=== PATIENT | male | born 1970 | race African-American/Black ===

== ENCOUNTER 2018-07-21 19:49 | Inpatient (IN) | payer MEDICAID, OTHER ==
[~2018-07-21] VITALS: Ht 185.4 cm; Wt 97.5 kg
[2018-07-21] MEDS ORDERED: NS IV 1000 ML 1,000 ML IV ONE ×2 (21:21→22:12)
[2018-07-21] MEDS ORDERED: fentaNYL INJECTION 100 MCG/2 ML AMP IVP STA (21:21)
[2018-07-21 21:28] LABS: BASOPHILS # (AUTO) 0.1 10^3/uL (0.0-0.1); BASOPHILS % (AUTO) 0 % (0-10); EOSINOPHILS % (AUTO) 0 % (0-10); HEMATOCRIT 36 % (40-54); HEMOGLOBIN 12.6 G/DL (13.3-17.7); LYMPHOCYTES # (AUTO) 0.9 X 10^3 (1.0-4.0); LYMPHOCYTES % (AUTO) 4 % (12-44); MEAN CORPUSCULAR HEMOGLOBIN 28 PG (25-34); MEAN CORPUSCULAR HGB CONC 35 G/DL (32-36); MEAN CORPUSCULAR VOLUME 80 FL (80-99); MEAN PLATELET VOLUME 12.5 FL (7.4-10.4); MONOCYTES # (AUTO) 1.2 X 10^3 (0.0-1.0); MONOCYTES % (AUTO) 6 % (0-12); NEUTROPHILS # (AUTO) 18.7 X 10^3 (1.8-7.8); NEUTROPHILS % (AUTO) 90 % (42-75); PLATELET COUNT 201 10^3/uL (130-400); RED BLOOD COUNT 4.56 10^6/uL (4.35-5.85); RED CELL DISTRIBUTION WIDTH 13.2 % (10.0-14.5); WHITE BLOOD COUNT 20.9 10^3/uL (4.3-11.0)
--- NOTE | 2018-07-21 21:38 | ED GI ---
General Stated Complaint: BLEEDING FROM RECTUM Source of Information: Patient Exam Limitations: No Limitations History of Present Illness Date Seen by Provider: Jul 21, 2018 Time Seen by Provider: 21:15 Initial Comments Here with complaint of swelling and pain near the rectum that has been worsening over the past several days. Has been incontinent of stool for the last couple of months. He did seen and Dr. sarath Esquivel who was talking with him about therapy options. Patient was not a great historian on what was going on but stated that that doctor told him he would likely need a colostomy so he quit going to see him. Today reports 2 days of rectal bleeding and drainage with significant pain. He is unable to lay on his bottom due to the swelling and pain. Remains incontinent of stool. Denies nausea or vomiting. 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 Apparently that mass was benign. She does not follow with her doctor typically. Timing/Duration: 2-3 Days, Getting Worse Severity/Quality: Moderate, Severe, Aching Location: Other (perirectal) Radiation: Other (buttocks and low pelvis) Activities at Onset: None Modifying Factors: Worsens With Movement Associated Symptoms: No Back Pain, No Chest Pain; Fever/Chills; No Nausea/ Vomiting; Shortness of Air, Weakness Allergies and Home Medications Allergies Coded Allergies: No Known Drug Allergies (Unverified , 07/21/18) Patient Home Medication List Home Medication List Reviewed: Yes Review of Systems Review of Systems Constitutional: see HPI, chills, fever EENTM: No Symptoms Reported Respiratory: Cough, Shortness of Air Cardiovascular: Denies Chest Pain, Denies Edema Gastrointestinal: Diarrhea, Rectal Bleeding Genitourinary: No Symptoms Reported Musculoskeletal: No back pain; muscle pain Skin: change in color, lesions Psychiatric/Neurological: See HPI All Other Systems Reviewed Negative Unless Noted: Yes Past Xmkiuat-Atrmsk-Pnzywp Hx Past Med/Social Hx: Reviewed Nursing Past Med/Soc Hx Patient Social History Alcohol Use: Denies Use Recreational Drug Use: No Smoking Status: Current Everyday Smoker Recent Foreign Travel: No Contact w/Someone Who Travel: No Past Medical History Lobectomy Respiratory: Yes Chronic Bronchitis Neurological: No Genitourinary: No Gastrointestinal: Yes Musculoskeletal: No Family Medical History Reviewed Nursing Family Hx Physical Exam Vital Signs Capillary Refill : Height/Weight/BMI Height: '" Weight: lbs. oz. kg; BMI Method: General Appearance: WD/WN, moderate distress HEENT: PERRL/EOMI, pharynx normal Neck: full range of motion, supple Respiratory: decreased breath sounds (left-sided), crackles, expiration Cardiovascular: no murmur, tachycardia Gastrointestinal: non tender, soft Rectal: blood streaked stool, mass, tenderness, other (very tender. Drainage noted perirectal on the superior aspect and left sided. Mass noted left-sided and within the left side of the rectum. Blood noted and bloody drainage noted.) Extremities: non-tender, normal inspection Back: normal inspection, no CVA tenderness, no vertebral tenderness Neurologic/Psychiatric: alert, oriented x 3 Skin: normal color, warm/dry Focused Exam Lactate Level 07/21/18 21:30: Lactic Acid Level 2.42*H Lactic Acid Level Laboratory Tests Test 07/21/18 21:30 Lactic Acid Level 2.42 MMOL/L (0.50-2.00) *H Progress/Results/Core Measures Results/Orders Lab Results Laboratory Tests Test 07/21/18 21:12 07/21/18 21:30 Range/Units White Blood Count 20.9 H 4.3-11.0 10^3/uL Red Blood Count 4.56 4.35-5.85 10^6/uL Hemoglobin 12.6 L 13.3-17.7 G/DL Hematocrit 36 L 40-54 % Mean Corpuscular Volume 80 80-99 FL Mean Corpuscular Hemoglobin 28 25-34 PG Mean Corpuscular Hemoglobin Concent 35 32-36 G/DL Red Cell Distribution Width 13.2 10.0-14.5 % Platelet Count 201 130-400 10^3/uL Mean Platelet Volume 12.5 H 7.4-10.4 FL Neutrophils (%) (Auto) 90 H 42-75 % Lymphocytes (%) (Auto) 4 L 12-44 % Monocytes (%) (Auto) 6 0-12 % Eosinophils (%) (Auto) 0 0-10 % Basophils (%) (Auto) 0 0-10 % Neutrophils # (Auto) 18.7 H 1.8-7.8 X 10^3 Lymphocytes # (Auto) 0.9 L 1.0-4.0 X 10^3 Monocytes # (Auto) 1.2 H 0.0-1.0 X 10^3 Eosinophils # (Auto) 0.0 0.0-0.3 10^3/uL Basophils # (Auto) 0.1 0.0-0.1 10^3/uL Neutrophils % (Manual) 85 % Lymphocytes % (Manual) 2 % Monocytes % (Manual) 6 % Eosinophils % (Manual) 0 % Basophils % (Manual) 0 % Band Neutrophils 7 % Blood Morphology Comment NORMAL Sodium Level 135 135-145 MMOL/L Potassium Level 3.7 3.6-5.0 MMOL/L Chloride Level 98 98-107 MMOL/L Carbon Dioxide Level 21 21-32 MMOL/L Anion Gap 16 H 5-14 MMOL/L Blood Urea Nitrogen 23 H 7-18 MG/DL Creatinine 2.03 H 0.60-1.30 MG/DL Estimat Glomerular Filtration Rate 35 BUN/Creatinine Ratio 11 Glucose Level 133 H 70-105 MG/DL Calcium Level 9.1 8.5-10.1 MG/DL Corrected Calcium 9.8 8.5-10.1 MG/DL Total Bilirubin 1.1 H 0.1-1.0 MG/DL Aspartate Amino Transf (AST/SGOT) 38 H 5-34 U/L Alanine Aminotransferase (ALT/SGPT) 32 0-55 U/L Alkaline Phosphatase 87 40-136 U/L Total Protein 7.1 6.4-8.2 GM/DL Albumin 3.1 L 3.2-4.5 GM/DL Lactic Acid Level 2.42 *H 0.50-2.00 MMOL/L My Orders Orders - ALICIA COREY MD Cbc With Automated Diff (07/21/18 21:21) Comprehensive Metabolic Panel (07/21/18 21:21) Lactic Acid Analyzer (07/21/18 21:21) Ua Culture If Indicated (07/21/18 21:21) Blood Culture (07/21/18 21:21) Ct Abdomen/Pelvis Wo (07/21/18 21:21) Saline Lock/Iv-Start (07/21/18 21:21) Fentanyl Injection (Sublimaze Injection (07/21/18 21:21) Saline Lock/Iv-Start (07/21/18 21:21) Ns Iv 1000 Ml (Sodium Chloride 0.9%) (07/21/18 21:21) I-Stat Bedside Testing (07/21/18 21:23) Manual Differential (07/21/18 21:12) Chest 1 View, Ap/Pa Only (07/21/18 22:08) Piperacillin Sodium/Tazobactam (Zosyn Vi (07/21/18 22:15) Saline Lock/Iv-Start (07/21/18 22:12) Ns Iv 1000 Ml (Sodium Chloride 0.9%) (07/21/18 22:12) Vancomycin Injection (Vancomycin Injecti (07/21/18 23:30) Medications Given in ED Current Medications Medications Dose Ordered Sig/Jen Route Start Time Stop Time Status Last Admin Dose Admin Piperacillin Sod/ Tazobactam Sod 4.5 gm/Sodium Chloride 100 ml @ 200 mls/hr ONCE ONCE IV 07/21/18 22:15 07/21/18 22:44 DC 07/21/18 23:07 200 MLS/HR Sodium Chloride 1,000 ml @ 0 mls/hr Q0M ONCE IV 07/21/18 21:21 07/21/18 21:24 DC 07/21/18 21:35 1,000 MLS/HR Sodium Chloride 1,000 ml @ 0 mls/hr Q0M ONCE IV 07/21/18 22:12 07/21/18 22:13 DC 07/21/18 22:30 1,000 MLS/HR Progress Progress Note : Progress Note IV, labs, UA, chest x-ray and i-STAT ordered for chemistry. Patient's creatinine is elevated. We will get CT abdomen and pelvis without contrast. There is concerns about perirectal mass and or perirectal abscess. Blood cultures and lactic acid have been drawn and ordered. Monitor patient. I have reviewed the CT scan of the patient and am concerned about perirectal abscess I did discuss the case with Dr. Jones at 2210. He wishes the patient to be admitted to the ICU. We will initiate Zosyn and vancomycin therapy. We are attempting second IV now. 2345: CT results noted. Zosyn and vancomycin initiated. Second liter of fluid has been initiated. Patient has findings of severe sepsis without shocked. He does not require high-volume Fluid resuscitation although did receive 2 L of normal saline exceeding the 30 mL/kg bolus. He is doing better currently. I attest focused exam at this time. I did inform the patient and family of the serious nature of his illness and concerns of potential worsening. At that to the ICU critical but stable condition. Patient and family agree with plan. Diagnostic Imaging Diagonstic Imaging: CT Plain Films/CT/US/NM/MRI: abdomen, pelvis Comments There is a large perirectal abscess projecting into the pelvis posterior to the bladder and with involvement of the rectal vault. There are locules of air but this appears to contain to the retroperitoneum at the level of the rectal vault without pre-or projecting into the peritoneal cavity proper. There is significant air fluid collection in the subcutaneous fat below the level of the sacrum with at least to partially isolated inflammatory fluid collections believed to present as described. This may represent a perirectal abscess projecting into the pelvic tissues but given the loss of margination with the rectal vault a diverticular abscess projecting into the perirectal subcutaneous tissues and potentially even a rectal malignancy presenting as a rectal abscess complication are possible etiologies. The epicenter is intrapelvic at the level of the hips and sacrum and so far I favor diverticular abscess or rectal trauma over hematogenous perirectal abscess or neoplasm. Departure Communication (Admissions) Time/Spoke to Admitting Phy: 22:10 Impression Primary Impression: Perirectal abscess Additional Impression: Severe sepsis Disposition: ADMITTED INPATIENT Condition: Critical Admissions Decision to Admit Reason: Admit from ER (General) Decision to Admit/Date: Jul 21, 2018 Time/Decision to Admit Time: 22:10 ALICIA COREY MD Jul 21, 2018 21:38
[2018-07-21 21:46] LABS: ALBUMIN 3.1 GM/DL (3.2-4.5); BILIRUBIN,TOTAL 1.1 MG/DL (0.1-1.0); CALCIUM 9.1 MG/DL (8.5-10.1); CREATININE SERUM 2.03 MG/DL (0.60-1.30); POTASSIUM 3.7 MMOL/L (3.6-5.0); TOTAL PROTEIN 7.1 GM/DL (6.4-8.2)
[2018-07-21 21:58] LABS: NEUTROPHILS % (MANUAL) 85 %
[2018-07-21 21:59] LABS: BAND NEUTROPHILS 7 %; BASOPHILS % (MANUAL) 0 %; EOSINOPHILS % (MANUAL) 0 %; LYMPHOCYTES % (MANUAL) 2 %; MONOCYTES % (MANUAL) 6 %; RBC MORPH NORMAL
[2018-07-21] MEDS ORDERED: PIPERACILLIN SODIUM/TAZOBACTAM 4.5 GM in NS (IVPB) 100 ML IV ONE (22:15)
[2018-07-21] MEDS ORDERED: VANCOMYCIN INJECTION 1,000 MG in NS (IVPB) 250 ML IV ONE (23:30)
[2018-07-22] VITALS (33 sets, daily range): BP systolic 71–130; BP diastolic 48–78
[2018-07-22] MEDS ORDERED: fentaNYL INJECTION 100 MCG/2 ML AMP ONE ×3 (00:49→10:07)
[2018-07-22] MEDS ORDERED: fentaNYL INJECTION 100 MCG/2 ML AMP IVP PRN (01:00)
[2018-07-22] MEDS ORDERED: NS IV 1000 ML 1,000 ML ONE (02:10)
[2018-07-22] MEDS: NS IV 1000 ML 1,000 ML IV SCH ×2 (02:10→07:17)
[2018-07-22] MEDS ORDERED: ONDANSETRON 4 MG/2 ML (SDV) Z0FRAN IV PRN (02:15)
[2018-07-22] MEDS ORDERED: NS IV ONE (02:15)
[2018-07-22] MEDS: NOREPINEPHRINE 4 MG in NS (IVPB) 250 ML IV SCH ×3 (02:23→22:00)
[2018-07-22] MEDS ORDERED: HYDROmorphone 1 MG/ML (DILAUDID) 1 ML SYRINGE IV ONE (02:45)
[2018-07-22] MEDS ORDERED: RT-ALBUTEROL/IPRATROPIUM 3 ML (DUONEB) VIAL INH PRN (03:00)
[2018-07-22] MEDS ORDERED: HYDROmorphone 2 MG/ML VIAL (DILAUDID) ONE ×2 (03:11→10:03)
[2018-07-22] MEDS: fentaNYL INJECTION 100 MCG/2 ML AMP IV PRN ×2 (03:58→17:21)
[2018-07-22] MEDS: PIPERACILLIN SODIUM/TAZOBACTAM 4.5 GM in NS (IVPB) 100 ML IV SCH ×3 (03:59→20:38)
--- NOTE | 2018-07-22 06:01 | Diagnostic Imaging Report ---
INDICATION: Rectal bleeding COMPARISON: None FINDINGS: Single frontal view of the chest demonstrates normal heart size and pulmonary vascularity. The lungs are well aerated and clear. No large pleural effusion or pneumothorax is seen. The visualized osseous structures show no acute abnormalities. IMPRESSION: 1. No acute cardiopulmonary process. Dictated by: Dictated on workstation # [id number]
[2018-07-22] MEDS: RT-ALBUTEROL/IPRATROPIUM 3 ML (DUONEB) VIAL INH SCH ×2 (06:59→19:29)
--- NOTE | 2018-07-22 07:09 | Diagnostic Imaging Report ---
PROCEDURE: CT abdomen and pelvis without contrast. TECHNIQUE: Multiple contiguous axial images were obtained through the abdomen and pelvis without the use of intravenous contrast. INDICATION: Rectal bleeding. FINDINGS: There is a necrotic appearing air-fluid collection in the perirectal region noted with the largest component noted left of the rectum though there is also a cystic component at the anterior and right of the rectum. The images are obtained in a prone position without contrast. The air-fluid cavitary area extends from the subcutaneous tissues to the perirectal region near the anal sphincter. This measures approximately 12 x 6 cm. There is considerable associated edema surrounding this. The tissue planes are lost between the rectum and the mesorectal fat with the fluid collection. An underlying rectal mass could not be excluded. The bladder is nondistended. There is gas and stool in the colon with fluid-filled loops of small bowel which are not significantly distended. No definite free air or free intraperitoneal air demonstrated. IMPRESSION: 1. Large necrotic appearing mass within the floor of the pelvis largest component left to the rectum extending to the subcutaneous surfaces. There is also cystic component anterior and to the right of the rectum and pelvis. These findings are consistent with perirectal abscess. An underlying malignancy, however, cannot be excluded. Dictated by: Dictated on workstation # [id number]
[2018-07-22] MEDS ORDERED: VANCOMYCIN 750 MG/NS 250 ML IVPB IV NR ×2 (07:27)
[2018-07-22] MEDS ORDERED: LACTATED RINGERS 1,000 ML IV ONE ×2 (08:13→08:30)
--- NOTE | 2018-07-22 08:54 | History & Physicial ---
History of Present Illness History of Present Illness Reason for visit/HPI rectal incontinence without any pain for a month followed by acute perirectal pain and bloody drainage from around the anal region for the last 3 days. Found to be septic with hypotension and impaired renal function in the emergency room, subsequently admitted for management. Denies any change in his bowel habits. Previous right lobectomy for what he claims to be a benign condition. Disabled since then. Date of Admission Jul 21, 2018 at 23:45 Date Seen by Provider: Jul 22, 2018 Time Seen by Provider: 08:00 I consulted on this patient on 07/22/18 08:49 Attending Physician Robert Arias MD Admitting Physician No,Local Physician Consult Allergies and Home Medications Allergies Coded Allergies: No Known Drug Allergies (Unverified , 07/21/18) Patient Home Medication List Home Medication List Reviewed: Yes Past Cajclyj-Ckzkgi-Zgpleu Hx Patient Social History Marrital Status: single Employed/Student: unemployed Alcohol Use: Denies Use Recreational Drug Use: No Drug of Choice: past use Smoking Status: Current Everyday Smoker Type Used: Cigarettes Physical Abuse Screen: No Sexual Abuse: No Recent Foreign Travel: No Contact w/other who traveled: No Recent Hopitalizations: No Recent Infectious Disease Expo: No Immunizations Up To Date Tetanus Booster (TDap): Unknown Pediatric: No Seasonal Allergies Seasonal Allergies: Yes (hayfever) Surgeries Yes (frequent foot surgeries for plantar warts) Lobectomy Respiratory Yes COPD Cardiovascular Yes Neurological No Genitourinary No Gastrointestinal No Musculoskeletal No Endocrine History of Endocrine Disorders: No HEENT History of HEENT Disorders: No Cancer Yes Lung Did You Recieve Any Treatments: Yes Type of Treatment: Surgical Intervention Psychosocial History of Psychiatric Problem: No Integumentary History of Skin or Integumenta: Yes (plantar warts to bilateral feet) Blood Transfusions History of Blood Disorders: No Family Medical History Family Hx: Patient reports no known family medical history. Review of Systems Constitutional: malaise, weakness EENTM: no symptoms reported Respiratory: cough, dyspnea on exertion Gastrointestinal: see HPI Genitourinary: no symptoms reported Musculoskeletal: back pain, joint pain Skin: no symptoms reported Psychiatric/Neurological: No Symptoms Reported Physical Exam Vital Signs Vital Signs - First Documented 07/21/18 07/22/18 20:45 02:15 Temp 98.2 Pulse 113 Resp 22 B/P (MAP) 95/69 (78) Pulse Ox 100 O2 Delivery Room Air FiO2 21 Capillary Refill : Less Than 3 Seconds Height, Weight, BMI Height: 6'1.00" Weight: 187lbs. 2.0oz. 84.557524fl; 24.5 BMI Method:Stated General Appearance: Anxious Neck: Normal Inspection Respiratory: Accessory Muscle Use, Decreased Breath Sounds Cardiovascular: Tachycardia Gastrointestinal: Non Tender, Soft Rectal: Other Back: Normal Inspection Extremity: Normal Inspection Neurologic/Psychiatric: Alert, Oriented x3 Skin: Warm/Dry, Cool Comments swelling and tenderness around the perirectal region, more toward the left side. Assessment/Plan Assessment and Plan gentleman with what appears to be a silvia rectal/ischiorectal abscess with gas forming organisms. New onset of anal incontinence. Etiology unknown. Underlying rectal/colonic pathology to be considered. Hypotension due to septic response. Impaired renal function due to sepsis. Fluid resuscitation in progress and systolic blood pressure has improved to just over 100. Reasonable to place a central venous catheter for invasive hemodynamic monitoring and more accurate fluid replacement, combined with formal incision and drainage under general anesthetic. Subsequently, he'll undergo bowel preparation, in anticipation of colonoscopy.All these complications have been discussed with him and he is in agreement to proceed Admission Diagnosis Admission Status: Inpatient Order (span 2 midnights) Reason for Inpatient Admission: expected management lasted longer than 2 days; requires antibiotics surgical therapy and antibiotics Clinical Quality Measures DVT/VTE Risk/Contraindication: Risk Factor Score Per Nursin RFS Level Per Nursing on Admit: 2=Moderate ROBERT ARIAS MD Jul 22, 2018 08:54
--- NOTE | 2018-07-22 08:55 | Progress Note-Pre Operative ---
Pre-Operative Progress Note H&P Reviewed The H&P was reviewed, patient examined and no changes noted. Date Seen by Provider: Jul 22, 2018 Time Seen by Provider: 08:00 Date H&P Reviewed: Jul 22, 2018 Time H&P Reviewed: 08:55 Pre-Operative Diagnosis: ischiorectal abscess. Hypotension ROBERT ARIAS MD Jul 22, 2018 08:55
[2018-07-22 09:12] LABS: CREATININE SERUM 1.83 MG/DL (0.60-1.30)
[2018-07-22] MEDS ORDERED: BUP/EPI 0.5% 1:200,000 (SENSORCAINE) 30 ML VIAL ONE (09:16)
[2018-07-22 09:23] LABS: CALCIUM 8.6 MG/DL (8.5-10.1)
[2018-07-22] MEDS: LACTATED RINGERS 1,000 ML IV SCH ×4 (09:29→23:06)
[2018-07-22] MEDS ORDERED: MIDAZOLAM 2 MG/2 ML (VERSED) VIAL ONE (09:36)
[2018-07-22] MEDS ORDERED: HEParin (CENTRAL IV FLUSH) 500 UNIT/5 ML SYR ONE (09:38)
[2018-07-22] MEDS ORDERED: MEPERIDINE (DEMEROL) INJ 50 MG/ML ONE (10:03)
[2018-07-22] MEDS ORDERED: proPOfol 200 MG/20 ML (DIPRIVAN) VIAL IV ONE (10:18)
[2018-07-22] MEDS ORDERED: SEVOFLURANE (ULTANE) 15 ML INHAL SOLN ONE ×4 (10:19→12:13)
[2018-07-22] MEDS ORDERED: ONDANSETRON 4 MG/2 ML (SDV) Z0FRAN ONE (10:19)
[2018-07-22] MEDS ORDERED: ETOMIDATE IV SOLN 20 MG/10 ML VIAL ONE (10:20)
--- NOTE | 2018-07-22 10:40 | Operative Report ---
Operative Report Date of Procedure/Surgery Jul 22, 2018 Surgeon (s) ROBERT ARIAS MD Call Or Contact Centre Manager (s): N/A Post-Operative Diagnosis 1.distal rectal lesion 2. Left ischiorectal abscess Procedure Performed central line placement Exam under anesthetic Incision and drainage of left ischiorectal abscess Description of Procedure Anesthesia Type: General Estimated blood loss (mL): minimal Specimen(s) collected/removed pus for culture Description of the Procedure Indication for the procedure: This gentleman with a one-month history of anal incontinence, presented to the emergency room with a brief history of swelling and pain around the perianal region. He was found to be hypotensive with what appeared to be an infected collection around the left perirectal region. Following fluid resuscitation and improvement of his blood pressure, he was offered an exam under anesthetic with possible incision and drainage of the offending abscess. Placing a central venous catheter for invasive hemodynamic monitoring and addressing poor venous access was also offered. Informed consent was obtained after reviewing the details of the procedure and highlighting the grave nature of this illness. Description of the procedure: He was initially placed supine on the operative table and general anesthesia induced using a laryngeal mask airway. He had received intravenous antibiotics prior to his arrival in the operating room. 1.Central venous catheter placement: Left infraclavicular fossa was prepared and draped in the usual sterile manner. Subclavian vein was accessed and a floppy guidewire introduced into the heart. Subcutaneous tract was gently dilated using a silastic sheath and a 7.5 Ethiopian, 20 cm long, triple lumen central venous catheter advanced using Seldinger technique. All the channels were flushed and aspirated with heparinized saline. Catheter was then secured using a silk suture and a dressing applied. 2. Exam under anesthetic/incision and drainage of left ischiorectal abscess: He was then placed in combined lithotomy position after a Rousseau catheter was placed. Examination confirmed a large swelling to the left of the anal margin. Digital examination give the impression of a distal rectal tumor. This would be confirmed by formal colonoscopy and biopsy. A 3 cm vertical incision was made over the left perirectal region and a large hematoma with early evidence of abscess formation evacuated. It had the configuration of an ischiorectal abscess. All the loculi were broken down and the cavity was irrigated with saline. 2 separate [place] drains were left within the cavity and secured with silk sutures. A dressing was then applied. He tolerated the procedure well and is taken to the recovery room after being extubated. Findings of the Procedure See op report Allergies and Home Medications Allergies Coded Allergies: No Known Drug Allergies (Unverified , 07/21/18) Patient Home Medication List Home Medication List Reviewed: Yes ROBERT ARIAS MD Jul 22, 2018 10:40
[2018-07-22] MEDS ORDERED: PROMETHAZINE INJ 25 MG/ML (PHENERGAN) AMP IVP ONE (11:15)
[2018-07-22] MEDS ORDERED: ONDANSETRON 4 MG/2 ML (SDV) Z0FRAN IVP PRN (11:15)
[2018-07-22] MEDS ORDERED: fentaNYL INJECTION 100 MCG/2 ML AMP IVP ONE (11:15)
[2018-07-22] MEDS ORDERED: HYDROmorphone 2 MG/ML VIAL (DILAUDID) IV ONE (11:15)
--- NOTE | 2018-07-22 11:17 | Diagnostic Imaging Report ---
INDICATION: Central line placement. Comparison with 07/21/2018. FINDINGS: Left central line is present. Tip overlies the superior vena caval shadow at the cavoatrial junction. The lungs are well-aerated. No pneumothorax or pleural effusions. Heart is mildly enlarged. IMPRESSION: Satisfactory left central line placement. Dictated by: Dictated on workstation # [id number]
[2018-07-22] MEDS ORDERED: VANCOMYCIN INJECTION 1,250 MG in NS (IVPB) 250 ML IV SCH (11:30)
[2018-07-22] MEDS ORDERED: MAGNESIUM CITRATE 300 ML BTL PO ONE ×2 (13:45→19:45)
[2018-07-22] MEDS ORDERED: NS IV 500 ML 500 ML ONE (15:31)
[2018-07-22] MEDS: VANCOMYCIN 1 GM/NS 250 ML IVPB IV SCH ×2 (20:37)
[2018-07-23] VITALS (42 sets, daily range): BP systolic 91–128; BP diastolic 56–89
[2018-07-23] MEDS: NOREPINEPHRINE 4 MG in NS (IVPB) 250 ML IV SCH (01:58)
[2018-07-23] MEDS: PIPERACILLIN SODIUM/TAZOBACTAM 4.5 GM in NS (IVPB) 100 ML IV SCH ×3 (03:40→21:46)
[2018-07-23 04:07] LABS: BASOPHILS % (AUTO) 0 % (0-10); EOSINOPHILS # (AUTO) 0.1 10^3/uL (0.0-0.3); EOSINOPHILS % (AUTO) 0 % (0-10); HEMATOCRIT 26 % (40-54); HEMOGLOBIN 9.1 G/DL (13.3-17.7); LYMPHOCYTES # (AUTO) 0.8 X 10^3 (1.0-4.0); LYMPHOCYTES % (AUTO) 5 % (12-44); MEAN CORPUSCULAR HEMOGLOBIN 27 PG (25-34); MEAN CORPUSCULAR HGB CONC 35 G/DL (32-36); MEAN CORPUSCULAR VOLUME 80 FL (80-99); MEAN PLATELET VOLUME 12.9 FL (7.4-10.4); MONOCYTES # (AUTO) 0.8 X 10^3 (0.0-1.0); MONOCYTES % (AUTO) 5 % (0-12); NEUTROPHILS % (AUTO) 89 % (42-75); PLATELET COUNT 168 10^3/uL (130-400); RED BLOOD COUNT 3.32 10^6/uL (4.35-5.85); RED CELL DISTRIBUTION WIDTH 13.1 % (10.0-14.5); WHITE BLOOD COUNT 15.8 10^3/uL (4.3-11.0)
[2018-07-23 04:26] LABS: ALBUMIN 2.2 GM/DL (3.2-4.5); BILIRUBIN,TOTAL 1.8 MG/DL (0.1-1.0); CALCIUM 8.2 MG/DL (8.5-10.1); CREATININE SERUM 2.05 MG/DL (0.60-1.30); PHOSPHORUS 3.4 MG/DL (2.3-4.7); POTASSIUM 3.7 MMOL/L (3.6-5.0); TOTAL PROTEIN 5.5 GM/DL (6.4-8.2)
--- NOTE | 2018-07-23 07:09 | Diagnostic Imaging Report ---
CLINICAL INDICATION: Patient with perirectal abscess and severe sepsis and renal failure. EXAM: Portable chest x-ray upright view. COMPARISON: Portable chest x-ray dated 07/22/2018. FINDINGS: There is slight improved aeration of left lung base with persistent increased density involving the periphery of the left midlung field left lung base. Considerations may include atelectasis versus infiltrate. There is no pleural effusion or pneumothorax. Pulmonary vasculature and cardiac silhouette is within normal limits. Surgical clips are seen overlying the left upper mediastinal region. Bone show no significant abnormality. Likely skin shadow seen overlying the periphery of the right hemithorax region. IMPRESSION: 1: Slight improved aeration of the left lung base and left midlung field, with persistent mild atelectasis versus infiltrate. 2: Otherwise remainder of this exam shows no significant interval change. Dictated by: Dictated on workstation # [id number]
[2018-07-23] MEDS: LACTATED RINGERS 1,000 ML IV SCH ×2 (07:26→16:30)
[2018-07-23] MEDS ORDERED: MAGNESIUM CITRATE 300 ML BTL PO NR ×2 (08:00→16:00)
[2018-07-23] MEDS: RT-ALBUTEROL/IPRATROPIUM 3 ML (DUONEB) VIAL INH SCH ×2 (08:55→19:34)
[2018-07-23] MEDS: VANCOMYCIN 1 GM/NS 250 ML IVPB IV SCH ×4 (08:57→21:47)
[2018-07-23 10:46] LABS: BASOPHILS % (AUTO) 0 % (0-10); EOSINOPHILS % (AUTO) 0 % (0-10); HEMATOCRIT 26 % (40-54); LYMPHOCYTES # (AUTO) 0.7 X 10^3 (1.0-4.0); LYMPHOCYTES % (AUTO) 5 % (12-44); MEAN CORPUSCULAR HEMOGLOBIN 28 PG (25-34); MEAN CORPUSCULAR HGB CONC 35 G/DL (32-36); MEAN CORPUSCULAR VOLUME 80 FL (80-99); MEAN PLATELET VOLUME 12.7 FL (7.4-10.4); MONOCYTES % (AUTO) 8 % (0-12); NEUTROPHILS # (AUTO) 11.6 X 10^3 (1.8-7.8); NEUTROPHILS % (AUTO) 87 % (42-75); PLATELET COUNT 168 10^3/uL (130-400); RED BLOOD COUNT 3.27 10^6/uL (4.35-5.85); RED CELL DISTRIBUTION WIDTH 13.4 % (10.0-14.5); WHITE BLOOD COUNT 13.4 10^3/uL (4.3-11.0)
[2018-07-23 11:08] LABS: ALBUMIN 2.1 GM/DL (3.2-4.5); BILIRUBIN,TOTAL 1.7 MG/DL (0.1-1.0); CALCIUM 8.2 MG/DL (8.5-10.1); CREATININE SERUM 1.54 MG/DL (0.60-1.30); POTASSIUM 3.6 MMOL/L (3.6-5.0); TOTAL PROTEIN 5.4 GM/DL (6.4-8.2)
[2018-07-23] MEDS ORDERED: ACETAMINOPHEN 500 MG TAB (TYLENOL) PO ONE (13:00)
--- NOTE | 2018-07-23 17:07 | Progress Note (SOAP) ---
Subjective Date Seen by Provider: Jul 23, 2018 Time Seen by Provider: 16:10 Subjective/Events-last exam bowel preparation in progress. Blood pressure stable without vasopressors. Reports minimal pain around the perirectal region. Renal function improving. Review of Systems General: Fatigue, Malaise HEENT: No Head Aches, No Eye Pain, No Ear Pain, No Dysphasia, No Sinus Congestion, No Post Nasal Drip, No Sore Throat Pulmonary: No Dyspnea, No Cough, No Pleuritic Chest Pain Cardiovascular: No: Chest Pain, Palpitations, Orthopnea, Paroxysmal Noc. Dyspnea, Edema, Lt Headedness Gastrointestinal: Diarrhea, Hematochezia, Other Genitourinary: No Dysuria, No Frequency, No Incontinence, No Hematuria, No Retention Musculoskeletal: No: other, neck pain, shoulder pain, arm pain, back pain, hand pain, leg pain, foot pain Neurological: Weakness Focused Exam Lactate Level 07/21/18 21:30: Lactic Acid Level 2.42*H 07/22/18 01:10: Lactic Acid Level 2.00 Objective Exam Vital Signs Date Time Temp Pulse Resp B/P (MAP) Pulse Ox O2 Delivery O2 Flow Rate FiO2 07/23/18 15:58 Room Air 07/23/18 15:57 99.9 Room Air 07/23/18 15:00 105 17 107/72 (84) 100 Room Air 07/23/18 14:00 112 6 105/69 (81) 100 Room Air 07/23/18 13:33 99.3 07/23/18 13:03 100.4 07/23/18 13:00 107 07/23/18 13:00 105 11 117/78 (91) 100 Room Air 07/23/18 12:35 Room Air 07/23/18 12:34 100.4 Room Air 07/23/18 12:00 109 20 124/85 (98) 100 Room Air 07/23/18 11:00 109 7 118/72 (87) 100 Room Air 07/23/18 10:00 107 22 110/80 (90) 100 Room Air 07/23/18 09:00 96 16 112/76 (88) 100 Room Air 07/23/18 08:30 98.7 Room Air 07/23/18 08:30 Room Air 07/23/18 08:00 97 21 110/74 (86) 100 Room Air 07/23/18 07:00 105 23 125/84 (98) 100 Room Air 07/23/18 07:00 103 07/23/18 06:00 108 10 108/73 (85) 100 Room Air 07/23/18 05:45 108 24 98/74 (82) 100 Room Air 07/23/18 05:30 105 22 116/76 (89) 100 Room Air 07/23/18 05:15 112 22 120/75 (90) 100 Room Air 07/23/18 05:00 109 9 119/74 (89) 93 Room Air 07/23/18 04:45 108 25 104/74 (84) 100 Room Air 07/23/18 04:30 105 23 114/71 (85) 100 Room Air 07/23/18 04:17 97.8 07/23/18 04:15 107 23 111/73 (86) 100 Room Air 07/23/18 04:00 100 Room Air 07/23/18 04:00 105 23 108/73 (85) 100 Room Air 07/23/18 03:45 105 9 105/77 (86) 100 Room Air 07/23/18 03:30 110 24 105/66 (79) 100 Room Air 07/23/18 03:15 107 26 103/66 (78) 100 Room Air 07/23/18 03:00 115 23 91/62 (72) 100 Room Air 07/23/18 02:45 113 28 96/62 (73) 100 Room Air 07/23/18 02:30 111 27 94/59 (71) 100 Room Air 07/23/18 02:15 112 26 109/62 (78) 100 Room Air 07/23/18 02:00 112 25 97/61 (73) 100 Room Air 07/23/18 01:45 116 24 101/56 (71) 100 Room Air 07/23/18 01:30 105 28 111/71 (84) 100 Room Air 07/23/18 01:15 109 26 109/71 (84) 100 Room Air 07/23/18 01:00 112 07/23/18 01:00 112 28 116/69 (85) 100 Room Air 07/23/18 00:45 115 27 108/64 (79) 100 Room Air 07/23/18 00:30 113 29 101/63 (76) 100 Room Air 07/23/18 00:15 117 26 108/60 (76) 100 Room Air 07/23/18 00:00 120 16 107/64 (78) 100 Room Air 07/23/18 00:00 100 Room Air 07/22/18 23:56 98.7 07/22/18 23:45 112 21 104/60 (75) 100 Room Air 07/22/18 23:30 113 23 101/64 (76) 100 Room Air 07/22/18 23:15 111 21 103/66 (78) 100 Room Air 07/22/18 23:00 111 25 83/59 (67) 100 Room Air 07/22/18 22:45 115 9 99/65 (76) 100 Room Air 07/22/18 22:30 116 10 100/57 (71) 98 Room Air 07/22/18 22:15 111 24 97/59 (72) 100 Room Air 07/22/18 22:00 112 27 76/48 (57) 100 Room Air 07/22/18 21:00 122 8 90/53 (65) 100 Room Air 07/22/18 20:19 99.4 07/22/18 20:00 100 Room Air 07/22/18 20:00 121 26 84/52 (63) 100 Room Air 07/22/18 19:29 100 Room Air 07/22/18 19:00 122 07/22/18 19:00 122 26 91/51 (64) 100 Room Air 07/22/18 18:00 128 26 96/51 (66) 100 Room Air I & O 07/23/18 07:00 Intake Total 6920 ml Output Total 1655 ml Balance 5265 ml Capillary Refill : Less Than 3 Seconds General Appearance: No Apparent Distress Neck: Normal Inspection Respiratory: Lungs Clear Cardiovascular: Tachycardia Gastrointestinal: non tender, soft Neurologic/Psychiatric: Alert Skin: Warm/Dry Results Lab Laboratory Tests 07/23/18 04:00: White Blood Count 15.8H, Red Blood Count 3.32L, Hemoglobin 9.1#L, Hematocrit 26L , Mean Corpuscular Volume 80, Mean Corpuscular Hemoglobin 27, Mean Corpuscular Hemoglobin Concent 35, Red Cell Distribution Width 13.1, Platelet Count 168, Mean Platelet Volume 12.9H, Neutrophils (%) (Auto) 89H, Lymphocytes (%) (Auto) 5L, Monocytes (%) (Auto) 5, Eosinophils (%) (Auto) 0, Basophils (%) (Auto) 0, Neutrophils # (Auto) 14.0H, Lymphocytes # (Auto) 0.8L, Monocytes # (Auto) 0.8, Eosinophils # (Auto) 0.1, Basophils # (Auto) 0.0, Sodium Level 136, Potassium Level 3.7, Chloride Level 105, Carbon Dioxide Level 20L, Anion Gap 11, Blood Urea Nitrogen 35H, Creatinine 2.05H, Estimat Glomerular Filtration Rate 42, BUN/ Creatinine Ratio 17, Glucose Level 120H, Calcium Level 8.2L, Corrected Calcium 9.6, Phosphorus Level 3.4, Magnesium Level 2.0, Total Bilirubin 1.8H, Aspartate Amino Transf (AST/SGOT) 49H, Alanine Aminotransferase (ALT/SGPT) 30, Alkaline Phosphatase 64, Total Protein 5.5L, Albumin 2.2L 07/23/18 10:40: White Blood Count 13.4H, Red Blood Count 3.27L, Hemoglobin 9.0L, Hematocrit 26L , Mean Corpuscular Volume 80, Mean Corpuscular Hemoglobin 28, Mean Corpuscular Hemoglobin Concent 35, Red Cell Distribution Width 13.4, Platelet Count 168, Mean Platelet Volume 12.7H, Neutrophils (%) (Auto) 87H, Lymphocytes (%) (Auto) 5L, Monocytes (%) (Auto) 8, Eosinophils (%) (Auto) 0, Basophils (%) (Auto) 0, Neutrophils # (Auto) 11.6H, Lymphocytes # (Auto) 0.7L, Monocytes # (Auto) 1.0, Eosinophils # (Auto) 0.0, Basophils # (Auto) 0.0, Sodium Level 138, Potassium Level 3.6, Chloride Level 106, Carbon Dioxide Level 24, Anion Gap 8, Blood Urea Nitrogen 31H, Creatinine 1.54H, Estimat Glomerular Filtration Rate 59, BUN/ Creatinine Ratio 20, Glucose Level 120H, Calcium Level 8.2L, Corrected Calcium 9.7, Total Bilirubin 1.7H, Aspartate Amino Transf (AST/SGOT) 61H, Alanine Aminotransferase (ALT/SGPT) 37, Alkaline Phosphatase 65, Total Protein 5.4L, Albumin 2.1L Microbiology 07/21/18 Blood Culture - Preliminary, Resulted No growth 07/22/18 MRSA Screen - Final, Complete 07/22/18 Gram Stain - Final, Resulted 07/22/18 Anaerobic Culture, Resulted Pending 07/22/18 Surgical Culture - Preliminary, Resulted Pseudomonas aeruginosa Escherichia coli Actinomyces species Assessment/Plan Assessment/Plan Assess & Plan/Chief Complaint gentleman with initial presentation of hypotension due to sepsis. Perirectal abscess, cultures pending. New onset of anal incontinence with the potential for a tumor in the rectum. Colonoscopy in a.m. Final Diagnosis anal incontinence. Rectal bleeding. Perirectal abscess. Sepsis Clinical Quality Measures Admission Status Admission Dx gentleman with what appears to be a silvia rectal/ischiorectal abscess with gas forming organisms. New onset of anal incontinence. Etiology unknown. Underlying rectal/colonic pathology to be considered. Hypotension due to septic response. Impaired renal function due to sepsis. Fluid resuscitation in progress and systolic blood pressure has improved to just over 100. Reasonable to place a central venous catheter for invasive hemodynamic monitoring and more accurate fluid replacement, combined with formal incision and drainage under general anesthetic. Subsequently, he'll undergo bowel preparation, in anticipation of colonoscopy.All these complications have been discussed with him and he is in agreement to proceed DVT/VTE Risk/Contraindication: Risk Factor Score Per Nursin RFS Level Per Nursing on Admit: 2=Moderate ROBERT ARIAS MD Jul 23, 2018 17:07
[2018-07-23] MEDS ORDERED: TROUGH ORDER-PHARMACY XX NR (19:00)
[2018-07-23] MEDS: fentaNYL INJECTION 100 MCG/2 ML AMP IV PRN ×4 (21:12→23:28)
[2018-07-24] VITALS (14 sets, daily range): BP systolic 108–136; BP diastolic 64–84
[2018-07-24] MEDS: fentaNYL INJECTION 100 MCG/2 ML AMP IV PRN ×6 (00:01→15:36)
[2018-07-24] MEDS: LACTATED RINGERS 1,000 ML IV SCH ×2 (01:00→12:08)
[2018-07-24 04:02] LABS: BASOPHILS % (AUTO) 0 % (0-10); EOSINOPHILS # (AUTO) 0.1 10^3/uL (0.0-0.3); EOSINOPHILS % (AUTO) 1 % (0-10); HEMATOCRIT 27 % (40-54); HEMOGLOBIN 9.2 G/DL (13.3-17.7); LYMPHOCYTES % (AUTO) 8 % (12-44); MEAN CORPUSCULAR HEMOGLOBIN 27 PG (25-34); MEAN CORPUSCULAR HGB CONC 34 G/DL (32-36); MEAN CORPUSCULAR VOLUME 79 FL (80-99); MEAN PLATELET VOLUME 12.8 FL (7.4-10.4); MONOCYTES % (AUTO) 9 % (0-12); NEUTROPHILS # (AUTO) 9.4 X 10^3 (1.8-7.8); NEUTROPHILS % (AUTO) 81 % (42-75); PLATELET COUNT 184 10^3/uL (130-400); RED BLOOD COUNT 3.39 10^6/uL (4.35-5.85); RED CELL DISTRIBUTION WIDTH 13.3 % (10.0-14.5); WHITE BLOOD COUNT 11.5 10^3/uL (4.3-11.0)
[2018-07-24 04:20] LABS: ALANINE AMINOTRANSFERASE 53 U/L (0-55); ALBUMIN 2.2 GM/DL (3.2-4.5); ALKALINE PHOSPHATASE 98 U/L (40-136); BILIRUBIN,TOTAL 1.4 MG/DL (0.1-1.0); BUN/CREATININE RATIO 18; CALCIUM 8.6 MG/DL (8.5-10.1); CARBON DIOXIDE 22 MMOL/L (21-32); CHLORIDE 106 MMOL/L (98-107); CREATININE SERUM 1.04 MG/DL (0.60-1.30); GFR ESTIMATED > 60; GLUCOSE 104 MG/DL (70-105); PHOSPHORUS 1.9 MG/DL (2.3-4.7); POTASSIUM 3.5 MMOL/L (3.6-5.0); SODIUM 137 MMOL/L (135-145); TOTAL PROTEIN 5.4 GM/DL (6.4-8.2)
[2018-07-24] MEDS ORDERED: NS (IVPB) 100 ML ONE (04:52)
[2018-07-24] MEDS: PIPERACILLIN SODIUM/TAZOBACTAM 4.5 GM in NS (IVPB) 100 ML IV SCH ×3 (05:02→20:22)
[2018-07-24] MEDS ORDERED: proPOfol 200 MG/20 ML (DIPRIVAN) VIAL IV ONE (06:52)
[2018-07-24] MEDS ORDERED: NS IV 1000 ML 1,000 ML ONE (07:18)
--- NOTE | 2018-07-24 08:08 | Endo Procedure Record ---
Endo Procedure Report Date of Procedure Last Colonoscopy: No Jul 24, 2018 Surgeon (s) ROBERT ARIAS MD Country Singer (s): N/A Post Procedure/Op Diagnosis proliferative tumor at the distal rectum, occupying three fourths of the circumference. Procedure Performed colonoscopy to cecum Biopsy of rectal tumor Description of Procedure Anesthesia Type: Conscious Sedation Specimen(s) collected/removed fragments of rectal tumor Description of the Procedure Indication for the procedure: This gentleman has been admitted with hypotension due to sepsis, returning to a large ischiorectal abscess. Over the past month, he reported having developed anal incontinence. Will the abscess was drained, rectal examination was suggestive of a distal rectal tumor. Once his systemic condition improved, colonoscopy was offered for further evaluation and establishing a definitive diagnosis. Informed consent was obtained after reviewing the procedure in detail. Description of the procedure: He was monitored in the ICU and conscious sedation achieved using propofol infusion by our ORE TRIMMER. Digital rectal examination confirmed a tumor described above. It is within easy reach of the examining finger. The colonoscope was then introduced in the rectum and advanced all the way up to the cecum. The quality of bowel preparation was excellent. The scope was then withdrawn slowly and the mucosa examined in a systematic fashion. Findings: Proliferative tumor, having the appearance of a carcinoma, involving the distal rectum, occupying three fourths of the circumference. Photo documentation and multiple biopsies were obtained. There was no synchronous lesion elsewhere in the colon. he tolerated the procedure reasonably well. Impression: Distal rectal carcinoma. Await histologic confirmation and plan management. Ischiorectal abscess improving. ROBERT ARIAS MD Jul 24, 2018 08:08
[2018-07-24] MEDS ORDERED: POTASSIUM PHOSPHATE INJ 30 MM in NS (IVPB) 250 ML IV ONE (08:30)
[2018-07-24] MEDS: RT-ALBUTEROL/IPRATROPIUM 3 ML (DUONEB) VIAL INH SCH ×2 (08:30→19:16)
[2018-07-24] MEDS: VANCOMYCIN 1 GM/NS 250 ML IVPB IV SCH ×4 (08:52→20:06)
[2018-07-24] MEDS: NOREPINEPHRINE 4 MG in NS (IVPB) 250 ML IV SCH (09:12)
--- NOTE | 2018-07-24 09:13 | Diagnostic Imaging Report ---
INDICATION: Perirectal abscess, severe sepsis, renal failure.. TECHNIQUE: Single view chest 3:43 AM. CORRELATION STUDY: 07/23/2018 FINDINGS: Heart size enlarged. Vascular overall within normal limits. Lung bailey demonstrate slight left lung volume loss. Likely scarring left costophrenic angle. No infiltrate. Surgical clips over the left lung apex in paramediastinal region. IMPRESSION: 1. Generally stable chest. Likely scarring versus less likely infiltrate of the left lung base. Cardiac enlarged without failure. Dictated by: Dictated on workstation # [id number]
--- NOTE | 2018-07-24 11:58 | Anesthesia-General Post-Op ---
MAC Patient Condition Mental Status/LOC: Same as Preop Cardiovascular: Satisfactory Nausea/Vomiting: Absent Respiratory: Satisfactory Pain: Controlled Complications: Absent Post Op Complications Complications None Follow Up Care/Instructions Patient Instructions None needed. Anesthesiology Discharge Order Discharge Order Patient is doing well, no complaints, stable vital signs, no apparent adverse anesthesia problems. No complications reported per nursing. BRIAN ROSAS CRNA Jul 24, 2018 11:58
[2018-07-24] MEDS: CATHETER FLUSH 10 ML SYR IV SCH (20:22)
[2018-07-24] MEDS: ACETAMINOPHEN 325 MG TABLET PO PRN (21:43)
[2018-07-25] VITALS: BP 120/72
[2018-07-25] MEDS: PIPERACILLIN SODIUM/TAZOBACTAM 4.5 GM in NS (IVPB) 100 ML IV SCH ×3 (03:26→20:00)
[2018-07-25] MEDS: CATHETER FLUSH 10 ML SYR IV SCH ×3 (05:54→21:28)
[2018-07-25 07:40] LABS: BASOPHILS # (AUTO) 0.1 10^3/uL (0.0-0.1); BASOPHILS % (AUTO) 0 % (0-10); EOSINOPHILS # (AUTO) 0.3 10^3/uL (0.0-0.3); EOSINOPHILS % (AUTO) 2 % (0-10); HEMATOCRIT 27 % (40-54); HEMOGLOBIN 9.2 G/DL (13.3-17.7); LYMPHOCYTES # (AUTO) 1.4 X 10^3 (1.0-4.0); LYMPHOCYTES % (AUTO) 10 % (12-44); MEAN CORPUSCULAR HGB CONC 34 G/DL (32-36); MEAN CORPUSCULAR VOLUME 80 FL (80-99); MEAN PLATELET VOLUME 12.4 FL (7.4-10.4); MONOCYTES # (AUTO) 1.7 X 10^3 (0.0-1.0); MONOCYTES % (AUTO) 11 % (0-12); NEUTROPHILS # (AUTO) 11.3 X 10^3 (1.8-7.8); NEUTROPHILS % (AUTO) 77 % (42-75); PLATELET COUNT 189 10^3/uL (130-400); RED BLOOD COUNT 3.35 10^6/uL (4.35-5.85); RED CELL DISTRIBUTION WIDTH 13.7 % (10.0-14.5); WHITE BLOOD COUNT 14.7 10^3/uL (4.3-11.0)
[2018-07-25 07:43] LABS: MEAN CORPUSCULAR HEMOGLOBIN 27 PG (25-34)
[2018-07-25 08:00] VITALS: BP 128/73
[2018-07-25 08:05] LABS: ALANINE AMINOTRANSFERASE 78 U/L (0-55); ALKALINE PHOSPHATASE 122 U/L (40-136); BILIRUBIN,TOTAL 0.9 MG/DL (0.1-1.0); BUN/CREATININE RATIO 12; CALCIUM 8.1 MG/DL (8.5-10.1); CARBON DIOXIDE 26 MMOL/L (21-32); CHLORIDE 105 MMOL/L (98-107); CREATININE SERUM 0.81 MG/DL (0.60-1.30); GFR ESTIMATED > 60; GLUCOSE 110 MG/DL (70-105); MAGNESIUM 1.6 MG/DL (1.8-2.4); PHOSPHORUS 2.9 MG/DL (2.3-4.7); POTASSIUM 3.3 MMOL/L (3.6-5.0); SODIUM 138 MMOL/L (135-145); TOTAL PROTEIN 5.4 GM/DL (6.4-8.2)
[2018-07-25] MEDS: VANCOMYCIN 1 GM/NS 250 ML IVPB IV SCH ×4 (08:29→20:07)
[2018-07-25] MEDS ORDERED: KCL 20 MEQ TAB (K-DUR) PO NR (09:45)
[2018-07-25] MEDS: fentaNYL INJECTION 100 MCG/2 ML AMP IV PRN ×4 (10:24→20:06)
--- NOTE | 2018-07-25 11:07 | Progress Note (SOAP) ---
Subjective Date Seen by Provider: Jul 25, 2018 Time Seen by Provider: 11:06 Subjective/Events-last exam colonoscopy findings disclosed. Final histologic report pending. Hypokalemia, replaced. White cell count trending down. Low-grade fever. Review of Systems General: Malaise HEENT: No Head Aches, No Eye Pain, No Ear Pain, No Dysphasia, No Sinus Congestion, No Post Nasal Drip, No Sore Throat Pulmonary: No Dyspnea, No Cough, No Pleuritic Chest Pain Cardiovascular: No: Chest Pain, Palpitations, Orthopnea, Paroxysmal Noc. Dyspnea, Edema, Lt Headedness Gastrointestinal: Diarrhea Genitourinary: No Dysuria, No Frequency, No Incontinence, No Hematuria, No Retention Musculoskeletal: No: other, neck pain, shoulder pain, arm pain, back pain, hand pain, leg pain, foot pain Neurological: Weakness Objective Exam Vital Signs Date Time Temp Pulse Resp B/P (MAP) Pulse Ox O2 Delivery O2 Flow Rate FiO2 07/25/18 09:16 96 96 21 07/25/18 08:00 98.9 97 18 128/73 (91) 99 Room Air 07/25/18 07:23 96 Room Air 07/25/18 00:00 100.2 106 16 120/72 (88) 97 Room Air 07/24/18 22:13 100.1 07/24/18 21:43 101.0 07/24/18 21:00 Room Air 07/24/18 20:29 100.7 108 16 134/81 (98) 98 Room Air 07/24/18 15:40 101.0 111 16 136/81 (99) 99 Room Air 07/24/18 14:00 112 26 133/84 (100) Room Air 07/24/18 13:00 112 22 127/84 (98) Room Air 07/24/18 13:00 112 07/24/18 12:00 115 21 123/73 (90) 99 Room Air 07/24/18 11:30 Room Air 07/24/18 11:30 99.2 Room Air I & O 07/25/18 07:00 Intake Total 3080 ml Output Total 950 ml Balance 2130 ml Capillary Refill : Less Than 3 Seconds General Appearance: No Apparent Distress Neck: Normal Inspection Respiratory: Lungs Clear Cardiovascular: Regular Rate, Rhythm Gastrointestinal: non tender, soft Skin: Warm/Dry Results Lab Laboratory Tests 07/25/18 07:30: White Blood Count 14.7H, Red Blood Count 3.35L, Hemoglobin 9.2L, Hematocrit 27L , Mean Corpuscular Volume 80, Mean Corpuscular Hemoglobin 27, Mean Corpuscular Hemoglobin Concent 34, Red Cell Distribution Width 13.7, Platelet Count 189, Mean Platelet Volume 12.4H, Neutrophils (%) (Auto) 77H, Lymphocytes (%) (Auto) 10L, Monocytes (%) (Auto) 11, Eosinophils (%) (Auto) 2, Basophils (%) (Auto) 0, Neutrophils # (Auto) 11.3H, Lymphocytes # (Auto) 1.4, Monocytes # (Auto) 1.7H, Eosinophils # (Auto) 0.3, Basophils # (Auto) 0.1, Sodium Level 138, Potassium Level 3.3L, Chloride Level 105, Carbon Dioxide Level 26, Anion Gap 7, Blood Urea Nitrogen 10, Creatinine 0.81, Estimat Glomerular Filtration Rate > 60, BUN/ Creatinine Ratio 12, Glucose Level 110H, Calcium Level 8.1L, Corrected Calcium 9.7, Phosphorus Level 2.9, Magnesium Level 1.6L, Total Bilirubin 0.9, Aspartate Amino Transf (AST/SGOT) 130H, Alanine Aminotransferase (ALT/SGPT) 78H, Alkaline Phosphatase 122, Total Protein 5.4L, Albumin 2.0L Microbiology 07/21/18 Blood Culture - Preliminary, Resulted No growth 07/22/18 MRSA Screen - Final, Complete 07/22/18 Gram Stain - Final, Resulted 07/22/18 Anaerobic Culture - Preliminary, Resulted Culture In Progress 07/22/18 Surgical Culture - Preliminary, Resulted Pseudomonas aeruginosa Escherichia coli Actinomyces species Assessment/Plan Assessment/Plan Assess & Plan/Chief Complaint gentleman with initial presentation of hypotension due to sepsis. Perirectal abscess, cultures pending. New onset of anal incontinence with the potential for a tumor in the rectum. Colonoscopy in a.m. ischiorectal abscess, improving. On IV antibiotics. Hypokalemia, replaced. Possible distal rectal carcinoma. Potential for chemoradiation discussed and patient appears to be receptive. Final Diagnosis ischiorectal abscess. Distal rectal tumor Clinical Quality Measures Admission Status Admission Dx gentleman with what appears to be a silvia rectal/ischiorectal abscess with gas forming organisms. New onset of anal incontinence. Etiology unknown. Underlying rectal/colonic pathology to be considered. Hypotension due to septic response. Impaired renal function due to sepsis. Fluid resuscitation in progress and systolic blood pressure has improved to just over 100. Reasonable to place a central venous catheter for invasive hemodynamic monitoring and more accurate fluid replacement, combined with formal incision and drainage under general anesthetic. Subsequently, he'll undergo bowel preparation, in anticipation of colonoscopy.All these complications have been discussed with him and he is in agreement to proceed DVT/VTE Risk/Contraindication: Risk Factor Score Per Nursin RFS Level Per Nursing on Admit: 2=Moderate ROBERT ARIAS MD Jul 25, 2018 11:07
[2018-07-25 12:00] VITALS: BP 125/70
[2018-07-25] MEDS: ACETAMINOPHEN 325 MG TABLET PO PRN (13:33)
[2018-07-25 16:55] VITALS: BP 122/81
[2018-07-25] MEDS: RT-ALBUTEROL/IPRATROPIUM 3 ML (DUONEB) VIAL INH SCH (20:33)
[2018-07-25 20:50] VITALS: BP 115/76
[2018-07-25] MEDS: morphine INJ 4 MG/ML 1 ML (VIAL/SYRINGE) IVP PRN ×2 (21:28→23:25)
[2018-07-26] VITALS: BP 131/77
[2018-07-26] MEDS: morphine INJ 4 MG/ML 1 ML (VIAL/SYRINGE) IVP PRN ×9 (02:12→23:59)
[2018-07-26] MEDS: PIPERACILLIN SODIUM/TAZOBACTAM 4.5 GM in NS (IVPB) 100 ML IV SCH ×3 (03:49→20:12)
[2018-07-26 04:13] VITALS: BP 142/74
[2018-07-26] MEDS: CATHETER FLUSH 10 ML SYR IV SCH ×3 (05:42→21:12)
[2018-07-26] MEDS: ACETAMINOPHEN 325 MG TABLET PO PRN (07:57)
[2018-07-26 08:00] VITALS: BP 126/66
[2018-07-26 08:30] LABS: BASOPHILS % (AUTO) 0 % (0-10); EOSINOPHILS # (AUTO) 0.2 10^3/uL (0.0-0.3); EOSINOPHILS % (AUTO) 1 % (0-10); HEMATOCRIT 27 % (40-54); LYMPHOCYTES # (AUTO) 1.9 X 10^3 (1.0-4.0); LYMPHOCYTES % (AUTO) 11 % (12-44); MEAN CORPUSCULAR HEMOGLOBIN 28 PG (25-34); MEAN CORPUSCULAR HGB CONC 34 G/DL (32-36); MEAN CORPUSCULAR VOLUME 81 FL (80-99); MEAN PLATELET VOLUME 12.6 FL (7.4-10.4); MONOCYTES # (AUTO) 2.3 X 10^3 (0.0-1.0); MONOCYTES % (AUTO) 13 % (0-12); NEUTROPHILS # (AUTO) 13.3 X 10^3 (1.8-7.8); NEUTROPHILS % (AUTO) 75 % (42-75); PLATELET COUNT 196 10^3/uL (130-400); RED BLOOD COUNT 3.26 10^6/uL (4.35-5.85); RED CELL DISTRIBUTION WIDTH 13.9 % (10.0-14.5); WHITE BLOOD COUNT 17.8 10^3/uL (4.3-11.0)
[2018-07-26 08:48] LABS: BUN/CREATININE RATIO 8; CALCIUM 7.9 MG/DL (8.5-10.1); CARBON DIOXIDE 24 MMOL/L (21-32); CHLORIDE 102 MMOL/L (98-107); CREATININE SERUM 0.75 MG/DL (0.60-1.30); GFR ESTIMATED > 60; GLUCOSE 81 MG/DL (70-105); POTASSIUM 3.4 MMOL/L (3.6-5.0); SODIUM 135 MMOL/L (135-145)
[2018-07-26] MEDS ORDERED: KCL 20 MEQ TAB (K-DUR) PO NR (09:15)
[2018-07-26] MEDS: RT-ALBUTEROL/IPRATROPIUM 3 ML (DUONEB) VIAL INH SCH ×2 (10:25→19:34)
[2018-07-26 11:48] VITALS: BP 128/68
--- NOTE | 2018-07-26 15:40 | Progress Note (SOAP) ---
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 I have disclosed this to him and his sister, who was at the bedside. In addition, I have also discussed with Dr. Dale, one of our oncologists too formulate a treatment plan.it is been agreed that he could be discharged home with antibiotics with arrangements for an outpatient CT of his chest abdomen and pelvis followed by consultation with Dr. Dale and the radiation oncologist. Review of Systems General: No Chills, No Night Sweats, No Fatigue, No Malaise HEENT: No Head Aches, No Eye Pain, No Ear Pain, No Dysphasia, No Sinus Congestion, No Post Nasal Drip, No Sore Throat Pulmonary: No Dyspnea, No Cough, No Pleuritic Chest Pain Cardiovascular: No: Chest Pain, Palpitations, Orthopnea, Paroxysmal Noc. Dyspnea, Edema, Lt Headedness Gastrointestinal: Diarrhea, Other Genitourinary: No Dysuria, No Frequency, No Incontinence, No Hematuria, No Retention Musculoskeletal: No: other, neck pain, shoulder pain, arm pain, back pain, hand pain, leg pain, foot pain Neurological: Weakness Objective Exam Vital Signs Date Time Temp Pulse Resp B/P (MAP) Pulse Ox O2 Delivery O2 Flow Rate FiO2 07/26/18 11:48 98.4 106 16 128/68 (88) 96 Room Air 07/26/18 10:25 96 Room Air 07/26/18 08:46 99.3 07/26/18 08:45 99.3 07/26/18 08:45 99.3 07/26/18 08:00 100.5 103 13 126/66 (86) 96 Room Air 07/26/18 07:57 100.5 07/26/18 04:13 97.9 102 18 142/74 (96) 98 Room Air 07/26/18 00:00 99.7 106 19 131/77 (95) 99 Room Air 07/25/18 20:50 100.3 96 18 115/76 (89) 98 Room Air 07/25/18 20:33 95 Room Air 07/25/18 16:55 98.9 105 16 122/81 (95) 96 Room Air I & O 07/26/18 07:00 Intake Total 1150 ml Output Total 900 ml Balance 250 ml Capillary Refill : Less Than 3 Seconds General Appearance: No Apparent Distress Respiratory: Lungs Clear Cardiovascular: Regular Rate, Rhythm Gastrointestinal: non tender, soft Neurologic/Psychiatric: Oriented x3 Skin: Warm/Dry Results Lab Laboratory Tests 07/26/18 05:40: White Blood Count 17.8H, Red Blood Count 3.26L, Hemoglobin 9.0L, Hematocrit 27L , Mean Corpuscular Volume 81, Mean Corpuscular Hemoglobin 28, Mean Corpuscular Hemoglobin Concent 34, Red Cell Distribution Width 13.9, Platelet Count 196, Mean Platelet Volume 12.6H, Neutrophils (%) (Auto) 75, Lymphocytes (%) (Auto) 11L, Monocytes (%) (Auto) 13H, Eosinophils (%) (Auto) 1, Basophils (%) (Auto) 0 , Neutrophils # (Auto) 13.3H, Lymphocytes # (Auto) 1.9, Monocytes # (Auto) 2.3H , Eosinophils # (Auto) 0.2, Basophils # (Auto) 0.0, Sodium Level 135, Potassium Level 3.4L, Chloride Level 102, Carbon Dioxide Level 24, Anion Gap 9, Blood Urea Nitrogen 6L, Creatinine 0.75, Estimat Glomerular Filtration Rate > 60, BUN/ Creatinine Ratio 8, Glucose Level 81, Calcium Level 7.9L Microbiology 07/21/18 Blood Culture - Preliminary, Resulted No growth 07/22/18 MRSA Screen - Final, Complete 07/22/18 Gram Stain - Final, Complete 07/22/18 Anaerobic Culture - Final, Complete Bacteroides fragilis See Comments 07/22/18 Surgical Culture - Final, Complete Pseudomonas aeruginosa Escherichia coli Strptcoc constellatus ss const Actinoyces turicensis Assessment/Plan Assessment/Plan Assess & Plan/Chief Complaint gentleman with initial presentation of hypotension due to sepsis. Perirectal abscess, cultures pending. New onset of anal incontinence with the potential for a tumor in the rectum. Colonoscopy in a.m. ischiorectal abscess, improving. On IV antibiotics. Hypokalemia, replaced. Possible distal rectal carcinoma. Potential for chemoradiation discussed and patient appears to be receptive. 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 Would require chemoradiation. The PowerPort would be placed tomorrow and possibly be discharged. Final Diagnosis squamous cell carcinoma of anal canal Clinical Quality Measures Admission Status Admission Dx gentleman with what appears to be a silvia rectal/ischiorectal abscess with gas forming organisms. New onset of anal incontinence. Etiology unknown. Underlying rectal/colonic pathology to be considered. Hypotension due to septic response. Impaired renal function due to sepsis. Fluid resuscitation in progress and systolic blood pressure has improved to just over 100. Reasonable to place a central venous catheter for invasive hemodynamic monitoring and more accurate fluid replacement, combined with formal incision and drainage under general anesthetic. Subsequently, he'll undergo bowel preparation, in anticipation of colonoscopy.All these complications have been discussed with him and he is in agreement to proceed DVT/VTE Risk/Contraindication: Risk Factor Score Per Nursin RFS Level Per Nursing on Admit: 2=Moderate ROBERT ARIAS MD Jul 26, 2018 15:40
[2018-07-26] MEDS ORDERED: ceFAZolin 2 GM IV Premixed 50 ML IV NR (15:45)
[2018-07-26 16:15] VITALS: BP 130/70
[2018-07-26 20:25] VITALS: BP 119/79
[2018-07-27] VITALS (7 sets, daily range): BP systolic 127–142; BP diastolic 69–90
[2018-07-27] MEDS: ACETAMINOPHEN 325 MG TABLET PO PRN (03:34)
[2018-07-27] MEDS: morphine INJ 4 MG/ML 1 ML (VIAL/SYRINGE) IVP PRN ×4 (03:34→16:34)
[2018-07-27] MEDS: PIPERACILLIN SODIUM/TAZOBACTAM 4.5 GM in NS (IVPB) 100 ML IV SCH ×2 (03:34→11:52)
[2018-07-27] MEDS: CATHETER FLUSH 10 ML SYR IV SCH ×2 (05:48→11:52)
[2018-07-27] MEDS: RT-ALBUTEROL/IPRATROPIUM 3 ML (DUONEB) VIAL INH SCH (08:22)
--- NOTE | 2018-07-27 09:11 | Progress Note-Pre Operative ---
Pre-Operative Progress Note H&P Reviewed The H&P was reviewed, patient examined and no changes noted. Date Seen by Provider: Jul 27, 2018 Time Seen by Provider: 09:11 Date H&P Reviewed: Jul 27, 2018 Time H&P Reviewed: 09:11 Pre-Operative Diagnosis: Anal carcinoma ROBERT ARIAS MD Jul 27, 2018 09:11
[2018-07-27] MEDS ORDERED: BUP/EPI 0.5% 1:200,000 (SENSORCAINE) 30 ML VIAL ONE (09:12)
[2018-07-27] MEDS ORDERED: 0.9% SODIUM CHLORIDE PF INJ 20 ML VIAL ONE (09:12)
[2018-07-27] MEDS ORDERED: HEParin (CENTRAL IV FLUSH) 500 UNIT/5 ML SYR ONE ×2 (09:12→09:54)
[2018-07-27] MEDS ORDERED: LACTATED RINGERS 1,000 ML IV ONE (10:07)
[2018-07-27] MEDS ORDERED: proPOfol 200 MG/20 ML (DIPRIVAN) VIAL IV ONE (10:07)
[2018-07-27] MEDS ORDERED: MIDAZOLAM 2 MG/2 ML (VERSED) VIAL ONE (10:07)
[2018-07-27] MEDS ORDERED: fentaNYL INJECTION 100 MCG/2 ML AMP ONE (10:07)
[2018-07-27] MEDS ORDERED: LIDOCAINE PF 2% 2 ML (XYLOCAINE) VIAL ONE ×2 (10:07)
[2018-07-27] MEDS ORDERED: ONDANSETRON 4 MG/2 ML (SDV) Z0FRAN ONE (10:07)
[2018-07-27] MEDS ORDERED: LACTATED RINGERS 1,000 ML IV SCH (10:30)
[2018-07-27] MEDS ORDERED: SEVOFLURANE (ULTANE) 15 ML INHAL SOLN ONE ×2 (10:49→11:06)
--- NOTE | 2018-07-27 11:13 | Operative Report ---
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 To prepare him for chemoradiation as a definitive management, placing an [id number] was felt to be reasonable. Informed consent was obtained after reviewing the details of the procedure and complications of bacteremia, wound infection and malfunction of the catheter, requiring replacement Description of the procedure: He was placed supine on the operating table and general anesthesia induced. 2 g of Ancef were administered intravenously as prophylaxis against wound infection. Left infraclavicular fossa was prepared and draped in the usual sterile manner. A guidewire was exchanged through the existing central venous catheter, under fluoroscopy. Subcutaneous tract was dilated using a silastic sheath and the Estuardo catheter introduced into the heart, under fluoroscopy, using the peel-away sheath. The catheter was then pulled back to the superior vena cava under fluoroscopy and connected to the [id number], that had been primed with heparinized saline. I was able to aspirate and flush the system without any difficulty. The port was then secured to the pectoralis tissue using 2-0 Prolene sutures. The incision was then closed using 3-0 Vicryl for the subcutaneous tissue and 4-0 Vicryl for skin , in a subcuticular fashion. Preemptive analgesia was established using 0.5 percent Marcaine with epinephrine. He tolerated procedure well, was extubated in the operating room and taken the recovery room in a stable condition. Findings of the Procedure see op report Allergies and Home Medications Allergies Coded Allergies: No Known Drug Allergies (Unverified , 07/24/18) Patient Home Medication List Home Medication List Reviewed: Yes ROBERT ARIAS MD Jul 27, 2018 11:13
--- NOTE | 2018-07-27 11:16 | Discharge Summary ---
Diagnosis/Chief Complaint Date of Admission Jul 21, 2018 at 23:45 Date of Discharge 07/27/18 Discharge Date: Jul 27, 2018 Discharge Time: 15:00 Admission Diagnosis Admission Diagnosis Perirectal abscess Discharge Diagnosis Squamous cell carcinoma of anal canal. Resolving perirectal abscess Reason Hospital Visit rectal incontinence without any pain for a month followed by acute perirectal pain and bloody drainage from around the anal region for the last 3 days. Found to be septic with hypotension and impaired renal function in the emergency room, subsequently admitted for management. Denies any change in his bowel habits. Previous right lobectomy for what he claims to be a benign condition. Disabled since then. The abscess was managed by formal incision and drainage. Cultures grew Pseudomonas and Escherichia coli and Staphylococcus. Appropriate IV antibiotics have been completed and he will continue oral antibiotics. 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 This will be managed by chemoradiation, under the direction of Dr. Dale, one of our oncologists. To facilitate this, an [id number] has been placed, prior to his discharge. I have the time of discharge, he has an existing [place] drain in his ischiorectal fossa, that would be removed during his outpatient follow-up. Discharge Summary Procedures Incision and drainage of ischiorectal abscess Colonoscopy/ biopsy of anal tumor Klpovf-o-Eyyh placement Consultations Oncology over the telephone, in preparation for formal outpatient consultation Discharge Physical Examination Allergies: Coded Allergies: No Known Drug Allergies (Unverified , 07/24/18) Vitals & I&Os Vital Signs Date Time Temp Pulse Resp B/P (MAP) Pulse Ox O2 Delivery O2 Flow Rate FiO2 07/27/18 08:22 97 Room Air 0.00 07/27/18 08:06 97.2 90 18 132/72 (92) 07/25/18 09:16 21 Hospital Course Labs (last 24 hrs) Laboratory Tests 07/21/18 21:12: White Blood Count 20.9H, Red Blood Count 4.56, Hemoglobin 12.6L, Hematocrit 36L , Mean Corpuscular Volume 80, Mean Corpuscular Hemoglobin 28, Mean Corpuscular Hemoglobin Concent 35, Red Cell Distribution Width 13.2, Platelet Count 201, Mean Platelet Volume 12.5H, Neutrophils (%) (Auto) 90H, Lymphocytes (%) (Auto) 4L, Monocytes (%) (Auto) 6, Eosinophils (%) (Auto) 0, Basophils (%) (Auto) 0, Neutrophils # (Auto) 18.7H, Lymphocytes # (Auto) 0.9L, Monocytes # (Auto) 1.2H, Eosinophils # (Auto) 0.0, Basophils # (Auto) 0.1, Neutrophils % (Manual) 85, Lymphocytes % (Manual) 2, Monocytes % (Manual) 6, Eosinophils % (Manual) 0, Basophils % (Manual) 0, Band Neutrophils 7, Blood Morphology Comment NORMAL, Sodium Level 135, Potassium Level 3.7, Chloride Level 98, Carbon Dioxide Level 21, Anion Gap 16H, Blood Urea Nitrogen 23H, Creatinine 2.03H, Estimat Glomerular Filtration Rate 35, BUN/Creatinine Ratio 11, Glucose Level 133H, Calcium Level 9.1, Corrected Calcium 9.8, Total Bilirubin 1.1H, Aspartate Amino Transf (AST/SGOT) 38H, Alanine Aminotransferase (ALT/SGPT) 32, Alkaline Phosphatase 87, Total Protein 7.1, Albumin 3.1L 07/21/18 21:30: Lactic Acid Level 2.42*H 07/21/18 23:45: Lab Scanned Report Referred Lab Report 07/22/18 01:10: Lactic Acid Level 2.00 07/22/18 08:45: Sodium Level 137, Potassium Level 4.0, Chloride Level 105, Carbon Dioxide Level 13L, Anion Gap 19H, Blood Urea Nitrogen 28H, Creatinine 1.83H, Estimat Glomerular Filtration Rate 48, BUN/Creatinine Ratio 15, Glucose Level 103, Calcium Level 8.6 07/23/18 04:00: Sodium Level 136, Potassium Level 3.7, Chloride Level 105, Carbon Dioxide Level 20L, Anion Gap 11, Blood Urea Nitrogen 35H, Creatinine 2.05H, Estimat Glomerular Filtration Rate 42, BUN/Creatinine Ratio 17, Glucose Level 120H, Calcium Level 8.2L, White Blood Count 15.8H, Red Blood Count 3.32L, Hemoglobin 9.1#L, Hematocrit 26L, Mean Corpuscular Volume 80, Mean Corpuscular Hemoglobin 27, Mean Corpuscular Hemoglobin Concent 35, Red Cell Distribution Width 13.1, Platelet Count 168, Mean Platelet Volume 12.9H, Neutrophils (%) (Auto) 89H, Lymphocytes (%) (Auto) 5L, Monocytes (%) (Auto) 5, Eosinophils (%) (Auto) 0, Basophils (%) (Auto) 0, Neutrophils # (Auto) 14.0H, Lymphocytes # (Auto) 0.8L, Monocytes # (Auto) 0.8, Eosinophils # (Auto) 0.1, Basophils # (Auto) 0.0, Corrected Calcium 9.6, Phosphorus Level 3.4, Magnesium Level 2.0, Total Bilirubin 1.8H, Aspartate Amino Transf (AST/SGOT) 49H, Alanine Aminotransferase (ALT/SGPT) 30, Alkaline Phosphatase 64, Total Protein 5.5L, Albumin 2.2L 07/23/18 10:40: Sodium Level 138, Potassium Level 3.6, Chloride Level 106, Carbon Dioxide Level 24, Anion Gap 8, Blood Urea Nitrogen 31H, Creatinine 1.54H, Estimat Glomerular Filtration Rate 59, BUN/Creatinine Ratio 20, Glucose Level 120H, Calcium Level 8.2L, White Blood Count 13.4H, Red Blood Count 3.27L, Hemoglobin 9.0L, Hematocrit 26L, Mean Corpuscular Volume 80, Mean Corpuscular Hemoglobin 28, Mean Corpuscular Hemoglobin Concent 35, Red Cell Distribution Width 13.4, Platelet Count 168, Mean Platelet Volume 12.7H, Neutrophils (%) (Auto) 87H, Lymphocytes (%) (Auto) 5L, Monocytes (%) (Auto) 8, Eosinophils (%) (Auto) 0, Basophils (%) (Auto) 0, Neutrophils # (Auto) 11.6H, Lymphocytes # (Auto) 0.7L, Monocytes # (Auto) 1.0, Eosinophils # (Auto) 0.0, Basophils # (Auto) 0.0, Corrected Calcium 9.7, Total Bilirubin 1.7H, Aspartate Amino Transf (AST/SGOT) 61H, Alanine Aminotransferase (ALT/SGPT) 37, Alkaline Phosphatase 65, Total Protein 5.4L, Albumin 2.1L 07/23/18 20:34: Vancomycin Level Trough 12.5 07/24/18 03:50: White Blood Count 11.5H, Red Blood Count 3.39L, Hemoglobin 9.2L, Hematocrit 27L , Mean Corpuscular Volume 79L, Mean Corpuscular Hemoglobin 27, Mean Corpuscular Hemoglobin Concent 34, Red Cell Distribution Width 13.3, Platelet Count 184, Mean Platelet Volume 12.8H, Neutrophils (%) (Auto) 81H, Lymphocytes (%) (Auto) 8L, Monocytes (%) (Auto) 9, Eosinophils (%) (Auto) 1, Basophils (%) (Auto) 0, Neutrophils # (Auto) 9.4H, Lymphocytes # (Auto) 1.0, Monocytes # (Auto) 1.0, Eosinophils # (Auto) 0.1, Basophils # (Auto) 0.0, Sodium Level 137, Potassium Level 3.5L, Chloride Level 106, Carbon Dioxide Level 22, Anion Gap 9, Blood Urea Nitrogen 19H, Creatinine 1.04, Estimat Glomerular Filtration Rate > 60, BUN /Creatinine Ratio 18, Glucose Level 104, Calcium Level 8.6, Corrected Calcium 10.0, Phosphorus Level 1.9L, Magnesium Level 2.0, Total Bilirubin 1.4H, Aspartate Amino Transf (AST/SGOT) 87H, Alanine Aminotransferase (ALT/SGPT) 53, Alkaline Phosphatase 98, Total Protein 5.4L, Albumin 2.2L 07/25/18 07:30: White Blood Count 14.7H, Red Blood Count 3.35L, Hemoglobin 9.2L, Hematocrit 27L , Mean Corpuscular Volume 80, Mean Corpuscular Hemoglobin 27, Mean Corpuscular Hemoglobin Concent 34, Red Cell Distribution Width 13.7, Platelet Count 189, Mean Platelet Volume 12.4H, Neutrophils (%) (Auto) 77H, Lymphocytes (%) (Auto) 10L, Monocytes (%) (Auto) 11, Eosinophils (%) (Auto) 2, Basophils (%) (Auto) 0, Neutrophils # (Auto) 11.3H, Lymphocytes # (Auto) 1.4, Monocytes # (Auto) 1.7H, Eosinophils # (Auto) 0.3, Basophils # (Auto) 0.1, Sodium Level 138, Potassium Level 3.3L, Chloride Level 105, Carbon Dioxide Level 26, Anion Gap 7, Blood Urea Nitrogen 10, Creatinine 0.81, Estimat Glomerular Filtration Rate > 60, BUN/ Creatinine Ratio 12, Glucose Level 110H, Calcium Level 8.1L, Corrected Calcium 9.7, Phosphorus Level 2.9, Magnesium Level 1.6L, Total Bilirubin 0.9, Aspartate Amino Transf (AST/SGOT) 130H, Alanine Aminotransferase (ALT/SGPT) 78H, Alkaline Phosphatase 122, Total Protein 5.4L, Albumin 2.0L 9/13/18 05:40: White Blood Count 17.8H, Red Blood Count 3.26L, Hemoglobin 9.0L, Hematocrit 27L , Mean Corpuscular Volume 81, Mean Corpuscular Hemoglobin 28, Mean Corpuscular Hemoglobin Concent 34, Red Cell Distribution Width 13.9, Platelet Count 196, Mean Platelet Volume 12.6H, Neutrophils (%) (Auto) 75, Lymphocytes (%) (Auto) 11L, Monocytes (%) (Auto) 13H, Eosinophils (%) (Auto) 1, Basophils (%) (Auto) 0 , Neutrophils # (Auto) 13.3H, Lymphocytes # (Auto) 1.9, Monocytes # (Auto) 2.3H , Eosinophils # (Auto) 0.2, Basophils # (Auto) 0.0, Sodium Level 135, Potassium Level 3.4L, Chloride Level 102, Carbon Dioxide Level 24, Anion Gap 9, Blood Urea Nitrogen 6L, Creatinine 0.75, Estimat Glomerular Filtration Rate > 60, BUN/ Creatinine Ratio 8, Glucose Level 81, Calcium Level 7.9L Microbiology 07/21/18 Blood Culture - Preliminary, Resulted No growth 07/22/18 MRSA Screen - Final, Complete 07/22/18 Gram Stain - Final, Complete 07/22/18 Anaerobic Culture - Final, Complete Bacteroides fragilis See Comments 07/22/18 Surgical Culture - Final, Complete Pseudomonas aeruginosa Escherichia coli Strptcoc constellatus ss const Actinoyces turicensis Pending Labs Microbiology Date/Time Source Procedure Growth Status 07/21/18 22:44 Peripheral Rt Ac Blood Culture - Preliminary No growth Resulted 07/21/18 21:30 Peripheral Rt Ac Blood Culture - Preliminary No growth Resulted 07/22/18 00:49 Nasal MRSA Screen - Final Complete 07/22/18 10:23 Abscess Perirectal Gram Stain - Final Complete 07/22/18 10:23 Anaerobic Culture - Final Bacteroides fragilis See Comments Complete 07/22/18 10:23 Surgical Culture - Final Pseudomonas aeruginosa Escherichia coli Strptcoc constellatus ss const Actinoyces turicensis Complete Laboratory Tests 07/21/18 21:12: White Blood Count 20.9, Red Blood Count 4.56, Hemoglobin 12.6, Hematocrit 36, Mean Corpuscular Volume 80, Mean Corpuscular Hemoglobin 28, Mean Corpuscular Hemoglobin Concent 35, Red Cell Distribution Width 13.2, Platelet Count 201, Mean Platelet Volume 12.5, Neutrophils (%) (Auto) 90, Lymphocytes (%) (Auto) 4, Monocytes (%) (Auto) 6, Eosinophils (%) (Auto) 0, Basophils (%) (Auto) 0, Neutrophils # (Auto) 18.7, Lymphocytes # (Auto) 0.9, Monocytes # (Auto) 1.2, Eosinophils # (Auto) 0.0, Basophils # (Auto) 0.1, Neutrophils % (Manual) 85, Lymphocytes % (Manual) 2, Monocytes % (Manual) 6, Eosinophils % (Manual) 0, Basophils % (Manual) 0, Band Neutrophils 7, Blood Morphology Comment NORMAL, Sodium Level 135, Potassium Level 3.7, Chloride Level 98, Carbon Dioxide Level 21, Anion Gap 16, Blood Urea Nitrogen 23, Creatinine 2.03, Estimat Glomerular Filtration Rate 35, BUN/Creatinine Ratio 11, Glucose Level 133, Calcium Level 9.1, Corrected Calcium 9.8, Total Bilirubin 1.1, Aspartate Amino Transf (AST/ SGOT) 38, Alanine Aminotransferase (ALT/SGPT) 32, Alkaline Phosphatase 87, Total Protein 7.1, Albumin 3.1 07/21/18 21:30: Lactic Acid Level 2.42 07/21/18 23:45: Lab Scanned Report Referred Lab Report 07/22/18 01:10: Lactic Acid Level 2.00 07/22/18 08:45: Sodium Level 137, Potassium Level 4.0, Chloride Level 105, Carbon Dioxide Level 13, Anion Gap 19, Blood Urea Nitrogen 28, Creatinine 1.83, Estimat Glomerular Filtration Rate 48, BUN/Creatinine Ratio 15, Glucose Level 103, Calcium Level 8.6 07/23/18 04:00: Sodium Level 136, Potassium Level 3.7, Chloride Level 105, Carbon Dioxide Level 20, Anion Gap 11, Blood Urea Nitrogen 35, Creatinine 2.05, Estimat Glomerular Filtration Rate 42, BUN/Creatinine Ratio 17, Glucose Level 120, Calcium Level 8.2, White Blood Count 15.8, Red Blood Count 3.32, Hemoglobin 9.1, Hematocrit 26 , Mean Corpuscular Volume 80, Mean Corpuscular Hemoglobin 27, Mean Corpuscular Hemoglobin Concent 35, Red Cell Distribution Width 13.1, Platelet Count 168, Mean Platelet Volume 12.9, Neutrophils (%) (Auto) 89, Lymphocytes (%) (Auto) 5, Monocytes (%) (Auto) 5, Eosinophils (%) (Auto) 0, Basophils (%) (Auto) 0, Neutrophils # (Auto) 14.0, Lymphocytes # (Auto) 0.8, Monocytes # (Auto) 0.8, Eosinophils # (Auto) 0.1, Basophils # (Auto) 0.0, Corrected Calcium 9.6, Phosphorus Level 3.4, Magnesium Level 2.0, Total Bilirubin 1.8, Aspartate Amino Transf (AST/SGOT) 49, Alanine Aminotransferase (ALT/SGPT) 30, Alkaline Phosphatase 64, Total Protein 5.5, Albumin 2.2 07/23/18 10:40: Sodium Level 138, Potassium Level 3.6, Chloride Level 106, Carbon Dioxide Level 24, Anion Gap 8, Blood Urea Nitrogen 31, Creatinine 1.54, Estimat Glomerular Filtration Rate 59, BUN/Creatinine Ratio 20, Glucose Level 120, Calcium Level 8.2, White Blood Count 13.4, Red Blood Count 3.27, Hemoglobin 9.0, Hematocrit 26 , Mean Corpuscular Volume 80, Mean Corpuscular Hemoglobin 28, Mean Corpuscular Hemoglobin Concent 35, Red Cell Distribution Width 13.4, Platelet Count 168, Mean Platelet Volume 12.7, Neutrophils (%) (Auto) 87, Lymphocytes (%) (Auto) 5, Monocytes (%) (Auto) 8, Eosinophils (%) (Auto) 0, Basophils (%) (Auto) 0, Neutrophils # (Auto) 11.6, Lymphocytes # (Auto) 0.7, Monocytes # (Auto) 1.0, Eosinophils # (Auto) 0.0, Basophils # (Auto) 0.0, Corrected Calcium 9.7, Total Bilirubin 1.7, Aspartate Amino Transf (AST/SGOT) 61, Alanine Aminotransferase ( ALT/SGPT) 37, Alkaline Phosphatase 65, Total Protein 5.4, Albumin 2.1 07/23/18 20:34: Vancomycin Level Trough 12.5 07/24/18 03:50: White Blood Count 11.5, Red Blood Count 3.39, Hemoglobin 9.2, Hematocrit 27, Mean Corpuscular Volume 79, Mean Corpuscular Hemoglobin 27, Mean Corpuscular Hemoglobin Concent 34, Red Cell Distribution Width 13.3, Platelet Count 184, Mean Platelet Volume 12.8, Neutrophils (%) (Auto) 81, Lymphocytes (%) (Auto) 8, Monocytes (%) (Auto) 9, Eosinophils (%) (Auto) 1, Basophils (%) (Auto) 0, Neutrophils # (Auto) 9.4, Lymphocytes # (Auto) 1.0, Monocytes # (Auto) 1.0, Eosinophils # (Auto) 0.1, Basophils # (Auto) 0.0, Sodium Level 137, Potassium Level 3.5, Chloride Level 106, Carbon Dioxide Level 22, Anion Gap 9, Blood Urea Nitrogen 19, Creatinine 1.04, Estimat Glomerular Filtration Rate > 60, BUN/ Creatinine Ratio 18, Glucose Level 104, Calcium Level 8.6, Corrected Calcium 10.0, Phosphorus Level 1.9, Magnesium Level 2.0, Total Bilirubin 1.4, Aspartate Amino Transf (AST/SGOT) 87, Alanine Aminotransferase (ALT/SGPT) 53, Alkaline Phosphatase 98, Total Protein 5.4, Albumin 2.2 07/25/18 07:30: White Blood Count 14.7, Red Blood Count 3.35, Hemoglobin 9.2, Hematocrit 27, Mean Corpuscular Volume 80, Mean Corpuscular Hemoglobin 27, Mean Corpuscular Hemoglobin Concent 34, Red Cell Distribution Width 13.7, Platelet Count 189, Mean Platelet Volume 12.4, Neutrophils (%) (Auto) 77, Lymphocytes (%) (Auto) 10 , Monocytes (%) (Auto) 11, Eosinophils (%) (Auto) 2, Basophils (%) (Auto) 0, Neutrophils # (Auto) 11.3, Lymphocytes # (Auto) 1.4, Monocytes # (Auto) 1.7, Eosinophils # (Auto) 0.3, Basophils # (Auto) 0.1, Sodium Level 138, Potassium Level 3.3, Chloride Level 105, Carbon Dioxide Level 26, Anion Gap 7, Blood Urea Nitrogen 10, Creatinine 0.81, Estimat Glomerular Filtration Rate > 60, BUN/ Creatinine Ratio 12, Glucose Level 110, Calcium Level 8.1, Corrected Calcium 9.7 , Phosphorus Level 2.9, Magnesium Level 1.6, Total Bilirubin 0.9, Aspartate Amino Transf (AST/SGOT) 130, Alanine Aminotransferase (ALT/SGPT) 78, Alkaline Phosphatase 122, Total Protein 5.4, Albumin 2.0 07/26/18 05:40: White Blood Count 17.8, Red Blood Count 3.26, Hemoglobin 9.0, Hematocrit 27, Mean Corpuscular Volume 81, Mean Corpuscular Hemoglobin 28, Mean Corpuscular Hemoglobin Concent 34, Red Cell Distribution Width 13.9, Platelet Count 196, Mean Platelet Volume 12.6, Neutrophils (%) (Auto) 75, Lymphocytes (%) (Auto) 11 , Monocytes (%) (Auto) 13, Eosinophils (%) (Auto) 1, Basophils (%) (Auto) 0, Neutrophils # (Auto) 13.3, Lymphocytes # (Auto) 1.9, Monocytes # (Auto) 2.3, Eosinophils # (Auto) 0.2, Basophils # (Auto) 0.0, Sodium Level 135, Potassium Level 3.4, Chloride Level 102, Carbon Dioxide Level 24, Anion Gap 9, Blood Urea Nitrogen 6, Creatinine 0.75, Estimat Glomerular Filtration Rate > 60, BUN/ Creatinine Ratio 8, Glucose Level 81, Calcium Level 7.9 Discharge Home Medications: Active Scripts Active Instructions to patient/family Please see electronic discharge instructions given to patient. Clinical Quality Measures DVT/VTE Risk/Contraindication: Risk Factor Score Per Nursin RFS Level Per Nursing on Admit: 2=Moderate ROBERT ARIAS MD Jul 27, 2018 11:16
[2018-07-27] MEDS ORDERED: AMOX-358 PO (11:17)
[2018-07-27] MEDS ORDERED: ACHD5005 PO (11:17)
--- NOTE | 2018-07-27 11:19 | Discharge Inst-Simple/Standard ---
Discharge Inst-Standard Discharge Medications New, Converted or Re-Newed RX: RX on Chart Patient Instructions/Follow Up Plan of Care/Instructions/FU: Please obtain outpatient consultations with Dr. Dale and Dr. Vogel the [facility]. Follow-up with me in a week.ABD pads to his perineum as needed. [place] drains to stay until seen in my offie Activity as Tolerated: Yes Discharge Diet: No Restrictions ROBERT ARIAS MD Jul 27, 2018 11:19
[2018-07-27] MEDS ORDERED: ONDANSETRON 4 MG/2 ML (SDV) Z0FRAN IVP PRN (11:30)
[2018-07-27] MEDS ORDERED: morphine INJ 10 MG/ML 1ML (SYR OR VIAL) IVP ONE (11:30)
--- NOTE | 2018-07-27 12:18 | Diagnostic Imaging Report ---
INDICATION: Fluoroscopy for PowerPort placement. PROCEDURE: Fluoroscopy was provided in the OR during power port placement. 66 seconds of fluoroscopy was utilized. PowerPort appears to have tip overlying the SVC. IMPRESSION: Fluoroscopy for PowerPort placement. Dictated by: Dictated on workstation # [id number]
--- NOTE | 2018-07-27 13:37 | Anesthesia-General Post-Op ---
General Patient Condition Mental Status/LOC: Same as Preop Cardiovascular: Satisfactory Nausea/Vomiting: Absent Respiratory: Satisfactory Pain: Controlled Complications: Absent Post Op Complications Complications None Follow Up Care/Instructions Patient Instructions None needed. Anesthesia/Patient Condition Patient Condition Patient is doing well, no complaints, stable vital signs, no apparent adverse anesthesia problems. No complications reported per nursing. MADIE SMALL CRNA Jul 27, 2018 13:37
--- NOTE | 2018-07-30 14:31 | Physician Query Clarification ---
PQ-Conflicting Diagnosis Admission/Discharge Admission Date: Jul 21, 2018 at 23:45 Discharge Date: Jul 27, 2018 at 18:04 The medical record reflects the following clinical scenario: History/Risk Factors: HYPOTENSION, elevated WBC Clinical Findings: SEPSIS Treatment: IV antibiotics Question: Do you agree with the impression of the severe sepsis per ED record, Dr. Angeles. Please document a response below. PHYSICIAN RESPONSE Do you agree w/Consulting Dx?: Yes In responding to this query, please exercise your independent professional judgment. The purpose of this communication is to more accurately reflect the complexity of your patients condition. The fact that a question is asked does not imply that any particular answer is desired or expected. Thank you for your timely response to this clarification. Requestors name: [ ] Phone # [ ] THIS PHYSICIAN QUERY FORM IS A PERMANENT PART OF THE MEDICAL RECORD LATRELL CURRIE Jul 30, 2018 14:31 ROBERT ARIAS MD Jul 31, 2018 08:36
== END 2018-07-27 18:04 | disposition home or self-care (01) | DRG 872 ==
LOC: ER 19:51 → UNMERGE 23:45 → ICU 23:45 → MERGE 23:45 → 4TH 07-24 15:15
PROVIDERS: ADMIT Surgery; ATTEND Surgery
PROC: 0D9P70Z Drainage of Rectum with Drainage Device, Via Natural or Artificial Opening (ICD-10-PCS; 2018-07-22 09:43)
PROC: 0DBP8ZX Excision of Rectum, Via Natural or Artificial Opening Endoscopic, Diagnostic (ICD-10-PCS; principal; 2018-07-24 07:15)
PROC: 02HV33Z Insertion of Infusion Device into Superior Vena Cava, Percutaneous Approach (ICD-10-PCS; 2018-07-27)
DX: A41.9 Sepsis, unspecified organism (principal); R65.20 Severe sepsis without septic shock; C21.1 Malignant neoplasm of anal canal; K61.3 Ischiorectal abscess; I95.9 Hypotension, unspecified; B96.5 Pseudomonas (aeruginosa) (mallei) (pseudomallei) as the cause of diseases classified elsewhere; B96.20 Unspecified Escherichia coli [E. coli] as the cause of diseases classified elsewhere; B95.8 Unspecified staphylococcus as the cause of diseases classified elsewhere; Z66 Do not resuscitate; E87.6 Hypokalemia; F17.210 Nicotine dependence, cigarettes, uncomplicated; J44.9 Chronic obstructive pulmonary disease, unspecified; Z90.2 Acquired absence of lung [part of]
CPT/HCPCS: 36415; 71045; 74176; 80048; 80053; 80202; 83605; 83735; 84100; 85007; 85025; 85027; 87040; 87070; 87075; 87077; 87081; 87185; 87186; 87205; 88305; 88341; 88342; 94640; 94760; 96361; 96365; 96367; 96375

== ENCOUNTER 2018-09-14 11:11 | Emergency (ER) | payer MEDICAID ==
[~2018-09-14] VITALS: Ht 180.3 cm; Wt 72.6 kg
[~2018-09-14 11:11] MED LIST: ACHD5005 PO; AMOX-358 PO
--- OUTSIDE RECORDS SUMMARY | 2018-09-14 11:16 | XMS REPORT | CCD ---
Author Author NIURKA SIBLEY Organization Unknown Address [address] [place] [id number] Care Team Providers Care Web Application Developer Name Role Phone ESTRADA, BETZAIDA DO Attphys ESTRADAOBDULIOBETZAIDA DO Prisurg Vital Signs Unknown or Not Available. Allergies Allergy Code Allergy Type Reaction Status No Known Drug Allergies 0 No known drug allergies Active Procedures Procedure Code Procedure Type Date CBC W/ AUTO DIFF (RFLX MAN DIFF IF IND) 5583832 SNOMED CT 01/06/2015 COMPREHENSIVE METABOLIC PANEL 769671008 SNOMED CT 2014 TROPONIN-I ADV 808247606 SNOMED CT 01/06/2015 ^CBC W/AUTO DIFF [id number] SNOMED CT 01/06/2015 CX CHEST [id number] 01/06/2015 History of Immunizations Immunization Code Date Tdap 115 10/26/2009 Problems Unknown or Not Available. Results COMPREHENSIVE METABOLIC PANEL - Collect Date/Time: 01/06/2015 16:20 Test Name Code Test Result Test Units Test Ref Range GLUCOSE 2345-7 105 MG/DL L=70 H=100 SODIUM 2951-2 140 MEQ/L L=135 H=148 POTASSIUM 2823-3 4.2 MEQ/L L=3.5 H=5.3 CHLORIDE 2075-0 106 MEQ/L L=96 H=110 CO2 2028-9 21 MEQ/L L=22 H=29 BUN 3094-0 16 MG/DL L=8 H=22 CREATININE 2160-0 1.6 MG/DL L=0.6 H=1.6 SGOT/AST 1920-8 15 IU/L L=10 H=40 SGPT/ALT 1742-6 17 IU/L L=8 H=54 ALK PHOS 6768-6 79 IU/L L=35 H=115 TOTAL PROTEIN 2885-2 7.4 G/DL L=5.5 H=8.5 ALBUMIN 1751-7 4.2 G/DL L=3.1 H=5.4 TOTAL BILI 1975-2 1.1 MG/DL L=0.0 H=1.5 CALCIUM 70052-7 10.0 MG/DL L=8.2 H=10.6 AGE 44 yrs GFR NonAA 47 GFR AA 57 eGFR 47 mL/min/1.7 eGFR AA* 57 mL/min/1.7 CBC W/ AUTO DIFF (RFLX MAN DIFF IF IND) - Collect Date/Time: 01/06/2015 16:20 Test Name Code Test Result Test Units Test Ref Range WBC 66702-1 13.7 TH/CMM L=4.5 H=10.8 RBC 789-8 5.06 ML/CMM L=4.70 H=6.10 HGB 718-7 14.5 G/DL L=14.0 H=18.0 HCT 4544-3 43.0 % L=42.0 H=52.0 MCV 85 FL L=81 H=99 MCH 28.7 PG L=27.0 H=33.0 MCHC 33.7 G/DL L=31.0 H=36.0 RDW SD 44 FL L=36 H=50 RDW CV 14.2 % L=0.0 H=14.8 MPV 10.7 FL L=9.3 H=12.5 PLT 777-3 194 TH/CMM L=130 H=440 NRBC# 0.00 TH/CMM L=0.00 H=0.00 NRBC% 0.0 /100WBC L=0.0 H=2.0 %NEUT 76.5 % %LYMP 11.9 % %MONO 11.2 % %EOS 0.3 % %BASO 0.1 % #NEUT 10.50 TH/CMM L=2.10 H=8.20 #LYMP 1.63 TH/CMM L=0.90 H=5.20 #MONO 1.53 TH/CMM L=0.16 H=1.00 #EOS 0.04 TH/CMM L=0.00 H=0.80 #BASO 0.02 TH/CMM L=0.00 H=0.20 MANUAL DIFF NOT IND N/A TROPONIN-I ADV - Collect Date/Time: 01/06/2015 16:20 Test Name Code Test Result Test Units [place] [address]-1 <0.04 ng/mL L=0.04 H= 0.40 Active Medications Unknown or Not Available. Medications Administered During Visit Unknown or Not Available. Encounters Encounter Diagnosis Diagnosis Code Start Date CHEST PAIN NEC 56339 01/06/2015 Social History Smoking Status Code Start Date End Date Current every day smoker [id number] Patient Decision Aids Unknown or Not Available. Discharge Instructions You were admitted to [facility] on 01/06/2015 with a principal diagnosis of CHEST PAIN NEC. You were discharged from [facility] on 01/06/2015. Should you have any questions prior to discharge, please contact a member of your healthcare team. If you have left the hospital and have any questions, please contact your primary care physician. Chief Complaint and Reason For Visit Chief Complaint Date of Onset CHEST PAIN Function Status Unknown or Not Available. Referral/Transition of Care Unknown or Not Available.
--- OUTSIDE RECORDS SUMMARY | 2018-09-14 11:16 | XMS REPORT | Continuity of Care Document ---
Author Author [facility] Organization [facility] Address Unknown Phone Unavailable Allergies Active Description Code Type Severity Reaction Onset Reported/Identified Relationship to Patient Clinical Status Yes No Known Drug Allergies [id number] Drug Allergy Unknown N/A 07/21/2018 Yes No Known Drug Allergies [id number] Drug Allergy Unknown N/A 07/21/2018 Medications There is no data. 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.1 MALIGNANT NEOPLASM OF ANAL CANAL 07/27/2018 ROBERT ARIAS MD Ot E87.6 HYPOKALEMIA 07/27/2018 ROBERT ARIAS MD Ot F17.210 NICOTINE DEPENDENCE, CIGARETTES, UNCOMPL 07/27/2018 ROBERT ARIAS MD Ot I95.9 HYPOTENSION, UNSPECIFIED 07/27/2018 ROBERT ARIAS MD Ot J44.9 CHRONIC OBSTRUCTIVE PULMONARY DISEASE, U 07/27/2018 ROBERT ARIAS MD Ot K61.3 ISCHIORECTAL ABSCESS 07/27/2018 ROBERT ARIAS MD Ot R65.20 SEVERE SEPSIS WITHOUT SEPTIC SHOCK 07/27/2018 ROBERT ARIAS MD Ot Z66 DO NOT RESUSCITATE 07/27/2018 ROBERT ARIAS MD Ot Z90.2 ACQUIRED ABSENCE OF LUNG [PART OF] Procedures Code Description Performed By Performed On [id number] DRAINAGE OF RECTUM WITH DRAINAGE DEVICE, 07/22/2018 [id number] EXCISION OF RECTUM, ENDO, DIAGN 07/24/2018 [id number] INSERTION OF INFUSION DEV INTO SUP VENA 07/27/2018 Results Test Result Range Complete blood count (CBC) with automated white blood cell (WBC) differential - 07/21/18 21:12 Blood leukocytes automated count (number/volume) 20.9 10*3/uL 4.3-11.0 Blood erythrocytes automated count (number/volume) 4.56 10*6/uL 4.35-5.85 Venous blood hemoglobin measurement (mass/volume) 12.6 g/dL 13.3-17.7 Blood hematocrit (volume fraction) 36 % 40-54 Automated erythrocyte mean corpuscular volume 80 [foz_us] 80-99 Automated erythrocyte mean corpuscular hemoglobin (mass per erythrocyte) 28 pg 25-34 Automated erythrocyte mean corpuscular hemoglobin concentration measurement ( mass/volume) 35 g/dL 32-36 Automated erythrocyte distribution width ratio 13.2 % 10.0-14.5 Automated blood platelet count (count/volume) 201 10*3/uL 130-400 Automated blood platelet mean volume measurement 12.5 [foz_us] 7.4-10.4 Automated blood neutrophils/100 leukocytes 90 % 42-75 Automated blood lymphocytes/100 leukocytes 4 % 12-44 Blood monocytes/100 leukocytes 6 % 0-12 Automated blood eosinophils/100 leukocytes 0 % 0-10 Automated blood basophils/100 leukocytes 0 % 0-10 Blood neutrophils automated count (number/volume) 18.7 10*3 1.8-7.8 Blood lymphocytes automated count (number/volume) 0.9 10*3 1.0-4.0 Blood monocytes automated count (number/volume) 1.2 10*3 0.0-1.0 Automated eosinophil count 0.0 10*3/uL 0.0-0.3 Automated blood basophil count (count/volume) 0.1 10*3/uL 0.0-0.1 Comprehensive metabolic panel - 07/21/18 21:12 Serum or plasma sodium measurement (moles/volume) 135 mmol/L 135-145 Serum or plasma potassium measurement (moles/volume) 3.7 mmol/L 3.6-5.0 Serum or plasma chloride measurement (moles/volume) 98 mmol/L 98-107 Carbon dioxide 21 mmol/L 21-32 Serum or plasma anion gap determination (moles/volume) 16 mmol/L 5-14 Serum or plasma urea nitrogen measurement (mass/volume) 23 mg/dL 7-18 Serum or plasma creatinine measurement (mass/volume) 2.03 mg/dL 0.60-1.30 Serum or plasma urea nitrogen/creatinine mass ratio 11 NRG Serum or plasma creatinine measurement with calculation of estimated glomerular filtration rate 35 NRG Serum or plasma glucose measurement (mass/volume) 133 mg/dL 70-105 Serum or plasma calcium measurement (mass/volume) 9.1 mg/dL 8.5-10.1 Serum or plasma total bilirubin measurement (mass/volume) 1.1 mg/dL 0.1-1.0 Serum or plasma alkaline phosphatase measurement (enzymatic activity/volume) 87 U/L 40-136 Serum or plasma aspartate aminotransferase measurement (enzymatic activity/ volume) 38 U/L 5-34 Serum or plasma alanine aminotransferase measurement (enzymatic activity/volume ) 32 U/L 0-55 Serum or plasma protein measurement (mass/volume) 7.1 g/dL 6.4-8.2 Serum or plasma albumin measurement (mass/volume) 3.1 g/dL 3.2-4.5 CALCIUM CORRECTED 9.8 mg/dL 8.5-10.1 Blood manual differential performed detection - 07/21/18 21:12 Blood monocytes/100 leukocytes 6 % NRG Manual blood segmented neutrophils/100 leukocytes 85 % NRG Blood band neutrophils/100 leukocytes 7 % NRG Manual blood lymphocytes/100 leukocytes 2 % NRG Manual eosinophils/100 leukocytes in nose 0 % NRG Manual blood basophils/100 leukocytes 0 % NRG Blood erythrocyte morphology finding identification NORMAL NRG Blood lactic acid measurement (moles/volume) - 07/21/18 21:30 Blood lactic acid measurement (moles/volume) 2.42 mmol/L 0.50-2.00 Bacterial blood culture - 07/21/18 21:30 Bacterial blood culture NG NRG Bacterial blood culture - 07/21/18 21:30 Bacterial blood culture NG NRG Bacterial blood culture - 07/21/18 22:44 Bacterial blood culture NG NRG Bacterial blood culture - 07/21/18 22:44 Bacterial blood culture NG NRG Methicillin resistant Staphylococcus aureus (MRSA) screening culture - 00:49 MRSA SCREEN RESULT MRSA ISOLATED NRG Serum or plasma lactate measurement (moles/volume) - 07/22/18 01:10 Serum or plasma lactate measurement (moles/volume) 2.00 mmol/L 0.50-2.00 Whole blood basic metabolic panel - 07/22/18 08:45 Serum or plasma sodium measurement (moles/volume) 137 mmol/L 135-145 Serum or plasma potassium measurement (moles/volume) 4.0 mmol/L 3.6-5.0 Serum or plasma chloride measurement (moles/volume) 105 mmol/L 98-107 Carbon dioxide 13 mmol/L 21-32 Serum or plasma anion gap determination (moles/volume) 19 mmol/L 5-14 Serum or plasma urea nitrogen measurement (mass/volume) 28 mg/dL 7-18 Serum or plasma creatinine measurement (mass/volume) 1.83 mg/dL 0.60-1.30 Serum or plasma urea nitrogen/creatinine mass ratio 15 NRG Serum or plasma creatinine measurement with calculation of estimated glomerular filtration rate 48 NRG Serum or plasma glucose measurement (mass/volume) 103 mg/dL 70-105 Serum or plasma calcium measurement (mass/volume) 8.6 mg/dL 8.5-10.1 Bacteria identification in isolate by anaerobe culture - 07/22/18 10:23 QUANTITY OF GROWTH . NRG Bacteria identification in isolate by anaerobe culture PROGRESS NRG Gram stain microscopy - 07/22/18 10:23 Gram stain microscopy Mixed Bacterial Nereyda NRG Bacteria identification in wound by culture - 07/22/18 10:23 Bacteria identification in wound by culture [id number] NRG FREE TEXT EXTERNAL NO SUSCEPTIBILITY PERFORMED NRG QUANTITY OF GROWTH Moderate Growth NRG FREE TEXT ENTRY 2 AT EXT 141 WITHIN 48 HOURS NRG Bacteria identification in isolate by anaerobe culture - 07/22/18 10:23 FREE TEXT EXTERNAL BETA LACTAMASE POSITIVE NRG QUANTITY OF GROWTH . NRG Bacteria identification in isolate by anaerobe culture SEE COMMEN NRG Gram stain microscopy - 07/22/18 10:23 Gram stain microscopy Mixed Bacterial Nereyda NRG Bacteria identification in wound by culture - 07/22/18 10:23 Bacteria identification in wound by culture [id number] NRG FREE TEXT EXTERNAL NO SUSCEPTIBILITY PERFORMED NRG QUANTITY OF GROWTH Moderate Growth NRG FREE TEXT ENTRY 2 AT EXT 141 WITHIN 48 [facility]RS [facility] - 07/22/18 10:23 Gentamicin susceptibility test by minimum inhibitory concentration < = NRG Levofloxacin susceptibility test by minimum inhibitory concentration <= NRG Tobramycin susceptibility test by minimum inhibitory concentration S NRG Piperacillin/tazobactam susceptibility test by minimum inhibitory concentration = NRG Ciprofloxacin susceptibility test by minimum inhibitory concentration <= NRG Meropenem susceptibility test by minimum inhibitory concentration 1 NRG Aztreonam susceptibility test by minimum inhibitory concentration 4 NRG Cefepime susceptibility test by minimum inhibitory concentration 2 NRG Imipenem susceptibility test by minimum inhibitory concentration 2 NRG Ceftazidime susceptibility test by minimum inhibitory concentration 4 NRG Complete blood count (CBC) with automated white blood cell (WBC) differential - 07/23/18 04:00 Blood leukocytes automated count (number/volume) 15.8 10*3/uL 4.3-11.0 Blood erythrocytes automated count (number/volume) 3.32 10*6/uL 4.35-5.85 Venous blood hemoglobin measurement (mass/volume) 9.1 g/dL 13.3-17.7 Blood hematocrit (volume fraction) 26 % 40-54 Automated erythrocyte mean corpuscular volume 80 [foz_us] 80-99 Automated erythrocyte mean corpuscular hemoglobin (mass per erythrocyte) 27 pg 25-34 Automated erythrocyte mean corpuscular hemoglobin concentration measurement ( mass/volume) 35 g/dL 32-36 Automated erythrocyte distribution width ratio 13.1 % 10.0-14.5 Automated blood platelet count (count/volume) 168 10*3/uL 130-400 Automated blood platelet mean volume measurement 12.9 [foz_us] 7.4-10.4 Automated blood neutrophils/100 leukocytes 89 % 42-75 Automated blood lymphocytes/100 leukocytes 5 % 12-44 Blood monocytes/100 leukocytes 5 % 0-12 Automated blood eosinophils/100 leukocytes 0 % 0-10 Automated blood basophils/100 leukocytes 0 % 0-10 Blood neutrophils automated count (number/volume) 14.0 10*3 1.8-7.8 Blood lymphocytes automated count (number/volume) 0.8 10*3 1.0-4.0 Blood monocytes automated count (number/volume) 0.8 10*3 0.0-1.0 Automated eosinophil count 0.1 10*3/uL 0.0-0.3 Automated blood basophil count (count/volume) 0.0 10*3/uL 0.0-0.1 Comprehensive metabolic panel - 07/23/18 04:00 Serum or plasma sodium measurement (moles/volume) 136 mmol/L 135-145 Serum or plasma potassium measurement (moles/volume) 3.7 mmol/L 3.6-5.0 Serum or plasma chloride measurement (moles/volume) 105 mmol/L 98-107 Carbon dioxide 20 mmol/L 21-32 Serum or plasma anion gap determination (moles/volume) 11 mmol/L 5-14 Serum or plasma urea nitrogen measurement (mass/volume) 35 mg/dL 7-18 Serum or plasma creatinine measurement (mass/volume) 2.05 mg/dL 0.60-1.30 Serum or plasma urea nitrogen/creatinine mass ratio 17 NRG Serum or plasma creatinine measurement with calculation of estimated glomerular filtration rate 42 NRG Serum or plasma glucose measurement (mass/volume) 120 mg/dL 70-105 Serum or plasma calcium measurement (mass/volume) 8.2 mg/dL 8.5-10.1 Serum or plasma total bilirubin measurement (mass/volume) 1.8 mg/dL 0.1-1.0 Serum or plasma alkaline phosphatase measurement (enzymatic activity/volume) 64 U/L 40-136 Serum or plasma aspartate aminotransferase measurement (enzymatic activity/ volume) 49 U/L 5-34 Serum or plasma alanine aminotransferase measurement (enzymatic activity/volume ) 30 U/L 0-55 Serum or plasma protein measurement (mass/volume) 5.5 g/dL 6.4-8.2 Serum or plasma albumin measurement (mass/volume) 2.2 g/dL 3.2-4.5 CALCIUM CORRECTED 9.6 mg/dL 8.5-10.1 Serum or plasma phosphate measurement (mass/volume) - 07/23/18 04:00 Serum or plasma phosphate measurement (mass/volume) 3.4 mg/dL 2.3-4.7 Magnesium - 07/23/18 04:00 Magnesium 2.0 mg/dL 1.8-2.4 Complete blood count (CBC) with automated white blood cell (WBC) differential - 07/23/18 10:40 Blood leukocytes automated count (number/volume) 13.4 10*3/uL 4.3-11.0 Blood erythrocytes automated count (number/volume) 3.27 10*6/uL 4.35-5.85 Venous blood hemoglobin measurement (mass/volume) 9.0 g/dL 13.3-17.7 Blood hematocrit (volume fraction) 26 % 40-54 Automated erythrocyte mean corpuscular volume 80 [foz_us] 80-99 Automated erythrocyte mean corpuscular hemoglobin (mass per erythrocyte) 28 pg 25-34 Automated erythrocyte mean corpuscular hemoglobin concentration measurement ( mass/volume) 35 g/dL 32-36 Automated erythrocyte distribution width ratio 13.4 % 10.0-14.5 Automated blood platelet count (count/volume) 168 10*3/uL 130-400 Automated blood platelet mean volume measurement 12.7 [foz_us] 7.4-10.4 Automated blood neutrophils/100 leukocytes 87 % 42-75 Automated blood lymphocytes/100 leukocytes 5 % 12-44 Blood monocytes/100 leukocytes 8 % 0-12 Automated blood eosinophils/100 leukocytes 0 % 0-10 Automated blood basophils/100 leukocytes 0 % 0-10 Blood neutrophils automated count (number/volume) 11.6 10*3 1.8-7.8 Blood lymphocytes automated count (number/volume) 0.7 10*3 1.0-4.0 Blood monocytes automated count (number/volume) 1.0 10*3 0.0-1.0 Automated eosinophil count 0.0 10*3/uL 0.0-0.3 Automated blood basophil count (count/volume) 0.0 10*3/uL 0.0-0.1 Comprehensive metabolic panel - 07/23/18 10:40 Serum or plasma sodium measurement (moles/volume) 138 mmol/L 135-145 Serum or plasma potassium measurement (moles/volume) 3.6 mmol/L 3.6-5.0 Serum or plasma chloride measurement (moles/volume) 106 mmol/L 98-107 Carbon dioxide 24 mmol/L 21-32 Serum or plasma anion gap determination (moles/volume) 8 mmol/L 5-14 Serum or plasma urea nitrogen measurement (mass/volume) 31 mg/dL 7-18 Serum or plasma creatinine measurement (mass/volume) 1.54 mg/dL 0.60-1.30 Serum or plasma urea nitrogen/creatinine mass ratio 20 NRG Serum or plasma creatinine measurement with calculation of estimated glomerular filtration rate 59 NRG Serum or plasma glucose measurement (mass/volume) 120 mg/dL 70-105 Serum or plasma calcium measurement (mass/volume) 8.2 mg/dL 8.5-10.1 Serum or plasma total bilirubin measurement (mass/volume) 1.7 mg/dL 0.1-1.0 Serum or plasma alkaline phosphatase measurement (enzymatic activity/volume) 65 U/L 40-136 Serum or plasma aspartate aminotransferase measurement (enzymatic activity/ volume) 61 U/L 5-34 Serum or plasma alanine aminotransferase measurement (enzymatic activity/volume ) 37 U/L 0-55 Serum or plasma protein measurement (mass/volume) 5.4 g/dL 6.4-8.2 Serum or plasma albumin measurement (mass/volume) 2.1 g/dL 3.2-4.5 CALCIUM CORRECTED 9.7 mg/dL 8.5-10.1 Vancomycin trough - 07/23/18 20:34 Vancomycin trough 12.5 ug/mL 10.0-20.0 Complete blood count (CBC) with automated white blood cell (WBC) differential - 07/24/18 03:50 Blood leukocytes automated count (number/volume) 11.5 10*3/uL 4.3-11.0 Blood erythrocytes automated count (number/volume) 3.39 10*6/uL 4.35-5.85 Venous blood hemoglobin measurement (mass/volume) 9.2 g/dL 13.3-17.7 Blood hematocrit (volume fraction) 27 % 40-54 Automated erythrocyte mean corpuscular volume 79 [foz_us] 80-99 Automated erythrocyte mean corpuscular hemoglobin (mass per erythrocyte) 27 pg 25-34 Automated erythrocyte mean corpuscular hemoglobin concentration measurement ( mass/volume) 34 g/dL 32-36 Automated erythrocyte distribution width ratio 13.3 % 10.0-14.5 Automated blood platelet count (count/volume) 184 10*3/uL 130-400 Automated blood platelet mean volume measurement 12.8 [foz_us] 7.4-10.4 Automated blood neutrophils/100 leukocytes 81 % 42-75 Automated blood lymphocytes/100 leukocytes 8 % 12-44 Blood monocytes/100 leukocytes 9 % 0-12 Automated blood eosinophils/100 leukocytes 1 % 0-10 Automated blood basophils/100 leukocytes 0 % 0-10 Blood neutrophils automated count (number/volume) 9.4 10*3 1.8-7.8 Blood lymphocytes automated count (number/volume) 1.0 10*3 1.0-4.0 Blood monocytes automated count (number/volume) 1.0 10*3 0.0-1.0 Automated eosinophil count 0.1 10*3/uL 0.0-0.3 Automated blood basophil count (count/volume) 0.0 10*3/uL 0.0-0.1 Comprehensive metabolic panel - 07/24/18 03:50 Serum or plasma sodium measurement (moles/volume) 137 mmol/L 135-145 Serum or plasma potassium measurement (moles/volume) 3.5 mmol/L 3.6-5.0 Serum or plasma chloride measurement (moles/volume) 106 mmol/L 98-107 Carbon dioxide 22 mmol/L 21-32 Serum or plasma anion gap determination (moles/volume) 9 mmol/L 5-14 Serum or plasma urea nitrogen measurement (mass/volume) 19 mg/dL 7-18 Serum or plasma creatinine measurement (mass/volume) 1.04 mg/dL 0.60-1.30 Serum or plasma urea nitrogen/creatinine mass ratio 18 NRG Serum or plasma creatinine measurement with calculation of estimated glomerular filtration rate > NRG Serum or plasma glucose measurement (mass/volume) 104 mg/dL 70-105 Serum or plasma calcium measurement (mass/volume) 8.6 mg/dL 8.5-10.1 Serum or plasma total bilirubin measurement (mass/volume) 1.4 mg/dL 0.1-1.0 Serum or plasma alkaline phosphatase measurement (enzymatic activity/volume) 98 U/L 40-136 Serum or plasma aspartate aminotransferase measurement (enzymatic activity/ volume) 87 U/L 5-34 Serum or plasma alanine aminotransferase measurement (enzymatic activity/volume ) 53 U/L 0-55 Serum or plasma protein measurement (mass/volume) 5.4 g/dL 6.4-8.2 Serum or plasma albumin measurement (mass/volume) 2.2 g/dL 3.2-4.5 CALCIUM CORRECTED 10.0 mg/dL 8.5-10.1 Serum or plasma phosphate measurement (mass/volume) - 07/24/18 03:50 Serum or plasma phosphate measurement (mass/volume) 1.9 mg/dL 2.3-4.7 Magnesium - 07/24/18 03:50 Magnesium 2.0 mg/dL 1.8-2.4 Complete blood count (CBC) with automated white blood cell (WBC) differential - 07/25/18 07:30 Blood leukocytes automated count (number/volume) 14.7 10*3/uL 4.3-11.0 Blood erythrocytes automated count (number/volume) 3.35 10*6/uL 4.35-5.85 Venous blood hemoglobin measurement (mass/volume) 9.2 g/dL 13.3-17.7 Blood hematocrit (volume fraction) 27 % 40-54 Automated erythrocyte mean corpuscular volume 80 [foz_us] 80-99 Automated erythrocyte mean corpuscular hemoglobin (mass per erythrocyte) 27 pg 25-34 Automated erythrocyte mean corpuscular hemoglobin concentration measurement ( mass/volume) 34 g/dL 32-36 Automated erythrocyte distribution width ratio 13.7 % 10.0-14.5 Automated blood platelet count (count/volume) 189 10*3/uL 130-400 Automated blood platelet mean volume measurement 12.4 [foz_us] 7.4-10.4 Automated blood neutrophils/100 leukocytes 77 % 42-75 Automated blood lymphocytes/100 leukocytes 10 % 12-44 Blood monocytes/100 leukocytes 11 % 0-12 Automated blood eosinophils/100 leukocytes 2 % 0-10 Automated blood basophils/100 leukocytes 0 % 0-10 Blood neutrophils automated count (number/volume) 11.3 10*3 1.8-7.8 Blood lymphocytes automated count (number/volume) 1.4 10*3 1.0-4.0 Blood monocytes automated count (number/volume) 1.7 10*3 0.0-1.0 Automated eosinophil count 0.3 10*3/uL 0.0-0.3 Automated blood basophil count (count/volume) 0.1 10*3/uL 0.0-0.1 Comprehensive metabolic panel - 07/25/18 07:30 Serum or plasma sodium measurement (moles/volume) 138 mmol/L 135-145 Serum or plasma potassium measurement (moles/volume) 3.3 mmol/L 3.6-5.0 Serum or plasma chloride measurement (moles/volume) 105 mmol/L 98-107 Carbon dioxide 26 mmol/L 21-32 Serum or plasma anion gap determination (moles/volume) 7 mmol/L 5-14 Serum or plasma urea nitrogen measurement (mass/volume) 10 mg/dL 7-18 Serum or plasma creatinine measurement (mass/volume) 0.81 mg/dL 0.60-1.30 Serum or plasma urea nitrogen/creatinine mass ratio 12 NRG Serum or plasma creatinine measurement with calculation of estimated glomerular filtration rate > NRG Serum or plasma glucose measurement (mass/volume) 110 mg/dL 70-105 Serum or plasma calcium measurement (mass/volume) 8.1 mg/dL 8.5-10.1 Serum or plasma total bilirubin measurement (mass/volume) 0.9 mg/dL 0.1-1.0 Serum or plasma alkaline phosphatase measurement (enzymatic activity/volume) 122 U/L 40-136 Serum or plasma aspartate aminotransferase measurement (enzymatic activity/ volume) 130 U/L 5-34 Serum or plasma alanine aminotransferase measurement (enzymatic activity/volume ) 78 U/L 0-55 Serum or plasma protein measurement (mass/volume) 5.4 g/dL 6.4-8.2 Serum or plasma albumin measurement (mass/volume) 2.0 g/dL 3.2-4.5 CALCIUM CORRECTED 9.7 mg/dL 8.5-10.1 Serum or plasma phosphate measurement (mass/volume) - 07/25/18 07:30 Serum or plasma phosphate measurement (mass/volume) 2.9 mg/dL 2.3-4.7 Magnesium - 07/25/18 07:30 Magnesium 1.6 mg/dL 1.8-2.4 Complete blood count (CBC) with automated white blood cell (WBC) differential - 07/26/18 05:40 Blood leukocytes automated count (number/volume) 17.8 10*3/uL 4.3-11.0 Blood erythrocytes automated count (number/volume) 3.26 10*6/uL 4.35-5.85 Venous blood hemoglobin measurement (mass/volume) 9.0 g/dL 13.3-17.7 Blood hematocrit (volume fraction) 27 % 40-54 Automated erythrocyte mean corpuscular volume 81 [foz_us] 80-99 Automated erythrocyte mean corpuscular hemoglobin (mass per erythrocyte) 28 pg 25-34 Automated erythrocyte mean corpuscular hemoglobin concentration measurement ( mass/volume) 34 g/dL 32-36 Automated erythrocyte distribution width ratio 13.9 % 10.0-14.5 Automated blood platelet count (count/volume) 196 10*3/uL 130-400 Automated blood platelet mean volume measurement 12.6 [foz_us] 7.4-10.4 Automated blood neutrophils/100 leukocytes 75 % 42-75 Automated blood lymphocytes/100 leukocytes 11 % 12-44 Blood monocytes/100 leukocytes 13 % 0-12 Automated blood eosinophils/100 leukocytes 1 % 0-10 Automated blood basophils/100 leukocytes 0 % 0-10 Blood neutrophils automated count (number/volume) 13.3 10*3 1.8-7.8 Blood lymphocytes automated count (number/volume) 1.9 10*3 1.0-4.0 Blood monocytes automated count (number/volume) 2.3 10*3 0.0-1.0 Automated eosinophil count 0.2 10*3/uL 0.0-0.3 Automated blood basophil count (count/volume) 0.0 10*3/uL 0.0-0.1 Whole blood basic metabolic panel - 07/26/18 05:40 Serum or plasma sodium measurement (moles/volume) 135 mmol/L 135-145 Serum or plasma potassium measurement (moles/volume) 3.4 mmol/L 3.6-5.0 Serum or plasma chloride measurement (moles/volume) 102 mmol/L 98-107 Carbon dioxide 24 mmol/L 21-32 Serum or plasma anion gap determination (moles/volume) 9 mmol/L 5-14 Serum or plasma urea nitrogen measurement (mass/volume) 6 mg/dL 7-18 Serum or plasma creatinine measurement (mass/volume) 0.75 mg/dL 0.60-1.30 Serum or plasma urea nitrogen/creatinine mass ratio 8 NRG Serum or plasma creatinine measurement with calculation of estimated glomerular filtration rate > NRG Serum or plasma glucose measurement (mass/volume) 81 mg/dL 70-105 Serum or plasma calcium measurement (mass/volume) 7.9 mg/dL 8.5-10.1 Complete blood count (CBC) with automated white blood cell (WBC) differential - 08/28/18 14:55 Blood leukocytes automated count (number/volume) 17.5 10*3/uL 4.3-11.0 Blood erythrocytes automated count (number/volume) 3.24 10*6/uL 4.35-5.85 Venous blood hemoglobin measurement (mass/volume) 8.3 g/dL 13.3-17.7 Blood hematocrit (volume fraction) 26 % 40-54 Automated erythrocyte mean corpuscular volume 80 [foz_us] 80-99 Automated erythrocyte mean corpuscular hemoglobin (mass per erythrocyte) 26 pg 25-34 Automated erythrocyte mean corpuscular hemoglobin concentration measurement ( mass/volume) 32 g/dL 32-36 Automated erythrocyte distribution width ratio 16.9 % 10.0-14.5 Automated blood platelet count (count/volume) 424 10*3/uL 130-400 Automated blood platelet mean volume measurement 10.8 [foz_us] 7.4-10.4 Automated blood neutrophils/100 leukocytes 68 % 42-75 Automated blood lymphocytes/100 leukocytes 17 % 12-44 Blood monocytes/100 leukocytes 14 % 0-12 Automated blood eosinophils/100 leukocytes 1 % 0-10 Automated blood basophils/100 leukocytes 0 % 0-10 Blood neutrophils automated count (number/volume) 11.8 10*3 1.8-7.8 Blood lymphocytes automated count (number/volume) 3.0 10*3 1.0-4.0 Blood monocytes automated count (number/volume) 2.4 10*3 0.0-1.0 Automated eosinophil count 0.2 10*3/uL 0.0-0.3 Automated blood basophil count (count/volume) 0.1 10*3/uL 0.0-0.1 Comprehensive metabolic panel - 08/28/18 14:55 Serum or plasma sodium measurement (moles/volume) 135 mmol/L 135-145 Serum or plasma potassium measurement (moles/volume) 4.5 mmol/L 3.6-5.0 Serum or plasma chloride measurement (moles/volume) 99 mmol/L 98-107 Carbon dioxide 27 mmol/L 21-32 Serum or plasma anion gap determination (moles/volume) 9 mmol/L 5-14 Serum or plasma urea nitrogen measurement (mass/volume) 7 mg/dL 7-18 Serum or plasma creatinine measurement (mass/volume) 1.16 mg/dL 0.60-1.30 Serum or plasma urea nitrogen/creatinine mass ratio 6 NRG Serum or plasma creatinine measurement with calculation of estimated glomerular filtration rate > NRG Serum or plasma glucose measurement (mass/volume) 111 mg/dL 70-105 Serum or plasma calcium measurement (mass/volume) 8.4 mg/dL 8.5-10.1 Serum or plasma total bilirubin measurement (mass/volume) 0.3 mg/dL 0.1-1.0 Serum or plasma alkaline phosphatase measurement (enzymatic activity/volume) 71 U/L 40-136 Serum or plasma aspartate aminotransferase measurement (enzymatic activity/ volume) 14 U/L 5-34 Serum or plasma alanine aminotransferase measurement (enzymatic activity/volume ) 7 U/L 0-55 Serum or plasma protein measurement (mass/volume) 7.9 g/dL 6.4-8.2 Serum or plasma albumin measurement (mass/volume) 2.6 g/dL 3.2-4.5 CALCIUM CORRECTED 9.5 mg/dL 8.5-10.1 Encounters ACCT No. Visit Date/Time Discharge Status Pt. Type Provider Facility Loc./Unit Complaint [id number] 06/22/2015 21:44:56 06/22/2015 23:59:59 CLS Outpatient Ramos Joshua [id number] 09/14/2014 20:55:13 09/14/2014 23:59:59 CLS Outpatient Ramos Joshua [id number] 07/21/2018 23:45:00 ACT Inpatient ROBERT ARIAS MD [facility] ICU BOUBACAR RECTAL ABSCESS,SEVERE SEPSIS,RENAL FAILURE [id number] 07/21/2018 23:45:00 07/27/2018 18:04:00 DIS Inpatient ROBERT ARIAS MD [facility] 4TH BOUBACAR RECTAL ABSCESS, SEVERE SEPSIS,RENAL FAILURE [id number] 09/14/2018 11:12:00 ACT Emergency MIRYAM FUNK MD [facility] ER INFECTION [id number] 09/13/2018 08:07:00 ACT Outpatient SAROJ CHA [facility] ONC
--- OUTSIDE RECORDS SUMMARY | 2018-09-14 11:16 | XMS REPORT | Continuity Of Care Document ---
Author Author [facility] Organization [facility] Address [address] [place] [address] Phone Care Team Providers Care Machine Tool Dresser Name Role Phone JOSEPHINE PATEL, DENNISE Cardoza AD [phone] NICA PATEL, ANTONIO Oliveira AT MYRIAM PIZARRO APRN CP Results Lab Results Visit/Account #[id number] (March 11, 2013 9:12pm - March 15, 2013 6:16pm) Test Result Reported Date/Time FREE T4 FREE T4(0.58-1.64 NG/DL) 0.92 NG/DL March 12, 2013 12:37am Microbiology Results Visit/Account #[id number] (March 11, 2013 9:12pm - March 15, 2013 6:16pm) Procedure Result Specimen #: [id number] MRSA SCREEN FOR INFEC CONTROL Result Instance On March 13, 2013 12:33pm Source: NARE Special Result Comments: NO MRSA ISOLATED Allergies and Adverse Reactions Allergies and Adverse Reactions Patient Unit Number: [id number] Agent Type Reaction Severity Status Date MILK Drug Allergy Unknown Mild Active March 11, 2013 seasonal Allergy Unknown Mild Active March 11, 2013 Problem List Problem List Visit/Account #[id number] (March 11, 2013 9:12pm - March 15, 2013 6:16pm) Chronic Problems: Code/Condition Comments Documented Start Date Documented Resolved Date Severe recurrent major depression without psychotic features March 20, 2013 Vital Signs Vital Signs Visit/Account #[id number] (March 11, 2013 9:12pm - March 15, 2013 6:16pm) Label First Result Last Result 2710-2: O2% 97 % March 11, 2013 9:45pm 98 % March 15, 2013 8:00am 3141-9: Weight Measured 288 lbs March 11, 2013 9:47pm 130.551220 kg March 11, 2013 9:47pm 8310-5: Celsius Body Temperature 37.98794 Mame March 11, 2013 9:45pm 36.26926 Mame March 15, 2013 8:00am 8310-5: Fahrenheit Body Temperature 99.2 [degF] March 11, 2013 9:45pm 97.3 [degF] March 15, 2013 8:00am Blood Pressure 161/106 mm[Hg] March 11, 2013 9:45pm 140/80 mm[Hg] March 15, 2013 8:00am 8867-4: Heart Rate 81 /min March 11, 2013 9:45pm 73 /min March 15, 2013 8:00am 9279-1: Respiratory Rate 20 /min March 11, 2013 9:45pm 20 /min March 15, 2013 8:00am Home Medications Home Medications Visit/Account #[id number] (March 11, 2013 9:12pm - March 15, 2013 6:16pm) Medication Dose Route Sig/Schedule Precondition/Indication Comments/ Instructions ND Ambien(ZOLPIDEM TARTRATE) 10 MG TABLET 20 MG PO: ORAL HS: AT BEDTIME Ambien (ZOLPIDEM TARTRATE): [id number] Tenormin(ATENOLOL) 50 MG TABLET 50 MG PO: ORAL BID: TWICE A DAY Tenormin (ATENOLOL): 18147540641 Trazodone Hcl(TraZODone HCL) 100 MG TABLET 100 MG PO: ORAL BID: TWICE A DAY Trazodone Hcl (TraZODone HCL): 12321001836 Seroquel Xr(QUEtiapine FUMARATE) 300 MG TAB 300 MG PO: ORAL BID: TWICE A DAY Seroquel Xr (QUEtiapine FUMARATE): 35743215704 Lortab 10-500(ACETAMINOPHEN/HYDROCODONE) 1 TAB TAB 1 TAB PO: ORAL Q4S: EVERY 4 HOURS Lortab 10-500 (ACETAMINOPHEN/HYDROCODONE): [id number] Ordered Medications Ordered Medications Visit/Account #[id number] (March 11, 2013 9:12pm - March 15, 2013 6:16pm) Medication Dose Route Sig/Schedule Precondition/Indication Comments/ Instructions NDC TENORMIN(ATENOLOL) 50 MG TAB 50 MG PO: ORAL BID: TWICE A DAY Label Comments: MAY INCREASE FALL RISK TENORMIN (ATENOLOL): 74297233549 NORCO 10-325(HYDROCODONE BIT/ACETAMINOPHEN) 1 TAB TAB 1 TAB PO: ORAL Q4S: EVERY 4 HOURS PRN Reason: PRN Reason: PAIN Label Comments: <<may [place] [address]500>> REC MAX DAILY DOSE ACETAMINOPHEN: 4000 MG/24 HR MAY INCREASE FALL RISK NORCO 10-325 (HYDROCODONE BIT/ACETAMINOPHEN): 78024496272 DESYREL(TraZODone HCL) 100 MG TAB 100 MG PO: ORAL BID: TWICE A DAY PRN Reason: PRN Reason: SLEEP Label Comments: MAY INCREASE FALL RISK DESYREL (TraZODone HCL): 57679208095X AMBIEN(ZOLPIDEM TARTRATE) 10 MG TAB 20 MG PO: ORAL HS: AT BEDTIME Rx Order Comments: Order filed UNV: Dose Warnings differ from video recorder mechanic Label Comments: MAY INCREASE FALL RISK AMBIEN (ZOLPIDEM TARTRATE): [id number] DESYREL(TraZODone HCL) 100 MG TAB 100 MG PO: ORAL HS: AT BEDTIME PRN Reason: PRN Reason: SLEEP Label Comments: MAY INCREASE FALL RISK DESYREL (TraZODone HCL): 24388029732X SEROquel(QUEtiapine FUMARATE) 100 MG TAB 300 MG PO: ORAL BID: TWICE A DAY PRN Reason: agitation Rx Order Comments: Order filed UNV: Allergies/Duplicates/Interactions differ from video recorder mechanic Label Comments: MAY INCREASE FALL RISK SEROquel (QUEtiapine FUMARATE): 69432544011 ZyPREXA ZYDIS(OLANZapine) 5 MG TAB 5 MG PO: ORAL Q2H PRN Reason: agitation Label Comments: MAY INCREASE FALL RISK Special Dose Instructions: NOT TO EXCEED TOTAL DAILY DOSE OF 20_MG/24 HR ZyPREXA ZYDIS (OLANZapine): 15683703609 AMBIEN(ZOLPIDEM TARTRATE) 10 MG TAB 10 MG PO: ORAL HS: AT BEDTIME Rx Order Comments: Order filed UNV: Dose Warnings differ from video recorder mechanic Label Comments: MAY INCREASE FALL RISK AMBIEN (ZOLPIDEM TARTRATE): 22819021628 SEROquel XR(QUEtiapine FUMARATE) 300 MG TAB 300 MG PO: ORAL HS: AT BEDTIME Label Comments: DO NOT CRUSH MAY INCREASE FALL RISK SEROquel XR (QUEtiapine FUMARATE): 60125481117 Discharge Medications Discharge Medications Visit/Account #[id number] (March 11, 2013 9:12pm - March 15, 2013 6:16pm) Medication Dose Route Sig/Schedule Precondition/Indication Comments/ Instructions NDC Tenormin(ATENOLOL) 50 MG TABLET 50 MG PO: ORAL BID: TWICE A DAY Tenormin (ATENOLOL): 04615655024 Lortab 10-500(ACETAMINOPHEN/HYDROCODONE) 1 TAB TAB 1 TAB PO: ORAL Q4S: EVERY 4 HOURS Lortab 10-500 (ACETAMINOPHEN/HYDROCODONE): 05078075698 Ambien(ZOLPIDEM TARTRATE) 10 MG TAB 10 MG PO: ORAL HS: AT BEDTIME Converted from Pharmacy Inpatient Medication Ambien (ZOLPIDEM TARTRATE): [id number] Seroquel Xr(QUEtiapine FUMARATE) 300 MG TAB 300 MG PO: ORAL HS: AT BEDTIME Converted from Pharmacy Inpatient Medication Seroquel Xr (QUEtiapine FUMARATE): 10451771840 Hydroxyzine Pamoate(HydrOXYzine PAMOATE) 25 MG CAP 50 MG PO: ORAL TID: 3 TIMES A DAY Converted from Pharmacy Inpatient Medication Hydroxyzine Pamoate (HydrOXYzine PAMOATE): 95879743433 DESYREL(TraZODone HCL) 150 MG TAB 150 MG PO: ORAL HS: AT BEDTIME Converted from Pharmacy Inpatient Medication DESYREL (TraZODone HCL): 52915143774 Discontinued Medication Dose Route Sig/Schedule Precondition/Indication Comments/ Instructions NDC Ambien(ZOLPIDEM TARTRATE) 10 MG TABLET 20 MG PO: ORAL HS: AT BEDTIME Status: Discontinued as of 03/15/2013 11:54am Ambien (ZOLPIDEM TARTRATE): 11707333785 History Of Encounters Encounters Visit/Account #[id number] (March 11, 2013 9:12pm - March 15, 2013 6:16pm) HISTORY AND PHYSICAL March 12, 2013 10:35am Dictated By: MYRIAM PIZARRO APRN Signed By: MYRIAM PIZARRO APRN [address] [address] ~HISTORY AND PHYSICAL~ - Signed Patient Name: VON ANSARI DOB - Age: 10 1970 - Med Rec#: [id number] Report#: [id number] Admission Date: 03/11/13 Transcribed Date: 03/12/13 1104 History and Physical HPI: 42-year-old single, -Lao male, lives in [place], [place]. History of chronic depression, worse lately, wanted to get a gun and shoot himself. Pt is transfer from [facility]. Pt states he is having worsening depression. Pt denies any SI/HI at this time. Pt began Seroquel on February 19 via [facility] admission and feels that it is not working at all. He feels the depression is worsening and that he is withdrawing from people. He also dislikes the side effect of weight gain. 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 Pt is also at odds with his 20 year old daughter and that is stressing him out tremendously. He denies alcohol use, but relapsed with cocaine use 02-19-13 and smoked marijuana end of January 2013. Has had multiple admissions for [facility]. Past medications include: Not sure of what all has been on, states "you can get records". Currently on Seroquel XR 300mg BID PRN, Trazodone 100mg BID PRN, Ambien 20mg t HS. Drug screen at [facility]: Non-negative results on THC, Cocaine, Methamphetamine, Opiates, Amphetamine. Stated he has used Cocaine on 02-19-13 and smoked Marijuana end of January 2013. EKG: Normal sinus rhythm. CHECKLIST: Anxiety (minimal), Sleep, Anhedonia, Hopelessness, Concentration, Energy MEDICATIONS SIDE-AFFECTS: Medications Side-Effects: sedation Allergies: Coded Allergies: MILK (Verified Allergy, Mild, 03/11/13) Uncoded Allergies: seasonal (Allergy, Mild, 03/11/13) MEDICATIONS: Reported Medications Hydrocodone/Acetaminophen 10-500 Mg (Lortab 10-500)1 Tab Tab 1 Tab PO Q4S PRN 03/11/13 Quetiapine Fumarate (Seroquel Xr)300 Mg Tab.sr.24h 300 Mg PO BID PRN 03/11/13 Trazodone Hcl 100 Mg Tablet 100 Mg PO BID PRN 03/11/13 Atenolol (Tenormin)50 Mg Tab 50 Mg PO BID 03/11/13 Zolpidem Tartrate (Ambien)10 Mg Tablet 20 Mg PO HS 03/11/13 DIAGNOSIS: Major depressive disorder, severe, recurrent, without psychotic features. Patient History Psychiatric History: Details: Yes, hx of prior psychiatric treatment, [facility] [place]. Sees [facility] for psychiatric services, not always compliant with visits and meds. Family History: Details: Hx Family Alcohol Abuse * Yes - father, mother Hx Family Substance Use * Yes - brother - cocaqine Hx Family Psychiatric Problems * Yes - brother - schizophrenic Hx Family Suicide Attempt * No Hx Family Suicide * No Social History: Details: Smoking Status * Current every day smoker Smoked in the last 12 months? * Yes # Cigarettes Per Day * 40 Number of Years * 30 years Hx Chewing Tobacco Use * No Would you like to receive information about quitting? 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 Hx of Respiratory Disorders/Surgeries * Yes Hx Musculoskeletal Surgery * Yes - bilateral feet - 9 surgeries for plantar warts Hx Musculoskeletal Disorders/Surgeries * Yes Hx Anxiety * Yes Hx Bipolar Disorder * Yes Hx Depression * Yes Hx Schizophrenia * Yes Hx Self-mutilation * Yes - last cut in the last year Hx of Psychiatric Problems * Yes ROS Review of Systems Constitutional: COMPLAINS OF: Fatigue, Weight gain Eyes: COMPLAINS OF: Altered vision Other integumentary feet, multiple surgeries to remove plantar warts EXAM Vital Signs Reviewed Laboratory Tests Test 03/11/13 23:21 Free Thyroxine 0.92 NG/DL Weight: Weight: 130.635 kg Constitutional Details Negative for fever, chills, and wt. loss. Physical: Alert Distress: NAD HEENT Details Minimal sinus congestion, negaive for rhinorrhea. Neck/Back Details Neg for acute changes Respiratory Details No SOB, no sputum production Cardiovascular Details Neg for chest pain, palpitations, or edema. Gastrointestinal Details Positive for GERD, neg for nausea, vomiting, diarrhea, constipation, rectal bleeding. Skin Skin: Warm, Dry, Other (feet cracked, sore) Musculoskeletal Details Neg for pain, parasthesias Neurologic Details Positive for frequent headaches, Neg for altered mental status, dizziness, numbness, near syncope, tingling, weakness. Psychiatric Evaluation Assessment: Assessment: 42-year-old single, -Lao male. He is calm and cooperative, maintains good eye contact today. He is frustrated with medications and feels "sedated", does not like feeling of being slow and "dull". Discussed Trazodone a.m. dose, will discontinue it. Mood is described as "good", rated as 7-8/10. Interest and motivation are low, negative feelings of self-blamle, guilt, worthlessness. Decreased energy. Concentration is fair, able to track and stay on topic when wants to. Decreased appetite. Psychomotor slowing. Denies SI or HI, no destiney or psychosis noted or reported. States thinks he was once diagnosed with Bipolar and Schizophrenia. Cannot relate prior medications by name. Anhedonia, does not care about fishing and basketball, usually loves it. T4 level 0.92 on 03-11-13. Just started Seroquel on 02-19-13. [place] I: Severe recurrent major depression without psychotic features [place] I Details: R/O Personality D/O NOS [place] III: Plantar's warts on feet, chronic bilateral foot pain, HTN [place] IV: Social environmental, primary support, occupational [place] V: 30 Plan: 1) Admit to [facility] Inpatient unit, group, individual, [facility] therapy. 2) Medications as listed. 3) May discontinue a.m. dose of Trazodone 100mg. Leave p.m. dose 100mg as PRN. Meds Benefits/Side Effects Discussed?: YES Patient Treatments Consents?: YES MYRIAM PIZARRO APRN Mar 12, 2013 10:35 Signed By: MYRIAM PIZARRO APRN 03/12/13 1104 DENNISE BURTON MD 03/17/13 1323 DISCHARGE SUMMARY March 20, 2013 9:30pm Dictated By: MYRIAM PIZARRO APRN Signed By: MYRIAM PIZARRO APRN [address] [address] Name: VON ANSARI UNIT/MR#: [id number] : 1970 Age: 42 Sex: M Report#: [id number] Adm Date: 03/11/[address] ANTONIO YOUSIF MD PCP: Disch Dt: ~DISCHARGE SUMMARY~ Signed Discharge Summary DISCHARGE DIAGNOSIS: [place] I: Severe recurrent major depression without psychotic features [place] II: Deferred [place] III: Bilateral foot pain r/t previous multiple surgeries for plantar wart removal, obesity [place] IV: Social environmental, occupational, primary support [place] V: 50-55 MEDICATIONS AT DISCHARGE: Active Scripts TraZODone HCL (Desyrel)150 Mg Tab 150 Mg PO HS #14 Ref 1 Prov:LAMER,MYRIAM T FINGERPRINT CLERK 03/15/13 Hydroxyzine Pamoate 25 Mg Cap 50 Mg PO TID PRN #12 Ref 0 Prov:LAMER,MYRIAM T FINGERPRINT CLERK 03/15/13 Quetiapine Fumarate (Seroquel Xr)300 Mg Tab.sr.24h 300 Mg PO HS #14 Ref 1 Prov:LAMER,MYRIAM T FINGERPRINT CLERK 03/15/13 Zolpidem Tartrate (Ambien)10 Mg Tab 10 Mg PO HS #14 Ref 1 Prov:LAMERMYRIAM T FINGERPRINT CLERK 03/15/13 Reported Medications Hydrocodone/Acetaminophen 10-500 Mg (Lortab 10-500)1 Tab Tab 1 Tab PO Q4S PRN 03/11/13 Quetiapine Fumarate (Seroquel Xr)300 Mg Tab.sr.24h 300 Mg PO BID PRN 03/11/13 Trazodone Hcl 100 Mg Tablet 100 Mg PO BID PRN 03/11/13 Atenolol (Tenormin)50 Mg Tab 50 Mg PO BID 03/11/13 Discontinued Reported Medications Zolpidem Tartrate (Ambien)10 Mg Tablet 20 Mg PO HS 03/11/13 HISTORY OF PRESENT ILLNESS: 42-year-old single, -Lao male, lives in [place], [place]. History of chronic depression, worse lately, wanted to get a gun and shoot himself. Pt is transfer from [facility]. Pt states he is having worsening depression. Pt denies any SI/HI at this time. Pt began Seroquel on February 19 via [facility] admission and feels that it is not working at all. He feels the depression is worsening and that he is withdrawing from people. He also dislikes the side effect of weight gain. 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 Pt is also at odds with his 20 year old daughter and that is stressing him out tremendously. He denies alcohol use, but relapsed with cocaine use 02-19-13 and smoked marijuana end of January 2013. Has had multiple admissions for psychiatric care to [facility]. Past medications include: Not sure of what all has been on, states "you can get records". Currently on Seroquel XR 300mg BID PRN, Trazodone 100mg BID PRN, Ambien 20mg t HS. Drug screen at [facility]: Non-negative results on THC, Cocaine, Methamphetamine, Opiates, Amphetamine. Stated he has used Cocaine on 02-19-13 and smoked Marijuana end of January 2013. EKG: Normal sinus rhythm. PSYCHIATRIC HISTORY: Yes, hx of prior psychiatric treatment, admitted to [facility] [place] [place]. Sees [facility] for psychiatric services, not always compliant with visits and meds. FAMILY HISTORY: Yes, hx of family alcohol abuse, use - father, mother. Family substance abuse: Yes - brother - cocaine. Hx of family psychiatric problems: Yes - brother - schizophrenic. Denies any family suicide attempts. SOCIAL HISTORY: Current every day smoker, has smoked about 40 cigarettes a day for 30 years. Denies chewing tobacco. Hx of alcohol use, last used 4 months ago, wine coolers , was in half-way and had tx for substance use (alcohol). Other substance used cocaine and marijuana, went to half-way, relapsed and used again February 17. PAST MEDICAL HISTORY: Yes, hx of headaches. HTN on medication to treat. Hx of cardiac problems, musculoskeletal disorders, anxiety, bipolar disorder, depression, schizophrenia, self mutilation in the last year, had cut self. 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 Yes, hx of musculoskeletal sugeries: Yes - bilateral feet - 9 surgeries for plantar warts. ALLERGIES: Coded Allergies: MILK (Verified Allergy, Mild, 03/11/13) Uncoded Allergies: seasonal (Allergy, Mild, 03/11/13) MENTAL STATUS EXAMINATION: 42-year-old single, -Lao male. He is calm and cooperative, maintains good eye contact today. Appearance today is disheveled, hair is messy , has changed clothes. Psychomotor activity is slightly agitated and tense, decreased. Has brought it to light, he is not a morning person and has asked to have assessments and conversations "after he gets 'woke up' so as not to come across as agitated and angry", when he is just not ready to interact very early in the day. Affect and mood are improved, brighter. Thought process is more logical and organized. Thought content is appropriate, he is alert and oriented. Attention and concentration are fine. Insight and judgement are fair, he denies SI or HI. TREATMENT COURSE: Patient was admitted to [facility] inpatient unit with chronic depression and SI. He was placed on suicidal precautions. He was encourged to attend individual and group therapies. Initial reporting of medication doses were conflicting between what patient reported and what he was dismissed from [facility] () on: he reported Seroquel XR 300mg BID PRN and stated he was taking it PRN, reported Trazodone 100mg BID PRN and he was taking it as such, also reported Ambien at bedtime 20mg and his main concern was feeling too sedated. Initial adjustment of Trazodone was made to discontinue the a.m. dose of 100mg and leave the p.m. dose as PRN. Clarified instructions as Seroquel 300mg BID, Trazodone 200mg at bedtime, and Ambien 20mg at bedtime. On 03-13-13 his mood was irritable and continued to feel sedated, was not using Zydis as he stated he took it at "knocked me out for a day". Awoke with nightmares during the night. Agitated during the day. Changed Seroquel order to Seroquel XR 300mg in p.m., added Vistaril 50mg TID PRN for anxiety, and reduced Ambien at bedtime to 10mg. On 03-14-13 more alert and not as "slow and dull", has utilized Zydis 5mg as PRN and found it to be beneficial. No further changes. On 03-15-13, continues to improve with alertness and mood improvement. Has denied SI or HI. Complained of not sleeping well, requested to alter the Trazodone, felt it had been decreased too much, increased PRN order to 150mg at bedtime. He has tolerated medications without problems. He has attended groups and socialized with peers on unit. He has reported feeling less sedated, more alert, improvement in mood, and has resolved SI. DISCHARGE PLANS: Discharged to home. Will follow up at [facility]. See Discharge Instruction sheet for medication details, prescriptions called to [facility] in [place], [place]. Diet and activity as tolerated. Condition stable. Patient is ambulatory and has reported improvement in depression, more alert, and resolution of SI. MYRIAM PIZARRO APRN March 20, 2013 21:30 Signed By: MYRIAM PIZARRO APRN 03/22/13 8919 DENNISE BURTON MD 03/26/13 0151
[2018-09-14] MEDS ORDERED: NS IV 1000 ML 1,000 ML IV SCH (11:43)
--- NOTE | 2018-09-14 11:53 | ED Integumentary General ---
General Chief Complaint: Rect Problems Stated Complaint: INFECTION Nursing Triage Note: the pt was sent here from the wound care center. the pt is ambulatory to the room without difficulty. no distress is seen on arrival. loc is normal for the pt. Source: patient Exam Limitations: no limitations History of Present Illness Date Seen by Provider: Sep 14, 2018 Time Seen by Provider: 11:40 Initial Comments Patient is a 48-year-old male who presents to the emergency room with complaints of abscess to his rectal area that has been draining for the past month. He is a resident of [facility] and reports that they have been doing wound care to that area for rectal and anal cancer but for the past week he started developing fever and had increasing foul-smelling drainage. He sees Dr. Julien at [facility] and [facility] for his treatment of the rectal/anal cancer. He has packing in place on both sides around his rectum with copious amounts of drainage coming from the incisions that are in place. Timing/Duration: getting worse, changing over time Location: genitalia (rectum) Possible Cause: no cause identified Associated Symptoms: fever Allergies and Home Medications Allergies Coded Allergies: No Known Drug Allergies (Unverified , 07/24/18) Home Medications Amoxicillin/Potassium Clav 1 Each Tablet, 1 EACH PO Q12H Prescribed by: ROBERT ARIAS on 07/27/18 1117 Hydrocodone Bit/Acetaminophen 1 Tab Tab, 1 TAB PO Q6H PRN for PAIN-MODERATE Prescribed by: ROBERT ARIAS on 07/27/18 1117 Sulfamethoxazole/Trimethoprim 1 Each Tablet, 1 EACH PO BID Prescribed by: OUMAR JEFFRIES on 09/14/18 1535 Patient Home Medication List Home Medication List Reviewed: Yes Review of Systems Review of Systems Constitutional: see HPI, chills, fever Skin: see HPI, other (draining from his rectum and the skin around his rectum.) All Other Systems Reviewed Negative Unless Noted: Yes Past Odrboop-Gknkja-Nvopbr Hx Past Med/Social Hx: Reviewed Nursing Past Med/Soc Hx Patient Social History Drug of Choice: past use Type Used: Cigarettes Recent Foreign Travel: No Contact w/Someone Who Travel: No Recent Infectious Disease Expo: No Recent Hopitalizations: No Immunizations Up To Date Tetanus Booster (TDap): Unknown PED Vaccines UTD: No Seasonal Allergies Seasonal Allergies: Yes (hayfever) Past Medical History Surgeries: Yes (frequent foot surgeries for plantar warts) Lobectomy Respiratory: Yes Chronic Bronchitis Cardiac: Yes Neurological: No Genitourinary: No Gastrointestinal: No Musculoskeletal: No Endocrine: No HEENT: No Cancer: Yes Lung Did You Recieve Any Treatments: Yes What Type of Treatment Did You: Surgical Intervention Psychosocial: No Integumentary: Yes (plantar warts to bilateral feet) Blood Disorders: No Family Medical History Reviewed Nursing Family Hx Patient reports no known family medical history. Physical Exam Vital Signs Vital Signs - First Documented 09/14/18 09/14/18 09/14/18 11:27 12:01 14:16 Temp 98.4 Pulse 116 Resp 18 B/P (MAP) 106/72 (83) Pulse Ox 99 O2 Flow Rate 2.00 Capillary Refill : Less Than 3 Seconds General Appearance: WD/WN, no apparent distress Cardiovascular: normal peripheral pulses, no edema, no gallop, no JVD, no murmur, tachycardia Respiratory: chest non-tender, lungs clear, normal breath sounds, no respiratory distress, no accessory muscle use Gastrointestinal: normal bowel sounds, non tender, soft, no organomegaly, no pulsatile mass, other (colostomy) Extremities: normal range of motion, non-tender, normal inspection, no pedal edema, no calf tenderness, normal capillary refill, pelvis stable Neurologic/Psychiatric: alert, normal mood/affect, oriented x 3 Skin: normal color, warm/dry Skin Problem Location: other (rectal abscess) Skin Problem Character: abscess, drainage (yellow/white drainage), warm, other (tenderness to the area around the rectum) Progress/Results/Core Measures Results/Orders Lab Results Laboratory Tests Test 09/14/18 12:29 Range/Units White Blood Count 11.1 H 4.3-11.0 10^3/uL Red Blood Count 2.92 L 4.35-5.85 10^6/uL Hemoglobin 7.3 L 13.3-17.7 G/DL Hematocrit 23 L 40-54 % Mean Corpuscular Volume 79 L 80-99 FL Mean Corpuscular Hemoglobin 25 25-34 PG Mean Corpuscular Hemoglobin Concent 32 32-36 G/DL Red Cell Distribution Width 17.3 H 10.0-14.5 % Platelet Count 348 130-400 10^3/uL Mean Platelet Volume 9.2 7.4-10.4 FL Neutrophils (%) (Auto) 82 H 42-75 % Lymphocytes (%) (Auto) 5 L 12-44 % Monocytes (%) (Auto) 12 0-12 % Eosinophils (%) (Auto) 1 0-10 % Basophils (%) (Auto) 0 0-10 % Neutrophils # (Auto) 9.1 H 1.8-7.8 X 10^3 Lymphocytes # (Auto) 0.6 L 1.0-4.0 X 10^3 Monocytes # (Auto) 1.4 H 0.0-1.0 X 10^3 Eosinophils # (Auto) 0.1 0.0-0.3 10^3/uL Basophils # (Auto) 0.0 0.0-0.1 10^3/uL Neutrophils % (Manual) 88 % Lymphocytes % (Manual) 4 % Monocytes % (Manual) 7 % Eosinophils % (Manual) 1 % Hypochromasia SLIGHT Anisocytosis SLIGHT Microcytosis SLIGHT Prothrombin Time 14.2 12.2-14.7 SEC INR Comment 1.1 0.8-1.4 Activated Partial Thromboplast Time 35 24-35 SEC Sodium Level 137 135-145 MMOL/L Potassium Level 3.8 3.6-5.0 MMOL/L Chloride Level 104 98-107 MMOL/L Carbon Dioxide Level 23 21-32 MMOL/L Anion Gap 10 5-14 MMOL/L Blood Urea Nitrogen 11 7-18 MG/DL Creatinine 0.85 0.60-1.30 MG/DL Estimat Glomerular Filtration Rate > 60 BUN/Creatinine Ratio 13 Glucose Level 88 70-105 MG/DL Lactic Acid Level 0.96 0.50-2.00 MMOL/L Calcium Level 8.7 8.5-10.1 MG/DL Corrected Calcium 9.7 8.5-10.1 MG/DL Total Bilirubin 0.3 0.1-1.0 MG/DL Aspartate Amino Transf (AST/SGOT) 34 5-34 U/L Alanine Aminotransferase (ALT/SGPT) 50 0-55 U/L Alkaline Phosphatase 92 40-136 U/L Total Protein 6.8 6.4-8.2 GM/DL Albumin 2.8 L 3.2-4.5 GM/DL Micro Results Microbiology 09/14/18 Blood Culture - Preliminary, Resulted No growth 09/14/18 Blood Culture - Preliminary, Resulted No growth My Orders Orders - OUMAR JEFFRIES Cbc With Automated Diff (09/14/18 11:43) Comprehensive Metabolic Panel (09/14/18 11:43) Blood Culture (09/14/18 11:43) Protime With Inr (09/14/18 11:43) Partial Thromboplastin Time (09/14/18 11:43) Saline Lock/Iv-Start (09/14/18 11:43) Saline Lock/Iv-Start (09/14/18 11:43) Vital Signs Adult Sepsis Patie Q15M (09/14/18 11:43) O2 (09/14/18 11:43) Remove Rings In Anticipation O (09/14/18 11:43) Lactic Acid Analyzer (09/14/18 11:43) Ns Iv 1000 Ml (Sodium Chloride 0.9%) (09/14/18 11:43) Fentanyl Injection (Sublimaze Injection (09/14/18 12:30) Manual Differential (09/14/18 12:29) Ct Abdomen/Pelvis Wo (09/14/18 13:47) Ceftriaxone For Iv Use (Rocephin For I (09/14/18 15:00) Sulfamethoxazole/Trimet Ds Tab (Bactrim (09/14/18 15:00) Medications Given in ED Vital Signs/I&O 09/14/18 09/14/18 09/14/18 09/14/18 11:27 12:01 12:26 14:16 Temp 98.4 98.4 98.4 Pulse 116 116 113 90 Resp 18 18 18 18 B/P (MAP) 106/72 (83) 106/72 (83) 106/72 140/70 (93) Pulse Ox 99 99 O2 Flow Rate 2.00 09/14/18 16:10 Temp 97.9 Pulse 110 Resp 18 B/P (MAP) 111/67 (82) Pulse Ox 99 Blood Pressure Mean: 83 Progress Progress Note : Time: 15:16 Progress Note I have seen and evaluated the patient. I have spoke to Dr. Arias, Dr. Julien, and Dr. Dale regarding the patients case. They all feel that this is more of the cancers progression rather than acute infection. Dr. Arias recommends giving Rocephin IV and Bactrim DS outpatient and he will see him next week in the office. Dr. Dale will hold chemo and radiation treatment today. Dr. Julien agrees to follow up with patient in half-way next week. Diagnostic Imaging Diagonstic Imaging: CT Plain Films/CT/US/NM/MRI: abdomen, pelvis Comments NAME: VON ANSARI [facility] REC#: [id number] PHYSICIAN: OUMAR JEFFRIES CC: OUMAR JEFFRIES; JERRELL BOOTH MD Page 2 of 2 RADIOLOGY REPORT VIA [facility], [place] CC: OUMAR JEFFRIES; JERRELL BOOTH MD Page 1 of 1 RADIOLOGY REPORT NAME: VON ANSARI [facility] REC#: [id number] PT STATUS: REG ER : 1970 PHYSICIAN: OUMAR JEFFRIES ADMIT DATE: 09/14/18/ER Signed Date of Exam: 09/14/18 CT ABDOMEN/PELVIS WO PROCEDURE: CT abdomen and pelvis without contrast. TECHNIQUE: Multiple contiguous axial images were obtained through the abdomen and pelvis without the use of intravenous contrast. INDICATION: Anal cancer. COMPARISON: Comparison is made with prior CT from 07/21/2018. FINDINGS: Imaging through the lung bases does show some scarring or atelectasis in the left lower lobe and lingula. Nodule in the right lower lobe appears stable. No discrete liver mass is identified. The gallbladder is unremarkable. No biliary ductal dilatation is seen. The pancreas and spleen are unremarkable. No adrenal mass is detected. No renal calculi or hydronephrosis is identified. The aorta is calcified but nonaneurysmal. There is an ostomy in the left abdomen, new since prior CT. Bowel loops appear to be of normal caliber. No obstruction is seen. No free fluid is identified. Previously noted cystic mass in the right pelvis, posterior to the bladder is again noted, measuring approximately 5.3 cm transverse compared with 5.1 cm on prior exam. There is significant thickening or mass involving the rectum and anal region. There is infiltration of the perirectal fat planes. The majority of the gas seen in the perirectal and subcutaneous location on CT one month earlier has resolved. Only a few remaining occasional gas bubbles are present. No definite well formed perirectal fluid collection is seen on today's study. Findings are more soft tissue. Mildly prominent left inguinal node appears to be decreased in size since prior exam. Bony structures are nonacute. IMPRESSION: Marked rectal and anal wall thickening and perirectal soft tissue prominence, distorting the pararectal fat planes. The significant gas noted at this location on CT from 07/21/2018 has largely resolved. No new well-formed fluid collection is seen on today's study. Previously noted cystic collection anterior and to the right of the rectum and posterior to the bladder is similar in size. Dictated by: Dictated on workstation # [id number] Dict: 09/14/18 1419 Trans: 09/14/18 1524 Interpreted by: JERRELL BOOTH MD Electronically signed by: JERRELL BOOTH MD 09/14/18 1524 Reviewed: Reviewed by Me Departure Impression Primary Impression: Perirectal abscess Disposition: 01 HOME, SELF-CARE Condition: Stable/Unchanged Departure-Patient Inst. Decision time for Depature: 15:16 Referrals: NO,LOCAL PHYSICIAN (PCP) Primary Care Physician JYOTI JULIEN XAVIER M MD Patient Instructions: ABSCESS Add. Discharge Instructions: Take medications as directed. Call Dr. Arias office today or first thing Monday morning for an appointment time to be seen next week. Tylenol and ibuprofen as directed by the bottle for pain and fever. Drink plenty of clear liquids to stay hydrated. Resume your radiation and chemotherapy treatment as scheduled on Monday. Dr. Arriaga wishes to hold your treatments today. Return back to the emergency room for any worsening symptoms, fever cannot be broken Tylenol or ibuprofen, increasing pain, or any other concerns as needed. All discharge instructions reviewed with patient and/or family. Voiced understanding. Scripts Sulfamethoxazole/Trimethoprim (Bactrim Ds Tablet) 1 Each Tablet 1 EACH PO BID for 10 Days, #20 TAB Prov: OUMAR JEFFRIES 09/14/18 OUMAR JEFFRIES Sep 14, 2018 11:53
[2018-09-14 12:01] VITALS: BP 106/72
[2018-09-14] MEDS ORDERED: fentaNYL INJECTION 100 MCG/2 ML AMP IVP ONE (12:30)
[2018-09-14 12:38] LABS: BASOPHILS % (AUTO) 0 % (0-10); EOSINOPHILS # (AUTO) 0.1 10^3/uL (0.0-0.3); EOSINOPHILS % (AUTO) 1 % (0-10); HEMATOCRIT 23 % (40-54); HEMOGLOBIN 7.3 G/DL (13.3-17.7); LYMPHOCYTES # (AUTO) 0.6 X 10^3 (1.0-4.0); LYMPHOCYTES % (AUTO) 5 % (12-44); MEAN CORPUSCULAR HEMOGLOBIN 25 PG (25-34); MEAN CORPUSCULAR HGB CONC 32 G/DL (32-36); MEAN CORPUSCULAR VOLUME 79 FL (80-99); MEAN PLATELET VOLUME 9.2 FL (7.4-10.4); MONOCYTES # (AUTO) 1.4 X 10^3 (0.0-1.0); MONOCYTES % (AUTO) 12 % (0-12); NEUTROPHILS # (AUTO) 9.1 X 10^3 (1.8-7.8); NEUTROPHILS % (AUTO) 82 % (42-75); PLATELET COUNT 348 10^3/uL (130-400); RED BLOOD COUNT 2.92 10^6/uL (4.35-5.85); RED CELL DISTRIBUTION WIDTH 17.3 % (10.0-14.5); WHITE BLOOD COUNT 11.1 10^3/uL (4.3-11.0)
[2018-09-14 12:53] LABS: INR 1.1 (0.8-1.4); PROTHROMBIN TIME PATIENT 14.2 SEC (12.2-14.7)
[2018-09-14 12:59] LABS: ALANINE AMINOTRANSFERASE 50 U/L (0-55); ALBUMIN 2.8 GM/DL (3.2-4.5); ALKALINE PHOSPHATASE 92 U/L (40-136); BILIRUBIN,TOTAL 0.3 MG/DL (0.1-1.0); BUN/CREATININE RATIO 13; CALCIUM 8.7 MG/DL (8.5-10.1); CARBON DIOXIDE 23 MMOL/L (21-32); CHLORIDE 104 MMOL/L (98-107); CREATININE SERUM 0.85 MG/DL (0.60-1.30); GFR ESTIMATED > 60; GLUCOSE 88 MG/DL (70-105); POTASSIUM 3.8 MMOL/L (3.6-5.0); SODIUM 137 MMOL/L (135-145); TOTAL PROTEIN 6.8 GM/DL (6.4-8.2)
[2018-09-14 13:05] LABS: EOSINOPHILS % (MANUAL) 1 %; LYMPHOCYTES % (MANUAL) 4 %; MONOCYTES % (MANUAL) 7 %; NEUTROPHILS % (MANUAL) 88 %
[2018-09-14 13:07] LABS: ANISOCYTOSIS SLIGHT; HYPOCHROMASIA SLIGHT; MICROCYTOSIS SLIGHT
[2018-09-14 14:16] VITALS: BP 140/70
--- NOTE | 2018-09-14 14:31 | Diagnostic Imaging Report ---
PROCEDURE: CT abdomen and pelvis without contrast. TECHNIQUE: Multiple contiguous axial images were obtained through the abdomen and pelvis without the use of intravenous contrast. INDICATION: Anal cancer. COMPARISON: Comparison is made with prior CT from 07/21/2018. FINDINGS: Imaging through the lung bases does show some scarring or atelectasis in the left lower lobe and lingula. Nodule in the right lower lobe appears stable. No discrete liver mass is identified. The gallbladder is unremarkable. No biliary ductal dilatation is seen. The pancreas and spleen are unremarkable. No adrenal mass is detected. No renal calculi or hydronephrosis is identified. The aorta is calcified but nonaneurysmal. There is an ostomy in the left abdomen, new since prior CT. Bowel loops appear to be of normal caliber. No obstruction is seen. No free fluid is identified. Previously noted cystic mass in the right pelvis, posterior to the bladder is again noted, measuring approximately 5.3 cm transverse compared with 5.1 cm on prior exam. There is significant thickening or mass involving the rectum and anal region. There is infiltration of the perirectal fat planes. The majority of the gas seen in the perirectal and subcutaneous location on CT one month earlier has resolved. Only a few remaining occasional gas bubbles are present. No definite well formed perirectal fluid collection is seen on today's study. Findings are more soft tissue. Mildly prominent left inguinal node appears to be decreased in size since prior exam. Bony structures are nonacute. IMPRESSION: Marked rectal and anal wall thickening and perirectal soft tissue prominence, distorting the pararectal fat planes. The significant gas noted at this location on CT from 07/21/2018 has largely resolved. No new well-formed fluid collection is seen on today's study. Previously noted cystic collection anterior and to the right of the rectum and posterior to the bladder is similar in size. Dictated by: Dictated on workstation # [id number]
[2018-09-14] MEDS ORDERED: cefTRIAXone FOR IV USE 1,000 MG in NS (IVPB) 50 ML IV ONE (15:00)
[2018-09-14] MEDS ORDERED: TRIM/SULFAMETH 160/800 (SEPTRA DS) TAB PO ONE (15:00)
[2018-09-14] MEDS ORDERED: oxyCODONE/APAP 5/325MG (PERCOCET 5) TABLET PO ONE (15:15)
[2018-09-14] MEDS ORDERED: SULF1TAB35 PO (15:35)
[2018-09-14 16:10] VITALS: BP 111/67
== END 2018-09-14 16:05 | disposition home or self-care (01) ==
LOC: EDUNIT# 11:11 → ER 11:12
DX: K61.1 Rectal abscess (principal); C21.8 Malignant neoplasm of overlapping sites of rectum, anus and anal canal; Z90.2 Acquired absence of lung [part of]; Z85.118 Personal history of other malignant neoplasm of bronchus and lung
CPT/HCPCS: 36415; 74176; 80053; 83605; 85007; 85027; 85610; 85730; 87040; 96361; 96374; 96375

== ENCOUNTER 2018-10-16 05:46 | Emergency (ER) | payer MEDICAID ==
[~2018-10-16] VITALS: Ht 170.2 cm; Wt 90.7 kg
[~2018-10-16 05:46] MED LIST changes: +SULF1TAB35 PO
--- OUTSIDE RECORDS SUMMARY | 2018-10-16 05:53 | XMS REPORT | Continuity of Care Document ---
Author Author [facility] Organization [facility] Address Unknown Phone Unavailable Allergies Active Description Code Type Severity Reaction Onset Reported/Identified Relationship to Patient Clinical Status Yes No Known Drug Allergies [id number] Drug Allergy Unknown N/A 07/21/2018 Yes No Known Drug Allergies [id number] Drug Allergy Unknown N/A 07/21/2018 Medications There is no data. 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, 09/17/2018 LUIS ALBERTO JEFFRIESIS Ot K61.1 RECTAL ABSCESS 09/17/2018 LUIS ALBERTO JEFFRIESIS Ot Z85.118 PERSONAL HISTORY OF MALIGNANT NEOPLASM O 09/17/2018 WALDEMARDONAL OUMAR Ot Z90.2 ACQUIRED ABSENCE OF LUNG [PART OF] 09/29/2018 STARLA SAROJ Ching Ot C21.1 MALIGNANT NEOPLASM OF ANAL CANAL 09/29/2018 STARLASAROJ Ot F17.210 NICOTINE DEPENDENCE, CIGARETTES, UNCOMPL 09/29/2018 STARLASAROJ Ot J44.9 CHRONIC OBSTRUCTIVE PULMONARY DISEASE, U 09/29/2018 STARLASAROJ FERNÁNDEZ Ching Ot Z51.0 ENCOUNTER FOR ANTINEOPLASTIC RADIATION T 09/29/2018 STARLASAROJ Ot Z66 DO NOT RESUSCITATE 09/29/2018 STARLA GINIMICHAEL Flower Ot Z90.2 ACQUIRED ABSENCE OF LUNG [PART OF] Procedures Code Description Performed By Performed On [id number] DRAINAGE OF RECTUM WITH DRAINAGE DEVICE, 07/22/2018 [id number] EXCISION OF RECTUM, ENDO, DIAGN 07/24/2018 [id number] INSERTION OF INFUSION DEV INTO SUP VENA [...] 10:23 Bacteria identification in wound by culture [id number] NRG FREE TEXT EXTERNAL NO SUSCEPTIBILITY PERFORMED [...] 10:23 Bacteria identification in wound by culture [id number] NRG FREE TEXT EXTERNAL NO SUSCEPTIBILITY PERFORMED NRG QUANTITY OF GROWTH Moderate Growth NRG FREE TEXT ENTRY 2 AT EXT 141 WITHIN 48 HOURS NRG RML Sensitivity Panel - 07/22/18 10:23 Gentamicin susceptibility [...] g/dL 3.2-4.5 CALCIUM CORRECTED 9.5 mg/dL 8.5-10.1 Bacterial blood culture - 09/14/18 12:23 Bacterial blood culture NG NRG Complete blood count (CBC) with automated white blood cell (WBC) differential - 09/14/18 12:29 Blood leukocytes automated count (number/volume) 11.1 10*3/uL 4.3-11.0 Blood erythrocytes automated count (number/volume) 2.92 10*6/uL 4.35-5.85 Venous blood hemoglobin measurement (mass/volume) 7.3 g/dL 13.3-17.7 Blood hematocrit (volume fraction) 23 % 40-54 Automated erythrocyte mean corpuscular volume 79 [foz_us] 80-99 Automated erythrocyte mean corpuscular hemoglobin (mass per erythrocyte) 25 pg 25-34 Automated erythrocyte mean corpuscular hemoglobin concentration measurement ( mass/volume) 32 g/dL 32-36 Automated erythrocyte distribution width ratio 17.3 % 10.0-14.5 Automated blood platelet count (count/volume) 348 10*3/uL 130-400 Automated blood platelet mean volume measurement 9.2 [foz_us] 7.4-10.4 Automated blood neutrophils/100 leukocytes 82 % 42-75 Automated blood lymphocytes/100 leukocytes 5 % 12-44 Blood monocytes/100 leukocytes 12 % 0-12 Automated blood eosinophils/100 leukocytes 1 % 0-10 Automated blood basophils/100 leukocytes 0 % 0-10 Blood neutrophils automated count (number/volume) 9.1 10*3 1.8-7.8 Blood lymphocytes automated count (number/volume) 0.6 10*3 1.0-4.0 Blood monocytes automated count (number/volume) 1.4 10*3 0.0-1.0 Automated eosinophil count 0.1 10*3/uL 0.0-0.3 Automated blood basophil count (count/volume) 0.0 10*3/uL 0.0-0.1 Blood lactic acid measurement (moles/volume) - 09/14/18 12:29 Blood lactic acid measurement (moles/volume) 0.96 mmol/L 0.50-2.00 PT panel in platelet poor plasma by coagulation assay - 09/14/18 12:29 Prothrombin time (PT) in platelet poor plasma by coagulation assay 14.2 s 12.2-14.7 INR in platelet poor plasma or blood by coagulation assay 1.1 0.8-1.4 Activated partial thromboplastin time (aPTT) in platelet poor plasma bycoagulation assay - 09/14/18 12:29 Activated partial thromboplastin time (aPTT) in platelet poor plasma bycoagulation assay 35 s 24-35 Comprehensive metabolic panel - 09/14/18 12:29 Serum or plasma sodium measurement (moles/volume) 137 mmol/L 135-145 Serum or plasma potassium measurement (moles/volume) 3.8 mmol/L 3.6-5.0 Serum or plasma chloride measurement (moles/volume) 104 mmol/L 98-107 Carbon dioxide 23 mmol/L 21-32 Serum or plasma anion gap determination (moles/volume) 10 mmol/L 5-14 Serum or plasma urea nitrogen measurement (mass/volume) 11 mg/dL 7-18 Serum or plasma creatinine measurement (mass/volume) 0.85 mg/dL 0.60-1.30 Serum or plasma urea nitrogen/creatinine mass ratio 13 NRG Serum or plasma creatinine measurement with calculation of estimated glomerular filtration rate > NRG Serum or plasma glucose measurement (mass/volume) 88 mg/dL 70-105 Serum or plasma calcium measurement (mass/volume) 8.7 mg/dL 8.5-10.1 Serum or plasma total bilirubin measurement (mass/volume) 0.3 mg/dL 0.1-1.0 Serum or plasma alkaline phosphatase measurement (enzymatic activity/volume) 92 U/L 40-136 Serum or plasma aspartate aminotransferase measurement (enzymatic activity/ volume) 34 U/L 5-34 Serum or plasma alanine aminotransferase measurement (enzymatic activity/volume ) 50 U/L 0-55 Serum or plasma protein measurement (mass/volume) 6.8 g/dL 6.4-8.2 Serum or plasma albumin measurement (mass/volume) 2.8 g/dL 3.2-4.5 CALCIUM CORRECTED 9.7 mg/dL 8.5-10.1 Blood manual differential performed detection - 09/14/18 12:29 Blood monocytes/100 leukocytes 7 % NRG Manual blood segmented neutrophils/100 leukocytes 88 % NRG Manual blood lymphocytes/100 leukocytes 4 % NRG Manual eosinophils/100 leukocytes in nose 1 % NRG Blood anisocytosis detection by light microscopy SLIGHT NRG Blood hypochromia detection by light microscopy SLIGHT NRG Blood microcytes detection by light microscopy SLIGHT NRG Bacterial blood culture - 09/14/18 12:29 Bacterial blood culture NG NRG Bacterial urine culture - 10/02/18 13:30 Bacterial urine culture NG NRG Encounters ACCT No. Visit Date/Time Discharge Status Pt. Type Provider Facility Loc./Unit Complaint [id number] 06/22/2015 21:44:56 06/22/2015 23:59:59 CLS Outpatient Ramos Joshua [id number] 09/14/2014 20:55:13 09/14/2014 23:59:59 CLS Outpatient Ramos Joshua [id number] 07/21/2018 23:45:00 ACT Inpatient JUANA PATEL, ROBERT Moody [facility] ICU BOUBACAR RECTAL ABSCESS,SEVERE SEPSIS,RENAL FAILURE [id number] 10/03/2018 08:57:00 10/03/2018 23:59:59 CLS Outpatient STARLASAROJ [facility] ONC [id number] 09/14/2018 11:12:00 09/14/2018 16:05:00 DIS Emergency OUMAR JEFFRIES [facility] ER INFECTION [id number] 07/21/2018 23:45:00 07/27/2018 18:04:00 DIS Inpatient JUANA PATEL, ROBERT Moody [facility] 4TH BOUBACAR RECTAL ABSCESS, SEVERE SEPSIS,RENAL FAILURE
--- NOTE | 2018-10-16 05:58 | ED GI ---
General Chief Complaint: Rect Problems Stated Complaint: GI BLEED Source of Information: Patient, EMS, Long Term Records Exam Limitations: No Limitations (ORESTES MENSAH) History of Present Illness Date Seen by Provider: Oct 16, 2018 Time Seen by Provider: 05:45 Initial Comments Patient presents the ER by EMS with chief complaint of waking up this morning with his colostomy bag burst open with bright red blood soaked stool as well as passing some bloody clots per rectum. He's had colostomy for about 3 or 4 months now secondary to colorectal cancer. 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 Arias, General Surgery. He is known to Dr. Barrett for oncology on chemotherapy. He's never had any blood in his stools or colostomy. He is not on blood thinners aspirin or Plavix. No history of trauma. He is having no chest pain shortness of breath nausea vomiting. (ORESTES MENSAH) Allergies and Home Medications Allergies Coded Allergies: No Known Drug Allergies (Unverified , 10/16/18) Home Medications Amoxicillin/Potassium Clav 1 Each Tablet, 1 EACH PO Q12H Prescribed by: ROBERT ARIAS on 07/27/18 1117 Hydrocodone Bit/Acetaminophen 1 Tab Tab, 1 TAB PO Q6H PRN for PAIN-MODERATE Prescribed by: ROBERT ARIAS on 07/27/18 1117 Sulfamethoxazole/Trimethoprim 1 Each Tablet, 1 EACH PO BID Prescribed by: OUMAR JEFFRIES on 09/14/18 1535 Patient Home Medication List Home Medication List Reviewed: Yes (DONALD ART MD) Review of Systems Review of Systems Constitutional: no symptoms reported EENTM: No Symptoms Reported Respiratory: No Symptoms Reported Cardiovascular: No Symptoms Reported Gastrointestinal: See HPI Genitourinary: No Symptoms Reported Musculoskeletal: no symptoms reported Skin: see HPI Psychiatric/Neurological: No Symptoms Reported Endocrine: No Symptoms Reported Hematologic/Lymphatic: See HPI (DONALD ART MD) Past Kcsgogk-Kyjoal-Oakszc Hx Past Med/Social Hx: Reviewed and Corrections made (DONALD ART MD) Patient Social History Drug of Choice: past use Type Used: Cigarettes 2nd Hand Smoke Exposure: No Recent Foreign Travel: No Contact w/Someone Who Travel: No Recent Hopitalizations: Yes (ORESTES MENSAH) Immunizations Up To Date Tetanus Booster (TDap): Unknown PED Vaccines UTD: No (ORESTES MENSAH) Seasonal Allergies Seasonal Allergies: No (ORESTES MENSAH) Past Medical History Surgeries: Yes (frequent foot surgeries for plantar warts) Abdominal, Rectal Respiratory: Yes Chronic Bronchitis Cardiac: Yes Neurological: No Genitourinary: No Gastrointestinal: No Musculoskeletal: No Endocrine: No HEENT: No Cancer: Yes Lung Did You Recieve Any Treatments: Yes What Type of Treatment Did You: Surgical Intervention Psychosocial: No Integumentary: Yes (plantar warts to bilateral feet) Blood Disorders: No (ORESTES MENSAH) Family Medical History Patient reports no known family medical history. Physical Exam Vital Signs Vital Signs - First Documented 10/16/18 10/16/18 05:51 08:35 Temp 97.7 Pulse 87 Resp 16 B/P (MAP) 120/81 (94) Pulse Ox 98 O2 Delivery Room Air (DONALD ART MD) Vital Signs Capillary Refill : (ORESTES MENSAH) Height/Weight/BMI Height: 5'11.00" Weight: 160lbs. 2.6oz. [id number]; 24.5 BMI Method:Estimated (ORESTES MENSAH) General Appearance: WD/WN, no apparent distress HEENT: normal ENT inspection Neck: normal inspection Respiratory: lungs clear, normal breath sounds, no respiratory distress Cardiovascular: regular rate, rhythm, no edema, no murmur Gastrointestinal: normal bowel sounds, non tender, soft, other (rim of colostomy bag partially attached. This was removed. There was a clot under the dressing about 20 ML in size. Skin appears intact. There is no active bleeding from the ostomy) Rectal: other (skin breakdown around the rectum and gluteal cleft. 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, no motor/sensory deficits, alert, normal mood/affect, oriented x 3 Skin: normal color, warm/dry (DONALD ART MD) Progress/Results/Core Measures Results/Orders Lab Results Laboratory Tests Test 10/16/18 06:26 Range/Units White Blood Count 3.3 L 4.3-11.0 10^3/uL Red Blood Count 2.90 L 4.35-5.85 10^6/uL Hemoglobin 7.3 L 13.3-17.7 G/DL Hematocrit 24 L 40-54 % Mean Corpuscular Volume 81 80-99 FL Mean Corpuscular Hemoglobin 25 25-34 PG Mean Corpuscular Hemoglobin Concent 31 L 32-36 G/DL Red Cell Distribution Width 18.5 H 10.0-14.5 % Platelet Count 243 130-400 10^3/uL Mean Platelet Volume 9.1 7.4-10.4 FL Neutrophils (%) (Auto) 71 42-75 % Lymphocytes (%) (Auto) 9 L 12-44 % Monocytes (%) (Auto) 15 H 0-12 % Eosinophils (%) (Auto) 5 0-10 % Basophils (%) (Auto) 0 0-10 % Neutrophils # (Auto) 2.4 1.8-7.8 X 10^3 Lymphocytes # (Auto) 0.3 L 1.0-4.0 X 10^3 Monocytes # (Auto) 0.5 0.0-1.0 X 10^3 Eosinophils # (Auto) 0.2 0.0-0.3 10^3/uL Basophils # (Auto) 0.0 0.0-0.1 10^3/uL Prothrombin Time 13.3 12.2-14.7 SEC INR Comment 1.0 0.8-1.4 Activated Partial Thromboplast Time 37 H 24-35 SEC Sodium Level 138 135-145 MMOL/L Potassium Level 4.0 3.6-5.0 MMOL/L Chloride Level 106 98-107 MMOL/L Carbon Dioxide Level 26 21-32 MMOL/L Anion Gap 6 5-14 MMOL/L Blood Urea Nitrogen 9 7-18 MG/DL Creatinine 0.77 0.60-1.30 MG/DL Estimat Glomerular Filtration Rate > 60 BUN/Creatinine Ratio 12 Glucose Level 95 70-105 MG/DL Calcium Level 8.3 L 8.5-10.1 MG/DL Corrected Calcium 9.5 8.5-10.1 MG/DL Total Bilirubin 0.1 0.1-1.0 MG/DL Aspartate Amino Transf (AST/SGOT) 10 5-34 U/L Alanine Aminotransferase (ALT/SGPT) 9 0-55 U/L Alkaline Phosphatase 97 40-136 U/L Total Protein 6.6 6.4-8.2 GM/DL Albumin 2.5 L 3.2-4.5 GM/DL (DONALD ART MD) My Orders Orders - DONALD ART MD Red Cells Leukocytes Reduced (10/16/18 07:37) Saline Lock/Iv-Start (10/16/18 07:37) Ns Iv 500 Ml (Sodium Chloride 0.9%) (10/16/18 07:37) Type And Screen (10/16/18 07:37) Protime With Inr (10/16/18 07:50) Partial Thromboplastin Time (10/16/18 07:50) (DONALD ART MD) Medications Given in ED Current Medications Medications Dose Ordered Sig/Jen Route Start Time Stop Time Status Last Admin Dose Admin Pantoprazole 80 mg ONCE ONCE IV 10/16/18 06:00 10/16/18 06:01 DC 10/16/18 06:48 80 MG Sodium Chloride 500 ml @ 0 mls/hr Q0M ONCE IV 10/16/18 07:37 10/16/18 07:39 DC 10/16/18 07:43 0 MLS/HR (DONALD ART MD) Vital Signs/I&O 10/16/18 10/16/18 10/16/18 10/16/18 05:51 08:35 09:17 09:22 Temp 97.7 97.7 97.7 Pulse 87 59 71 77 Resp 16 16 20 20 B/P (MAP) 120/81 (94) 86/51 112/74 112/74 Pulse Ox 98 97 100 99 O2 Delivery Room Air 10/16/18 09:38 Temp 97.2 Pulse 75 Resp 18 B/P (MAP) 99/67 Pulse Ox 100 (DONALD ART MD) Progress Progress Note #1: Time: 08:06 Progress Note Care of this patient was assumed from Dr. Mensah at shift change. Labs were reviewed and patient was reassessed. He denied any pain. The dressing over his colostomy site was removed and revealed a clot about 20 ML in size. No active bleeding from the colostomy was noted. Skin appeared intact. Assessment of the anus revealed some oozing of watery blood from the anus. No specific source of bleeding was identified near the anus. Around this time patient developed hypotension. He denied any lightheadedness, dizziness, or shortness of breath. Fluid resuscitation with a 500 mL normal saline bolus was ordered and 2 units of blood were also ordered. I spoke with Dr. Arias about his case. He preferred that the patient be transferred to [facility] to Dr. Ku who performed of the colostomy. Dr. Ku was contacted at 07:40. He is happy to accept the patient. Patient will be admitted to the ICU. I discussed the case with Dr. Serrano at 07:55 who accepted the case. Patient is being kept nothing by mouth anticipation of possible need for procedures. Progress Note #2: Time: 08:53 Progress Note Patient received a 500 normal saline bolus. The first unit of blood is infusing. Blood pressure has been gradually rebounding. Last blood pressure was 90/58. We have received a room assignment for [facility] and EMS will be dispatched. Progress Note #3: Time: 10:15 Progress Note Patient was transfused 2 full units of packed red blood cells. Blood pressure remains stable. Patient is departing for transfer to [facility] with [facility]. (DONALD ART MD) Departure Impression Primary Impression: Lower GI bleed Additional Impressions: History of colorectal cancer Acute on chronic anemia Hypotension Qualified Codes: I95.9 - Hypotension, unspecified Disposition: 02 XFER SHT-TRM HOSP Condition: Stable Transfer Time Spoke to Accepting Phy: 07:55 Transfer Time: 10:15 Transfer Facility: [facility], to the [employer] clerk service of Dr. Serrano Method of Transfer: EMS (DONALD ART MD) Departure-Patient Inst. Referrals: NO,LOCAL PHYSICIAN (PCP) Primary Care Physician Copy Copies To 1: ROBERT ARIAS MD, TITUS J Oct 16, 2018 05:58 DONALD ART MD Oct 16, 2018 08:11
[2018-10-16] MEDS ORDERED: PANTOPRAZOLE 40 MG (PROTONIX) VIAL IV ONE (06:00)
[2018-10-16 06:42] LABS: BASOPHILS % (AUTO) 0 % (0-10); EOSINOPHILS # (AUTO) 0.2 10^3/uL (0.0-0.3); EOSINOPHILS % (AUTO) 5 % (0-10); HEMATOCRIT 24 % (40-54); HEMOGLOBIN 7.3 G/DL (13.3-17.7); LYMPHOCYTES # (AUTO) 0.3 X 10^3 (1.0-4.0); LYMPHOCYTES % (AUTO) 9 % (12-44); MEAN CORPUSCULAR HEMOGLOBIN 25 PG (25-34); MEAN CORPUSCULAR HGB CONC 31 G/DL (32-36); MEAN CORPUSCULAR VOLUME 81 FL (80-99); MEAN PLATELET VOLUME 9.1 FL (7.4-10.4); MONOCYTES # (AUTO) 0.5 X 10^3 (0.0-1.0); MONOCYTES % (AUTO) 15 % (0-12); NEUTROPHILS # (AUTO) 2.4 X 10^3 (1.8-7.8); NEUTROPHILS % (AUTO) 71 % (42-75); PLATELET COUNT 243 10^3/uL (130-400); RED CELL DISTRIBUTION WIDTH 18.5 % (10.0-14.5); WHITE BLOOD COUNT 3.3 10^3/uL (4.3-11.0)
[2018-10-16 07:00] LABS: ALANINE AMINOTRANSFERASE 9 U/L (0-55); ALBUMIN 2.5 GM/DL (3.2-4.5); ALKALINE PHOSPHATASE 97 U/L (40-136); BILIRUBIN,TOTAL 0.1 MG/DL (0.1-1.0); BUN/CREATININE RATIO 12; CALCIUM 8.3 MG/DL (8.5-10.1); CARBON DIOXIDE 26 MMOL/L (21-32); CHLORIDE 106 MMOL/L (98-107); CREATININE SERUM 0.77 MG/DL (0.60-1.30); GFR ESTIMATED > 60; GLUCOSE 95 MG/DL (70-105); SODIUM 138 MMOL/L (135-145); TOTAL PROTEIN 6.6 GM/DL (6.4-8.2)
[2018-10-16] MEDS ORDERED: NS IV 500 ML 500 ML IV ONE (07:37)
[2018-10-16 08:12] LABS: PROTHROMBIN TIME PATIENT 13.3 SEC (12.2-14.7)
[2018-10-16 08:35] VITALS: BP 86/51
[2018-10-16 09:17] VITALS: BP 112/74
[2018-10-16 09:22] VITALS: BP 112/74
[2018-10-16 09:38] VITALS: BP 99/67
[2018-10-16 09:57] VITALS: BP 103/70
[2018-10-16 10:12] VITALS: BP 103/70
== END 2018-10-16 10:12 | disposition short-term general hospital (02) ==
LOC: EDUNIT# 05:46 → ER 05:48
DX: K92.2 Gastrointestinal hemorrhage, unspecified (principal); D63.8 Anemia in other chronic diseases classified elsewhere; I95.9 Hypotension, unspecified; Z93.3 Colostomy status; Z85.038 Personal history of other malignant neoplasm of large intestine; Z87.09 Personal history of other diseases of the respiratory system; Z85.118 Personal history of other malignant neoplasm of bronchus and lung
CPT/HCPCS: 36415; 80053; 85025; 85610; 85730; 86850; 86900; 86901; 86920

== ENCOUNTER 2018-11-07 12:56 | Outpatient (RCR) | payer MEDICAID ==
[2018-08-28 15:12] LABS: BASOPHILS # (AUTO) 0.1 10^3/uL (0.0-0.1); BASOPHILS % (AUTO) 0 % (0-10); EOSINOPHILS # (AUTO) 0.2 10^3/uL (0.0-0.3); EOSINOPHILS % (AUTO) 1 % (0-10); HEMATOCRIT 26 % (40-54); HEMOGLOBIN 8.3 G/DL (13.3-17.7); LYMPHOCYTES % (AUTO) 17 % (12-44); MEAN CORPUSCULAR HEMOGLOBIN 26 PG (25-34); MEAN CORPUSCULAR HGB CONC 32 G/DL (32-36); MEAN CORPUSCULAR VOLUME 80 FL (80-99); MEAN PLATELET VOLUME 10.8 FL (7.4-10.4); MONOCYTES # (AUTO) 2.4 X 10^3 (0.0-1.0); MONOCYTES % (AUTO) 14 % (0-12); NEUTROPHILS # (AUTO) 11.8 X 10^3 (1.8-7.8); NEUTROPHILS % (AUTO) 68 % (42-75); PLATELET COUNT 424 10^3/uL (130-400); RED BLOOD COUNT 3.24 10^6/uL (4.35-5.85); RED CELL DISTRIBUTION WIDTH 16.9 % (10.0-14.5); WHITE BLOOD COUNT 17.5 10^3/uL (4.3-11.0)
[2018-08-28 15:32] LABS: ALANINE AMINOTRANSFERASE 7 U/L (0-55); ALBUMIN 2.6 GM/DL (3.2-4.5); ALKALINE PHOSPHATASE 71 U/L (40-136); BILIRUBIN,TOTAL 0.3 MG/DL (0.1-1.0); BUN/CREATININE RATIO 6; CALCIUM 8.4 MG/DL (8.5-10.1); CARBON DIOXIDE 27 MMOL/L (21-32); CHLORIDE 99 MMOL/L (98-107); CREATININE SERUM 1.16 MG/DL (0.60-1.30); GFR ESTIMATED > 60; GLUCOSE 111 MG/DL (70-105); POTASSIUM 4.5 MMOL/L (3.6-5.0); SODIUM 135 MMOL/L (135-145); TOTAL PROTEIN 7.9 GM/DL (6.4-8.2)
[2018-09-11 14:12] LABS: BASOPHILS % (AUTO) 0 % (0-10); EOSINOPHILS # (AUTO) 0.1 10^3/uL (0.0-0.3); EOSINOPHILS % (AUTO) 1 % (0-10); HEMATOCRIT 23 % (40-54); HEMOGLOBIN 7.5 G/DL (13.3-17.7); LYMPHOCYTES # (AUTO) 0.6 X 10^3 (1.0-4.0); LYMPHOCYTES % (AUTO) 6 % (12-44); MEAN CORPUSCULAR HEMOGLOBIN 26 PG (25-34); MEAN CORPUSCULAR HGB CONC 32 G/DL (32-36); MEAN CORPUSCULAR VOLUME 79 FL (80-99); MEAN PLATELET VOLUME 9.6 FL (7.4-10.4); MONOCYTES % (AUTO) 9 % (0-12); NEUTROPHILS % (AUTO) 84 % (42-75); PLATELET COUNT 338 10^3/uL (130-400); RED BLOOD COUNT 2.94 10^6/uL (4.35-5.85); RED CELL DISTRIBUTION WIDTH 16.5 % (10.0-14.5); WHITE BLOOD COUNT 10.7 10^3/uL (4.3-11.0)
[2018-09-11 14:30] LABS: BUN/CREATININE RATIO 13; CALCIUM 8.8 MG/DL (8.5-10.1); CARBON DIOXIDE 27 MMOL/L (21-32); CHLORIDE 100 MMOL/L (98-107); CREATININE SERUM 1.01 MG/DL (0.60-1.30); GFR ESTIMATED > 60; GLUCOSE 113 MG/DL (70-105); MAGNESIUM 1.7 MG/DL (1.8-2.4); POTASSIUM 4.1 MMOL/L (3.6-5.0); SODIUM 134 MMOL/L (135-145)
[2018-09-17 09:00] LABS: BASOPHILS % (AUTO) 0 % (0-10); EOSINOPHILS # (AUTO) 0.2 10^3/uL (0.0-0.3); EOSINOPHILS % (AUTO) 3 % (0-10); HEMATOCRIT 24 % (40-54); HEMOGLOBIN 7.6 G/DL (13.3-17.7); LYMPHOCYTES # (AUTO) 0.9 X 10^3 (1.0-4.0); LYMPHOCYTES % (AUTO) 12 % (12-44); MEAN CORPUSCULAR HEMOGLOBIN 25 PG (25-34); MEAN CORPUSCULAR HGB CONC 32 G/DL (32-36); MEAN CORPUSCULAR VOLUME 79 FL (80-99); MEAN PLATELET VOLUME 8.3 FL (7.4-10.4); MONOCYTES # (AUTO) 1.3 X 10^3 (0.0-1.0); MONOCYTES % (AUTO) 17 % (0-12); NEUTROPHILS # (AUTO) 5.1 X 10^3 (1.8-7.8); NEUTROPHILS % (AUTO) 68 % (42-75); PLATELET COUNT 358 10^3/uL (130-400); RED BLOOD COUNT 3.02 10^6/uL (4.35-5.85); RED CELL DISTRIBUTION WIDTH 17.9 % (10.0-14.5); WHITE BLOOD COUNT 7.5 10^3/uL (4.3-11.0)
[2018-09-17 09:16] LABS: BUN/CREATININE RATIO 8; CALCIUM 8.8 MG/DL (8.5-10.1); CARBON DIOXIDE 23 MMOL/L (21-32); CHLORIDE 106 MMOL/L (98-107); CREATININE SERUM 0.95 MG/DL (0.60-1.30); GFR ESTIMATED > 60; GLUCOSE 96 MG/DL (70-105); MAGNESIUM 1.7 MG/DL (1.8-2.4); POTASSIUM 4.2 MMOL/L (3.6-5.0); SODIUM 137 MMOL/L (135-145)
[2018-09-25 13:16] LABS: BASOPHILS % (AUTO) 0 % (0-10); EOSINOPHILS # (AUTO) 0.3 10^3/uL (0.0-0.3); EOSINOPHILS % (AUTO) 3 % (0-10); HEMATOCRIT 27 % (40-54); HEMOGLOBIN 8.3 G/DL (13.3-17.7); LYMPHOCYTES # (AUTO) 0.6 X 10^3 (1.0-4.0); LYMPHOCYTES % (AUTO) 5 % (12-44); MEAN CORPUSCULAR HEMOGLOBIN 25 PG (25-34); MEAN CORPUSCULAR HGB CONC 31 G/DL (32-36); MEAN CORPUSCULAR VOLUME 80 FL (80-99); MEAN PLATELET VOLUME 8.6 FL (7.4-10.4); MONOCYTES # (AUTO) 1.1 X 10^3 (0.0-1.0); MONOCYTES % (AUTO) 11 % (0-12); NEUTROPHILS # (AUTO) 8.3 X 10^3 (1.8-7.8); NEUTROPHILS % (AUTO) 81 % (42-75); PLATELET COUNT 363 10^3/uL (130-400); RED BLOOD COUNT 3.35 10^6/uL (4.35-5.85); RED CELL DISTRIBUTION WIDTH 17.7 % (10.0-14.5); WHITE BLOOD COUNT 10.2 10^3/uL (4.3-11.0)
[2018-09-25 13:38] LABS: BUN/CREATININE RATIO 9; CALCIUM 9.3 MG/DL (8.5-10.1); CARBON DIOXIDE 29 MMOL/L (21-32); CHLORIDE 102 MMOL/L (98-107); GFR ESTIMATED > 60; GLUCOSE 126 MG/DL (70-105); MAGNESIUM 1.8 MG/DL (1.8-2.4); POTASSIUM 4.4 MMOL/L (3.6-5.0); SODIUM 139 MMOL/L (135-145)
[2018-10-02 13:28] LABS: BASOPHILS % (AUTO) 0 % (0-10); EOSINOPHILS # (AUTO) 0.4 10^3/uL (0.0-0.3); EOSINOPHILS % (AUTO) 5 % (0-10); HEMATOCRIT 25 % (40-54); HEMOGLOBIN 7.7 G/DL (13.3-17.7); LYMPHOCYTES # (AUTO) 0.3 X 10^3 (1.0-4.0); LYMPHOCYTES % (AUTO) 4 % (12-44); MEAN CORPUSCULAR HEMOGLOBIN 25 PG (25-34); MEAN CORPUSCULAR HGB CONC 31 G/DL (32-36); MEAN CORPUSCULAR VOLUME 79 FL (80-99); MEAN PLATELET VOLUME 8.5 FL (7.4-10.4); MONOCYTES % (AUTO) 11 % (0-12); NEUTROPHILS # (AUTO) 7.1 X 10^3 (1.8-7.8); NEUTROPHILS % (AUTO) 80 % (42-75); PLATELET COUNT 374 10^3/uL (130-400); RED BLOOD COUNT 3.09 10^6/uL (4.35-5.85); RED CELL DISTRIBUTION WIDTH 17.7 % (10.0-14.5); WHITE BLOOD COUNT 8.9 10^3/uL (4.3-11.0)
[2018-10-02 13:36] LABS: BILIRUBIN,URINE NEGATIVE (NEGATIVE); CLARITY,URINE SLIGHTLY CLOUDY; COLOR,URINE YELLOW; GLUCOSE, URINE (UA) NEGATIVE (NEGATIVE); KETONES,URINE NEGATIVE (NEGATIVE); LEUKOCYTE ESTERASE ,URINE 1+ (NEGATIVE); NITRITE,URINE NEGATIVE (NEGATIVE); PH,URINE 5 (5-9); PROTEIN,URINE 1+ (NEGATIVE); UROBILINOGEN,URINE NORMAL (NORMAL)
[2018-10-02 13:46] LABS: BUN/CREATININE RATIO 12; CALCIUM 8.7 MG/DL (8.5-10.1); CARBON DIOXIDE 26 MMOL/L (21-32); CHLORIDE 102 MMOL/L (98-107); CREATININE SERUM 0.86 MG/DL (0.60-1.30); GFR ESTIMATED > 60; GLUCOSE 112 MG/DL (70-105); MAGNESIUM 1.8 MG/DL (1.8-2.4); POTASSIUM 4.3 MMOL/L (3.6-5.0); SODIUM 137 MMOL/L (135-145)
[2018-10-02 13:54] LABS: BACTERIA,URINE TRACE /HPF; RBC,URINE 50-100 /HPF; SQUAMOUS EPITHELIAL CELL,UR 0-2 /HPF
[2018-10-08 14:29] LABS: BASOPHILS % (AUTO) 0 % (0-10); EOSINOPHILS # (AUTO) 0.1 10^3/uL (0.0-0.3); EOSINOPHILS % (AUTO) 1 % (0-10); HEMATOCRIT 27 % (40-54); HEMOGLOBIN 8.6 G/DL (13.3-17.7); LYMPHOCYTES # (AUTO) 0.5 X 10^3 (1.0-4.0); LYMPHOCYTES % (AUTO) 6 % (12-44); MEAN CORPUSCULAR HEMOGLOBIN 25 PG (25-34); MEAN CORPUSCULAR HGB CONC 32 G/DL (32-36); MEAN CORPUSCULAR VOLUME 79 FL (80-99); MEAN PLATELET VOLUME 8.7 FL (7.4-10.4); MONOCYTES # (AUTO) 0.9 X 10^3 (0.0-1.0); MONOCYTES % (AUTO) 10 % (0-12); NEUTROPHILS # (AUTO) 7.4 X 10^3 (1.8-7.8); NEUTROPHILS % (AUTO) 82 % (42-75); PLATELET COUNT 442 10^3/uL (130-400); RED CELL DISTRIBUTION WIDTH 18.6 % (10.0-14.5)
[2018-10-08 14:53] LABS: ALANINE AMINOTRANSFERASE 22 U/L (0-55); ALBUMIN 2.7 GM/DL (3.2-4.5); ALKALINE PHOSPHATASE 144 U/L (40-136); BILIRUBIN,TOTAL 0.3 MG/DL (0.1-1.0); BUN/CREATININE RATIO 8; CARBON DIOXIDE 22 MMOL/L (21-32); CHLORIDE 105 MMOL/L (98-107); CREATININE SERUM 0.83 MG/DL (0.60-1.30); GFR ESTIMATED > 60; GLUCOSE 89 MG/DL (70-105); MAGNESIUM 1.6 MG/DL (1.8-2.4); POTASSIUM 3.7 MMOL/L (3.6-5.0); SODIUM 138 MMOL/L (135-145); TOTAL PROTEIN 8.3 GM/DL (6.4-8.2)
[2018-10-15 13:40] LABS: BASOPHILS % (AUTO) 0 % (0-10); EOSINOPHILS # (AUTO) 0.2 10^3/uL (0.0-0.3); EOSINOPHILS % (AUTO) 3 % (0-10); HEMATOCRIT 29 % (40-54); HEMOGLOBIN 8.7 G/DL (13.3-17.7); LYMPHOCYTES # (AUTO) 0.3 X 10^3 (1.0-4.0); LYMPHOCYTES % (AUTO) 6 % (12-44); MEAN CORPUSCULAR HEMOGLOBIN 24 PG (25-34); MEAN CORPUSCULAR HGB CONC 30 G/DL (32-36); MEAN CORPUSCULAR VOLUME 80 FL (80-99); MEAN PLATELET VOLUME 9.2 FL (7.4-10.4); MONOCYTES # (AUTO) 0.4 X 10^3 (0.0-1.0); MONOCYTES % (AUTO) 8 % (0-12); NEUTROPHILS % (AUTO) 83 % (42-75); PLATELET COUNT 271 10^3/uL (130-400); RED BLOOD COUNT 3.58 10^6/uL (4.35-5.85); RED CELL DISTRIBUTION WIDTH 18.1 % (10.0-14.5); WHITE BLOOD COUNT 4.8 10^3/uL (4.3-11.0)
[2018-10-15 14:02] LABS: BUN/CREATININE RATIO 12; CALCIUM 8.9 MG/DL (8.5-10.1); CARBON DIOXIDE 29 MMOL/L (21-32); CHLORIDE 104 MMOL/L (98-107); CREATININE SERUM 0.93 MG/DL (0.60-1.30); GFR ESTIMATED > 60; GLUCOSE 91 MG/DL (70-105); MAGNESIUM 1.8 MG/DL (1.8-2.4); POTASSIUM 4.3 MMOL/L (3.6-5.0); SODIUM 139 MMOL/L (135-145)
[2018-10-24 14:12] LABS: BASOPHILS % (AUTO) 0 % (0-10); EOSINOPHILS # (AUTO) 0.1 10^3/uL (0.0-0.3); EOSINOPHILS % (AUTO) 4 % (0-10); HEMATOCRIT 26 % (40-54); HEMOGLOBIN 8.2 G/DL (13.3-17.7); LYMPHOCYTES # (AUTO) 0.6 X 10^3 (1.0-4.0); LYMPHOCYTES % (AUTO) 18 % (12-44); MEAN CORPUSCULAR HEMOGLOBIN 26 PG (25-34); MEAN CORPUSCULAR HGB CONC 31 G/DL (32-36); MEAN CORPUSCULAR VOLUME 82 FL (80-99); MEAN PLATELET VOLUME 8.6 FL (7.4-10.4); MONOCYTES # (AUTO) 0.8 X 10^3 (0.0-1.0); MONOCYTES % (AUTO) 23 % (0-12); NEUTROPHILS # (AUTO) 1.9 X 10^3 (1.8-7.8); NEUTROPHILS % (AUTO) 55 % (42-75); PLATELET COUNT 269 10^3/uL (130-400); RED BLOOD COUNT 3.18 10^6/uL (4.35-5.85); RED CELL DISTRIBUTION WIDTH 20.2 % (10.0-14.5); WHITE BLOOD COUNT 3.4 10^3/uL (4.3-11.0)
[2018-10-24 14:31] LABS: BUN/CREATININE RATIO 5; CALCIUM 8.2 MG/DL (8.5-10.1); CARBON DIOXIDE 26 MMOL/L (21-32); CHLORIDE 110 MMOL/L (98-107); CREATININE SERUM 0.87 MG/DL (0.60-1.30); GFR ESTIMATED > 60; GLUCOSE 75 MG/DL (70-105); MAGNESIUM 1.7 MG/DL (1.8-2.4); POTASSIUM 3.3 MMOL/L (3.6-5.0); SODIUM 142 MMOL/L (135-145)
[2018-10-29 13:12] LABS: BASOPHILS % (AUTO) 1 % (0-10); EOSINOPHILS # (AUTO) 0.1 10^3/uL (0.0-0.3); EOSINOPHILS % (AUTO) 4 % (0-10); HEMATOCRIT 28 % (40-54); HEMOGLOBIN 8.5 G/DL (13.3-17.7); LYMPHOCYTES # (AUTO) 0.6 X 10^3 (1.0-4.0); LYMPHOCYTES % (AUTO) 19 % (12-44); MEAN CORPUSCULAR HEMOGLOBIN 26 PG (25-34); MEAN CORPUSCULAR HGB CONC 31 G/DL (32-36); MEAN CORPUSCULAR VOLUME 84 FL (80-99); MEAN PLATELET VOLUME 8.4 FL (7.4-10.4); MONOCYTES # (AUTO) 0.7 X 10^3 (0.0-1.0); MONOCYTES % (AUTO) 23 % (0-12); NEUTROPHILS # (AUTO) 1.8 X 10^3 (1.8-7.8); NEUTROPHILS % (AUTO) 55 % (42-75); PLATELET COUNT 243 10^3/uL (130-400); RED BLOOD COUNT 3.32 10^6/uL (4.35-5.85); RED CELL DISTRIBUTION WIDTH 20.8 % (10.0-14.5); WHITE BLOOD COUNT 3.3 10^3/uL (4.3-11.0)
[2018-10-29 13:29] LABS: BUN/CREATININE RATIO 5; CALCIUM 8.5 MG/DL (8.5-10.1); CARBON DIOXIDE 26 MMOL/L (21-32); CHLORIDE 108 MMOL/L (98-107); CREATININE SERUM 0.94 MG/DL (0.60-1.30); GFR ESTIMATED > 60; GLUCOSE 102 MG/DL (70-105); MAGNESIUM 1.9 MG/DL (1.8-2.4); POTASSIUM 3.8 MMOL/L (3.6-5.0); SODIUM 143 MMOL/L (135-145)
[~2018-11-07] VITALS: Ht 181.6 cm; Wt 83.0 kg
[~2018-11-07 12:56] MED LIST changes: +ACETAMINOPHEN 500 MG TAB (TYLENOL) CANCER CTR ONE; +ALTEPLASE 2 MG (CATHFLO) CANCER CENTER IV ONE; +FLUOROURACIL IV SCH; +MITOMYCIN INJECTION 20 MG in NS (IVPB) CANCER CENTER 50 ML IV SCH; +NS (IVPB) CANCER CENTER 250 ML ONE; +NS IV 1000 ML (CANCER CTR) IV SCH; +NS IV 500 ML (CANCER CENTER) 500 ML ONE; +NS IV SCH; +ONDANSETRON 8 MG, DEXAMETHASONE 4 MG/NS 50 ML IVPB (Cancer Ctr) IV ONE; +PALONOSETRON HCL 0.25 MG, DEXAMETHASONE INJECTION 10 MG in NS (IVPB) CANCER CENTER 50 ML IV SCH; +morphine INJ 4 MG/ML 1 ML (CANCER CTR) IV ONE; +morphine INJ 4 MG/ML 1 ML (CANCER CTR) IV PRN; +oxyCODONE/APAP 10/325MG (PERCOCET 10) TABLET PO ONE
[2018-11-09] MEDS ORDERED: ZOLOFT (12:04)
[2018-11-10] MEDS ORDERED: MELA5TAB14 PO (15:21)
[2018-11-10] MEDS ORDERED: MORPHINE PO (15:23)
[2018-11-10] MEDS ORDERED: MAG30ORA2 PO (15:23)
[2018-11-10] MEDS ORDERED: OXYC-465 PO ×3 (15:24→15:29)
[2018-11-10] MEDS ORDERED: METO-387 PO (15:25)
[2018-11-10] MEDS ORDERED: MIRT30TA6 PO (15:25)
[2018-11-10] MEDS ORDERED: TRAZ-190 PO (15:26)
[2018-11-10] MEDS ORDERED: ONDA8TAB13 PO (15:26)
[2018-11-10] MEDS ORDERED: SERT25TA5 PO (15:27)
[2018-11-14] MEDS ORDERED: ACHD5005 PO (14:23)
== END 2018-11-26 | disposition home or self-care (01) ==
LOC: ONC 12:56
PROVIDERS: ATTEND Internal Medicine Hematology & Oncology
DX: Z51.0 Encounter for antineoplastic radiation therapy (principal); C21.1 Malignant neoplasm of anal canal; Z66 Do not resuscitate; F17.210 Nicotine dependence, cigarettes, uncomplicated; J44.9 Chronic obstructive pulmonary disease, unspecified; Z90.2 Acquired absence of lung [part of]
CPT/HCPCS: 36415; 36430; 36591; 36593; 77300; 77301; 77334; 77336; 77338; 77386; 77470; 80048; 80053; 81000; 82728; 83735; 85025; 86850; 86900; 86901; 86920; 87088; 87324; 87449; 96361; 96374; 96375; 96376; 96409; 96416; J9290

== ENCOUNTER 2018-11-09 10:24 | Emergency (ER) | payer MEDICAID ==
[~2018-11-09] VITALS: Ht 185.4 cm; Wt 88.5 kg
[~2018-11-09 10:24] MED LIST changes: -ACETAMINOPHEN 500 MG TAB (TYLENOL) CANCER CTR ONE; -ALTEPLASE 2 MG (CATHFLO) CANCER CENTER IV ONE; -FLUOROURACIL IV SCH; -MITOMYCIN INJECTION 20 MG in NS (IVPB) CANCER CENTER 50 ML IV SCH; -NS (IVPB) CANCER CENTER 250 ML ONE; -NS IV 1000 ML (CANCER CTR) IV SCH; -NS IV 500 ML (CANCER CENTER) 500 ML ONE; -NS IV SCH; -ONDANSETRON 8 MG, DEXAMETHASONE 4 MG/NS 50 ML IVPB (Cancer Ctr) IV ONE; -PALONOSETRON HCL 0.25 MG, DEXAMETHASONE INJECTION 10 MG in NS (IVPB) CANCER CENTER 50 ML IV SCH; -morphine INJ 4 MG/ML 1 ML (CANCER CTR) IV ONE; -morphine INJ 4 MG/ML 1 ML (CANCER CTR) IV PRN; -oxyCODONE/APAP 10/325MG (PERCOCET 10) TABLET PO ONE
--- OUTSIDE RECORDS SUMMARY | 2018-11-09 10:31 | XMS REPORT | Continuity of Care Document ---
Author Author [facility] Organization [facility] Address Unknown Phone Unavailable Allergies Active Description Code Type Severity Reaction Onset Reported/Identified Relationship to Patient Clinical Status Yes No Known Drug Allergies [id number] Drug Allergy Unknown N/A 07/21/2018 Yes No Known Drug Allergies [id number] Drug Allergy Unknown N/A 10/16/2018 Medications There is no data. 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.1 MALIGNANT NEOPLASM OF ANAL CANAL 09/29/2018 SAROJ CHA N Ot F17.210 NICOTINE DEPENDENCE, CIGARETTES, UNCOMPL 09/29/2018 STARLASAROJ FERNÁNDEZ N Ot J44.9 CHRONIC OBSTRUCTIVE PULMONARY DISEASE, U 09/29/2018 STARLASAROJ FERNÁNDEZ N Ot Z51.0 ENCOUNTER FOR ANTINEOPLASTIC RADIATION T 09/29/2018 STARLASAROJ FERNÁNDEZ N Ot Z66 DO NOT RESUSCITATE 09/29/2018 SAROJ CHA N Ot Z90.2 ACQUIRED ABSENCE OF LUNG [PART OF] 10/08/2018 SAROJ CHA N Ot 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.1 MALIGNANT NEOPLASM OF ANAL CANAL 10/08/2018 SAROJ CHA N Ot F17.210 NICOTINE DEPENDENCE, CIGARETTES, UNCOMPL 10/08/2018 SAROJ CHA N Ot J44.9 CHRONIC OBSTRUCTIVE PULMONARY DISEASE, U 10/08/2018 STARLASAROJ FERNÁNDEZ N Ot Z51.0 ENCOUNTER FOR ANTINEOPLASTIC RADIATION T 10/08/2018 STARLASAROJ N Ot Z66 DO NOT RESUSCITATE 10/08/2018 SAROJ CHA N Ot Z90.2 ACQUIRED ABSENCE OF LUNG [PART OF] 10/16/2018 SAROJ CHA N Ot 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.1 MALIGNANT NEOPLASM OF ANAL CANAL 10/16/2018 STARLASAROJ FERNÁNDEZ N Ot F17.210 NICOTINE DEPENDENCE, CIGARETTES, UNCOMPL 10/16/2018 SAROJ CHA N Ot J44.9 CHRONIC OBSTRUCTIVE PULMONARY DISEASE, U 10/16/2018 STARLASAROJ N Ot Z51.0 ENCOUNTER FOR ANTINEOPLASTIC RADIATION T 10/16/2018 STARLAGINIMICHAEL N Ot Z66 DO NOT RESUSCITATE 10/16/2018 SAROJ CHA Ching Ot Z90.2 ACQUIRED ABSENCE OF LUNG [PART OF] 10/16/2018 DONALD ART MD Ot D63.8 ANEMIA IN OTHER CHRONIC DISEASES CLASSIF 10/16/2018 DONALD ART MD Ot I95.9 HYPOTENSION, UNSPECIFIED 10/16/2018 DONALD ART MD Ot K92.2 GASTROINTESTINAL HEMORRHAGE, UNSPECIFIED 10/16/2018 DONALD ART MD Ot Z85.038 PERSONAL HISTORY OF MALIGNANT NEOPLASM O 10/16/2018 DONALD ART MD Ot Z85.118 PERSONAL HISTORY OF MALIGNANT NEOPLASM O 10/16/2018 DONALD ART MD Ot Z87.09 PERSONAL HISTORY OF OTHER DISEASES OF 10/16/2018 DONALD ART MD, Ot Z93.3 COLOSTOMY STATUS 10/24/2018 DONALD ART MD Ot D63.8 ANEMIA IN OTHER CHRONIC DISEASES CLASSIF 10/24/2018 DONALD ART MD Ot I95.9 HYPOTENSION, UNSPECIFIED 10/24/2018 DONALD ART MD Ot K92.2 GASTROINTESTINAL HEMORRHAGE, UNSPECIFIED 10/24/2018 DONALD ART MD Ot Z85.038 PERSONAL HISTORY OF MALIGNANT NEOPLASM O 10/24/2018 DONALD ART MD Ot Z85.118 PERSONAL HISTORY OF MALIGNANT NEOPLASM O 10/24/2018 DONALD ART MD Ot Z87.09 PERSONAL HISTORY OF OTHER DISEASES OF 10/24/2018 DONALD ART MD Ot Z93.3 COLOSTOMY STATUS Procedures Code Description Performed By Performed On [id number] DRAINAGE OF RECTUM WITH DRAINAGE DEVICE, 07/22/2018 [id number] EXCISION OF RECTUM, ENDO, DIAGN 07/24/2018 [id number] INSERTION OF INFUSION DEV INTO SUP VENA [...] 10:23 Bacteria identification in wound by culture [id number] NRG FREE TEXT EXTERNAL NO SUSCEPTIBILITY PERFORMED [...] 10:23 Bacteria identification in wound by culture [id number] NRG FREE TEXT EXTERNAL NO SUSCEPTIBILITY PERFORMED [...] 10/02/18 13:30 Bacterial urine culture NG NRG Complete blood count (CBC) with automated white blood cell (WBC) differential - 10/16/18 06:26 Blood leukocytes automated count (number/volume) 3.3 10*3/uL 4.3-11.0 Blood erythrocytes automated count (number/volume) 2.90 10*6/uL 4.35-5.85 Venous blood hemoglobin measurement (mass/volume) 7.3 g/dL 13.3-17.7 Blood hematocrit (volume fraction) 24 % 40-54 Automated erythrocyte mean corpuscular volume 81 [foz_us] 80-99 Automated erythrocyte mean corpuscular hemoglobin (mass per erythrocyte) 25 pg 25-34 Automated erythrocyte mean corpuscular hemoglobin concentration measurement ( mass/volume) 31 g/dL 32-36 Automated erythrocyte distribution width ratio 18.5 % 10.0-14.5 Automated blood platelet count (count/volume) 243 10*3/uL 130-400 Automated blood platelet mean volume measurement 9.1 [foz_us] 7.4-10.4 Automated blood neutrophils/100 leukocytes 71 % 42-75 Automated blood lymphocytes/100 leukocytes 9 % 12-44 Blood monocytes/100 leukocytes 15 % 0-12 Automated blood eosinophils/100 leukocytes 5 % 0-10 Automated blood basophils/100 leukocytes 0 % 0-10 Blood neutrophils automated count (number/volume) 2.4 10*3 1.8-7.8 Blood lymphocytes automated count (number/volume) 0.3 10*3 1.0-4.0 Blood monocytes automated count (number/volume) 0.5 10*3 0.0-1.0 Automated eosinophil count 0.2 10*3/uL 0.0-0.3 Automated blood basophil count (count/volume) 0.0 10*3/uL 0.0-0.1 Comprehensive metabolic panel - 10/16/18 06:26 Serum or plasma sodium measurement (moles/volume) 138 mmol/L 135-145 Serum or plasma potassium measurement (moles/volume) 4.0 mmol/L 3.6-5.0 Serum or plasma chloride measurement (moles/volume) 106 mmol/L 98-107 Carbon dioxide 26 mmol/L 21-32 Serum or plasma anion gap determination (moles/volume) 6 mmol/L 5-14 Serum or plasma urea nitrogen measurement (mass/volume) 9 mg/dL 7-18 Serum or plasma creatinine measurement (mass/volume) 0.77 mg/dL 0.60-1.30 Serum or plasma urea nitrogen/creatinine mass ratio 12 NRG Serum or plasma creatinine measurement with calculation of estimated glomerular filtration rate > NRG Serum or plasma glucose measurement (mass/volume) 95 mg/dL 70-105 Serum or plasma calcium measurement (mass/volume) 8.3 mg/dL 8.5-10.1 Serum or plasma total bilirubin measurement (mass/volume) 0.1 mg/dL 0.1-1.0 Serum or plasma alkaline phosphatase measurement (enzymatic activity/volume) 97 U/L 40-136 Serum or plasma aspartate aminotransferase measurement (enzymatic activity/ volume) 10 U/L 5-34 Serum or plasma alanine aminotransferase measurement (enzymatic activity/volume ) 9 U/L 0-55 Serum or plasma protein measurement (mass/volume) 6.6 g/dL 6.4-8.2 Serum or plasma albumin measurement (mass/volume) 2.5 g/dL 3.2-4.5 CALCIUM CORRECTED 9.5 mg/dL 8.5-10.1 RED CELLS LEUKO REDUCED AS1 - 10/16/18 06:26 RED CELLS LEUKO REDUCED AS1 TRANSFUSED 10/16/18 0817 [facility] Blood type T Indirect antibody screen panel - 10/16/18 06:26 ABO+Rh group BP [facility] Transfusion band number [id number] [facility] Blood group antibody screen NEGATIVE [facility] PT panel in platelet poor plasma by coagulation assay - 10/16/18 06:26 Prothrombin time (PT) in platelet poor plasma by coagulation assay 13.3 s 12.2-14.7 INR in platelet poor plasma or blood by coagulation assay 1.0 0.8-1.4 Activated partial thromboplastin time (aPTT) in platelet poor plasma bycoagulation assay - 10/16/18 06:26 Activated partial thromboplastin time (aPTT) in platelet poor plasma bycoagulation assay 37 s 24-35 Encounters ACCT No. Visit Date/Time Discharge Status Pt. Type Provider Facility Loc./Unit Complaint [id number] 06/22/2015 21:44:56 06/22/2015 23:59:59 [facility] Outpatient Ramos Joshua [id number] 09/14/2014 20:55:13 09/14/2014 23:59:59 [facility] Outpatient Ramos Joshua [id number] 07/21/2018 23:45:00 ACT Inpatient JUANA PATEL, ROBERT Moody [facility] ICU BOUBACAR RECTAL ABSCESS,SEVERE SEPSIS,RENAL FAILURE [id number] 11/02/2018 12:58:00 11/02/2018 23:59:59 CLS Outpatient SAROJ CHA [facility] ONC [id number] 10/16/2018 05:48:00 10/16/2018 10:12:00 DIS Outpatient KAELYN PATEL, DONALD Rajan [facility] ER GI BLEED [id number] 09/14/2018 11:12:00 09/14/2018 16:05:00 DIS Emergency OUMAR JEFFRIES [facility] ER INFECTION [id number] 07/21/2018 23:45:00 07/27/2018 18:04:00 DIS Inpatient JUANA PATEL, ROBERT Moody [facility] 4TH BOUBACAR RECTAL ABSCESS, SEVERE SEPSIS,RENAL FAILURE
--- NOTE | 2018-11-09 11:14 | ED GI ---
General Chief Complaint: Rect Problems Stated Complaint: RECTAL BLEEDING Nursing Triage Note: TO ED PER EMS FROM [facility]. ON ADMIT PATIENT REPORTS THAT HE FINISHED CHEMO ON MON. HAS RECTAL ABSCESS THIS AM STARTED HAVING RECTAL BLEEDING. . EMS ALSO REPORT WALKED OUT OF RESIDENTIAL AT [facility]. Sepsis Screen: No Definite Risk Source of Information: Patient Exam Limitations: No Limitations History of Present Illness Date Seen by Provider: Nov 09, 2018 Time Seen by Provider: 11:03 Initial Comments The patient is a 48-year-old black male who is a resident of a local custodial. He was brought here by ambulance today with complaints of perineal bleeding. He was here on 10/16 with similar complaints. He was found to be anemic and transferred to [facility] after a 2 unit transfusion. He reports that he was there about a week and underwent endoscopy and further evaluation. He believes he was told that there was another abscess in this area. He has had some drainage since that time but today it appeared more. He does not report lightheadedness and indeed walked to the custodial parking lot to await being picked up by the ambulance. In looking at previous records he was admitted here on 07/21 after he came to the emergency room with complaints of rectal incontinency. He was found to have an apparent perirectal abscess. He was admitted and treated by Dr. Jones of our surgery staff. 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 He subsequently underwent surgical removal of the tumor and placement of a right paramedian colostomy. He was subsequently seen here on 09/14 with rectal bleeding and began on 10/16 which resulted in the transverse to [place]. He reports no particular pain with this has had normal bowel movements in the colostomy. Timing/Duration: 4-6 Hours Severity/Quality: Mild, Moderate Allergies and Home Medications Allergies Coded Allergies: No Known Drug Allergies (Unverified , 10/16/18) Patient Home Medication List Home Medication List Reviewed: Yes Review of Systems Review of Systems Constitutional: see HPI EENTM: No Symptoms Reported Respiratory: No Symptoms Reported Cardiovascular: No Symptoms Reported Gastrointestinal: See HPI Genitourinary: No Symptoms Reported Musculoskeletal: no symptoms reported Skin: no symptoms reported Past Dbsqnmb-Hxflap-Mjphxm Hx Patient Social History Alcohol Use: Denies Use Recreational Drug Use: No Drug of Choice: past use Smoking Status: Current Everyday Smoker Type Used: Cigarettes 2nd Hand Smoke Exposure: No Recent Foreign Travel: No Contact w/Someone Who Travel: No Recent Infectious Disease Expo: No Recent Hopitalizations: Yes Immunizations Up To Date Tetanus Booster (TDap): Unknown PED Vaccines UTD: No Seasonal Allergies Seasonal Allergies: No Past Medical History Surgeries: Yes (frequent foot surgeries for plantar warts) Abdominal, Rectal Respiratory: Yes Chronic Bronchitis Cardiac: Yes Neurological: No Genitourinary: No Gastrointestinal: No Musculoskeletal: No Endocrine: No HEENT: No Cancer: Yes Lung Did You Recieve Any Treatments: Yes What Type of Treatment Did You: Surgical Intervention Psychosocial: No Integumentary: Yes (plantar warts to bilateral feet) Blood Disorders: No Family Medical History Patient reports no known family medical history. Physical Exam Vital Signs Vital Signs - First Documented 11/09/18 10:24 Temp 99.0 Pulse 99 Resp 18 B/P (MAP) 164/109 (127) O2 Delivery Room Air Capillary Refill : Less Than 3 Seconds Height/Weight/BMI Height: 6'1.00" Weight: 195lbs. 2.6oz. 88.986925bs; 24.5 BMI Method:Stated General Appearance: WD/WN, no apparent distress HEENT: normal ENT inspection Neck: full range of motion Respiratory: chest non-tender, lungs clear, normal breath sounds, no respiratory distress, no accessory muscle use Cardiovascular: normal peripheral pulses, regular rate, rhythm, no edema, no gallop, no JVD, no murmur Gastrointestinal: normal bowel sounds, non tender, soft, no organomegaly, no pulsatile mass, other (abdomen and colostomy appear normal and functioning.) Extremities: normal range of motion, non-tender, normal inspection, no pedal edema, no calf tenderness, normal capillary refill, pelvis stable 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 There are 2 openings consistent with previous I&D at 12 o'clock and 7 o'clock which that when pressed also produce a bit more of thick dark bloody appearing material Progress/Results/Core Measures Results/Orders Lab Results Laboratory Tests Test 11/09/18 11:21 Range/Units White Blood Count 4.8 4.3-11.0 10^3/uL Red Blood Count 3.46 L 4.35-5.85 10^6/uL Hemoglobin 8.8 L 13.3-17.7 G/DL Hematocrit 29 L 40-54 % Mean Corpuscular Volume 82 80-99 FL Mean Corpuscular Hemoglobin 25 25-34 PG Mean Corpuscular Hemoglobin Concent 31 L 32-36 G/DL Red Cell Distribution Width 19.7 H 10.0-14.5 % Platelet Count 239 130-400 10^3/uL Mean Platelet Volume 9.1 7.4-10.4 FL Neutrophils (%) (Auto) 65 42-75 % Lymphocytes (%) (Auto) 14 12-44 % Monocytes (%) (Auto) 18 H 0-12 % Eosinophils (%) (Auto) 3 0-10 % Basophils (%) (Auto) 0 0-10 % Neutrophils # (Auto) 3.1 1.8-7.8 X 10^3 Lymphocytes # (Auto) 0.7 L 1.0-4.0 X 10^3 Monocytes # (Auto) 0.9 0.0-1.0 X 10^3 Eosinophils # (Auto) 0.1 0.0-0.3 10^3/uL Basophils # (Auto) 0.0 0.0-0.1 10^3/uL Neutrophils % (Manual) 80 % Lymphocytes % (Manual) 5 % Monocytes % (Manual) 12 % Eosinophils % (Manual) 2 % Basophils % (Manual) 1 % Hypochromasia MODERATE Anisocytosis SLIGHT Blood Morphology Comment Urine Color YELLOW Urine Clarity CLEAR Urine pH 7 5-9 Urine Specific [place] 1.010 L 1.016-1.022 Urine Protein NEGATIVE NEGATIVE Urine Glucose (UA) NEGATIVE NEGATIVE Urine Ketones NEGATIVE NEGATIVE Urine Nitrite NEGATIVE NEGATIVE Urine Bilirubin NEGATIVE NEGATIVE Urine Urobilinogen NORMAL NORMAL MG/DL Urine Leukocyte Esterase NEGATIVE NEGATIVE Urine RBC (Auto) NEGATIVE NEGATIVE Urine RBC NONE /HPF Urine WBC NONE /HPF Urine Squamous Epithelial Cells 2-5 /HPF Urine Crystals NONE /LPF Urine Bacteria NEGATIVE /HPF Urine Casts NONE /LPF Urine Mucus NEGATIVE /LPF Urine Culture Indicated NO Sodium Level 138 135-145 MMOL/L Potassium Level 4.2 3.6-5.0 MMOL/L Chloride Level 107 98-107 MMOL/L Carbon Dioxide Level 22 21-32 MMOL/L Anion Gap 9 5-14 MMOL/L Blood Urea Nitrogen 8 7-18 MG/DL Creatinine 0.77 0.60-1.30 MG/DL Estimat Glomerular Filtration Rate > 60 BUN/Creatinine Ratio 10 Glucose Level 81 70-105 MG/DL Calcium Level 8.1 L 8.5-10.1 MG/DL Corrected Calcium 9.2 8.5-10.1 MG/DL Total Bilirubin 0.3 0.1-1.0 MG/DL Aspartate Amino Transf (AST/SGOT) 21 5-34 U/L Alanine Aminotransferase (ALT/SGPT) 10 0-55 U/L Alkaline Phosphatase 103 40-136 U/L Total Protein 6.8 6.4-8.2 GM/DL Albumin 2.6 L 3.2-4.5 GM/DL My Orders Orders - MIRYAM FUNK MD Cbc With Automated Diff (11/09/18 10:28) Comprehensive Metabolic Panel (11/09/18 10:28) Ua Culture If Indicated (11/09/18 10:28) Manual Differential (11/09/18 11:21) Vital Signs/I&O 11/09/18 10:24 Temp 99.0 Pulse 99 Resp 18 B/P (MAP) 164/109 (127) O2 Delivery Room Air Blood Pressure Mean: 127 Departure Communication (Admissions) Hemoglobin returned at 8.8 which is normal for him. Discussed with Dr. Jones on the phone as the patient was a rather indifferent historian. He relates that there were many social problems from the beginning as the patient was a [place] resident. Ultimately he had had his colostomy and excision of rectal cancer performed in [place]. Dr. Jones believed that this was done at [facility]. After questioning the patient began he has not upcoming appointment with Dr. Arriaga of the oncology services here. He can give me no follow-up from the [place] surgeons and will be instructed to do so Impression Primary Impression: Perirectal abscess Disposition: 01 HOME, SELF-CARE Condition: Stable/Unchanged Departure-Patient Inst. Decision time for Depature: 12:21 Referrals: NO,LOCAL PHYSICIAN (PCP) Primary Care Physician Add. Discharge Instructions: All discharge instructions reviewed with patient and/or family. Voiced understanding. Continue absorptive undergarments. Repeat hemoglobin lab test in a.m. Arrange for follow-up with [place] surgeon. MIRYAM FUNK MD Nov 09, 2018 11:14
[2018-11-09 11:38] LABS: BASOPHILS % (AUTO) 0 % (0-10); BILIRUBIN,URINE NEGATIVE (NEGATIVE); CLARITY,URINE CLEAR; COLOR,URINE YELLOW; EOSINOPHILS # (AUTO) 0.1 10^3/uL (0.0-0.3); EOSINOPHILS % (AUTO) 3 % (0-10); GLUCOSE, URINE (UA) NEGATIVE (NEGATIVE); HEMATOCRIT 29 % (40-54); HEMOGLOBIN 8.8 G/DL (13.3-17.7); KETONES,URINE NEGATIVE (NEGATIVE); LEUKOCYTE ESTERASE ,URINE NEGATIVE (NEGATIVE); LYMPHOCYTES # (AUTO) 0.7 X 10^3 (1.0-4.0); LYMPHOCYTES % (AUTO) 14 % (12-44); MEAN CORPUSCULAR HEMOGLOBIN 25 PG (25-34); MEAN CORPUSCULAR HGB CONC 31 G/DL (32-36); MEAN CORPUSCULAR VOLUME 82 FL (80-99); MEAN PLATELET VOLUME 9.1 FL (7.4-10.4); MONOCYTES # (AUTO) 0.9 X 10^3 (0.0-1.0); MONOCYTES % (AUTO) 18 % (0-12); NEUTROPHILS # (AUTO) 3.1 X 10^3 (1.8-7.8); NEUTROPHILS % (AUTO) 65 % (42-75); NITRITE,URINE NEGATIVE (NEGATIVE); PH,URINE 7 (5-9); PLATELET COUNT 239 10^3/uL (130-400); PROTEIN,URINE NEGATIVE (NEGATIVE); RED BLOOD COUNT 3.46 10^6/uL (4.35-5.85); RED CELL DISTRIBUTION WIDTH 19.7 % (10.0-14.5); UROBILINOGEN,URINE NORMAL (NORMAL); WHITE BLOOD COUNT 4.8 10^3/uL (4.3-11.0)
[2018-11-09 11:51] LABS: BACTERIA,URINE NEGATIVE /HPF
[2018-11-09 11:58] LABS: ALANINE AMINOTRANSFERASE 10 U/L (0-55); ALBUMIN 2.6 GM/DL (3.2-4.5); ALKALINE PHOSPHATASE 103 U/L (40-136); BILIRUBIN,TOTAL 0.3 MG/DL (0.1-1.0); BUN/CREATININE RATIO 10; CALCIUM 8.1 MG/DL (8.5-10.1); CARBON DIOXIDE 22 MMOL/L (21-32); CHLORIDE 107 MMOL/L (98-107); CREATININE SERUM 0.77 MG/DL (0.60-1.30); GFR ESTIMATED > 60; GLUCOSE 81 MG/DL (70-105); POTASSIUM 4.2 MMOL/L (3.6-5.0); SODIUM 138 MMOL/L (135-145); TOTAL PROTEIN 6.8 GM/DL (6.4-8.2)
[2018-11-09 12:01] LABS: ANISOCYTOSIS SLIGHT; BASOPHILS % (MANUAL) 1 %; EOSINOPHILS % (MANUAL) 2 %; HYPOCHROMASIA MODERATE; LYMPHOCYTES % (MANUAL) 5 %; MONOCYTES % (MANUAL) 12 %; NEUTROPHILS % (MANUAL) 80 %
[2018-11-09] MEDS ORDERED: ZOLOFT (12:04)
[2018-11-09 13:06] VITALS: BP 137/94
[2018-11-10] MEDS ORDERED: MELA5TAB14 PO (15:21)
[2018-11-10] MEDS ORDERED: MORPHINE PO (15:23)
[2018-11-10] MEDS ORDERED: MAG30ORA2 PO (15:23)
[2018-11-10] MEDS ORDERED: OXYC-465 PO ×3 (15:24→15:29)
[2018-11-10] MEDS ORDERED: MIRT30TA6 PO (15:25)
[2018-11-10] MEDS ORDERED: METO-387 PO (15:25)
[2018-11-10] MEDS ORDERED: ONDA8TAB13 PO (15:26)
[2018-11-10] MEDS ORDERED: TRAZ-190 PO (15:26)
[2018-11-10] MEDS ORDERED: SERT25TA5 PO (15:27)
== END 2018-11-09 13:06 | disposition home or self-care (01) ==
LOC: EDUNIT# 10:24 → ER 10:26
DX: K61.1 Rectal abscess (principal); J42 Unspecified chronic bronchitis; F17.210 Nicotine dependence, cigarettes, uncomplicated; Z93.3 Colostomy status; Z85.118 Personal history of other malignant neoplasm of bronchus and lung
CPT/HCPCS: 36415; 80053; 81000; 85007; 85027

== ENCOUNTER 2018-11-10 03:51 | Inpatient (IN) | payer MEDICAID ==
[~2018-11-10] VITALS: Ht 182.9 cm; Wt 89.6 kg
[2018-11-10] VITALS (16 sets, daily range): BP systolic 96–123; BP diastolic 56–81
[~2018-11-10 03:51] MED LIST changes: +ZOLOFT
--- OUTSIDE RECORDS SUMMARY | 2018-11-10 04:02 | XMS REPORT | Continuity of Care Document ---
Author Author [facility] Organization [facility] Address Unknown Phone Unavailable Allergies Active Description Code Type Severity Reaction Onset Reported/Identified Relationship to Patient Clinical Status Yes No Known Drug Allergies [id number] Drug Allergy Unknown N/A 07/21/2018 Yes No Known Drug Allergies [id number] Drug Allergy Unknown N/A 10/16/2018 Medications There [...] Procedures Code Description Performed By Performed On [id number] DRAINAGE OF RECTUM WITH DRAINAGE DEVICE, 07/22/2018 [id number] EXCISION OF RECTUM, ENDO, DIAGN 07/24/2018 [id number] INSERTION OF INFUSION DEV INTO SUP VENA [...] 10:23 Bacteria identification in wound by culture [id number] NRG FREE TEXT EXTERNAL NO SUSCEPTIBILITY PERFORMED [...] 10:23 Bacteria identification in wound by culture [id number] NRG FREE TEXT EXTERNAL NO SUSCEPTIBILITY PERFORMED [...] CELLS LEUKO REDUCED AS1 TRANSFUSED 10/16/18 0817 [facility] Blood type T Indirect antibody screen panel - 10/16/18 06:26 ABO+Rh group BP [facility] Transfusion band number [id number] [facility] Blood group antibody screen NEGATIVE [facility] PT panel in platelet poor plasma by [...] Status Pt. Type Provider Facility Loc./Unit Complaint [id number] 06/22/2015 21:44:56 06/22/2015 23:59:59 [facility] Outpatient Ramos Joshua [id number] 09/14/2014 20:55:13 09/14/2014 23:59:59 [facility] Outpatient Ramos Joshua [id number] 07/21/2018 23:45:00 ACT Inpatient JUANA PATEL, ROBERT Moody [facility] ICU BOUBACAR RECTAL ABSCESS,SEVERE SEPSIS,RENAL FAILURE [id number] 11/02/2018 12:58:00 11/02/2018 23:59:59 CLS Outpatient SAROJ CHA [facility] ONC [id number] 10/16/2018 05:48:00 10/16/2018 10:12:00 DIS Outpatient KAELYN PATEL, DONALD Rajan [facility] ER GI BLEED [id number] 09/14/2018 11:12:00 09/14/2018 16:05:00 DIS Emergency OUMAR JEFFRIES [facility] ER INFECTION [id number] 07/21/2018 23:45:00 07/27/2018 18:04:00 DIS Inpatient JUANA PATEL, ROBERT Moody [facility] 4TH BOUBACAR RECTAL ABSCESS, SEVERE SEPSIS,RENAL FAILURE
[2018-11-10] MEDS ORDERED: NS IV 1000 ML 2,000 ML IV ONE (04:15)
[2018-11-10] MEDS ORDERED: PIPERACILLIN SODIUM/TAZOBACTAM 4.5 GM in NS (IVPB) 100 ML IV ONE (04:15)
[2018-11-10] MEDS ORDERED: fentaNYL INJECTION 100 MCG/2 ML AMP IVP ONE ×2 (04:15→06:00)
--- NOTE | 2018-11-10 04:21 | ED GI ---
General Chief Complaint: Rect Problems Stated Complaint: RECTAL BLEEDING Nursing Triage Note: RECTAL BLEEDING Sepsis Screen: No Definite Risk Source of Information: Patient Exam Limitations: No Limitations History of Present Illness Date Seen by Provider: Nov 10, 2018 Time Seen by Provider: 04:05 Initial Comments Patient presents to ER by EMS from [facility]. He has a complaint of rectal bleeding and severe 10 out of 10 pain. He has not taken anything for pain today because he has just been sleeping it off. Historically 3 months ago he was found to have a perirectal abscess that was treated by Dr. Jones and a squamous cell carcinoma of the rectum was found. He is been being treated at [facility] most recently 3 weeks ago. He had a colostomy put in and in 3 weeks expect to have a colostomy taken back down. Bowels per colostomy have been normal. Appetite normal. No nausea or vomiting. He was seen yesterday in the ER and at that time his blood work was unrevealing and vital signs are aseptic. He was instructed to follow-up with Dr. Dale, oncology and the surgeons at [place] who did his rectal cancer excision. Today he reports having had to change his absorptive undergarments 5 or 6 times. Written report from nursing staff at the skilled nursing reports a temperature 101.7F and a heart rate of 120 with respirations of 24; 95% on room air and a blood pressure of 128/93. Allergies and Home Medications Allergies Coded Allergies: No Known Drug Allergies (Unverified , 10/16/18) Patient Home Medication List Home Medication List Reviewed: Yes Review of Systems Review of Systems Constitutional: No chills, No fever; malaise EENTM: No Blurred Vision, No Double Vision Respiratory: Denies Cough, Denies Shortness of Air Cardiovascular: Denies Chest Pain, Denies Lightheadedness Gastrointestinal: Denies Constipated, Denies Nausea, Denies Poor Appetite, Denies Poor Fluid Intake; Other (colostomy) Genitourinary: Denies Burning, Denies Discharge Musculoskeletal: No back pain, No joint pain Skin: other (perirectal abscesses packed with iodoform and draining) Past Izhbvkk-Ejxvli-Emgcjq Hx Patient Social History Alcohol Use: Denies Use Recreational Drug Use: Yes Drug of Choice: HX Type Used: Cigarettes 2nd Hand Smoke Exposure: No Recent Foreign Travel: No Contact w/Someone Who Travel: No Recent Infectious Disease Expo: No Recent Hopitalizations: Yes Immunizations Up To Date Tetanus Booster (TDap): Unknown PED Vaccines UTD: No Seasonal Allergies Seasonal Allergies: No Past Medical History Surgeries: Yes (frequent foot surgeries for plantar warts, I/D) Abdominal, Rectal Respiratory: Yes Chronic Bronchitis Cardiac: Yes Neurological: No Genitourinary: No Gastrointestinal: No Musculoskeletal: No Endocrine: No HEENT: No Cancer: Yes Lung Did You Recieve Any Treatments: Yes What Type of Treatment Did You: Surgical Intervention Psychosocial: No Integumentary: Yes (plantar warts to bilateral feet) Blood Disorders: No Family Medical History Patient reports no known family medical history. Physical Exam Vital Signs Vital Signs - First Documented 11/10/18 03:51 Temp 101.5 Pulse 128 Resp 18 B/P (MAP) 154/99 (117) Pulse Ox 98 O2 Delivery Room Air Capillary Refill : Less Than 3 Seconds Height/Weight/BMI Height: 6'0" Weight: 195lbs. 2.6oz. 88.122381qb; 24.5 BMI Method:Stated General Appearance: WD/WN HEENT: PERRL/EOMI, pharynx normal Respiratory: chest non-tender, lungs clear, normal breath sounds, no respiratory distress, no accessory muscle use Cardiovascular: normal peripheral pulses, regular rate, rhythm, no edema Peripheral Pulses: 2+ Dorsalis Pedis (R), 2+ Left Dors-Pedis (L), 2+ Radial Pulses (L) Gastrointestinal: normal bowel sounds, non tender, soft, other (empty colostomy bag) Rectal: other (there are perirectal wounds packed with iodoform and draining a serous sanguinous thin, clear drainage. There is maceration of the skin around the sphincter and eye. There is a 3:00 and 6:00 area of maceration that could be consistent with anal fissure and a noninflamed external hemorrhoid noted.) Extremities: normal inspection, normal capillary refill Neurologic/Psychiatric: alert, normal mood/affect, oriented x 3 Focused Exam Lactate Level 11/10/18 04:10: Lactic Acid Level 0.71 Lactic Acid Level Laboratory Tests Test 11/10/18 04:10 Lactic Acid Level 0.71 MMOL/L (0.50-2.00) Progress/Results/Core Measures Results/Orders Lab Results Laboratory Tests Test 11/10/18 04:10 Range/Units White Blood Count 8.6 4.3-11.0 10^3/uL Red Blood Count 2.81 L 4.35-5.85 10^6/uL Hemoglobin 7.3 L 13.3-17.7 G/DL Hematocrit 23 L 40-54 % Mean Corpuscular Volume 81 80-99 FL Mean Corpuscular Hemoglobin 26 25-34 PG Mean Corpuscular Hemoglobin Concent 32 32-36 G/DL Red Cell Distribution Width 19.4 H 10.0-14.5 % Platelet Count 287 130-400 10^3/uL Mean Platelet Volume 8.5 7.4-10.4 FL Neutrophils (%) (Auto) 72 42-75 % Lymphocytes (%) (Auto) 12 12-44 % Monocytes (%) (Auto) 16 H 0-12 % Eosinophils (%) (Auto) 1 0-10 % Basophils (%) (Auto) 0 0-10 % Neutrophils # (Auto) 6.2 1.8-7.8 X 10^3 Lymphocytes # (Auto) 1.0 1.0-4.0 X 10^3 Monocytes # (Auto) 1.4 H 0.0-1.0 X 10^3 Eosinophils # (Auto) 0.0 0.0-0.3 10^3/uL Basophils # (Auto) 0.0 0.0-0.1 10^3/uL Prothrombin Time 15.6 H 12.2-14.7 SEC INR Comment 1.2 0.8-1.4 Activated Partial Thromboplast Time 37 H 24-35 SEC Sodium Level 134 L 135-145 MMOL/L Potassium Level 4.5 3.6-5.0 MMOL/L Chloride Level 104 98-107 MMOL/L Carbon Dioxide Level 21 21-32 MMOL/L Anion Gap 9 5-14 MMOL/L Blood Urea Nitrogen 7 7-18 MG/DL Creatinine 0.88 0.60-1.30 MG/DL Estimat Glomerular Filtration Rate > 60 BUN/Creatinine Ratio 8 Glucose Level 104 70-105 MG/DL Lactic Acid Level 0.71 0.50-2.00 MMOL/L Calcium Level 8.3 L 8.5-10.1 MG/DL Corrected Calcium 9.5 8.5-10.1 MG/DL Total Bilirubin 0.5 0.1-1.0 MG/DL Aspartate Amino Transf (AST/SGOT) 12 5-34 U/L Alanine Aminotransferase (ALT/SGPT) 9 0-55 U/L Alkaline Phosphatase 95 40-136 U/L Total Protein 6.6 6.4-8.2 GM/DL Albumin 2.5 L 3.2-4.5 GM/DL My Orders Orders - ORESTES BURKS Cbc With Automated Diff (11/10/18 04:07) Comprehensive Metabolic Panel (11/10/18 04:07) Blood Culture (11/10/18 04:07) Sputum Culture (11/10/18 04:07) Urinalysis (11/10/18 04:07) Urine Culture (11/10/18 04:07) Protime With Inr (11/10/18 04:07) Partial Thromboplastin Time (11/10/18 04:07) Chest 1 View, Ap/Pa Only (11/10/18 04:07) Saline Lock/Iv-Start (11/10/18 04:07) Saline Lock/Iv-Start (11/10/18 04:07) Vital Signs Adult Sepsis Patie Q15M (11/10/18 04:07) O2 (11/10/18 04:07) Remove Rings In Anticipation O (11/10/18 04:07) Lactic Acid Analyzer (11/10/18 04:07) Ns Iv 1000 Ml (Sodium Chloride 0.9%) (11/10/18 04:15) Piperacillin Sodium/Tazobactam (Zosyn Vi (11/10/18 04:15) Fentanyl Injection (Sublimaze Injection (11/10/18 04:15) Medications Given in ED Current Medications Medications Dose Ordered Sig/Jen Route Start Time Stop Time Status Last Admin Dose Admin Fentanyl Citrate 100 mcg ONCE ONCE IVP 11/10/18 04:15 11/10/18 04:16 DC 11/10/18 04:27 100 MCG Piperacillin Sod/ Tazobactam Sod 4.5 gm/Sodium Chloride 100 ml @ 200 mls/hr ONCE ONCE IV 11/10/18 04:15 11/10/18 04:44 DC 11/10/18 04:55 200 MLS/HR Sodium Chloride 2,000 ml @ 2,000 mls/hr ONCE ONCE IV 11/10/18 04:15 11/10/18 05:14 DC 11/10/18 04:27 2,000 MLS/HR Vital Signs/I&O 11/10/18 03:51 Temp 101.5 Pulse 128 Resp 18 B/P (MAP) 154/99 (117) Pulse Ox 98 O2 Delivery Room Air Blood Pressure Mean: 117 Progress Progress Note : Time: 04:24 Progress Note Septic workup and Zosyn. Likely has had a recurrence of his apparent rectal abscesses and will need surgical attention to explore, open and drain these. We' ll start with 100 g of fentanyl for his 10 out of 10 pain. We put some gauze in to help keep the skin dry but the skin is quite macerated. Reviewed previous history. Since we suspect this is related to his perirectal abscess is probably unlikely that any kind of CT imaging will be helpful. We'll obtain labs to see if his hemoglobin has gone down at all since yesterday. Diagnostic Imaging Diagonstic Imaging: Xray Plain Films/CT/US/NM/MRI: chest (1v) Comments Difficult study but no acute cardiopulmonary process noted. Reviewed: Reviewed by Me Departure Communication (Admissions) Time/Spoke to Admitting Phy: 05:42 Discussed case lab imaging findings with Dr. Jones and he wants antibiotics, CT of the pelvis with IV contrast and put in inpatient and he will come see him in the morning. Impression Primary Impression: Perirectal abscess Additional Impressions: Sepsis Qualified Codes: A41.9 - Sepsis, unspecified organism History of rectal or anal cancer Colostomy in place Disposition: ADMITTED INPATIENT Condition: Stable Admissions Decision to Admit Reason: Admit from ER (General) Decision to Admit/Date: Nov 10, 2018 Time/Decision to Admit Time: 05:43 Departure-Patient Inst. Referrals: NO,LOCAL PHYSICIAN (PCP) Primary Care Physician Copy Copies To 1: JYOTI JULIEN TITUS J Nov 10, 2018 04:21
[2018-11-10 04:30] LABS: BASOPHILS % (AUTO) 0 % (0-10); EOSINOPHILS % (AUTO) 1 % (0-10); HEMATOCRIT 23 % (40-54); HEMOGLOBIN 7.3 G/DL (13.3-17.7); LYMPHOCYTES % (AUTO) 12 % (12-44); MEAN CORPUSCULAR HEMOGLOBIN 26 PG (25-34); MEAN CORPUSCULAR HGB CONC 32 G/DL (32-36); MEAN CORPUSCULAR VOLUME 81 FL (80-99); MEAN PLATELET VOLUME 8.5 FL (7.4-10.4); MONOCYTES # (AUTO) 1.4 X 10^3 (0.0-1.0); MONOCYTES % (AUTO) 16 % (0-12); NEUTROPHILS # (AUTO) 6.2 X 10^3 (1.8-7.8); NEUTROPHILS % (AUTO) 72 % (42-75); PLATELET COUNT 287 10^3/uL (130-400); RED BLOOD COUNT 2.81 10^6/uL (4.35-5.85); RED CELL DISTRIBUTION WIDTH 19.4 % (10.0-14.5); WHITE BLOOD COUNT 8.6 10^3/uL (4.3-11.0)
[2018-11-10 04:48] LABS: INR 1.2 (0.8-1.4); PROTHROMBIN TIME PATIENT 15.6 SEC (12.2-14.7)
[2018-11-10 04:52] LABS: ALANINE AMINOTRANSFERASE 9 U/L (0-55); ALBUMIN 2.5 GM/DL (3.2-4.5); ALKALINE PHOSPHATASE 95 U/L (40-136); BILIRUBIN,TOTAL 0.5 MG/DL (0.1-1.0); BUN/CREATININE RATIO 8; CALCIUM 8.3 MG/DL (8.5-10.1); CARBON DIOXIDE 21 MMOL/L (21-32); CHLORIDE 104 MMOL/L (98-107); CREATININE SERUM 0.88 MG/DL (0.60-1.30); GFR ESTIMATED > 60; GLUCOSE 104 MG/DL (70-105); POTASSIUM 4.5 MMOL/L (3.6-5.0); SODIUM 134 MMOL/L (135-145); TOTAL PROTEIN 6.6 GM/DL (6.4-8.2)
[2018-11-10 05:47] LABS: BILIRUBIN,URINE NEGATIVE (NEGATIVE); CLARITY,URINE CLEAR; COLOR,URINE YELLOW; GLUCOSE, URINE (UA) NEGATIVE (NEGATIVE); KETONES,URINE NEGATIVE (NEGATIVE); LEUKOCYTE ESTERASE ,URINE NEGATIVE (NEGATIVE); NITRITE,URINE NEGATIVE (NEGATIVE); PH,URINE 8 (5-9); PROTEIN,URINE NEGATIVE (NEGATIVE); UROBILINOGEN,URINE NORMAL (NORMAL)
--- OUTSIDE RECORDS SUMMARY | 2018-11-10 05:55 | XMS REPORT | Continuity of Care Document ---
Author Author [facility] Organization [facility] Address Unknown Phone Unavailable Allergies Active Description Code Type Severity Reaction Onset Reported/Identified Relationship to Patient Clinical Status Yes No Known Drug Allergies [id number] Drug Allergy Unknown N/A 07/21/2018 Yes No Known Drug Allergies [id number] Drug Allergy Unknown N/A 10/16/2018 Medications There [...] Procedures Code Description Performed By Performed On [id number] DRAINAGE OF RECTUM WITH DRAINAGE DEVICE, 07/22/2018 [id number] EXCISION OF RECTUM, ENDO, DIAGN 07/24/2018 [id number] INSERTION OF INFUSION DEV INTO SUP VENA [...] 10:23 Bacteria identification in wound by culture [id number] NRG FREE TEXT EXTERNAL NO SUSCEPTIBILITY PERFORMED [...] 10:23 Bacteria identification in wound by culture [id number] NRG FREE TEXT EXTERNAL NO SUSCEPTIBILITY PERFORMED [...] CELLS LEUKO REDUCED AS1 TRANSFUSED 10/16/18 0817 [facility] Blood type T Indirect antibody screen panel - 10/16/18 06:26 ABO+Rh group BP [facility] Transfusion band number [id number] [facility] Blood group antibody screen NEGATIVE [facility] PT panel in platelet poor plasma by [...] Status Pt. Type Provider Facility Loc./Unit Complaint [id number] 06/22/2015 21:44:56 06/22/2015 23:59:59 [facility] Outpatient Ramos Joshua [id number] 09/14/2014 20:55:13 09/14/2014 23:59:59 [facility] Outpatient Ramos Joshua [id number] 07/21/2018 23:45:00 ACT Inpatient JUANA PATEL, ROBERT Moody [facility] ICU BOUBACAR RECTAL ABSCESS,SEVERE SEPSIS,RENAL FAILURE [id number] 11/02/2018 12:58:00 11/02/2018 23:59:59 CLS Outpatient SAROJ CHA [facility] ONC [id number] 10/16/2018 05:48:00 10/16/2018 10:12:00 DIS Outpatient KAELYN PATEL, DONALD Rajan [facility] ER GI BLEED [id number] 09/14/2018 11:12:00 09/14/2018 16:05:00 DIS Emergency OUMAR JEFFRIES [facility] ER INFECTION [id number] 07/21/2018 23:45:00 07/27/2018 18:04:00 DIS Inpatient JUANA PATEL, ROBERT Moody [facility] 4TH BOUBACAR RECTAL ABSCESS, SEVERE SEPSIS,RENAL FAILURE
--- NOTE | 2018-11-10 06:02 | Diagnostic Imaging Report ---
INDICATION: Rectal bleeding. COMPARISON: 07/24/2018. FINDINGS: Examination is mildly limited due to patient rotation to left. Allowing for this, lungs are clear where visualized. Posterior lower lobes are poorly evaluated by portable radiography. No pleural effusion or pneumothorax. Grossly stable cardiomediastinal silhouette allowing for rotation. Left subclavian Port-A-Cath is in similar position. IMPRESSION: No acute process by portable radiography. Dictated by: Dictated on workstation # [id number]
[2018-11-10 06:03] LABS: BACTERIA,URINE NEGATIVE /HPF; SQUAMOUS EPITHELIAL CELL,UR RARE /HPF
--- NOTE | 2018-11-10 06:10 | NUR ---
pt taken for ct scan of pelvis with contrast on way to icu.
--- NOTE | 2018-11-10 06:25 | NUR ---
VON ANSARI admitted to room CU10-1, with an admitting diagnosis of PERIRECTAL ABSCESS, SEPSIS , on 11/10/18 from ED via [facility], accompanied by HOSPITAL STAFF. VON ANSARI introduced to surroundings, call light, bed controls, phone, TV, temperature control, lights, meal times, smoking policy, visitor policy, side rail policy, bathrooms and showers. Patient Rights given to patient in the handbook.VON ANSARI verbalizes understanding that [facility] is not responsible for the loss or damage to any personal effects or valuables that are kept in the patients posession during their hospitalization. VON ANSARI verbalizes understanding of Interdisciplinary Patient Education. Patient and/or family were informed about the Rapid Response Team and its purpose.
[2018-11-10] MEDS ORDERED: fentaNYL INJECTION 100 MCG/2 ML AMP IV PRN (06:45)
[2018-11-10] MEDS ORDERED: NS 250 ML (IVPB) BAG IV ONE (06:45)
[2018-11-10] MEDS ORDERED: IOHEXOL 350 MG/ML 100 ML (OMNIPAQUE 350) VIAL IV ONE (06:45)
[2018-11-10] MEDS ORDERED: ONDANSETRON 4 MG/2 ML (SDV) Z0FRAN IV PRN (06:45)
--- NOTE | 2018-11-10 06:48 | Diagnostic Imaging Report ---
PROCEDURE: CT pelvis with contrast. TECHNIQUE: Oral and intravenous contrast were administered with pelvic CT performed. INDICATION: Rectal bleeding. History of cancer. Comparison is made with a prior study from 09/14/2018. There is some motion artifact present. FINDINGS: Again seen is edema and thickening of the rectum with perirectal edema. There is a perirectal abscess on the left extending into the perineum filled with debris and air. This involves an area measuring approximately 3.7 x 3.1 cm in greatest AP and transverse dimension. There is a 2.3 cm area of enhancement adjacent to this which may represent pseudoaneurysm or active hemorrhage. The bladder is normal. No bowel obstruction is evident. An ostomy is seen in the left lower quadrant. There is no acute bony abnormality. IMPRESSION: There is a perirectal abscess on the left extending into the perineum on the left. Postcontrast images shows a nodular area of enhancement consistent with pseudoaneurysm, hemorrhage. Dictated by: Dictated on workstation # [id number]
--- NOTE | 2018-11-10 07:00 | NUR ---
PATIENT REQUESTED THIS RN TO CALL SISTER AND INFORM HER OF SURGERY. PATIENT DENIED NEED FOR PASSWORD AND CONFIRMED SISTER'S CONTACT INFORMATION. ATTEMPTED TO CALL PATIENT'S SISTER. CALL WENT TO VOICEM[employer] AND VOICEMAIL WAS FULL. INFORMED PATIENT THAT SISTER WAS NOT REACHED 0830-DR. ARIAS TO FLOOR AND GAVE ORDER FOR PATIENT TO GO TO 4TH FLOOR WITHOUT TELE.
[2018-11-10] MEDS ORDERED: ACETAMINOPHEN 325 MG TABLET PO NR (07:22)
[2018-11-10] MEDS: NS IV 1000 ML 1,000 ML IV SCH ×3 (07:33→17:36)
--- NOTE | 2018-11-10 08:30 | History & Physicial ---
History of Present Illness History of Present Illness Reason for visit/HPI Increased perianal pain, drainage and fever. Known poorly differentiated carcinoma of anal canal, being managed with chemotherapy and radiation. No dysuria or cough Date of Admission Nov 10, 2018 at 05:50 Date Seen by a Provider: Nov 10, 2018 Time Seen by a Provider: 08:27 I consulted on this patient on 11/10/18 08:26 Attending Physician Robert Arias MD Admitting Physician No,Local Physician Consult Allergies and Home Medications Allergies Coded Allergies: No Known Drug Allergies (Unverified , 10/16/18) Patient Home Medication List Home Medication List Reviewed: Yes Past Yillcaq-Arfnwl-Elpdqg Hx Patient Social History Marrital Status: single Employed/Student: unemployed Alcohol Use: Denies Use Recreational Drug Use: Yes Drug of Choice: HX Smoking Status: Current Everyday Smoker Type Used: Cigarettes 2nd Hand Smoke Exposure: No Physical Abuse Screen: No Sexual Abuse: No Recent Foreign Travel: No Contact w/other who traveled: No Recent Hopitalizations: Yes Recent Infectious Disease Expo: No Immunizations Up To Date Tetanus Booster (TDap): Unknown Pediatric: No Seasonal Allergies Seasonal Allergies: No Surgeries Yes (frequent foot surgeries for plantar warts, I/D) Abdominal, Rectal Respiratory Yes COPD Cardiovascular Yes Neurological No Genitourinary No Gastrointestinal Yes Musculoskeletal No Endocrine History of Endocrine Disorders: No HEENT History of HEENT Disorders: No Cancer Yes Rectal, Lung Did You Recieve Any Treatments: Yes Type of Treatment: Surgical Intervention Psychosocial History of Psychiatric Problem: No Integumentary History of Skin or Integumenta: Yes (plantar warts to bilateral feet) Blood Transfusions History of Blood Disorders: No Family Medical History Family Hx: Patient reports no known family medical history. Review of Systems Constitutional: chills, fever EENTM: no symptoms reported Respiratory: no symptoms reported Cardiovascular: no symptoms reported Gastrointestinal: see HPI Genitourinary: no symptoms reported Musculoskeletal: no symptoms reported Skin: no symptoms reported Psychiatric/Neurological: No Symptoms Reported Physical Exam Vital Signs Vital Signs - First Documented 11/10/18 03:51 Temp 101.5 Pulse 128 Resp 18 B/P (MAP) 154/99 (117) Pulse Ox 98 O2 Delivery Room Air Capillary Refill : Less Than 3 Seconds Height, Weight, BMI Height: 6'0.00" Weight: 190lbs. 6.0oz. [id number]; 25.8 BMI Method:Stated General Appearance: No Apparent Distress Neck: Normal Inspection Respiratory: Lungs Clear Cardiovascular: Tachycardia Gastrointestinal: Non Tender, Soft Extremity: Normal Inspection Neurologic/Psychiatric: Alert, Oriented x3 Skin: Warm/Dry Comments LLQ colostomy. Induration around the left perianal region Assessment/Plan Assessment and Plan Gentleman with known anal canal carcinoma, previous marta-rectal abscess. Fever and increased pain/induration over eliza perirectal region, with CT supporting the clinical findings. For EUA and possible I & D Admission Diagnosis Admission Status: Observation Clinical Quality Measures DVT/VTE Risk/Contraindication: Risk Factor Score Per Nursin RFS Level Per Nursing on Admit: 4+=Very High ROBERT ARIAS MD Nov 10, 2018 08:30
--- NOTE | 2018-11-10 08:31 | Progress Note-Pre Operative ---
Pre-Operative Progress Note H&P Reviewed The H&P was reviewed, patient examined and no changes noted. Date Seen by Provider: Nov 10, 2018 Time Seen by Provider: 08:08 Date H&P Reviewed: Nov 10, 2018 Time H&P Reviewed: 08:31 Pre-Operative Diagnosis: Anal canal carcinoma. Perirectal anscess ROBERT ARIAS MD Nov 10, 2018 08:31
[2018-11-10] MEDS ORDERED: proPOfol 200 MG/20 ML (DIPRIVAN) VIAL IV ONE (08:43)
[2018-11-10] MEDS ORDERED: ONDANSETRON 4 MG/2 ML (SDV) Z0FRAN ONE (08:43)
[2018-11-10] MEDS ORDERED: LIDOCAINE PF 2% 5 ML (XYLOCAINE) VIAL ONE (08:43)
[2018-11-10] MEDS ORDERED: fentaNYL INJECTION 100 MCG/2 ML AMP ONE (08:44)
[2018-11-10] MEDS ORDERED: MIDAZOLAM 2 MG/2 ML (VERSED) VIAL ONE (08:44)
[2018-11-10] MEDS ORDERED: SEVOFLURANE (ULTANE) 15 ML INHAL SOLN ONE ×4 (08:52→10:28)
[2018-11-10] MEDS ORDERED: FLU QUADRIvalent (5+ YOA) 2018-2019 (AFLURIA) 0.5 ML IM ONE (09:00)
--- NOTE | 2018-11-10 09:17 | Operative Report ---
Operative Report Date of Procedure/Surgery Nov 10, 2018 Surgeon (s) ROBERT ARIAS MD Customer Support Analyst (s): N/A Post-Operative Diagnosis perirectal hematoma Persistent tumor within the anal canal Procedure Performed examination under anesthetic Evacuation of perianal hematoma Description of Procedure Anesthesia Type: General Estimated blood loss (mL): minimal Specimen(s) collected/removed none Description of the Procedure indication for the procedure: This gentleman has established, poorly differentiated carcinoma of the anal canal, managed with chemoradiation. Due to incontinence and to facilitate management of his perineum, a diverting colostomy had been performed by a surgeon at [facility] in [place]. Currently, he is convalescing at a local senior care. She was brought emergency room with fever with chills and increased perianal pain. CT scan was suggestive of inflammatory changes at the anorectal region with concern about an abscess. Therefore, it is felt reasonable to perform an examination under anesthetic and possibly address the marta-rectal rectal abscess/fluid collection. Informed consent was obtained after reviewing the procedure in detail. Description of the procedure: He was initially placed supine on the operative table and general anesthesia induced. He received intravenous antibiotics prior to his arrival in the operating room. Subsequently, he was placed in combined lithotomy position, his legs being supported on stirrups. Examination under anesthetic/ evacuation of perirectal hematoma: 2 cm wound from previous drainage in July 2008 was encountered. Further exploration confirmed a hematoma along the left perirectal region, extending about the levator ani muscles. This was evacuated and the cavity irrigated with saline. A one-inch [place] drain was left in the tract to promote postoperative drainage. There was no active bleeding. Digital rectal examination confirmed persistent tumor along the posterior aspect of the anal canal. In addition, there was slough, which was irrigated. A nonadherent dressing was then applied. He tolerated the procedure well, was extubated in the operating room and taken to the recovery room in a stable condition. Findings of the Procedure See op report Allergies and Home Medications Allergies Coded Allergies: No Known Drug Allergies (Unverified , 10/16/18) Patient Home Medication List Home Medication List Reviewed: Yes ROBERT ARIAS MD Nov 10, 2018 09:17
[2018-11-10] MEDS ORDERED: morphine INJ 10 MG/ML 1ML (SYR OR VIAL) ONE (09:26)
[2018-11-10] MEDS ORDERED: PROMETHAZINE INJ 25 MG/ML (PHENERGAN) AMP IVP ONE (09:45)
[2018-11-10] MEDS ORDERED: ONDANSETRON 4 MG/2 ML (SDV) Z0FRAN IVP PRN (09:45)
[2018-11-10] MEDS ORDERED: morphine INJ 10 MG/ML 1ML (SYR OR VIAL) IVP ONE (09:45)
[2018-11-10] MEDS ORDERED: MEPERIDINE (DEMEROL) INJ 50 MG/ML IVP ONE (09:45)
[2018-11-10] MEDS ORDERED: HYDROmorphone 2 MG/ML VIAL (DILAUDID) IV ONE (09:45)
[2018-11-10] MEDS ORDERED: LACTATED RINGERS 1,000 ML IV PRN (10:15)
[2018-11-10] MEDS ORDERED: NS IV 500 ML 500 ML ONE (11:40)
[2018-11-10] MEDS: PIPERACILLIN SODIUM/TAZOBACTAM 4.5 GM in NS (IVPB) 100 ML IV SCH ×2 (13:02→20:05)
[2018-11-10] MEDS ORDERED: MELA5TAB14 PO (15:21)
[2018-11-10] MEDS ORDERED: MAG30ORA2 PO (15:23)
[2018-11-10] MEDS ORDERED: MORPHINE PO (15:23)
[2018-11-10] MEDS ORDERED: OXYC-465 PO ×3 (15:24→15:29)
[2018-11-10] MEDS ORDERED: MIRT30TA6 PO (15:25)
[2018-11-10] MEDS ORDERED: METO-387 PO (15:25)
[2018-11-10] MEDS ORDERED: TRAZ-190 PO (15:26)
[2018-11-10] MEDS ORDERED: ONDA8TAB13 PO (15:26)
[2018-11-10] MEDS ORDERED: SERT25TA5 PO (15:27)
--- NOTE | 2018-11-10 15:31 | NUR ---
RECEIVED MEDICATION LIST FROM [facility]
[2018-11-10] MEDS ORDERED: ACETAMINOPHEN 325 MG TABLET PO PRN (21:45)
[2018-11-11] VITALS: BP 113/72
[2018-11-11] MEDS: NS IV 1000 ML 1,000 ML IV SCH ×4 (00:17→17:13)
[2018-11-11 04:00] VITALS: BP 116/74
[2018-11-11] MEDS: PIPERACILLIN SODIUM/TAZOBACTAM 4.5 GM in NS (IVPB) 100 ML IV SCH ×3 (04:14→20:17)
[2018-11-11 06:06] LABS: BASOPHILS % (AUTO) 0 % (0-10); EOSINOPHILS % (AUTO) 0 % (0-10); HEMATOCRIT 24 % (40-54); HEMOGLOBIN 7.8 G/DL (13.3-17.7); LYMPHOCYTES # (AUTO) 0.6 X 10^3 (1.0-4.0); LYMPHOCYTES % (AUTO) 6 % (12-44); MEAN CORPUSCULAR HEMOGLOBIN 26 PG (25-34); MEAN CORPUSCULAR HGB CONC 32 G/DL (32-36); MEAN CORPUSCULAR VOLUME 80 FL (80-99); MEAN PLATELET VOLUME 9.1 FL (7.4-10.4); MONOCYTES # (AUTO) 1.1 X 10^3 (0.0-1.0); MONOCYTES % (AUTO) 11 % (0-12); NEUTROPHILS # (AUTO) 7.9 X 10^3 (1.8-7.8); NEUTROPHILS % (AUTO) 82 % (42-75); PLATELET COUNT 238 10^3/uL (130-400); RED BLOOD COUNT 3.01 10^6/uL (4.35-5.85); WHITE BLOOD COUNT 9.6 10^3/uL (4.3-11.0)
--- NOTE | 2018-11-11 06:06 | Diagnostic Imaging Report ---
INDICATION: Perirectal abscess. Sepsis Upright portable chest shows the heart size to be upper normal. The vascularity is normal. There is mild blunting of the left costophrenic angle. This may be secondary to atelectasis or small effusion. There is no pneumothorax. Central catheter tip is in the SVC. These findings are similar to the prior study from 11/10/2018. IMPRESSION: Stable chest. Dictated by: Dictated on workstation # [id number]
[2018-11-11 06:31] LABS: BUN/CREATININE RATIO 10; CARBON DIOXIDE 20 MMOL/L (21-32); CHLORIDE 108 MMOL/L (98-107); CREATININE SERUM 0.87 MG/DL (0.60-1.30); GFR ESTIMATED > 60; GLUCOSE 97 MG/DL (70-105); MAGNESIUM 1.4 MG/DL (1.8-2.4); PHOSPHORUS 3.4 MG/DL (2.3-4.7); SODIUM 137 MMOL/L (135-145)
[2018-11-11] MEDS: POTASSIUM CL 10MEQ/50ML IVPB 50 ML IV SCH (07:01)
[2018-11-11] MEDS: MAGNESIUM 1 GM/100 ML IVPB 100 ML IV SCH (07:01)
[2018-11-11] MEDS: KCL 20 MEQ TAB (K-DUR) PO SCH (07:01)
[2018-11-11 08:00] VITALS: BP 114/66
--- NOTE | 2018-11-11 11:14 | Progress Note (SOAP) ---
Subjective Date Seen by a Provider: Nov 11, 2018 Time Seen by a Provider: 11:00 Subjective/Events-last exam doing ok. still has perianal pain but nothing new. peristomal device leaking. functioning well. no fever/chills. Focused Exam Lactate Level 11/10/18 04:10: Lactic Acid Level 0.71 Objective Exam Vital Signs Date Time Temp Pulse Resp B/P (MAP) Pulse Ox O2 Delivery O2 Flow Rate FiO2 11/11/18 04:00 99.7 102 18 116/74 (88) 98 Room Air 11/11/18 00:00 98.2 99 18 113/72 (86) 96 Room Air 11/10/18 22:30 98.2 11/10/18 21:39 101.1 11/10/18 20:50 101.1 116 18 123/73 (90) 97 Room Air 11/10/18 20:10 Room Air 11/10/18 18:45 99.8 106 18 116/74 96 Room Air 11/10/18 16:25 99.6 110 18 112/64 96 Room Air 11/10/18 16:09 100.1 114 18 115/58 96 11/10/18 16:00 97 Room Air 11/10/18 15:45 100.2 114 18 115/58 (77) 95 Room Air 11/10/18 14:15 99.2 106 18 110/69 96 Room Air 11/10/18 14:00 101.6 108 20 112/56 (74) 98 Room Air 11/10/18 13:16 104 11/10/18 13:16 104 11/10/18 13:00 101 26 100/65 (77) 97 Room Air 11/10/18 12:13 99.0 103 25 107/79 98 Room Air 11/10/18 12:00 103 26 96/70 (79) 99 Room Air 11/10/18 12:00 97 Room Air 11/10/18 11:58 99.0 101 25 107/73 97 Room Air I & O 11/11/18 07:00 Intake Total 1900 ml Output Total 2275 ml Balance -375 ml Capillary Refill : Less Than 3 Seconds General Appearance: No Apparent Distress HEENT: PERRL/EOMI Neck: Full Range of Motion Respiratory: Chest Non Tender, Lungs Clear, Normal Breath Sounds Cardiovascular: Regular Rate, Rhythm Gastrointestinal: normal bowel sounds, non tender, soft Extremity: Normal Capillary Refill Neurologic/Psychiatric: Alert, Oriented x3 Skin: Normal Color Lymphatic: No Adenopathy Results Lab Laboratory Tests 11/11/18 05:50: White Blood Count 9.6, Red Blood Count 3.01L, Hemoglobin 7.8L, Hematocrit 24L, Mean Corpuscular Volume 80, Mean Corpuscular Hemoglobin 26, Mean Corpuscular Hemoglobin Concent 32, Red Cell Distribution Width 18.0H, Platelet Count 238, Mean Platelet Volume 9.1, Neutrophils (%) (Auto) 82H, Lymphocytes (%) (Auto) 6L , Monocytes (%) (Auto) 11, Eosinophils (%) (Auto) 0, Basophils (%) (Auto) 0, Neutrophils # (Auto) 7.9H, Lymphocytes # (Auto) 0.6L, Monocytes # (Auto) 1.1H, Eosinophils # (Auto) 0.0, Basophils # (Auto) 0.0, Sodium Level 137, Potassium Level 4.0, Chloride Level 108H, Carbon Dioxide Level 20L, Anion Gap 9, Blood Urea Nitrogen 9, Creatinine 0.87, Estimat Glomerular Filtration Rate > 60, BUN/ Creatinine Ratio 10, Glucose Level 97, Calcium Level 8.0L, Phosphorus Level 3.4 , Magnesium Level 1.4L Microbiology 11/10/18 Blood Culture - Preliminary, Resulted No growth 11/10/18 Urine Culture - Final, Complete See Report Assessment/Plan Assessment/Plan Assess & Plan/Chief Complaint advanced anal canal cancer s/p areli and diverting end colostomy with perirectal abscess s/p I&D. doing ok. afebrile. WBC normal. still has pain and wound issues. continue packing wound. new colostomy appliance. pain control. continue IV abx. Clinical Quality Measures DVT/VTE Risk/Contraindication: Risk Factor Score Per Nursin RFS Level Per Nursing on Admit: 4+=Very High MIYA ROTH MD Nov 11, 2018 11:14
[2018-11-11 12:00] VITALS: BP 143/89
--- NOTE | 2018-11-11 13:11 | Anesthesia-General Post-Op ---
General Patient Condition Mental Status/LOC: Same as Preop Cardiovascular: Satisfactory Nausea/Vomiting: Absent Respiratory: Satisfactory Pain: Controlled Complications: Absent Post Op Complications Complications None Follow Up Care/Instructions Patient Instructions None needed. Anesthesia/Patient Condition Patient Condition Patient is doing well, no complaints, stable vital signs, no apparent adverse anesthesia problems. No complications reported per nursing. REJI BELLA CRNA Nov 11, 2018 13:11
[2018-11-11 16:40] VITALS: BP 114/63
[2018-11-11] MEDS: DIPHENOXYLATE/ATROPINE 2.5MG/0.025MG (LOMOTIL) TAB PO PRN (17:14)
[2018-11-11] MEDS: HYDROmorphone 2 MG/ML VIAL (DILAUDID) IV PRN (17:21)
[2018-11-11 19:45] VITALS: BP 105/55
[2018-11-11] MEDS: HYDROcodone/APAP 7.5 MG/325 MG (LORTAB, LORCET PLUS) TABLET PO PRN (20:23)
[2018-11-12] VITALS (13 sets, daily range): BP systolic 111–133; BP diastolic 60–86
[2018-11-12] MEDS: DIPHENOXYLATE/ATROPINE 2.5MG/0.025MG (LOMOTIL) TAB PO PRN ×3 (00:49→17:39)
[2018-11-12] MEDS: HYDROmorphone 2 MG/ML VIAL (DILAUDID) IV PRN ×4 (03:10→20:28)
[2018-11-12] MEDS: NS IV 1000 ML 1,000 ML IV SCH ×2 (03:41→13:12)
[2018-11-12] MEDS: PIPERACILLIN SODIUM/TAZOBACTAM 4.5 GM in NS (IVPB) 100 ML IV SCH ×3 (03:41→20:29)
[2018-11-12] MEDS: KCL 20 MEQ TAB (K-DUR) PO SCH (04:59)
[2018-11-12] MEDS: MAGNESIUM 1 GM/100 ML IVPB 100 ML IV SCH (04:59)
[2018-11-12] MEDS: POTASSIUM CL 10MEQ/50ML IVPB 50 ML IV SCH (04:59)
--- NOTE | 2018-11-12 06:30 | Diagnostic Imaging Report ---
INDICATION: Sepsis. COMPARISON: 11/11/2018 FINDINGS: Single frontal view of the chest demonstrates stable moderate cardiomegaly. Pulmonary vasculature is within normal limits. Left-sided subclavian central line is noted. The lungs are well aerated and clear. No large pleural effusion or pneumothorax is seen. The visualized osseous structures show no acute abnormalities. IMPRESSION: 1. Moderate cardiomegaly, but no evidence of failure or focal infiltrate. Dictated by: Dictated on workstation # [id number]
[2018-11-12 06:44] LABS: BASOPHILS % (AUTO) 0 % (0-10); EOSINOPHILS # (AUTO) 0.2 10^3/uL (0.0-0.3); EOSINOPHILS % (AUTO) 2 % (0-10); LYMPHOCYTES # (AUTO) 0.5 X 10^3 (1.0-4.0); LYMPHOCYTES % (AUTO) 6 % (12-44); MEAN CORPUSCULAR HEMOGLOBIN 26 PG (25-34); MEAN CORPUSCULAR HGB CONC 33 G/DL (32-36); MEAN CORPUSCULAR VOLUME 81 FL (80-99); MEAN PLATELET VOLUME 9.2 FL (7.4-10.4); MONOCYTES # (AUTO) 1.3 X 10^3 (0.0-1.0); MONOCYTES % (AUTO) 14 % (0-12); NEUTROPHILS % (AUTO) 78 % (42-75); PLATELET COUNT 237 10^3/uL (130-400); RED BLOOD COUNT 2.48 10^6/uL (4.35-5.85); RED CELL DISTRIBUTION WIDTH 18.4 % (10.0-14.5)
[2018-11-12 06:51] LABS: HEMATOCRIT 20 % (40-54); HEMOGLOBIN 6.5 G/DL (13.3-17.7)
--- NOTE | 2018-11-12 06:57 | NUR ---
This RN called Dr. Retana in regards to the lab notifying this RN of a critical hemoglobin of 6.5 and a critical hematocrit of 20. Orders received to give 2 units of packed red blood cells. Orders read back and verified.
[2018-11-12 07:00] LABS: BUN/CREATININE RATIO 9; CARBON DIOXIDE 19 MMOL/L (21-32); CHLORIDE 108 MMOL/L (98-107); CREATININE SERUM 0.87 MG/DL (0.60-1.30); GFR ESTIMATED > 60; GLUCOSE 90 MG/DL (70-105); MAGNESIUM 1.4 MG/DL (1.8-2.4); PHOSPHORUS 3.3 MG/DL (2.3-4.7); POTASSIUM 3.4 MMOL/L (3.6-5.0); SODIUM 136 MMOL/L (135-145)
[2018-11-12] MEDS ORDERED: NS IV 500 ML 500 ML IV SCH (07:01)
--- NOTE | 2018-11-12 08:21 | NUR ---
FIRST UNIT OF PRBC'S STARTED AT THIS TIME AT A RATE OF 75 ML/HR. AFTER 15 MINUTES OF TRANSFUSION VITALS S8IGNS RECHECKED AND RATE INCREASED TO 125 ML/HR. PATIENT TOLERATING TRANSFUSION WELL AT THIS TIME.
--- NOTE | 2018-11-12 09:00 | NUR ---
Assessed pt colostomy bag. Pt wafer was leaking around navel and not sticking to skin. Attempted to clean area and use a 4in wafer to see if extra wafer would help hold in place. After pt next bowel movement wafer was loose. This RN called and left message with Alireza Acuna and waiting for return call. Was assisted in placing another wafer using a 2 in barrier ring to help seal wafer to skin.
--- NOTE | 2018-11-12 09:00 | NUR ---
PATIENT RECTAL DRESSING CHANGED BY THIS RN AT THIS TIME. PATIENT TOLERATED WELL, DRESSING WAS SOAKED WITH SEROSANGUINEOUS DRAINAGE AT THE TIME THIS RN CHANGED IT THIS A.M.
[2018-11-12] MEDS: HYDROcodone/APAP 7.5 MG/325 MG (LORTAB, LORCET PLUS) TABLET PO PRN (09:53)
--- NOTE | 2018-11-12 10:45 | Progress Note (SOAP) ---
Subjective Date Seen by a Provider: Nov 12, 2018 Time Seen by a Provider: 10:25 Subjective/Events-last exam Patient seen with Dr. Retana. Patient reports doing ok but still having liquid stool from colostomy as well as drainage from anal region. No fever/chills. No N/V. Reports abdominal pain near colostomy and umbilicus. Colostomy appliance still leaking. Wound care at bedside to reassess and apply new one. Patient reports eating and drinking well and ambulating. Focused Exam Lactate Level 11/10/18 04:10: Lactic Acid Level 0.71 Objective Exam Vital Signs Date Time Temp Pulse Resp B/P (MAP) Pulse Ox O2 Delivery O2 Flow Rate FiO2 11/12/18 08:36 99.2 96 111/60 11/12/18 08:21 99.0 94 117/81 11/12/18 08:00 99.7 94 20 117/81 (93) 100 Room Air 11/12/18 08:00 100 Room Air 11/12/18 04:05 98.2 84 18 122/64 (83) 96 Room Air 11/12/18 00:04 98.1 88 18 118/66 (83) 97 Room Air 11/11/18 20:00 Room Air 11/11/18 19:45 99.9 101 20 105/55 (72) 100 Room Air 11/11/18 18:00 100.0 11/11/18 16:40 101.1 115 20 114/63 (80) 96 Room Air 11/11/18 12:00 102.0 114 18 143/89 (107) 99 Room Air I & O 11/12/18 07:00 Intake Total 3230 ml Output Total 1175 ml Balance 2055 ml Capillary Refill : Less Than 3 Seconds General Appearance: No Apparent Distress, WD/WN Neck: Full Range of Motion, Normal Inspection, Non Tender, Supple Respiratory: Lungs Clear, Normal Breath Sounds, No Accessory Muscle Use, No Respiratory Distress Cardiovascular: Regular Rate, Rhythm, No Edema Gastrointestinal: normal bowel sounds, soft, tenderness (Around colostomy and umbilicus), other (Stool mixed with SS drainage from anal region. [place] drain in place.) Extremity: Normal Capillary Refill, Normal Inspection, Normal Range of Motion Neurologic/Psychiatric: Alert, Oriented x3 Skin: Normal Color, Warm/Dry Results Lab Laboratory Tests 11/12/18 06:35: White Blood Count 9.0, Red Blood Count 2.48L, Hemoglobin 6.5*L, Hematocrit 20*L , Mean Corpuscular Volume 81, Mean Corpuscular Hemoglobin 26, Mean Corpuscular Hemoglobin Concent 33, Red Cell Distribution Width 18.4H, Platelet Count 237, Mean Platelet Volume 9.2, Neutrophils (%) (Auto) 78H, Lymphocytes (%) (Auto) 6L , Monocytes (%) (Auto) 14H, Eosinophils (%) (Auto) 2, Basophils (%) (Auto) 0, Neutrophils # (Auto) 7.0, Lymphocytes # (Auto) 0.5L, Monocytes # (Auto) 1.3H, Eosinophils # (Auto) 0.2, Basophils # (Auto) 0.0, Sodium Level 136, Potassium Level 3.4L, Chloride Level 108H, Carbon Dioxide Level 19L, Anion Gap 9, Blood Urea Nitrogen 8, Creatinine 0.87, Estimat Glomerular Filtration Rate > 60, BUN/ Creatinine Ratio 9, Glucose Level 90, Calcium Level 8.0L, Phosphorus Level 3.3, Magnesium Level 1.4L Microbiology 11/10/18 Blood Culture - Preliminary, Resulted No growth 11/10/18 Urine Culture - Final, Complete See Report 11/10/18 MRSA Screen - Final, Complete Assessment/Plan Assessment/Plan Assess & Plan/Chief Complaint advanced anal canal cancer s/p areli and diverting end colostomy with perirectal abscess s/p I&D. doing ok. afebrile. WBC normal. still has pain and wound issues. continue packing wound. new colostomy appliance. pain control. continue IV abx. Hgb at 6.5 and and begun PRBCs transfusion. Will continue to monitor labs. 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
--- NOTE | 2018-11-12 13:15 | NUR ---
PATIENT RECTAL DRESSING CHANGED BY THIS RN AT THIS TIME. PATIENT TOLERATED WELL, DRESSING WAS SOAKED WITH SEROSANGUINEOUS DRAINAGE AT THE TIME THIS RN CHANGED IT THIS AFTERNOON.
--- NOTE | 2018-11-12 17:29 | NUR ---
PATIENT RECTAL DRESSING CHANGED BY THIS RN AT THIS TIME. PATIENT TOLERATED WELL, DRESSING WAS SOAKED WITH SEROSANGUINEOUS DRAINAGE AT THE TIME THIS RN CHANGED IT THIS EVENING.
--- NOTE | 2018-11-12 21:00 | NUR ---
CHANGED PATIENTS RECTAL DRESSING AT THIS TIME. DRESSING WAS SATURATED WITH YELLOW/ORANGE GELATINOUS STOOL LIKE DRAINAGE AND SEROSANGUINEOUS DRAINAGE. PATIENT WAS ABLE TO VERBALIZE DRESSING CHANGE NOT COMFORTABLE BUT WITHIN TOLERANCE RANGE. PATIENTS WAFER WAS ALSO LEAKING AT THIS TIME SO A FULL COLOSTOMY CHANGE WITH CLEANING COMPLETED.
[2018-11-13] MEDS: NS IV 1000 ML 1,000 ML IV SCH ×4 (00:03→14:35)
[2018-11-13] MEDS: HYDROcodone/APAP 7.5 MG/325 MG (LORTAB, LORCET PLUS) TABLET PO PRN ×4 (00:25→20:06)
[2018-11-13] MEDS: DIPHENOXYLATE/ATROPINE 2.5MG/0.025MG (LOMOTIL) TAB PO PRN ×4 (00:25→20:06)
--- NOTE | 2018-11-13 01:00 | NUR ---
CHANGED PATIENTS RECTAL DRESSING AT THIS TIME. DRESSING WAS SATURATED WITH YELLOW/ORANGE GELATINOUS STOOL LIKE DRAINAGE AND SEROSANGUINEOUS DRAINAGE. PATIENT VERBALIZED STINGING PAIN WITH DRESSING CHANGE. STOOL LIKE DRAINAGE WAS WEEPING FROM WOUND AT THIS TIME. PATIENT WAS ABLE TO VERBALIZE DRESSING CHANGE NOT COMFORTABLE BUT WITHIN TOLERANCE RANGE.
[2018-11-13 04:00] VITALS: BP 122/95
[2018-11-13 04:25] LABS: BASOPHILS % (AUTO) 0 % (0-10); EOSINOPHILS # (AUTO) 0.2 10^3/uL (0.0-0.3); EOSINOPHILS % (AUTO) 3 % (0-10); HEMATOCRIT 23 % (40-54); HEMOGLOBIN 7.5 G/DL (13.3-17.7); LYMPHOCYTES # (AUTO) 0.6 X 10^3 (1.0-4.0); LYMPHOCYTES % (AUTO) 9 % (12-44); MEAN CORPUSCULAR HEMOGLOBIN 26 PG (25-34); MEAN CORPUSCULAR HGB CONC 33 G/DL (32-36); MEAN CORPUSCULAR VOLUME 79 FL (80-99); MEAN PLATELET VOLUME 9.8 FL (7.4-10.4); MONOCYTES # (AUTO) 1.1 X 10^3 (0.0-1.0); MONOCYTES % (AUTO) 15 % (0-12); NEUTROPHILS % (AUTO) 72 % (42-75); PLATELET COUNT 243 10^3/uL (130-400); RED CELL DISTRIBUTION WIDTH 18.1 % (10.0-14.5); WHITE BLOOD COUNT 6.9 10^3/uL (4.3-11.0)
[2018-11-13 04:31] LABS: BUN/CREATININE RATIO 6; CALCIUM 7.6 MG/DL (8.5-10.1); CARBON DIOXIDE 19 MMOL/L (21-32); CHLORIDE 111 MMOL/L (98-107); CREATININE SERUM 0.82 MG/DL (0.60-1.30); GFR ESTIMATED > 60; GLUCOSE 87 MG/DL (70-105); MAGNESIUM 1.5 MG/DL (1.8-2.4); PHOSPHORUS 3.9 MG/DL (2.3-4.7); POTASSIUM 3.2 MMOL/L (3.6-5.0); SODIUM 138 MMOL/L (135-145)
[2018-11-13] MEDS: PIPERACILLIN SODIUM/TAZOBACTAM 4.5 GM in NS (IVPB) 100 ML IV SCH ×3 (04:42→19:51)
[2018-11-13] MEDS: POTASSIUM CL 10MEQ/50ML IVPB 50 ML IV SCH ×2 (05:56→05:58)
[2018-11-13] MEDS: KCL 20 MEQ TAB (K-DUR) PO SCH (05:57)
[2018-11-13] MEDS: MAGNESIUM 1 GM/100 ML IVPB 100 ML IV SCH (05:57)
[2018-11-13 08:00] VITALS: BP 151/93
--- NOTE | 2018-11-13 08:46 | Diagnostic Imaging Report ---
INDICATION: Sepsis, perirectal abscess. TECHNIQUE: Single frontal view of the chest. COMPARISON: 11/12/2018 FINDINGS: The tip of the left Port-A-Cath projects over the mid SVC. The patient is rotated. There appear to be increased airspace opacities in the left lung base. There is moderate cardiomegaly which appears stable. No pleural effusion is seen. There is a skin fold at the right lung base. Surgical clips are seen along the left upper hemithorax. IMPRESSION: 1. Increasing airspace opacities in the left lung base, may be accentuated by technique, however developing infiltrate is not excluded. 2. Stable cardiomegaly. Dictated by: Dictated on workstation # [id number]
--- NOTE | 2018-11-13 10:19 | Progress Note (SOAP) ---
Subjective Date Seen by a Provider: Nov 13, 2018 Time Seen by a Provider: 09:55 Subjective/Events-last exam Patient seen with Dr. Retana. Patient reports doing ok. Still having pain around colostomy and rectal area. Stool is more soft and not liquid. Still reports drainage from rectal area. Did report night sweats last night. Tolerating diet and ambulating some. Objective Exam Vital Signs Date Time Temp Pulse Resp B/P (MAP) Pulse Ox O2 Delivery O2 Flow Rate FiO2 11/13/18 08:00 97.3 74 18 151/93 (112) 98 Room Air 11/13/18 04:00 98.0 92 18 122/95 (104) 98 Room Air 11/12/18 23:59 100.2 105 20 133/83 (100) 99 Room Air 11/12/18 20:30 99.1 84 20 118/71 (87) 99 Room Air 11/12/18 20:00 100 Room Air 11/12/18 16:25 99.1 84 20 118/71 (87) 99 Room Air 11/12/18 14:25 98.9 93 114/65 11/12/18 12:00 99.1 100 20 132/86 (101) 100 Room Air 11/12/18 11:59 99.4 100 116/66 11/12/18 11:44 98.8 101 123/73 11/12/18 11:15 99.1 100 132/86 I & O 11/13/18 07:00 Intake Total 5634 ml Output Total 575 ml Balance 5059 ml Capillary Refill : Less Than 3 Seconds General Appearance: No Apparent Distress, WD/WN Neck: Full Range of Motion, Normal Inspection, Non Tender, Supple Respiratory: Normal Breath Sounds, No Accessory Muscle Use, No Respiratory Distress Cardiovascular: Regular Rate, Rhythm, No Edema Gastrointestinal: normal bowel sounds, soft, tenderness, other (Still having drainage from rectal area. SS in color. Jamal in place.) Extremity: Normal Capillary Refill, Normal Inspection, Normal Range of Motion Neurologic/Psychiatric: Alert, Oriented x3 Skin: Normal Color, Warm/Dry Results Lab Laboratory Tests 11/13/18 04:00: White Blood Count 6.9, Red Blood Count 2.90L, Hemoglobin 7.5L, Hematocrit 23L, Mean Corpuscular Volume 79L, Mean Corpuscular Hemoglobin 26, Mean Corpuscular Hemoglobin Concent 33, Red Cell Distribution Width 18.1H, Platelet Count 243, Mean Platelet Volume 9.8, Neutrophils (%) (Auto) 72, Lymphocytes (%) (Auto) 9L, Monocytes (%) (Auto) 15H, Eosinophils (%) (Auto) 3, Basophils (%) (Auto) 0, Neutrophils # (Auto) 5.0, Lymphocytes # (Auto) 0.6L, Monocytes # (Auto) 1.1H, Eosinophils # (Auto) 0.2, Basophils # (Auto) 0.0, Sodium Level 138, Potassium Level 3.2L, Chloride Level 111H, Carbon Dioxide Level 19L, Anion Gap 8, Blood Urea Nitrogen 5L, Creatinine 0.82, Estimat Glomerular Filtration Rate > 60, BUN/ Creatinine Ratio 6, Glucose Level 87, Calcium Level 7.6L, Phosphorus Level 3.9, Magnesium Level 1.5L Microbiology 11/10/18 Blood Culture - Preliminary, Resulted No growth 11/10/18 Urine Culture - Final, Complete See Report 11/10/18 MRSA Screen - Final, Complete Assessment/Plan Assessment/Plan Assess & Plan/Chief Complaint advanced anal canal cancer s/p areli and diverting end colostomy with perirectal abscess s/p I&D. doing ok. afebrile. WBC normal. still has pain and wound issues. continue packing wound. new colostomy appliance. pain control. continue IV abx. Hgb up to 7.5 today. will continue to monitor and transfuse as appropriate. Will continue to monitor labs. 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
[2018-11-13 12:00] VITALS: BP 136/87
[2018-11-13 15:32] VITALS: BP 129/87
--- NOTE | 2018-11-13 15:47 | NUR ---
CALLED DR ROTH PER PATIENT REQUEST. HE WANTS A UA DONE TO CHECK OUT HIS KIDNEYS. HIS RIGHT LOWER FLANK DOES FEEL LARGER THAN THAN HIS LEFT LOWER FLANK. UA AND BMP ORDERED. LABS ORDERED FOR MORNING.
[2018-11-13 17:12] LABS: BUN/CREATININE RATIO 5; CALCIUM 7.5 MG/DL (8.5-10.1); CARBON DIOXIDE 19 MMOL/L (21-32); CHLORIDE 111 MMOL/L (98-107); CREATININE SERUM 0.75 MG/DL (0.60-1.30); GFR ESTIMATED > 60; GLUCOSE 82 MG/DL (70-105); POTASSIUM 3.4 MMOL/L (3.6-5.0); SODIUM 138 MMOL/L (135-145)
[2018-11-13 17:22] LABS: BILIRUBIN,URINE NEGATIVE (NEGATIVE); CLARITY,URINE CLEAR; COLOR,URINE YELLOW; GLUCOSE, URINE (UA) NEGATIVE (NEGATIVE); KETONES,URINE NEGATIVE (NEGATIVE); LEUKOCYTE ESTERASE ,URINE NEGATIVE (NEGATIVE); NITRITE,URINE NEGATIVE (NEGATIVE); PH,URINE 5 (5-9); PROTEIN,URINE NEGATIVE (NEGATIVE); UROBILINOGEN,URINE NORMAL (NORMAL)
[2018-11-13 17:36] LABS: BACTERIA,URINE NEGATIVE /HPF; SQUAMOUS EPITHELIAL CELL,UR RARE /HPF; WBC,URINE RARE /HPF
[2018-11-13 19:35] VITALS: BP 137/93
[2018-11-14 00:05] VITALS: BP 134/82
[2018-11-14] MEDS: NS IV 1000 ML 1,000 ML IV SCH ×3 (00:48→08:28)
[2018-11-14] MEDS: HYDROmorphone 2 MG/ML VIAL (DILAUDID) IV PRN (01:56)
--- NOTE | 2018-11-14 01:58 | NUR ---
Pt screaming out "Nurse!" This RN at bedside, pt on the phone et extremely tearful, stating that his kidneys hurt. Pt requesting previous day UA results. This RN shared results with pt. Warm blanket applied to lower back, IV Dilaudid administered at this time. Urinal at bedside; 300 mL straw-colored urine. Pt states that pain is under better control at this time. Will continue to monitor.
[2018-11-14] MEDS: HYDROcodone/APAP 7.5 MG/325 MG (LORTAB, LORCET PLUS) TABLET PO PRN ×3 (02:03→14:12)
[2018-11-14] MEDS: KCL 20 MEQ TAB (K-DUR) PO SCH (02:30)
[2018-11-14] MEDS: PIPERACILLIN SODIUM/TAZOBACTAM 4.5 GM in NS (IVPB) 100 ML IV SCH (03:43)
[2018-11-14 04:05] VITALS: BP 154/89
[2018-11-14 04:17] LABS: BASOPHILS % (AUTO) 0 % (0-10); EOSINOPHILS # (AUTO) 0.2 10^3/uL (0.0-0.3); EOSINOPHILS % (AUTO) 3 % (0-10); HEMATOCRIT 23 % (40-54); HEMOGLOBIN 7.6 G/DL (13.3-17.7); LYMPHOCYTES # (AUTO) 0.6 X 10^3 (1.0-4.0); LYMPHOCYTES % (AUTO) 9 % (12-44); MEAN CORPUSCULAR HEMOGLOBIN 26 PG (25-34); MEAN CORPUSCULAR HGB CONC 33 G/DL (32-36); MEAN CORPUSCULAR VOLUME 80 FL (80-99); MEAN PLATELET VOLUME 9.5 FL (7.4-10.4); MONOCYTES # (AUTO) 0.9 X 10^3 (0.0-1.0); MONOCYTES % (AUTO) 14 % (0-12); NEUTROPHILS # (AUTO) 4.8 X 10^3 (1.8-7.8); NEUTROPHILS % (AUTO) 74 % (42-75); PLATELET COUNT 279 10^3/uL (130-400); RED CELL DISTRIBUTION WIDTH 18.5 % (10.0-14.5); WHITE BLOOD COUNT 6.5 10^3/uL (4.3-11.0)
[2018-11-14 04:37] LABS: ALANINE AMINOTRANSFERASE 23 U/L (0-55); ALBUMIN 2.3 GM/DL (3.2-4.5); ALKALINE PHOSPHATASE 87 U/L (40-136); BILIRUBIN,TOTAL 0.3 MG/DL (0.1-1.0); BUN/CREATININE RATIO 4; CALCIUM 7.9 MG/DL (8.5-10.1); CARBON DIOXIDE 17 MMOL/L (21-32); CHLORIDE 111 MMOL/L (98-107); CREATININE SERUM 0.79 MG/DL (0.60-1.30); GFR ESTIMATED > 60; GLUCOSE 114 MG/DL (70-105); MAGNESIUM 1.4 MG/DL (1.8-2.4); PHOSPHORUS 3.3 MG/DL (2.3-4.7); SODIUM 138 MMOL/L (135-145); TOTAL PROTEIN 6.2 GM/DL (6.4-8.2)
[2018-11-14 08:00] VITALS: BP 122/67
--- NOTE | 2018-11-14 08:06 | Diagnostic Imaging Report ---
Indication: Infection. Comparison made with prior examination of 11/13/2018. Findings: There is cardiomegaly. Mediastinum is unremarkable. There is some minimal venous congestion. There appears to be a small left pleural effusion. No pneumothorax. Mediastinum unremarkable. Impression: Cardiomegaly and minimal venous congestion with small left pleural effusion. Dictated by: Dictated on workstation # [id number]
[2018-11-14] MEDS: DIPHENOXYLATE/ATROPINE 2.5MG/0.025MG (LOMOTIL) TAB PO PRN (10:06)
[2018-11-14] MEDS ORDERED: KCL 10 MEQ TAB (MICRO K) PO NR (11:15)
[2018-11-14] MEDS ORDERED: KCL 20 MEQ TAB (K-DUR) PO NR (11:15)
--- NOTE | 2018-11-14 14:22 | NUR ---
REPORT CALLED TO JOVAN NEWTON AT [facility] AND [facility]
[2018-11-14] MEDS ORDERED: ACHD5005 PO (14:23)
--- NOTE | 2018-11-14 15:05 | Progress Note (SOAP) ---
Subjective Date Seen by a Provider: Nov 14, 2018 Time Seen by a Provider: 14:10 Subjective/Events-last exam no specific symptoms. Minimal discomfort around the perianal region Review of Systems General: No Chills, No Night Sweats, No Fatigue, No Malaise HEENT: No Head Aches, No Eye Pain, No Ear Pain, No Dysphasia, No Sinus Congestion, No Post Nasal Drip, No Sore Throat Pulmonary: No Dyspnea, No Cough, No Pleuritic Chest Pain Cardiovascular: No: Chest Pain, Palpitations, Orthopnea, Paroxysmal Noc. Dyspnea, Edema, Lt Headedness Gastrointestinal: No: Nausea, Vomiting, Abdominal Pain, Diarrhea, Constipation , Melena, Hematochezia Genitourinary: No Dysuria, No Frequency, No Incontinence, No Hematuria, No Retention Musculoskeletal: No: other, neck pain, shoulder pain, arm pain, back pain, hand pain, leg pain, foot pain Neurological: No: Weakness, Numbness, Incoordination, Change in speech, Confusion, Seizures, Other Objective Exam Vital Signs Date Time Temp Pulse Resp B/P (MAP) Pulse Ox O2 Delivery O2 Flow Rate FiO2 11/14/18 08:00 100.6 91 18 122/67 (85) 97 Room Air 11/14/18 04:05 98.2 86 18 154/89 (110) 100 Room Air 11/14/18 00:05 98.2 69 18 134/82 (99) 99 Room Air 11/13/18 19:35 98.4 77 16 137/93 (108) 100 Room Air 11/13/18 15:32 98.0 94 16 129/87 (101) 100 Room Air I & O 11/14/18 07:00 Intake Total 4240 ml Output Total 800 ml Balance 3440 ml Capillary Refill : Less Than 3 Seconds General Appearance: No Apparent Distress Respiratory: Lungs Clear Cardiovascular: Regular Rate, Rhythm Gastrointestinal: soft Neurologic/Psychiatric: Alert, Oriented x3 Other comments functioning colostomy over the left lower quadrant. Results Lab Laboratory Tests 11/13/18 16:45: Sodium Level 138, Potassium Level 3.4L, Chloride Level 111H, Carbon Dioxide Level 19L, Anion Gap 8, Blood Urea Nitrogen 4L, Creatinine 0.75, Estimat Glomerular Filtration Rate > 60, BUN/Creatinine Ratio 5, Glucose Level 82, Calcium Level 7.5L 11/13/18 17:10: Urine Color YELLOW, Urine Clarity CLEAR, Urine pH 5, Urine Specific [place] 1.020, Urine Protein NEGATIVE, Urine Glucose (UA) NEGATIVE, Urine Ketones NEGATIVE, Urine Nitrite NEGATIVE, Urine Bilirubin NEGATIVE, Urine Urobilinogen NORMAL, Urine Leukocyte Esterase NEGATIVE, Urine RBC (Auto) NEGATIVE, Urine RBC NONE, Urine WBC RARE, Urine Squamous Epithelial Cells RARE, Urine Crystals NONE , Urine Bacteria NEGATIVE, Urine Casts NONE, Urine Mucus NEGATIVE, Urine Culture Indicated NO 11/14/18 04:05: Sodium Level 138, Potassium Level 3.0L, Chloride Level 111H, Carbon Dioxide Level 17L, Anion Gap 10, Blood Urea Nitrogen 3L, Creatinine 0.79, Estimat Glomerular Filtration Rate > 60, BUN/Creatinine Ratio 4, Glucose Level 114H, Calcium Level 7.9L, White Blood Count 6.5, Red Blood Count 2.90L, Hemoglobin 7.6L, Hematocrit 23L, Mean Corpuscular Volume 80, Mean Corpuscular Hemoglobin 26 , Mean Corpuscular Hemoglobin Concent 33, Red Cell Distribution Width 18.5H, Platelet Count 279, Mean Platelet Volume 9.5, Neutrophils (%) (Auto) 74, Lymphocytes (%) (Auto) 9L, Monocytes (%) (Auto) 14H, Eosinophils (%) (Auto) 3, Basophils (%) (Auto) 0, Neutrophils # (Auto) 4.8, Lymphocytes # (Auto) 0.6L, Monocytes # (Auto) 0.9, Eosinophils # (Auto) 0.2, Basophils # (Auto) 0.0, Corrected Calcium 9.3, Phosphorus Level 3.3, Magnesium Level 1.4L, Total Bilirubin 0.3, Aspartate Amino Transf (AST/SGOT) 25, Alanine Aminotransferase ( ALT/SGPT) 23, Alkaline Phosphatase 87, Total Protein 6.2L, Albumin 2.3L 11/14/18 12:42: Lab Scanned Report Transfusion Reaction Form Microbiology 11/10/18 Blood Culture - Preliminary, Resulted No growth 11/10/18 Urine Culture - Final, Complete See Report 11/10/18 MRSA Screen - Final, Complete Assessment/Plan Assessment/Plan Assess & Plan/Chief Complaint gentleman with poorly differentiated anal carcinoma. Perirectal hematoma, anemia due to hematoma and chronic disease. Stable to be discharged back to the care facility. Final Diagnosis anal cancer. perianal hematoma Clinical Quality Measures Admission Status Admission Dx Gentleman with known anal canal carcinoma, previous marta-rectal abscess. Fever and increased pain/induration over eliza perirectal region, with CT supporting the clinical findings. For EUA and possible I & D DVT/VTE Risk/Contraindication: Risk Factor Score Per Nursin RFS Level Per Nursing on Admit: 4+=Very High ROBERT ARIAS MD Nov 14, 2018 15:05
--- NOTE | 2018-11-14 15:07 | Discharge Summary ---
Diagnosis/Chief Complaint Date of Admission Nov 10, 2018 at 05:50 Date of Discharge 11/14/18 Discharge Date: Nov 14, 2018 Discharge Time: 15:06 Admission Diagnosis Admission Diagnosis perirectal abscess. Anal cancer Discharge Diagnosis perirectal hematoma Reason Hospital Visit Increased perianal pain, drainage and fever. Known poorly differentiated carcinoma of anal canal, being managed with chemotherapy and radiation. No dysuria or cough.CT scan and clinical features were initially concerning for an abscess. However, examination under anesthetic confirmed a perirectal hematoma that was evacuated. He has remained symptom free. He confirms having a follow- up with this oncologist and the surgeon within the next 2 weeks. Discharge Summary Procedures evacuation of perirectal hematoma on 11/10/18 Discharge Physical Examination Allergies: Coded Allergies: No Known Drug Allergies (Unverified , 10/16/18) Vitals & I&Os Vital Signs Date Time Temp Pulse Resp B/P (MAP) Pulse Ox O2 Delivery O2 Flow Rate FiO2 11/14/18 08:00 100.6 91 18 122/67 (85) 97 Room Air Hospital Course Labs (last 24 hrs) Laboratory Tests 11/10/18 04:10: White Blood Count 8.6, Red Blood Count 2.81L, Hemoglobin 7.3L, Hematocrit 23L, Mean Corpuscular Volume 81, Mean Corpuscular Hemoglobin 26, Mean Corpuscular Hemoglobin Concent 32, Red Cell Distribution Width 19.4H, Platelet Count 287, Mean Platelet Volume 8.5, Neutrophils (%) (Auto) 72, Lymphocytes (%) (Auto) 12, Monocytes (%) (Auto) 16H, Eosinophils (%) (Auto) 1, Basophils (%) (Auto) 0, Neutrophils # (Auto) 6.2, Lymphocytes # (Auto) 1.0, Monocytes # (Auto) 1.4H, Eosinophils # (Auto) 0.0, Basophils # (Auto) 0.0, Prothrombin Time 15.6H, INR Comment 1.2, Activated Partial Thromboplast Time 37H, Sodium Level 134L, Potassium Level 4.5, Chloride Level 104, Carbon Dioxide Level 21, Anion Gap 9, Blood Urea Nitrogen 7, Creatinine 0.88, Estimat Glomerular Filtration Rate > 60 , BUN/Creatinine Ratio 8, Glucose Level 104, Lactic Acid Level 0.71, Calcium Level 8.3L, Corrected Calcium 9.5, Total Bilirubin 0.5, Aspartate Amino Transf ( AST/SGOT) 12, Alanine Aminotransferase (ALT/SGPT) 9, Alkaline Phosphatase 95, Total Protein 6.6, Albumin 2.5L 11/10/18 05:40: Urine Color YELLOW, Urine Clarity CLEAR, Urine pH 8, Urine Specific [place] 1.010L, Urine Protein NEGATIVE, Urine Glucose (UA) NEGATIVE, Urine Ketones NEGATIVE, Urine Nitrite NEGATIVE, Urine Bilirubin NEGATIVE, Urine Urobilinogen NORMAL, Urine Leukocyte Esterase NEGATIVE, Urine RBC (Auto) 4+H, Urine RBC 2-5H , Urine WBC NONE, Urine Squamous Epithelial Cells RARE, Urine Crystals NONE, Urine Bacteria NEGATIVE, Urine Casts NONE, Urine Mucus NEGATIVE, Urine Culture Indicated NO 11/10/18 05:50: Lab Scanned Report Referred Lab Report 11/11/18 05:50: White Blood Count 9.6, Red Blood Count 3.01L, Hemoglobin 7.8L, Hematocrit 24L, Mean Corpuscular Volume 80, Mean Corpuscular Hemoglobin 26, Mean Corpuscular Hemoglobin Concent 32, Red Cell Distribution Width 18.0H, Platelet Count 238, Mean Platelet Volume 9.1, Neutrophils (%) (Auto) 82H, Lymphocytes (%) (Auto) 6L , Monocytes (%) (Auto) 11, Eosinophils (%) (Auto) 0, Basophils (%) (Auto) 0, Neutrophils # (Auto) 7.9H, Lymphocytes # (Auto) 0.6L, Monocytes # (Auto) 1.1H, Eosinophils # (Auto) 0.0, Basophils # (Auto) 0.0, Sodium Level 137, Potassium Level 4.0, Chloride Level 108H, Carbon Dioxide Level 20L, Anion Gap 9, Blood Urea Nitrogen 9, Creatinine 0.87, Estimat Glomerular Filtration Rate > 60, BUN/ Creatinine Ratio 10, Glucose Level 97, Calcium Level 8.0L, Phosphorus Level 3.4 , Magnesium Level 1.4L 11/12/18 06:35: White Blood Count 9.0, Red Blood Count 2.48L, Hemoglobin 6.5*L, Hematocrit 20*L , Mean Corpuscular Volume 81, Mean Corpuscular Hemoglobin 26, Mean Corpuscular Hemoglobin Concent 33, Red Cell Distribution Width 18.4H, Platelet Count 237, Mean Platelet Volume 9.2, Neutrophils (%) (Auto) 78H, Lymphocytes (%) (Auto) 6L , Monocytes (%) (Auto) 14H, Eosinophils (%) (Auto) 2, Basophils (%) (Auto) 0, Neutrophils # (Auto) 7.0, Lymphocytes # (Auto) 0.5L, Monocytes # (Auto) 1.3H, Eosinophils # (Auto) 0.2, Basophils # (Auto) 0.0, Sodium Level 136, Potassium Level 3.4L, Chloride Level 108H, Carbon Dioxide Level 19L, Anion Gap 9, Blood Urea Nitrogen 8, Creatinine 0.87, Estimat Glomerular Filtration Rate > 60, BUN/ Creatinine Ratio 9, Glucose Level 90, Calcium Level 8.0L, Phosphorus Level 3.3, Magnesium Level 1.4L 11/13/18 04:00: White Blood Count 6.9, Red Blood Count 2.90L, Hemoglobin 7.5L, Hematocrit 23L, Mean Corpuscular Volume 79L, Mean Corpuscular Hemoglobin 26, Mean Corpuscular Hemoglobin Concent 33, Red Cell Distribution Width 18.1H, Platelet Count 243, Mean Platelet Volume 9.8, Neutrophils (%) (Auto) 72, Lymphocytes (%) (Auto) 9L, Monocytes (%) (Auto) 15H, Eosinophils (%) (Auto) 3, Basophils (%) (Auto) 0, Neutrophils # (Auto) 5.0, Lymphocytes # (Auto) 0.6L, Monocytes # (Auto) 1.1H, Eosinophils # (Auto) 0.2, Basophils # (Auto) 0.0, Sodium Level 138, Potassium Level 3.2L, Chloride Level 111H, Carbon Dioxide Level 19L, Anion Gap 8, Blood Urea Nitrogen 5L, Creatinine 0.82, Estimat Glomerular Filtration Rate > 60, BUN/ Creatinine Ratio 6, Glucose Level 87, Calcium Level 7.6L, Phosphorus Level 3.9, Magnesium Level 1.5L 11/13/18 16:45: Sodium Level 138, Potassium Level 3.4L, Chloride Level 111H, Carbon Dioxide Level 19L, Anion Gap 8, Blood Urea Nitrogen 4L, Creatinine 0.75, Estimat Glomerular Filtration Rate > 60, BUN/Creatinine Ratio 5, Glucose Level 82, Calcium Level 7.5L 11/13/18 17:10: Urine Color YELLOW, Urine Clarity CLEAR, Urine pH 5, Urine Specific [place] 1.020, Urine Protein NEGATIVE, Urine Glucose (UA) NEGATIVE, Urine Ketones NEGATIVE, Urine Nitrite NEGATIVE, Urine Bilirubin NEGATIVE, Urine Urobilinogen NORMAL, Urine Leukocyte Esterase NEGATIVE, Urine RBC (Auto) NEGATIVE, Urine RBC NONE, Urine WBC RARE, Urine Squamous Epithelial Cells RARE, Urine Crystals NONE , Urine Bacteria NEGATIVE, Urine Casts NONE, Urine Mucus NEGATIVE, Urine Culture Indicated NO 11/14/18 04:05: White Blood Count 6.5, Red Blood Count 2.90L, Hemoglobin 7.6L, Hematocrit 23L, Mean Corpuscular Volume 80, Mean Corpuscular Hemoglobin 26, Mean Corpuscular Hemoglobin Concent 33, Red Cell Distribution Width 18.5H, Platelet Count 279, Mean Platelet Volume 9.5, Neutrophils (%) (Auto) 74, Lymphocytes (%) (Auto) 9L, Monocytes (%) (Auto) 14H, Eosinophils (%) (Auto) 3, Basophils (%) (Auto) 0, Neutrophils # (Auto) 4.8, Lymphocytes # (Auto) 0.6L, Monocytes # (Auto) 0.9, Eosinophils # (Auto) 0.2, Basophils # (Auto) 0.0, Sodium Level 138, Potassium Level 3.0L, Chloride Level 111H, Carbon Dioxide Level 17L, Anion Gap 10, Blood Urea Nitrogen 3L, Creatinine 0.79, Estimat Glomerular Filtration Rate > 60, BUN/ Creatinine Ratio 4, Glucose Level 114H, Calcium Level 7.9L, Corrected Calcium 9.3, Phosphorus Level 3.3, Magnesium Level 1.4L, Total Bilirubin 0.3, Aspartate Amino Transf (AST/SGOT) 25, Alanine Aminotransferase (ALT/SGPT) 23, Alkaline Phosphatase 87, Total Protein 6.2L, Albumin 2.3L 11/14/18 12:42: Lab Scanned Report Transfusion Reaction Form Microbiology 11/10/18 Blood Culture - Preliminary, Resulted No growth 11/10/18 Urine Culture - Final, Complete See Report 11/10/18 MRSA Screen - Final, Complete Pending Labs Microbiology Date/Time Source Procedure Growth Status 11/10/18 04:48 Peripheral Lt Ac Blood Culture - Preliminary No growth Resulted 11/10/18 04:10 [place], Nos Blood Culture - Preliminary No growth Resulted 11/10/18 05:40 Urine Clean Catch Urine Culture - Final See Report Complete 11/10/18 06:45 Nose MRSA Screen - Final Complete Laboratory Tests 11/10/18 04:10: White Blood Count 8.6, Red Blood Count 2.81, Hemoglobin 7.3, Hematocrit 23, Mean Corpuscular Volume 81, Mean Corpuscular Hemoglobin 26, Mean Corpuscular Hemoglobin Concent 32, Red Cell Distribution Width 19.4, Platelet Count 287, Mean Platelet Volume 8.5, Neutrophils (%) (Auto) 72, Lymphocytes (%) (Auto) 12, Monocytes (%) (Auto) 16, Eosinophils (%) (Auto) 1, Basophils (%) (Auto) 0, Neutrophils # (Auto) 6.2, Lymphocytes # (Auto) 1.0, Monocytes # (Auto) 1.4, Eosinophils # (Auto) 0.0, Basophils # (Auto) 0.0, Prothrombin Time 15.6, INR Comment 1.2, Activated Partial Thromboplast Time 37, Sodium Level 134, Potassium Level 4.5, Chloride Level 104, Carbon Dioxide Level 21, Anion Gap 9, Blood Urea Nitrogen 7, Creatinine 0.88, Estimat Glomerular Filtration Rate > 60 , BUN/Creatinine Ratio 8, Glucose Level 104, Lactic Acid Level 0.71, Calcium Level 8.3, Corrected Calcium 9.5, Total Bilirubin 0.5, Aspartate Amino Transf ( AST/SGOT) 12, Alanine Aminotransferase (ALT/SGPT) 9, Alkaline Phosphatase 95, Total Protein 6.6, Albumin 2.5 11/10/18 05:40: Urine Color YELLOW, Urine Clarity CLEAR, Urine pH 8, Urine Specific [place] 1.010, Urine Protein NEGATIVE, Urine Glucose (UA) NEGATIVE, Urine Ketones NEGATIVE, Urine Nitrite NEGATIVE, Urine Bilirubin NEGATIVE, Urine Urobilinogen NORMAL, Urine Leukocyte Esterase NEGATIVE, Urine RBC (Auto) 4+, Urine RBC 2-5, Urine WBC NONE, Urine Squamous Epithelial Cells RARE, Urine Crystals NONE, Urine Bacteria NEGATIVE, Urine Casts NONE, Urine Mucus NEGATIVE, Urine Culture Indicated NO 11/10/18 05:50: Lab Scanned Report Referred Lab Report 11/11/18 05:50: White Blood Count 9.6, Red Blood Count 3.01, Hemoglobin 7.8, Hematocrit 24, Mean Corpuscular Volume 80, Mean Corpuscular Hemoglobin 26, Mean Corpuscular Hemoglobin Concent 32, Red Cell Distribution Width 18.0, Platelet Count 238, Mean Platelet Volume 9.1, Neutrophils (%) (Auto) 82, Lymphocytes (%) (Auto) 6, Monocytes (%) (Auto) 11, Eosinophils (%) (Auto) 0, Basophils (%) (Auto) 0, Neutrophils # (Auto) 7.9, Lymphocytes # (Auto) 0.6, Monocytes # (Auto) 1.1, Eosinophils # (Auto) 0.0, Basophils # (Auto) 0.0, Sodium Level 137, Potassium Level 4.0, Chloride Level 108, Carbon Dioxide Level 20, Anion Gap 9, Blood Urea Nitrogen 9, Creatinine 0.87, Estimat Glomerular Filtration Rate > 60, BUN/ Creatinine Ratio 10, Glucose Level 97, Calcium Level 8.0, Phosphorus Level 3.4, Magnesium Level 1.4 11/12/18 06:35: White Blood Count 9.0, Red Blood Count 2.48, Hemoglobin 6.5, Hematocrit 20, Mean Corpuscular Volume 81, Mean Corpuscular Hemoglobin 26, Mean Corpuscular Hemoglobin Concent 33, Red Cell Distribution Width 18.4, Platelet Count 237, Mean Platelet Volume 9.2, Neutrophils (%) (Auto) 78, Lymphocytes (%) (Auto) 6, Monocytes (%) (Auto) 14, Eosinophils (%) (Auto) 2, Basophils (%) (Auto) 0, Neutrophils # (Auto) 7.0, Lymphocytes # (Auto) 0.5, Monocytes # (Auto) 1.3, Eosinophils # (Auto) 0.2, Basophils # (Auto) 0.0, Sodium Level 136, Potassium Level 3.4, Chloride Level 108, Carbon Dioxide Level 19, Anion Gap 9, Blood Urea Nitrogen 8, Creatinine 0.87, Estimat Glomerular Filtration Rate > 60, BUN/ Creatinine Ratio 9, Glucose Level 90, Calcium Level 8.0, Phosphorus Level 3.3, Magnesium Level 1.4 11/13/18 04:00: White Blood Count 6.9, Red Blood Count 2.90, Hemoglobin 7.5, Hematocrit 23, Mean Corpuscular Volume 79, Mean Corpuscular Hemoglobin 26, Mean Corpuscular Hemoglobin Concent 33, Red Cell Distribution Width 18.1, Platelet Count 243, Mean Platelet Volume 9.8, Neutrophils (%) (Auto) 72, Lymphocytes (%) (Auto) 9, Monocytes (%) (Auto) 15, Eosinophils (%) (Auto) 3, Basophils (%) (Auto) 0, Neutrophils # (Auto) 5.0, Lymphocytes # (Auto) 0.6, Monocytes # (Auto) 1.1, Eosinophils # (Auto) 0.2, Basophils # (Auto) 0.0, Sodium Level 138, Potassium Level 3.2, Chloride Level 111, Carbon Dioxide Level 19, Anion Gap 8, Blood Urea Nitrogen 5, Creatinine 0.82, Estimat Glomerular Filtration Rate > 60, BUN/ Creatinine Ratio 6, Glucose Level 87, Calcium Level 7.6, Phosphorus Level 3.9, Magnesium Level 1.5 11/13/18 16:45: Sodium Level 138, Potassium Level 3.4, Chloride Level 111, Carbon Dioxide Level 19, Anion Gap 8, Blood Urea Nitrogen 4, Creatinine 0.75, Estimat Glomerular Filtration Rate > 60, BUN/Creatinine Ratio 5, Glucose Level 82, Calcium Level 7.5 11/13/18 17:10: Urine Color YELLOW, Urine Clarity CLEAR, Urine pH 5, Urine Specific [place] 1.020, Urine Protein NEGATIVE, Urine Glucose (UA) NEGATIVE, Urine Ketones NEGATIVE, Urine Nitrite NEGATIVE, Urine Bilirubin NEGATIVE, Urine Urobilinogen NORMAL, Urine Leukocyte Esterase NEGATIVE, Urine RBC (Auto) NEGATIVE, Urine RBC NONE, Urine WBC RARE, Urine Squamous Epithelial Cells RARE, Urine Crystals NONE , Urine Bacteria NEGATIVE, Urine Casts NONE, Urine Mucus NEGATIVE, Urine Culture Indicated NO 11/14/18 04:05: White Blood Count 6.5, Red Blood Count 2.90, Hemoglobin 7.6, Hematocrit 23, Mean Corpuscular Volume 80, Mean Corpuscular Hemoglobin 26, Mean Corpuscular Hemoglobin Concent 33, Red Cell Distribution Width 18.5, Platelet Count 279, Mean Platelet Volume 9.5, Neutrophils (%) (Auto) 74, Lymphocytes (%) (Auto) 9, Monocytes (%) (Auto) 14, Eosinophils (%) (Auto) 3, Basophils (%) (Auto) 0, Neutrophils # (Auto) 4.8, Lymphocytes # (Auto) 0.6, Monocytes # (Auto) 0.9, Eosinophils # (Auto) 0.2, Basophils # (Auto) 0.0, Sodium Level 138, Potassium Level 3.0, Chloride Level 111, Carbon Dioxide Level 17, Anion Gap 10, Blood Urea Nitrogen 3, Creatinine 0.79, Estimat Glomerular Filtration Rate > 60, BUN/ Creatinine Ratio 4, Glucose Level 114, Calcium Level 7.9, Corrected Calcium 9.3 , Phosphorus Level 3.3, Magnesium Level 1.4, Total Bilirubin 0.3, Aspartate Amino Transf (AST/SGOT) 25, Alanine Aminotransferase (ALT/SGPT) 23, Alkaline Phosphatase 87, Total Protein 6.2, Albumin 2.3 11/14/18 12:42: Lab Scanned Report Transfusion Reaction Form Discharge Home Medications: Active Scripts Active Hydrocodone/Acetaminophen 5/325mg Tablet (Acetaminophen/Hydrocodone Bitart) 1 Tab Tab 1-2 Tab PO Q6H PRN MDD 10 Reported Oxycodone-Acetaminophen 10-325 (Oxycodone HCl/Acetaminophen) 1 Each Tablet 1 Each PO QID MDD 3 Sertraline HCl 25 Mg Tablet 25 Mg PO DAILY Ondansetron Odt (Ondansetron) 8 Mg Tab.rapdis 8 Mg PO Q8H PRN Trazodone HCl 100 Mg Tablet 100 Mg PO HS Metoprolol Succinate 25 Mg Tab.er.24h 25 Mg PO DAILY Mirtazapine 30 Mg Tablet 30 Mg PO HS Oxycodone-Acetaminophen 10-325 (Oxycodone HCl/Acetaminophen) 1 Each Tablet 1 Each PO Q4H PRN MDD 3 Mylanta Suspension (Al Hydrox/Mg Hydrox/Simethicone) 30 Ml Oral.susp 30 Ml PO QID PRN [morphine ER] 60 Mg PO BID Melatonin 5 Mg Tablet 5 Mg PO HS Instructions to patient/family Please see electronic discharge instructions given to patient. Clinical Quality Measures DVT/VTE Risk/Contraindication: Risk Factor Score Per Nursin RFS Level Per Nursing on Admit: 4+=Very High ROBERT ARIAS MD Nov 14, 2018 15:07
[2018-11-14 15:21] VITALS: BP 122/67
--- NOTE | 2018-11-14 15:43 | NUR ---
Arrangements completed for pt's discharge back to [facility].Pt has depressed affect and discouraged about recent surgery. [facility] [address] Arriaga.Asking for Case management with his medicaid insurance to assist him in a continued care placment after treatment is completed.
--- NOTE | 2018-11-14 15:46 | NUR ---
Pt's discharge orders, History and Physical. and return physician progress notes and operate report were given to [facility] for their continued care.Also Sumi ALDANA discussed wound care that we were providing and and wanting to continue at their facility.
--- NOTE | 2018-11-19 14:31 | Physician Query-Sepsis ---
Physician Query-Sepsis Query to Physician: The documentation in this patient's medical record requires additional clarification to accurately capture the patient's diagnosis (es), treatment, acuity, and/or severity of illness per CMS guidelines. Criteria, any TWO of the following with an infectious OR noninfectious etiology: * Temp= <96.8 or >100.4 * HR= >90 bpm * RR= >20/min or PaCO2<32 mmHG * WBC= <4000 or >12,000; or >10% bands PATIENT DATA: DATE/TIME: 11/10/18 03:51 TEMP: 101.5 PULSE: 128 RESP: 18 B/P: 154/99 WBC: 8.6 LACTIC ACID: not done OTHER: Sepsis is mentioned on ED record with no other documentation in record. Blood Culture Organism: (Negative or inconclusive blood cultures do not preclude a diagnosis of septicemia or Sepsis in patients with clinical evidence of the condition.) Choose one of the below Dx: Sepsis=2 or more SIRS criteria with an identified source or suspected source of infection Severe Sepsis=Sepsis associated with organ dysfunction, hypoperfusion or hypotension. (Manifestations may include lactic acidosis, oliguria, and acute alteration in mental status.) Septic Shock=Acute circulatory failure unexplained by other cause: SBP <90 or MAP <65 or reduction in SBP 40 mmHg from baseline despite adequate volume resuscitation or Lactate Level >=4 mmol/L. Patients who require inotropic or vasopressor support despite adequate fluid replacement are in septic shock. Septicemia=Systemic disease associated with the presence of pathological microorganisms or toxins in the blood. Bacteremia=Per ICD-9 guidelines, Bacteremia indicates the presence of bacteria in the blood, but DOES NOT infer the bacterium are pathological or has resulted in any systemic illness needing treatment Please indicate if no sepsis, none of the above, not correct physician/provider. PHYSICIAN RESPONSE: Choose one of the diagnosis: None of the above SIRS (systemic response to): Process: noninfectious/process Physician Note: If you have questions please contact: Employment Consultant: Ext: Thank you for your time and cooperation. Clinical Transportation Program Director/Employment Consultant This is a permanent part of the medical record LATRELL CURRIE Nov 19, 2018 14:31 ROBERT ARIAS MD Nov 20, 2018 08:40
== END 2018-11-14 15:20 | DRG 394 ==
LOC: EDUNIT# 03:51 → ER 03:53 → ICU 05:50 → 4TH 13:20
PROVIDERS: ADMIT Surgery; ATTEND Surgery
PROC: 0DCP7ZZ Extirpation of Matter from Rectum, Via Natural or Artificial Opening (ICD-10-PCS; principal; 2018-11-10 08:45)
DX: K64.5 Perianal venous thrombosis (principal); C21.1 Malignant neoplasm of anal canal; J44.9 Chronic obstructive pulmonary disease, unspecified; D63.8 Anemia in other chronic diseases classified elsewhere; F17.210 Nicotine dependence, cigarettes, uncomplicated; K64.4 Residual hemorrhoidal skin tags; Z66 Do not resuscitate; Z93.3 Colostomy status; Z85.118 Personal history of other malignant neoplasm of bronchus and lung; Z92.21 Personal history of antineoplastic chemotherapy; Z92.3 Personal history of irradiation
CPT/HCPCS: 36415; 71045; 72193; 80048; 80053; 81000; 83605; 83735; 84100; 85025; 85610; 85730; 86850; 86900; 86901; 86920; 87040; 87081; 87088; 96361; 96365; 96375; 96376

== ENCOUNTER 2018-12-10 12:34 | Emergency (ER) | payer MEDICAID ==
[~2018-12-10] VITALS: Ht 182.9 cm; Wt 84.4 kg
[~2018-12-10 12:34] MED LIST changes: +MAG30ORA2 PO; +MELA5TAB14 PO; +METO-387 PO; +MIRT30TA6 PO; +MORPHINE PO; +ONDA8TAB13 PO; +OXYC-465 PO; +SERT25TA5 PO; +TRAZ-190 PO
--- OUTSIDE RECORDS SUMMARY | 2018-12-10 12:40 | XMS REPORT | Continuity of Care Document ---
Author Author [facility] Organization [facility] Address Unknown Phone Unavailable Allergies Active Description Code Type Severity Reaction Onset Reported/Identified Relationship to Patient Clinical Status Yes No Known Drug Allergies [id number] Drug Allergy Unknown N/A 07/21/2018 Yes No Known Drug Allergies [id number] Drug Allergy Unknown N/A 10/16/2018 Medications There [...] OF OTHER DISEASES OF 10/16/2018 DONALD ART MD Ot Z93.3 COLOSTOMY STATUS 10/24/2018 DONALD ART [...] DONALD ART MD Ot Z93.3 COLOSTOMY STATUS 11/09/2018 MIRYAM FUNK MD Ot F17.210 NICOTINE DEPENDENCE, CIGARETTES, UNCOMPL 11/09/2018 MIRYAM FUNK MD Ot J42 UNSPECIFIED CHRONIC BRONCHITIS 11/09/2018 MIRYAM FUNK MD Ot K61.1 RECTAL ABSCESS 11/09/2018 MIRYAM FUNK MD Ot K62.5 HEMORRHAGE OF ANUS AND RECTUM 11/09/2018 MIRYAM FUNK MD Ot Z85.118 PERSONAL HISTORY OF MALIGNANT NEOPLASM O 11/09/2018 MIRYAM FUNK MD Ot Z93.3 COLOSTOMY STATUS 11/12/2018 GOOD PATEL, MIRYAM Cavazos Ot F17.210 NICOTINE DEPENDENCE, CIGARETTES, UNCOMPL 11/12/2018 GOOD PATEL, MIRYAM Cavazos Ot J42 UNSPECIFIED CHRONIC BRONCHITIS 11/12/2018 MIRYAM FUNK MD Ot K61.1 RECTAL ABSCESS 11/12/2018 MIRYAM FUNK MD Ot K62.5 HEMORRHAGE OF ANUS AND RECTUM 11/12/2018 MIRYAM FUNK MD Ot Z85.118 PERSONAL HISTORY OF MALIGNANT NEOPLASM O 11/12/2018 GOOD PATEL, MIRYAM Cavazos Ot Z93.3 COLOSTOMY STATUS 11/12/2018 JUANA PATEL, ROBERT Moody Ot C21.1 MALIGNANT NEOPLASM OF ANAL CANAL 11/12/2018 JUANA PATEL, ROBERT Moody Ot F17.210 NICOTINE DEPENDENCE, CIGARETTES, UNCOMPL 11/12/2018 JUANA PATEL, ROBERT M Ot J44.9 CHRONIC OBSTRUCTIVE PULMONARY DISEASE, U 11/12/2018 JUANA PATEL, ROBERT M Ot K64.4 RESIDUAL HEMORRHOIDAL SKIN TAGS 11/12/2018 JUANA PATEL, ROBERT M Ot K64.5 PERIANAL VENOUS THROMBOSIS 11/12/2018 JUANA PATEL, ROBERT M Ot Z66 DO NOT RESUSCITATE 11/12/2018 JUANA PATEL, ROBERT M Ot Z85.118 PERSONAL HISTORY OF MALIGNANT NEOPLASM O 11/12/2018 JUANA PATEL, ROBERT M Ot Z93.3 COLOSTOMY STATUS 11/13/2018 JUANA PATEL, ROBERT M Ot C21.1 MALIGNANT NEOPLASM OF ANAL CANAL 11/13/2018 JUANA PATEL, ROBERT M Ot F17.210 NICOTINE DEPENDENCE, CIGARETTES, UNCOMPL 11/13/2018 JUANA PATEL, ROBERT M Ot J44.9 CHRONIC OBSTRUCTIVE PULMONARY DISEASE, U 11/13/2018 JUANA PATEL, ROBERT M Ot K64.4 RESIDUAL HEMORRHOIDAL SKIN TAGS 11/13/2018 JUANA PATEL, ROBERT M Ot K64.5 PERIANAL VENOUS THROMBOSIS 11/13/2018 JUANA PATEL, ROBERT M Ot Z66 DO NOT RESUSCITATE 11/13/2018 JUANA PATEL, ROBERT M Ot Z85.118 PERSONAL HISTORY OF MALIGNANT NEOPLASM O 11/13/2018 JUANA PATEL, ROBERT M Ot Z93.3 COLOSTOMY STATUS 11/14/2018 JUANA PATEL, ROBERT M Ot C21.1 MALIGNANT NEOPLASM OF ANAL CANAL 11/14/2018 JUANA PATEL, ROBERT Moody Ot F17.210 NICOTINE DEPENDENCE, CIGARETTES, UNCOMPL 11/14/2018 JUANA PATEL, ROBERT Moody Ot J44.9 CHRONIC OBSTRUCTIVE PULMONARY DISEASE, U 11/14/2018 ROBERT ARIAS MD Ot K64.4 RESIDUAL HEMORRHOIDAL SKIN TAGS 11/14/2018 ROBERT ARIAS MD Ot K64.5 PERIANAL VENOUS THROMBOSIS 11/14/2018 ROBERT ARIAS MD Ot Z66 DO NOT RESUSCITATE 11/14/2018 ROBERT ARIAS MD Ot Z85.118 PERSONAL HISTORY OF MALIGNANT NEOPLASM O 11/14/2018 ROBERT ARIAS MD Ot Z93.3 COLOSTOMY STATUS 11/14/2018 ROBERT ARIAS MD Ot C21.1 MALIGNANT NEOPLASM OF ANAL CANAL 11/14/2018 ROBERT ARIAS MD Ot D63.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3 COLOSTOMY STATUS 11/15/2018 MIRYAM FUNK MD Ot F17.210 NICOTINE DEPENDENCE, CIGARETTES, UNCOMPL 11/15/2018 MIRYAM FUNK MD Ot J42 UNSPECIFIED CHRONIC BRONCHITIS 11/15/2018 MIRYAM FUNK MD Ot K61.1 RECTAL ABSCESS 11/15/2018 MIRYAM FUNK MD Ot K62.5 HEMORRHAGE OF ANUS AND RECTUM 11/15/2018 MIRYAM FUNK MD Ot Z85.118 PERSONAL HISTORY OF MALIGNANT NEOPLASM O 11/15/2018 GOOD PATEL, MIRYAM Cavazos Ot Z93.3 COLOSTOMY STATUS 11/26/2018 SAROJ CHA Ot C21.1 MALIGNANT NEOPLASM OF ANAL CANAL 11/26/2018 SAROJ CHA Ot F17.210 NICOTINE DEPENDENCE, CIGARETTES, UNCOMPL 11/26/2018 SAROJ CHA Ot J44.9 CHRONIC OBSTRUCTIVE PULMONARY DISEASE, U 11/26/2018 SAROJ CHA Ot Z51.0 ENCOUNTER FOR ANTINEOPLASTIC RADIATION T 11/26/2018 SAROJ CHA Ot Z66 DO NOT RESUSCITATE 11/26/2018 SAROJ CHA Ot Z90.2 ACQUIRED ABSENCE OF LUNG [PART OF] 11/27/2018 SAROJ CHA Ot C21.1 MALIGNANT NEOPLASM OF ANAL CANAL 11/27/2018 SAROJ CHA Ot F17.210 NICOTINE DEPENDENCE, CIGARETTES, UNCOMPL 11/27/2018 SAROJ CHA Ot J44.9 CHRONIC OBSTRUCTIVE PULMONARY DISEASE, U 11/27/2018 SAROJ CHA Ot Z51.0 ENCOUNTER FOR ANTINEOPLASTIC RADIATION T 11/27/2018 SAROJ CHA Ot Z66 DO NOT RESUSCITATE 11/27/2018 SAROJ CHA Ot Z90.2 ACQUIRED ABSENCE OF LUNG [PART OF] 12/05/2018 SAROJ CHA Ot C21.1 MALIGNANT NEOPLASM OF ANAL CANAL 12/05/2018 SAROJ CHA Ot F17.210 NICOTINE DEPENDENCE, CIGARETTES, UNCOMPL 12/05/2018 SAROJ CHA Ot J44.9 CHRONIC OBSTRUCTIVE PULMONARY DISEASE, U 12/05/2018 SAROJ CHA Ot Z51.0 ENCOUNTER FOR ANTINEOPLASTIC RADIATION T 12/05/2018 SAROJ CHA N Ot Z66 DO NOT RESUSCITATE 12/05/2018 SAROJ CHA N Ot Z90.2 ACQUIRED ABSENCE OF LUNG [PART OF] Procedures Code Description Performed By Performed On [id number] DRAINAGE OF RECTUM WITH DRAINAGE DEVICE, 07/22/2018 [id number] EXCISION OF RECTUM, ENDO, DIAGN 07/24/2018 [id number] INSERTION OF INFUSION DEV INTO SUP VENA 07/27/2018 [id number] EXTIRPATION OF MATTER FROM RECTUM, VIA O 11/10/2018 Results Test Result Range Complete blood count [...] 10:23 Bacteria identification in wound by culture [id number] NRG FREE TEXT EXTERNAL NO SUSCEPTIBILITY PERFORMED [...] 10:23 Bacteria identification in wound by culture [id number] NRG FREE TEXT EXTERNAL NO SUSCEPTIBILITY PERFORMED [...] culture - 09/14/18 12:23 Bacterial blood culture [facility] Complete blood count (CBC) with automated white [...] CELLS LEUKO REDUCED AS1 TRANSFUSED 10/16/18 0817 [facility] Blood type T Indirect antibody screen panel - 10/16/18 06:26 ABO+Rh group BP [facility] Transfusion band number [id number] [facility] Blood group antibody screen NEGATIVE [facility] PT panel in platelet poor plasma by [...] poor plasma bycoagulation assay 37 s 24-35 Complete blood count (CBC) with automated white blood cell (WBC) differential - 11/09/18 11:21 Blood leukocytes automated count (number/volume) 4.8 10*3/uL 4.3-11.0 Blood erythrocytes automated count (number/volume) 3.46 10*6/uL 4.35-5.85 Venous blood hemoglobin measurement (mass/volume) 8.8 g/dL 13.3-17.7 Blood hematocrit (volume fraction) 29 % 40-54 Automated erythrocyte mean corpuscular volume 82 [foz_us] 80-99 Automated erythrocyte mean corpuscular hemoglobin (mass per erythrocyte) 25 pg 25-34 Automated erythrocyte mean corpuscular hemoglobin concentration measurement ( mass/volume) 31 g/dL 32-36 Automated erythrocyte distribution width ratio 19.7 % 10.0-14.5 Automated blood platelet count (count/volume) 239 10*3/uL 130-400 Automated blood platelet mean volume measurement 9.1 [foz_us] 7.4-10.4 Automated blood neutrophils/100 leukocytes 65 % 42-75 Automated blood lymphocytes/100 leukocytes 14 % 12-44 Blood monocytes/100 leukocytes 18 % 0-12 Automated blood eosinophils/100 leukocytes 3 % 0-10 Automated blood basophils/100 leukocytes 0 % 0-10 Blood neutrophils automated count (number/volume) 3.1 10*3 1.8-7.8 Blood lymphocytes automated count (number/volume) 0.7 10*3 1.0-4.0 Blood monocytes automated count (number/volume) 0.9 10*3 0.0-1.0 Automated eosinophil count 0.1 10*3/uL 0.0-0.3 Automated blood basophil count (count/volume) 0.0 10*3/uL 0.0-0.1 Complete urinalysis with reflex to culture - 11/09/18 11:21 Urine color determination YELLOW NRG Urine clarity determination CLEAR NRG Urine pH measurement by test strip 7 5-9 Specific gravity of urine by test strip 1.010 1.016- 1.022 Urine protein assay by test strip, semi-quantitative NEGATIVE NEGATIVE Urine glucose detection by automated test strip NEGATIVE NEGATIVE Erythrocytes detection in urine sediment by light microscopy NEGATIVE NEGATIVE Urine ketones detection by automated test strip NEGATIVE NEGATIVE Urine nitrite detection by test strip NEGATIVE NEGATIVE Urine total bilirubin detection by test strip NEGATIVE NEGATIVE Urine urobilinogen measurement by automated test strip (mass/volume) NORMAL NORMAL Urine leukocyte esterase detection by dipstick NEGATIVE NEGATIVE Automated urine sediment erythrocyte count by microscopy (number/high power field) NONE NRG Automated urine sediment leukocyte count by microscopy (number/high power field ) NONE NRG Bacteria detection in urine sediment by light microscopy NEGATIVE NRG Squamous epithelial cells detection in urine sediment by light microscopy 2-5 NRG Crystals detection in urine sediment by light microscopy NONE NRG Casts detection in urine sediment by light microscopy NONE NRG Mucus detection in urine sediment by light microscopy NEGATIVE NRG Complete urinalysis with reflex to culture NO NRG Comprehensive metabolic panel - 11/09/18 11:21 Serum or plasma sodium measurement (moles/volume) 138 mmol/L 135-145 Serum or plasma potassium measurement (moles/volume) 4.2 mmol/L 3.6-5.0 Serum or plasma chloride measurement (moles/volume) 107 mmol/L 98-107 Carbon dioxide 22 mmol/L 21-32 Serum or plasma anion gap determination (moles/volume) 9 mmol/L 5-14 Serum or plasma urea nitrogen measurement (mass/volume) 8 mg/dL 7-18 Serum or plasma creatinine measurement (mass/volume) 0.77 mg/dL 0.60-1.30 Serum or plasma urea nitrogen/creatinine mass ratio 10 NRG Serum or plasma creatinine measurement with calculation of estimated glomerular filtration rate > NRG Serum or plasma glucose measurement (mass/volume) 81 mg/dL 70-105 Serum or plasma calcium measurement (mass/volume) 8.1 mg/dL 8.5-10.1 Serum or plasma total bilirubin measurement (mass/volume) 0.3 mg/dL 0.1-1.0 Serum or plasma alkaline phosphatase measurement (enzymatic activity/volume) 103 U/L 40-136 Serum or plasma aspartate aminotransferase measurement (enzymatic activity/ volume) 21 U/L 5-34 Serum or plasma alanine aminotransferase measurement (enzymatic activity/volume ) 10 U/L 0-55 Serum or plasma protein measurement (mass/volume) 6.8 g/dL 6.4-8.2 Serum or plasma albumin measurement (mass/volume) 2.6 g/dL 3.2-4.5 CALCIUM CORRECTED 9.2 mg/dL 8.5-10.1 Blood manual differential performed detection - 11/09/18 11:21 Blood monocytes/100 leukocytes 12 % NRG Manual blood segmented neutrophils/100 leukocytes 80 % NRG Manual blood lymphocytes/100 leukocytes 5 % NRG Manual eosinophils/100 leukocytes in nose 2 % NRG Manual blood basophils/100 leukocytes 1 % NRG Blood anisocytosis detection by light microscopy SLIGHT NRG Blood hypochromia detection by light microscopy MODERATE NRG Complete blood count (CBC) with automated white blood cell (WBC) differential - 11/10/18 04:10 Blood leukocytes automated count (number/volume) 8.6 10*3/uL 4.3-11.0 Blood erythrocytes automated count (number/volume) 2.81 10*6/uL 4.35-5.85 Venous blood hemoglobin measurement (mass/volume) 7.3 g/dL 13.3-17.7 Blood hematocrit (volume fraction) 23 % 40-54 Automated erythrocyte mean corpuscular volume 81 [foz_us] 80-99 Automated erythrocyte mean corpuscular hemoglobin (mass per erythrocyte) 26 pg 25-34 Automated erythrocyte mean corpuscular hemoglobin concentration measurement ( mass/volume) 32 g/dL 32-36 Automated erythrocyte distribution width ratio 19.4 % 10.0-14.5 Automated blood platelet count (count/volume) 287 10*3/uL 130-400 Automated blood platelet mean volume measurement 8.5 [foz_us] 7.4-10.4 Automated blood neutrophils/100 leukocytes 72 % 42-75 Automated blood lymphocytes/100 leukocytes 12 % 12-44 Blood monocytes/100 leukocytes 16 % 0-12 Automated blood eosinophils/100 leukocytes 1 % 0-10 Automated blood basophils/100 leukocytes 0 % 0-10 Blood neutrophils automated count (number/volume) 6.2 10*3 1.8-7.8 Blood lymphocytes automated count (number/volume) 1.0 10*3 1.0-4.0 Blood monocytes automated count (number/volume) 1.4 10*3 0.0-1.0 Automated eosinophil count 0.0 10*3/uL 0.0-0.3 Automated blood basophil count (count/volume) 0.0 10*3/uL 0.0-0.1 Blood lactic acid measurement (moles/volume) - 11/10/18 04:10 Blood lactic acid measurement (moles/volume) 0.71 mmol/L 0.50-2.00 Comprehensive metabolic panel - 11/10/18 04:10 Serum or plasma sodium measurement (moles/volume) 134 mmol/L 135-145 Serum or plasma potassium measurement (moles/volume) 4.5 mmol/L 3.6-5.0 Serum or plasma chloride measurement (moles/volume) 104 mmol/L 98-107 Carbon dioxide 21 mmol/L 21-32 Serum or plasma anion gap determination (moles/volume) 9 mmol/L 5-14 Serum or plasma urea nitrogen measurement (mass/volume) 7 mg/dL 7-18 Serum or plasma creatinine measurement (mass/volume) 0.88 mg/dL 0.60-1.30 Serum or plasma urea nitrogen/creatinine mass ratio 8 NRG Serum or plasma creatinine measurement with calculation of estimated glomerular filtration rate > NRG Serum or plasma glucose measurement (mass/volume) 104 mg/dL 70-105 Serum or plasma calcium measurement (mass/volume) 8.3 mg/dL 8.5-10.1 Serum or plasma total bilirubin measurement (mass/volume) 0.5 mg/dL 0.1-1.0 Serum or plasma alkaline phosphatase measurement (enzymatic activity/volume) 95 U/L 40-136 Serum or plasma aspartate aminotransferase measurement (enzymatic activity/ volume) 12 U/L 5-34 Serum or plasma alanine aminotransferase measurement (enzymatic activity/volume ) 9 U/L 0-55 Serum or plasma protein measurement (mass/volume) 6.6 g/dL 6.4-8.2 Serum or plasma albumin measurement (mass/volume) 2.5 g/dL 3.2-4.5 CALCIUM CORRECTED 9.5 mg/dL 8.5-10.1 PT panel in platelet poor plasma by coagulation assay - 11/10/18 04:10 Prothrombin time (PT) in platelet poor plasma by coagulation assay 15.6 s 12.2-14.7 INR in platelet poor plasma or blood by coagulation assay 1.2 0.8-1.4 Activated partial thromboplastin time (aPTT) in platelet poor plasma bycoagulation assay - 11/10/18 04:10 Activated partial thromboplastin time (aPTT) in platelet poor plasma bycoagulation assay 37 s 24-35 RED CELLS LEUKO REDUCED AS1 - 11/10/18 04:10 RED CELLS LEUKO REDUCED AS1 TRANSFUSED 11/12/18 1133 [facility] Blood type T Indirect antibody screen panel - 11/10/18 04:10 ABO+Rh group BP NR Transfusion band number [id number] Blood group antibody screen NEGATIVE NR Bacterial blood culture - 11/10/18 04:10 Bacterial blood culture NG NRG Bacterial blood culture - 11/10/18 04:48 Bacterial blood culture NG NRG Complete urinalysis with reflex to culture - 11/10/18 05:40 Urine color determination YELLOW NRG Urine clarity determination CLEAR NRG Urine pH measurement by test strip 8 5-9 Specific gravity of urine by test strip 1.010 1.016- 1.022 Urine protein assay by test strip, semi-quantitative NEGATIVE NEGATIVE Urine glucose detection by automated test strip NEGATIVE NEGATIVE Erythrocytes detection in urine sediment by light microscopy 4+ NEGATIVE Urine ketones detection by automated test strip NEGATIVE NEGATIVE Urine nitrite detection by test strip NEGATIVE NEGATIVE Urine total bilirubin detection by test strip NEGATIVE NEGATIVE Urine urobilinogen measurement by automated test strip (mass/volume) NORMAL NORMAL Urine leukocyte esterase detection by dipstick NEGATIVE NEGATIVE Automated urine sediment erythrocyte count by microscopy (number/high power field) [HPF] NRG Automated urine sediment leukocyte count by microscopy (number/high power field ) NONE NRG Bacteria detection in urine sediment by light microscopy NEGATIVE NRG Squamous epithelial cells detection in urine sediment by light microscopy RARE NRG Crystals detection in urine sediment by light microscopy NONE NRG Casts detection in urine sediment by light microscopy NONE NRG Mucus detection in urine sediment by light microscopy NEGATIVE NRG Complete urinalysis with reflex to culture NO NRG Bacterial urine culture - 11/10/18 05:40 Bacterial urine culture SEE REPORT NRG COLONY COUNT . NRG Methicillin resistant Staphylococcus aureus (MRSA) screening culture - 06:45 MRSA SCREEN RESULT MRSA ISOLATED NRG Complete blood count (CBC) with automated white blood cell (WBC) differential - 11/11/18 05:50 Blood leukocytes automated count (number/volume) 9.6 10*3/uL 4.3-11.0 Blood erythrocytes automated count (number/volume) 3.01 10*6/uL 4.35-5.85 Venous blood hemoglobin measurement (mass/volume) 7.8 g/dL 13.3-17.7 Blood hematocrit (volume fraction) 24 % 40-54 Automated erythrocyte mean corpuscular volume 80 [foz_us] 80-99 Automated erythrocyte mean corpuscular hemoglobin (mass per erythrocyte) 26 pg 25-34 Automated erythrocyte mean corpuscular hemoglobin concentration measurement ( mass/volume) 32 g/dL 32-36 Automated erythrocyte distribution width ratio 18.0 % 10.0-14.5 Automated blood platelet count (count/volume) 238 10*3/uL 130-400 Automated blood platelet mean volume measurement 9.1 [foz_us] 7.4-10.4 Automated blood neutrophils/100 leukocytes 82 % 42-75 Automated blood lymphocytes/100 leukocytes 6 % 12-44 Blood monocytes/100 leukocytes 11 % 0-12 Automated blood eosinophils/100 leukocytes 0 % 0-10 Automated blood basophils/100 leukocytes 0 % 0-10 Blood neutrophils automated count (number/volume) 7.9 10*3 1.8-7.8 Blood lymphocytes automated count (number/volume) 0.6 10*3 1.0-4.0 Blood monocytes automated count (number/volume) 1.1 10*3 0.0-1.0 Automated eosinophil count 0.0 10*3/uL 0.0-0.3 Automated blood basophil count (count/volume) 0.0 10*3/uL 0.0-0.1 Whole blood basic metabolic panel - 11/11/18 05:50 Serum or plasma sodium measurement (moles/volume) 137 mmol/L 135-145 Serum or plasma potassium measurement (moles/volume) 4.0 mmol/L 3.6-5.0 Serum or plasma chloride measurement (moles/volume) 108 mmol/L 98-107 Carbon dioxide 20 mmol/L 21-32 Serum or plasma anion gap determination (moles/volume) 9 mmol/L 5-14 Serum or plasma urea nitrogen measurement (mass/volume) 9 mg/dL 7-18 Serum or plasma creatinine measurement (mass/volume) 0.87 mg/dL 0.60-1.30 Serum or plasma urea nitrogen/creatinine mass ratio 10 NRG Serum or plasma creatinine measurement with calculation of estimated glomerular filtration rate > NRG Serum or plasma glucose measurement (mass/volume) 97 mg/dL 70-105 Serum or plasma calcium measurement (mass/volume) 8.0 mg/dL 8.5-10.1 Serum or plasma phosphate measurement (mass/volume) - 11/11/18 05:50 Serum or plasma phosphate measurement (mass/volume) 3.4 mg/dL 2.3-4.7 Magnesium - 11/11/18 05:50 Magnesium 1.4 mg/dL 1.8-2.4 Complete blood count (CBC) with automated white blood cell (WBC) differential - 11/12/18 06:35 Blood leukocytes automated count (number/volume) 9.0 10*3/uL 4.3-11.0 Blood erythrocytes automated count (number/volume) 2.48 10*6/uL 4.35-5.85 Venous blood hemoglobin measurement (mass/volume) 6.5 g/dL 13.3-17.7 Blood hematocrit (volume fraction) 20 % 40-54 Automated erythrocyte mean corpuscular volume 81 [foz_us] 80-99 Automated erythrocyte mean corpuscular hemoglobin (mass per erythrocyte) 26 pg 25-34 Automated erythrocyte mean corpuscular hemoglobin concentration measurement ( mass/volume) 33 g/dL 32-36 Automated erythrocyte distribution width ratio 18.4 % 10.0-14.5 Automated blood platelet count (count/volume) 237 10*3/uL 130-400 Automated blood platelet mean volume measurement 9.2 [foz_us] 7.4-10.4 Automated blood neutrophils/100 leukocytes 78 % 42-75 Automated blood lymphocytes/100 leukocytes 6 % 12-44 Blood monocytes/100 leukocytes 14 % 0-12 Automated blood eosinophils/100 leukocytes 2 % 0-10 Automated blood basophils/100 leukocytes 0 % 0-10 Blood neutrophils automated count (number/volume) 7.0 10*3 1.8-7.8 Blood lymphocytes automated count (number/volume) 0.5 10*3 1.0-4.0 Blood monocytes automated count (number/volume) 1.3 10*3 0.0-1.0 Automated eosinophil count 0.2 10*3/uL 0.0-0.3 Automated blood basophil count (count/volume) 0.0 10*3/uL 0.0-0.1 Whole blood basic metabolic panel - 11/12/18 06:35 Serum or plasma sodium measurement (moles/volume) 136 mmol/L 135-145 Serum or plasma potassium measurement (moles/volume) 3.4 mmol/L 3.6-5.0 Serum or plasma chloride measurement (moles/volume) 108 mmol/L 98-107 Carbon dioxide 19 mmol/L 21-32 Serum or plasma anion gap determination (moles/volume) 9 mmol/L 5-14 Serum or plasma urea nitrogen measurement (mass/volume) 8 mg/dL 7-18 Serum or plasma creatinine measurement (mass/volume) 0.87 mg/dL 0.60-1.30 Serum or plasma urea nitrogen/creatinine mass ratio 9 NRG Serum or plasma creatinine measurement with calculation of estimated glomerular filtration rate > NRG Serum or plasma glucose measurement (mass/volume) 90 mg/dL 70-105 Serum or plasma calcium measurement (mass/volume) 8.0 mg/dL 8.5-10.1 Serum or plasma phosphate measurement (mass/volume) - 11/12/18 06:35 Serum or plasma phosphate measurement (mass/volume) 3.3 mg/dL 2.3-4.7 Magnesium - 11/12/18 06:35 Magnesium 1.4 mg/dL 1.8-2.4 Complete blood count (CBC) with automated white blood cell (WBC) differential - 11/13/18 04:00 Blood leukocytes automated count (number/volume) 6.9 10*3/uL 4.3-11.0 Blood erythrocytes automated count (number/volume) 2.90 10*6/uL 4.35-5.85 Venous blood hemoglobin measurement (mass/volume) 7.5 g/dL 13.3-17.7 Blood hematocrit (volume fraction) 23 % 40-54 Automated erythrocyte mean corpuscular volume 79 [foz_us] 80-99 Automated erythrocyte mean corpuscular hemoglobin (mass per erythrocyte) 26 pg 25-34 Automated erythrocyte mean corpuscular hemoglobin concentration measurement ( mass/volume) 33 g/dL 32-36 Automated erythrocyte distribution width ratio 18.1 % 10.0-14.5 Automated blood platelet count (count/volume) 243 10*3/uL 130-400 Automated blood platelet mean volume measurement 9.8 [foz_us] 7.4-10.4 Automated blood neutrophils/100 leukocytes 72 % 42-75 Automated blood lymphocytes/100 leukocytes 9 % 12-44 Blood monocytes/100 leukocytes 15 % 0-12 Automated blood eosinophils/100 leukocytes 3 % 0-10 Automated blood basophils/100 leukocytes 0 % 0-10 Blood neutrophils automated count (number/volume) 5.0 10*3 1.8-7.8 Blood lymphocytes automated count (number/volume) 0.6 10*3 1.0-4.0 Blood monocytes automated count (number/volume) 1.1 10*3 0.0-1.0 Automated eosinophil count 0.2 10*3/uL 0.0-0.3 Automated blood basophil count (count/volume) 0.0 10*3/uL 0.0-0.1 Whole blood basic metabolic panel - 11/13/18 04:00 Serum or plasma sodium measurement (moles/volume) 138 mmol/L 135-145 Serum or plasma potassium measurement (moles/volume) 3.2 mmol/L 3.6-5.0 Serum or plasma chloride measurement (moles/volume) 111 mmol/L 98-107 Carbon dioxide 19 mmol/L 21-32 Serum or plasma anion gap determination (moles/volume) 8 mmol/L 5-14 Serum or plasma urea nitrogen measurement (mass/volume) 5 mg/dL 7-18 Serum or plasma creatinine measurement (mass/volume) 0.82 mg/dL 0.60-1.30 Serum or plasma urea nitrogen/creatinine mass ratio 6 NRG Serum or plasma creatinine measurement with calculation of estimated glomerular filtration rate > NRG Serum or plasma glucose measurement (mass/volume) 87 mg/dL 70-105 Serum or plasma calcium measurement (mass/volume) 7.6 mg/dL 8.5-10.1 Serum or plasma phosphate measurement (mass/volume) - 11/13/18 04:00 Serum or plasma phosphate measurement (mass/volume) 3.9 mg/dL 2.3-4.7 Magnesium - 11/13/18 04:00 Magnesium 1.5 mg/dL 1.8-2.4 Whole blood basic metabolic panel - 11/13/18 16:45 Serum or plasma sodium measurement (moles/volume) 138 mmol/L 135-145 Serum or plasma potassium measurement (moles/volume) 3.4 mmol/L 3.6-5.0 Serum or plasma chloride measurement (moles/volume) 111 mmol/L 98-107 Carbon dioxide 19 mmol/L 21-32 Serum or plasma anion gap determination (moles/volume) 8 mmol/L 5-14 Serum or plasma urea nitrogen measurement (mass/volume) 4 mg/dL 7-18 Serum or plasma creatinine measurement (mass/volume) 0.75 mg/dL 0.60-1.30 Serum or plasma urea nitrogen/creatinine mass ratio 5 NRG Serum or plasma creatinine measurement with calculation of estimated glomerular filtration rate > NRG Serum or plasma glucose measurement (mass/volume) 82 mg/dL 70-105 Serum or plasma calcium measurement (mass/volume) 7.5 mg/dL 8.5-10.1 Complete urinalysis with reflex to culture - 11/13/18 17:10 Urine color determination YELLOW NRG Urine clarity determination CLEAR NRG Urine pH measurement by test strip 5 5-9 Specific gravity of urine by test strip 1.020 1.016- 1.022 Urine protein assay by test strip, semi-quantitative NEGATIVE NEGATIVE Urine glucose detection by automated test strip NEGATIVE NEGATIVE Erythrocytes detection in urine sediment by light microscopy NEGATIVE NEGATIVE Urine ketones detection by automated test strip NEGATIVE NEGATIVE Urine nitrite detection by test strip NEGATIVE NEGATIVE Urine total bilirubin detection by test strip NEGATIVE NEGATIVE Urine urobilinogen measurement by automated test strip (mass/volume) NORMAL NORMAL Urine leukocyte esterase detection by dipstick NEGATIVE NEGATIVE Automated urine sediment erythrocyte count by microscopy (number/high power field) NONE NRG Automated urine sediment leukocyte count by microscopy (number/high power field ) RARE NRG Bacteria detection in urine sediment by light microscopy NEGATIVE NRG Squamous epithelial cells detection in urine sediment by light microscopy RARE NRG Crystals detection in urine sediment by light microscopy NONE NRG Casts detection in urine sediment by light microscopy NONE NRG Mucus detection in urine sediment by light microscopy NEGATIVE NRG Complete urinalysis with reflex to culture NO NRG Complete blood count (CBC) with automated white blood cell (WBC) differential - 11/14/18 04:05 Blood leukocytes automated count (number/volume) 6.5 10*3/uL 4.3-11.0 Blood erythrocytes automated count (number/volume) 2.90 10*6/uL 4.35-5.85 Venous blood hemoglobin measurement (mass/volume) 7.6 g/dL 13.3-17.7 Blood hematocrit (volume fraction) 23 % 40-54 Automated erythrocyte mean corpuscular volume 80 [foz_us] 80-99 Automated erythrocyte mean corpuscular hemoglobin (mass per erythrocyte) 26 pg 25-34 Automated erythrocyte mean corpuscular hemoglobin concentration measurement ( mass/volume) 33 g/dL 32-36 Automated erythrocyte distribution width ratio 18.5 % 10.0-14.5 Automated blood platelet count (count/volume) 279 10*3/uL 130-400 Automated blood platelet mean volume measurement 9.5 [foz_us] 7.4-10.4 Automated blood neutrophils/100 leukocytes 74 % 42-75 Automated blood lymphocytes/100 leukocytes 9 % 12-44 Blood monocytes/100 leukocytes 14 % 0-12 Automated blood eosinophils/100 leukocytes 3 % 0-10 Automated blood basophils/100 leukocytes 0 % 0-10 Blood neutrophils automated count (number/volume) 4.8 10*3 1.8-7.8 Blood lymphocytes automated count (number/volume) 0.6 10*3 1.0-4.0 Blood monocytes automated count (number/volume) 0.9 10*3 0.0-1.0 Automated eosinophil count 0.2 10*3/uL 0.0-0.3 Automated blood basophil count (count/volume) 0.0 10*3/uL 0.0-0.1 Comprehensive metabolic panel - 11/14/18 04:05 Serum or plasma sodium measurement (moles/volume) 138 mmol/L 135-145 Serum or plasma potassium measurement (moles/volume) 3.0 mmol/L 3.6-5.0 Serum or plasma chloride measurement (moles/volume) 111 mmol/L 98-107 Carbon dioxide 17 mmol/L 21-32 Serum or plasma anion gap determination (moles/volume) 10 mmol/L 5-14 Serum or plasma urea nitrogen measurement (mass/volume) 3 mg/dL 7-18 Serum or plasma creatinine measurement (mass/volume) 0.79 mg/dL 0.60-1.30 Serum or plasma urea nitrogen/creatinine mass ratio 4 NRG Serum or plasma creatinine measurement with calculation of estimated glomerular filtration rate > NRG Serum or plasma glucose measurement (mass/volume) 114 mg/dL 70-105 Serum or plasma calcium measurement (mass/volume) 7.9 mg/dL 8.5-10.1 Serum or plasma total bilirubin measurement (mass/volume) 0.3 mg/dL 0.1-1.0 Serum or plasma alkaline phosphatase measurement (enzymatic activity/volume) 87 U/L 40-136 Serum or plasma aspartate aminotransferase measurement (enzymatic activity/ volume) 25 U/L 5-34 Serum or plasma alanine aminotransferase measurement (enzymatic activity/volume ) 23 U/L 0-55 Serum or plasma protein measurement (mass/volume) 6.2 g/dL 6.4-8.2 Serum or plasma albumin measurement (mass/volume) 2.3 g/dL 3.2-4.5 CALCIUM CORRECTED 9.3 mg/dL 8.5-10.1 Serum or plasma phosphate measurement (mass/volume) - 11/14/18 04:05 Serum or plasma phosphate measurement (mass/volume) 3.3 mg/dL 2.3-4.7 Magnesium - 11/14/18 04:05 Magnesium 1.4 mg/dL 1.8-2.4 Encounters ACCT No. Visit Date/Time Discharge Status Pt. Type Provider Facility Loc./Unit Complaint [id number] 06/22/2015 21:44:56 06/22/2015 23:59:59 CLS Outpatient Ramos Joshua Nicola [id number] 09/14/2014 20:55:13 09/14/2014 23:59:59 CLS Outpatient Ramos Joshua [id number] 07/21/2018 23:45:00 ACT Inpatient ROBERT ARIAS MD [facility] ICU BOUBACAR RECTAL ABSCESS,SEVERE SEPSIS,RENAL FAILURE [id number] 12/04/2018 10:04:00 12/04/2018 23:59:59 CLS Outpatient SAROJ CHA [facility] ONC [id number] 11/07/2018 12:56:00 11/26/2018 00:01:00 DIS Outpatient SAROJ CHA [facility] ONC [id number] 11/10/2018 05:50:00 11/14/2018 15:20:00 DIS Outpatient ROBERT ARIAS MD [facility] 4TH RECTAL BLEEDING; ABSCESS;SEPSIS [id number] 11/09/2018 10:26:00 11/09/2018 13:06:00 DIS Emergency MIRYAM FUNK MD [facility] ER RECTAL BLEEDING [id number] 10/16/2018 05:48:00 10/16/2018 10:12:00 DIS Outpatient KAELYN PATEL, DONALD Rajan [facility] ER GI BLEED [id number] 09/14/2018 11:12:00 09/14/2018 16:05:00 DIS Emergency OUMAR JEFFRIES [facility] ER INFECTION [id number] 07/21/2018 23:45:00 07/27/2018 18:04:00 DIS Inpatient ROBERT ARIAS MD [facility] 4TH BOUBACAR RECTAL ABSCESS, SEVERE SEPSIS,RENAL FAILURE [id number] 12/11/2018 12:00:00 PEN Preadmit SAROJ CHA [facility] CARD ANAL SQUAMOUS CELL CARCINOMA
[2018-12-10] MEDS ORDERED: fentaNYL INJECTION 100 MCG/2 ML AMP IVP ONE ×2 (12:45→15:15)
[2018-12-10] MEDS ORDERED: KETAMINE HCL 100 MG/ML 5 ML VIAL IV ONE ×2 (12:45→15:15)
[2018-12-10] MEDS ORDERED: LEVOFLOXACIN 500 MG TAB (LEVAQUIN) PO ONE (12:45)
[2018-12-10 12:56] LABS: BASOPHILS % (AUTO) 0 % (0-10); EOSINOPHILS # (AUTO) 0.1 10^3/uL (0.0-0.3); EOSINOPHILS % (AUTO) 1 % (0-10); HEMATOCRIT 26 % (40-54); HEMOGLOBIN 8.1 G/DL (13.3-17.7); LYMPHOCYTES # (AUTO) 1.6 X 10^3 (1.0-4.0); LYMPHOCYTES % (AUTO) 15 % (12-44); MEAN CORPUSCULAR HEMOGLOBIN 26 PG (25-34); MEAN CORPUSCULAR HGB CONC 31 G/DL (32-36); MEAN CORPUSCULAR VOLUME 84 FL (80-99); MONOCYTES # (AUTO) 1.1 X 10^3 (0.0-1.0); MONOCYTES % (AUTO) 10 % (0-12); NEUTROPHILS # (AUTO) 7.6 X 10^3 (1.8-7.8); NEUTROPHILS % (AUTO) 73 % (42-75); PLATELET COUNT 346 10^3/uL (130-400); WHITE BLOOD COUNT 10.4 10^3/uL (4.3-11.0)
--- NOTE | 2018-12-10 12:57 | ED Back Pain ---
General Chief Complaint: General Problems/Pain Stated Complaint: BACK PAIN Source of Information: Patient, EMS, Senior Living Records Exam Limitations: No Limitations History of Present Illness Date Seen by Provider: Dec 10, 2018 Time Seen by Provider: 12:41 Initial Comments Patient presents to the ER by private conveyance with chief complaint of back pain on the right side of his lumbar spine that he's had chronically is been activated over the last 2 or 3 days. He came to the ER and was prescribed antibiotics for a urinary tract infection. His antibiotics were switched up-to- date Levaquin however he has not had his first dose was not given until tomorrow her [facility]. His pain is severe 9-10 out of 10 and does not radiate. He says for the past 2 days also had numbness in his right leg. He can feel touch he just feels tingling all the way down to the toes. He is able to walk up until this morning his pain is rated Walk anymore. EMS reports that the staff at the [facility] alert and he has had problems with abusing his narcotics and therefore all of his opiates of been ran through doctor Barrett his oncologist. He has a history of anorectal cancer under therapy. He is known to Dr. Arias is helping manage a wound on his buttocks. Dr. Julien his primary care doctor. Allergies and Home Medications Allergies Coded Allergies: No Known Drug Allergies (Unverified , 10/16/18) Home Medications Hydrocodone Bit/Acetaminophen 1 Tab Tab, 1-2 TAB PO Q6H PRN for PAIN-MODERATE Prescribed by: ROBERT ARIAS on 11/14/18 1423 Mag Hydrox/Al Hydrox/Simeth 30 Ml Oral.susp, 30 ML PO QID PRN for INDIGESTION, ( Reported) Melatonin 5 Mg Tablet, 5 MG PO HS, (Reported) Metoprolol Succinate 25 Mg Tab.er.24h, 25 MG PO DAILY, (Reported) Mirtazapine 30 Mg Tablet, 30 MG PO HS, (Reported) Ondansetron 8 Mg Tab.rapdis, 8 MG PO Q8H PRN for NAUSEA/VOMITING-1ST LINE, ( Reported) Oxycodone HCl/Acetaminophen 1 Each Tablet, 1 EACH PO Q4H PRN for PAIN, (Reported ) Oxycodone HCl/Acetaminophen 1 Each Tablet, 1 EACH PO QID, (Reported) Sertraline HCl 25 Mg Tablet, 25 MG PO DAILY, (Reported) Trazodone HCl 100 Mg Tablet, 100 MG PO HS, (Reported) [morphine ER] , 60 MG PO BID, (Reported) Patient Home Medication List Home Medication List Reviewed: Yes Review of Systems Constitutional: No chills, No fever EENTM: No hearing loss, No ear pain Respiratory: No cough, No short of breath Cardiovascular: No chest pain, No palpitations Gastrointestinal: No abdominal pain, No constipation, No diarrhea, No nausea Genitourinary: No discharge, No dysuria Musculoskeletal: see HPI Past Hfcghcs-Vpzmzl-Qnmktk Hx Patient Social History Alcohol Use: Denies Use Recreational Drug Use: Yes Drug of Choice: HX; opiates Type Used: Cigarettes 2nd Hand Smoke Exposure: No Recent Hopitalizations: Yes Immunizations Up To Date Tetanus Booster (TDap): Unknown PED Vaccines UTD: No Seasonal Allergies Seasonal Allergies: No Past Medical History Surgeries: Yes (frequent foot surgeries for plantar warts, I/D) Abdominal, Rectal Respiratory: Yes Chronic Bronchitis Cardiac: Yes Neurological: No Genitourinary: No Gastrointestinal: Yes Musculoskeletal: No Endocrine: No HEENT: No Cancer: Yes Rectal, Lung Did You Recieve Any Treatments: Yes What Type of Treatment Did You: Surgical Intervention Psychosocial: No Integumentary: Yes (plantar warts to bilateral feet) Blood Disorders: No Family Medical History Patient reports no known family medical history. Physical Exam Vital Signs Vital Signs - First Documented 12/10/18 12:37 Temp 99.4 Pulse 92 Resp 14 B/P (MAP) 143/85 (104) Pulse Ox 96 O2 Delivery Room Air Capillary Refill : Height, Weight, BMI Height: 6'0.00" Weight: 197lbs. 8.0oz. 89.491143pr; 25.8 BMI Method:Stated General Appearance: No Apparent Distress, WD/WN HEENT: PERRL/EOMI, Normal ENT Inspection, Pharynx Normal, Moist Mucous Membranes Neck: Full Range of Motion, Normal Inspection Cardiovascular: Regular Rate, Rhythm, No Edema, Normal Peripheral Pulses Respiratory: No Accessory Muscle Use, No Respiratory Distress Peripheral Pulses: 2+ Dorsalis Pedis (R), 2+ Left Dors-Pedis (L) Gastrointestinal: Normal Bowel Sounds, No Organomegaly, Non Tender, Soft Back: Normal Inspection, No CVA Tenderness, No Vertebral Tenderness, Other Extremity: Normal Capillary Refill, No Pedal Edema Neurologic/Psychiatric: Alert, Oriented x3 Progress/Results/Core Measures Results/Orders Lab Results Laboratory Tests Test 12/10/18 12:45 Range/Units White Blood Count 10.4 4.3-11.0 10^3/uL Red Blood Count 3.10 L 4.35-5.85 10^6/uL Hemoglobin 8.1 L 13.3-17.7 G/DL Hematocrit 26 L 40-54 % Mean Corpuscular Volume 84 80-99 FL Mean Corpuscular Hemoglobin 26 25-34 PG Mean Corpuscular Hemoglobin Concent 31 L 32-36 G/DL Red Cell Distribution Width 19.0 H 10.0-14.5 % Platelet Count 346 130-400 10^3/uL Mean Platelet Volume 9.0 7.4-10.4 FL Neutrophils (%) (Auto) 73 42-75 % Lymphocytes (%) (Auto) 15 12-44 % Monocytes (%) (Auto) 10 0-12 % Eosinophils (%) (Auto) 1 0-10 % Basophils (%) (Auto) 0 0-10 % Neutrophils # (Auto) 7.6 1.8-7.8 X 10^3 Lymphocytes # (Auto) 1.6 1.0-4.0 X 10^3 Monocytes # (Auto) 1.1 H 0.0-1.0 X 10^3 Eosinophils # (Auto) 0.1 0.0-0.3 10^3/uL Basophils # (Auto) 0.0 0.0-0.1 10^3/uL Sodium Level 142 135-145 MMOL/L Potassium Level 4.1 3.6-5.0 MMOL/L Chloride Level 107 98-107 MMOL/L Carbon Dioxide Level 28 21-32 MMOL/L Anion Gap 7 5-14 MMOL/L Blood Urea Nitrogen 14 7-18 MG/DL Creatinine 1.37 H 0.60-1.30 MG/DL Estimat Glomerular Filtration Rate > 60 BUN/Creatinine Ratio 10 Glucose Level 94 70-105 MG/DL Calcium Level 8.4 L 8.5-10.1 MG/DL Corrected Calcium 9.9 8.5-10.1 MG/DL Total Bilirubin 0.3 0.1-1.0 MG/DL Aspartate Amino Transf (AST/SGOT) 14 5-34 U/L Alanine Aminotransferase (ALT/SGPT) 11 0-55 U/L Alkaline Phosphatase 127 40-136 U/L Total Protein 6.9 6.4-8.2 GM/DL Albumin 2.1 L 3.2-4.5 GM/DL My Orders Orders - ORESTES BURKS Ct Lumbar Spine Wo (12/10/18 12:44) Cbc With Automated Diff (12/10/18 12:44) Comprehensive Metabolic Panel (12/10/18 12:44) Levofloxacin Tablet (Levaquin Tablet) (12/10/18 12:45) Fentanyl Injection (Sublimaze Injection (12/10/18 12:45) Ketamine Injection (Ketalar Injection) (12/10/18 12:45) Ns (Ivpb) (Sodium Chloride 0.9% Ivpb Bag (12/10/18 13:01) Saline Lock/Iv-Start (12/10/18 13:20) Ns Iv 500 Ml (Sodium Chloride 0.9%) (12/10/18 13:20) Ketamine Injection (Ketalar Injection) (12/10/18 15:15) Fentanyl Injection (Sublimaze Injection (12/10/18 15:15) Ns (Ivpb) (Sodium Chloride 0.9% Ivpb Bag (12/10/18 15:23) Medications Given in ED Current Medications Medications Dose Ordered Sig/Jen Route Start Time Stop Time Status Last Admin Dose Admin Fentanyl Citrate 50 mcg ONCE ONCE IVP 12/10/18 12:45 12/10/18 12:52 DC 12/10/18 13:01 50 MCG Fentanyl Citrate 50 mcg ONCE ONCE IVP 12/10/18 15:15 12/10/18 15:16 DC 12/10/18 15:29 50 MCG Ketamine HCl 15 mg ONCE ONCE IV 12/10/18 12:45 12/10/18 12:52 DC 12/10/18 13:09 15 MG Ketamine HCl 15 mg ONCE ONCE IV 12/10/18 15:15 12/10/18 15:16 DC 12/10/18 15:30 15 MG Levofloxacin 500 mg ONCE ONCE PO 12/10/18 12:45 12/10/18 12:52 DC 12/10/18 13:00 500 MG Sodium Chloride 50 [address] @ [address]-MED ONCE .ROUTE 12/10/18 13:01 12/10/18 13:05 DC 12/10/18 13:09 50 MLS/HR Sodium Chloride 50 ml @ ud STK-MED ONCE .ROUTE 12/10/18 15:23 12/10/18 15:27 DC 12/10/18 15:30 50 MLS/HR Sodium Chloride 500 ml @ 0 mls/hr Q0M ONCE IV 12/10/18 13:20 12/10/18 13:22 DC 12/10/18 13:56 500 MLS/HR Vital Signs/I&O 12/10/18 12:37 Temp 99.4 Pulse 92 Resp 14 B/P (MAP) 143/85 (104) Pulse Ox 96 O2 Delivery Room Air Progress Progress Note #1: Time: 12:57 Progress Note Patient has quite a bit of narcotic tolerance organ start with 50 of fentanyl and some ketamine. Since he's having this new red flag symptoms of numbness in his right leg and inability to walk we'll obtain a CT of his lumbar spine and sacrum looking for any new changes. Progress Note #2: Time: 15:06 Progress Note The patient had a significant decrease in his pain from 9 out of 10 to 7 out of 10 now. We are going to talk to oncology about addressing his pathologic fractures outpatient. We are going to give him another round of 50 mg ketamine and 50 g of fentanyl. Diagnostic Imaging Diagonstic Imaging: CT Plain Films/CT/US/NM/MRI: other (sacrum and lumbar spine noncontrast) Comments [facility] [place] NAME: VON ANSARI [facility] REC#: [id number] PT STATUS: REG ER : 1970 PHYSICIAN: ORESTES BURKS MD ADMIT DATE: 12/10/18/ER Draft Date of Exam:12/10/18 CT LUMBAR SPINE WO PROCEDURE: CT lumbar spine without contrast. TECHNIQUE: Multiple contiguous axial images were obtained through the lumbar spine without the use of intravenous contrast. Sagittal and coronal reformations were then performed. DATE: December 10, 2018. INDICATION: 48-year-old male, severe low back pain. History of squamous cell malignancy of the anus. COMPARISON: CT abdomen and pelvis September 14, 2018. FINDINGS: There is a new lucent lesion in the posterior aspect of the L3 vertebral body on sagittal image 32 which measures 1.4 x 1.0 cm in size. There is also a destructive lucent lesion of the right lateral aspect of the L3 vertebral body with abnormal positioning of the inferior endplate which likely relates to a pathologic fracture. This is also new since September 14, 2018. At this location, there is question of an associated soft tissue mass. This is estimated at approximately 3.4 x 2.2 cm in size on axial image 55. There is no additional identified bone lesion within the included [id number] of imaging. There is no additional identified fracture. There are advanced bilateral facet degenerative changes at L5-S1. There is no pronounced disc height loss. CT is limited for assessment of disc pathology as well as additional non-bony causes of foraminal and spinal stenosis. There is a rudimentary disc at the S1-S2 level. There are atherosclerotic calcifications noted. IMPRESSION: 1. New destructive lesions of the L3 vertebral body including a pathologic fracture at this level. These are new since September 14, 2018 and likely relate to metastatic lesions. There is also a potential soft tissue mass adjacent to the right lateral aspect of L3 vertebral body. Dedicated MRI with and without contrast may be helpful for further evaluation. 2. Advanced facet degenerative changes at L5-S1 bilaterally. 3. CT is limited for assessment of disc pathology as well as additional nonbony causes of foraminal and spinal stenosis. Dictated on workstation # [id number] Dict: 12/10/18 1406 Trans: 12/10/18 1418 CV [id number] Interpreted by: MELANIE SALGADO MD Electronically signed by: Reviewed: Reviewed by Me Consults : Consulting Physician: SAROJ ARRIAGA Consults Notes Discussed the case lab imaging findings of pathologic fracture and the patient does have some breakthrough [place] 10 x 3 25 he is using but no long-acting. Offered fentanyl but as long as the GI tract works Dr. Arriaga would prefer to use oral so we'll put him on morphine extended release 30 mg twice a day. He has staging imaging due tomorrow and follow-up in the clinic . Departure Impression Primary Impression: Vertebral fracture, pathological Qualified Codes: M84.58XA - Pathological fracture in neoplastic disease, other specified site, initial encounter for fracture Additional Impression: Right leg paresthesias Disposition: HOME, SELF-CARE Condition: Improved Departure-Patient Inst. Decision time for Depature: 15:22 Referrals: NO,LOCAL PHYSICIAN (PCP) Primary Care Physician SAROJ ARRIAGA Patient Instructions: Vertebral Compression Fracture (DC) Add. Discharge Instructions: Plan to get your imaging done tomorrow and keep your follow-up appointment with Dr. Dale. Start the morphine extended release 30 mg twice a day continue to use your breakthrough pain medicine. Continue using the Levaquin for your UTI. All discharge instructions reviewed with patient and/or family. Voiced understanding. Scripts Morphine Sulfate (Ms Contin) 30 Mg Tablet.er 30 MG PO BID for 7 Days, #14 TAB 0 Refills Prov: ORESTES BURKS 12/10/18 Copy Copies To 1: JYOTI JULIEN DO ORESTES BURKS Dec 10, 2018 12:57
[2018-12-10] MEDS: NS (IVPB) 50 ML ONE ×2 (13:09→13:14)
[2018-12-10 13:18] LABS: ALANINE AMINOTRANSFERASE 11 U/L (0-55); ALBUMIN 2.1 GM/DL (3.2-4.5); ALKALINE PHOSPHATASE 127 U/L (40-136); BILIRUBIN,TOTAL 0.3 MG/DL (0.1-1.0); BUN/CREATININE RATIO 10; CALCIUM 8.4 MG/DL (8.5-10.1); CARBON DIOXIDE 28 MMOL/L (21-32); CHLORIDE 107 MMOL/L (98-107); CREATININE SERUM 1.37 MG/DL (0.60-1.30); GFR ESTIMATED > 60; GLUCOSE 94 MG/DL (70-105); POTASSIUM 4.1 MMOL/L (3.6-5.0); SODIUM 142 MMOL/L (135-145); TOTAL PROTEIN 6.9 GM/DL (6.4-8.2)
[2018-12-10] MEDS ORDERED: NS IV 500 ML 500 ML IV ONE (13:20)
--- NOTE | 2018-12-10 14:19 | Diagnostic Imaging Report ---
PROCEDURE: CT lumbar spine without contrast. TECHNIQUE: Multiple contiguous axial images were obtained through the lumbar spine without the use of intravenous contrast. Sagittal and coronal reformations were then performed. DATE: December 10, 2018. INDICATION: 48-year-old male, severe low back pain. History of squamous cell malignancy of the anus. COMPARISON: CT abdomen and pelvis September 14, 2018. FINDINGS: There is a new lucent lesion in the posterior aspect of the L3 vertebral body on sagittal image 32 which measures 1.4 x 1.0 cm in size. There is also a destructive lucent lesion of the right lateral aspect of the L3 vertebral body with abnormal positioning of the inferior endplate which likely relates to a pathologic fracture. This is also new since September 14, 2018. At this location, there is question of an associated soft tissue mass. This is estimated at approximately 3.4 x 2.2 cm in size on axial image 55. There is no additional identified bone lesion within the included [id number] of imaging. There is no additional identified fracture. There are advanced bilateral facet degenerative changes at L5-S1. There is no pronounced disc height loss. CT is limited for assessment of disc pathology as well as additional non-bony causes of foraminal and spinal stenosis. There is a rudimentary disc at the S1-S2 level. There are atherosclerotic calcifications noted. IMPRESSION: 1. New destructive lesions of the L3 vertebral body including a pathologic fracture at this level. These are new since September 14, 2018 and likely relate to metastatic lesions. There is also a potential soft tissue mass adjacent to the right lateral aspect of L3 vertebral body. Dedicated MRI with and without contrast may be helpful for further evaluation. 2. Advanced facet degenerative changes at L5-S1 bilaterally. 3. CT is limited for assessment of disc pathology as well as additional nonbony causes of foraminal and spinal stenosis. Dictated by: Dictated on workstation # [id number]
[2018-12-10] MEDS ORDERED: NS (IVPB) 50 ML ONE (15:23)
[2018-12-10] MEDS ORDERED: MORP30TA60 PO (15:40)
--- NOTE | 2018-12-10 15:45 | NUR ---
[facility] here to pick pt up via P[facility]. Pt unable to go in POV and [facility] worker states [facility] van is in [place]. Pt to return to [place] via EMS.
--- NOTE | 2018-12-10 15:53 | NUR ---
[facility] NOTIFIED OF TRANSFER TO [facility]
[2018-12-10 16:21] VITALS: BP 151/94
== END 2018-12-10 16:20 | disposition home or self-care (01) ==
LOC: EDUNIT# 12:34 → ER 12:36
DX: M84.58XA Pathological fracture in neoplastic disease, other specified site, initial encounter for fracture (principal); R20.2 Paresthesia of skin; F17.210 Nicotine dependence, cigarettes, uncomplicated; Z87.440 Personal history of urinary (tract) infections; Z85.048 Personal history of other malignant neoplasm of rectum, rectosigmoid junction, and anus; Z92.21 Personal history of antineoplastic chemotherapy; Z98.890 Other specified postprocedural states; Z87.09 Personal history of other diseases of the respiratory system; Z85.118 Personal history of other malignant neoplasm of bronchus and lung
CPT/HCPCS: 36415; 72131; 80053; 85025; 96361; 96374; 96375; 96376

== ENCOUNTER → 2018-12-11 | Outpatient (CLI) | payer MEDICAID ==
[~2018-12-11] MED LIST changes: +CATHETER FLUSH 10 ML SYR IV PRN; +IOHEXOL 350 MG/ML 100 ML (OMNIPAQUE 350) VIAL IV ONE; +MORP30TA60 PO; +NS 100 ML (IVPB) BAG IV ONE; +NS 250 ML (IVPB) BAG IV ONE; +RECEIVED CONTRAST (Hold Metformin) IV SCH
--- NOTE | 2018-12-11 14:16 | Diagnostic Imaging Report ---
PROCEDURE: CT chest with contrast, CT abdomen and pelvis with and without contrast. TECHNIQUE: Pre and post intravenous contrast axial imaging of the abdomen and pelvis and post contrast axial imaging of the chest were performed. INDICATION: Anal cancer. FINDINGS: The previous CT abdomen/pelvis exam performed on 09/14/2018 noted marked thickening of the wall of both the rectum and the anus. Those findings are again evident. There does seem to be somewhat less thickening of the wall of both rectum and the anus when compared to the prior exam. The previous study also noted a 5.3 cm cystic mass posterior to the bladder on the right. That finding has diminished in size as well and now measures only 2.3 cm. The bladder itself is grossly unremarkable. The delayed images do show that there is contrast within the bladder. However, there is little excretion of the contrast by the left kidney and there may be partial obstruction of the left kidney due to the thickening of the soft tissues near the junction of the rectosigmoid colon and bladder interface. There is excretion of the contrast by the right kidney. There is no solid mass involving either kidney but there does appear to be a roughly 2 cm cyst along the superior pole of the right kidney. The liver is homogeneous and does not seem to be enlarged. The gallbladder, spleen, pancreas, adrenals, aorta and inferior vena cava are unremarkable for an acute abnormality. The stomach is not well-distended and consequently difficult to assess. The ostomy site near midline seen previously is again evident and no different. There does seem to be generalized slight increased density in the subcutaneous fat throughout the abdomen and pelvis. This may be secondary to anasarca. The images through the thorax show that in the interval since the prior study, a small amount of fluid has developed in the lungs. There is no evidence for failure or pneumonia however. The 6 mm nodule in the right lung base seen previously is again evident and no different. There is also a 4 mm nodule in the anterior aspect of the right upper lobe (image 25 of 123). Heart size is within normal limits. The pulmonary arteries and aorta are not well opacified. There is no definite abnormality of these vessels. There is no mediastinal or hilar adenopathy. The thyroid gland is generally unremarkable. The bone windows again show the destructive lytic lesion involving the right lateral aspect of L3. This finding was noted on the CT lumbar spine exam performed on 12/10/2018. There is also considerable irregularity of the posterior third of the left sixth rib. This could be a sequela of prior trauma as opposed to neoplastic disease. IMPRESSION: 1. The thickened appearance of the wall of the anus and rectum seen on the previous exam is still present but not as striking on this study. The cyst along the posterior aspect of the bladder noted previously has diminished in size as well. 2. There is now partial obstruction of the left collecting system. This may be due to constriction of the distal left ureter by the suspected neoplastic process involving the rectal wall. 3. There is no acute abnormality of the abdomen or pelvis noted otherwise. 4. The small nodules in the right lung are most likely benign. A six-month followup CT chest exam would be recommended for continued evaluation. 5. There is a small amount of fluid in each lung but there is no sign of an acute cardiopulmonary abnormality. It should be noted that the aorta and the pulmonary arteries are not well opacified and consequently difficult to evaluate. 6. The bony lesion involving L3 seen on the recent CT lumbar spine exam is again evident and no different. There is also bony irregularity of the left fifth, sixth and seventh ribs. This may be due to prior trauma as opposed to neoplastic disease. Dictated on workstation # [id number]
--- NOTE | 2018-12-11 16:05 | Diagnostic Imaging Report ---
EXAMINATION: Whole body bone scan. INDICATION: Anal carcinoma. TECHNIQUE: This study was performed following administration of 25.5 mCi of 99m technetium MDP. Anterior and posterior whole body images were obtained as well as spot films of the calvarium and thorax. COMPARISON: There are no prior nuclear medicine studies available for comparison. FINDINGS: The CT lumbar spine exam of 12/10/2018 did note a destructive lesion involving the right lateral aspect of the L3 vertebral body. This finding was felt to be related to a metastatic lesion. On this exam, there is slightly increased activity within the L3 vertebral body. However, this seems to be on the left side of the vertebral body and not on the right where the destructive lesion was seen on the CT exam. The reason for this discrepancy is not certain. Even so, I do feel that there is involvement of the L3 vertebral body by neoplasm. There is no other focal area of increased activity to suggest malignancy. The CT exam did note an abnormality involving the ribs on the left and there did appear to be a partial resection of the left sixth rib. That finding is again evident. There is degenerative disease involving the shoulder, hip, and knee joints. There is excretion of the radiotracer by both kidneys. IMPRESSION: 1. There is slightly increased activity within the vertebral body of L3. Curiously, this seems to be on the opposite side of the destructive lesion seen on the CT exam. Even so, this finding should be considered neoplastic until proven otherwise. 2. There is no other abnormal activity to indicate metastatic disease. Dictated on workstation # [id number]
== END ==
LOC: CARD 12:20
PROVIDERS: ATTEND Internal Medicine Hematology & Oncology
DX: C21.1 Malignant neoplasm of anal canal (principal); R91.8 Other nonspecific abnormal finding of lung field
CPT/HCPCS: 71260; 74178; 78306

== ENCOUNTER 2019-01-15 09:19 | Outpatient (RCR) | payer MEDICAID ==
[2018-12-04 10:24] LABS: BASOPHILS % (AUTO) 0 % (0-10); EOSINOPHILS # (AUTO) 0.3 10^3/uL (0.0-0.3); EOSINOPHILS % (AUTO) 3 % (0-10); HEMATOCRIT 22 % (40-54); LYMPHOCYTES # (AUTO) 1.7 X 10^3 (1.0-4.0); LYMPHOCYTES % (AUTO) 18 % (12-44); MEAN CORPUSCULAR HGB CONC 31 G/DL (32-36); MEAN CORPUSCULAR VOLUME 80 FL (80-99); MEAN PLATELET VOLUME 8.8 FL (7.4-10.4); MONOCYTES # (AUTO) 1.2 X 10^3 (0.0-1.0); MONOCYTES % (AUTO) 13 % (0-12); NEUTROPHILS # (AUTO) 6.4 X 10^3 (1.8-7.8); NEUTROPHILS % (AUTO) 66 % (42-75); PLATELET COUNT 430 10^3/uL (130-400); RED CELL DISTRIBUTION WIDTH 18.3 % (10.0-14.5); WHITE BLOOD COUNT 9.7 10^3/uL (4.3-11.0)
[2018-12-04 10:25] LABS: MEAN CORPUSCULAR HEMOGLOBIN 24 PG (25-34)
[2018-12-04 10:26] LABS: HEMOGLOBIN 6.8 G/DL (13.3-17.7)
[2018-12-04 10:46] LABS: ALANINE AMINOTRANSFERASE 13 U/L (0-55); ALBUMIN 2.2 GM/DL (3.2-4.5); ALKALINE PHOSPHATASE 108 U/L (40-136); BILIRUBIN,TOTAL 0.2 MG/DL (0.1-1.0); BUN/CREATININE RATIO 10; CALCIUM 7.9 MG/DL (8.5-10.1); CARBON DIOXIDE 29 MMOL/L (21-32); CHLORIDE 106 MMOL/L (98-107); CREATININE SERUM 1.38 MG/DL (0.60-1.30); GFR ESTIMATED > 60; GLUCOSE 121 MG/DL (70-105); MAGNESIUM 1.8 MG/DL (1.8-2.4); POTASSIUM 2.9 MMOL/L (3.6-5.0); SODIUM 142 MMOL/L (135-145); TOTAL PROTEIN 6.9 GM/DL (6.4-8.2)
[2018-12-13 10:17] LABS: BASOPHILS % (AUTO) 0 % (0-10); EOSINOPHILS # (AUTO) 0.2 10^3/uL (0.0-0.3); EOSINOPHILS % (AUTO) 2 % (0-10); HEMATOCRIT 29 % (40-54); HEMOGLOBIN 8.7 G/DL (13.3-17.7); LYMPHOCYTES # (AUTO) 1.8 X 10^3 (1.0-4.0); LYMPHOCYTES % (AUTO) 19 % (12-44); MEAN CORPUSCULAR HEMOGLOBIN 25 PG (25-34); MEAN CORPUSCULAR HGB CONC 30 G/DL (32-36); MEAN CORPUSCULAR VOLUME 83 FL (80-99); MEAN PLATELET VOLUME 9.5 FL (7.4-10.4); MONOCYTES % (AUTO) 11 % (0-12); NEUTROPHILS # (AUTO) 6.4 X 10^3 (1.8-7.8); NEUTROPHILS % (AUTO) 68 % (42-75); PLATELET COUNT 351 10^3/uL (130-400); RED CELL DISTRIBUTION WIDTH 18.9 % (10.0-14.5); WHITE BLOOD COUNT 9.4 10^3/uL (4.3-11.0)
[2018-12-27 09:07] LABS: BASOPHILS % (AUTO) 0 % (0-10); EOSINOPHILS # (AUTO) 0.3 10^3/uL (0.0-0.3); EOSINOPHILS % (AUTO) 2 % (0-10); HEMATOCRIT 31 % (40-54); HEMOGLOBIN 9.4 G/DL (13.3-17.7); LYMPHOCYTES # (AUTO) 0.7 X 10^3 (1.0-4.0); LYMPHOCYTES % (AUTO) 4 % (12-44); MEAN CORPUSCULAR HEMOGLOBIN 25 PG (25-34); MEAN CORPUSCULAR HGB CONC 31 G/DL (32-36); MEAN CORPUSCULAR VOLUME 83 FL (80-99); MEAN PLATELET VOLUME 9.6 FL (7.4-10.4); MONOCYTES # (AUTO) 1.9 X 10^3 (0.0-1.0); MONOCYTES % (AUTO) 11 % (0-12); NEUTROPHILS # (AUTO) 14.7 X 10^3 (1.8-7.8); NEUTROPHILS % (AUTO) 83 % (42-75); PLATELET COUNT 412 10^3/uL (130-400); RED CELL DISTRIBUTION WIDTH 20.6 % (10.0-14.5); WHITE BLOOD COUNT 17.6 10^3/uL (4.3-11.0)
[2018-12-27 09:23] LABS: ALANINE AMINOTRANSFERASE 79 U/L (0-55); ALBUMIN 2.9 GM/DL (3.2-4.5); ALKALINE PHOSPHATASE 151 U/L (40-136); BILIRUBIN,TOTAL 0.3 MG/DL (0.1-1.0); BUN/CREATININE RATIO 16; CARBON DIOXIDE 28 MMOL/L (21-32); CHLORIDE 104 MMOL/L (98-107); CREATININE SERUM 1.34 MG/DL (0.60-1.30); GFR ESTIMATED > 60; GLUCOSE 91 MG/DL (70-105); POTASSIUM 4.1 MMOL/L (3.6-5.0); SODIUM 140 MMOL/L (135-145); TOTAL PROTEIN 7.7 GM/DL (6.4-8.2)
[2019-01-09 10:10] LABS: BASOPHILS % (AUTO) 0 % (0-10); EOSINOPHILS # (AUTO) 0.6 10^3/uL (0.0-0.3); EOSINOPHILS % (AUTO) 4 % (0-10); HEMATOCRIT 29 % (40-54); HEMOGLOBIN 8.8 G/DL (13.3-17.7); LYMPHOCYTES # (AUTO) 0.6 X 10^3 (1.0-4.0); LYMPHOCYTES % (AUTO) 4 % (12-44); MEAN CORPUSCULAR HEMOGLOBIN 25 PG (25-34); MEAN CORPUSCULAR HGB CONC 30 G/DL (32-36); MEAN CORPUSCULAR VOLUME 82 FL (80-99); MEAN PLATELET VOLUME 9.9 FL (7.4-10.4); MONOCYTES # (AUTO) 1.3 X 10^3 (0.0-1.0); MONOCYTES % (AUTO) 8 % (0-12); NEUTROPHILS # (AUTO) 12.9 X 10^3 (1.8-7.8); NEUTROPHILS % (AUTO) 84 % (42-75); PLATELET COUNT 241 10^3/uL (130-400); WHITE BLOOD COUNT 15.4 10^3/uL (4.3-11.0)
[2019-01-09 10:27] LABS: ALANINE AMINOTRANSFERASE 48 U/L (0-55); ALBUMIN 2.7 GM/DL (3.2-4.5); ALKALINE PHOSPHATASE 176 U/L (40-136); BILIRUBIN,TOTAL 0.4 MG/DL (0.1-1.0); BUN/CREATININE RATIO 20; CALCIUM 9.5 MG/DL (8.5-10.1); CARBON DIOXIDE 27 MMOL/L (21-32); CHLORIDE 103 MMOL/L (98-107); CREATININE SERUM 1.13 MG/DL (0.60-1.30); GFR ESTIMATED > 60; GLUCOSE 91 MG/DL (70-105); POTASSIUM 4.5 MMOL/L (3.6-5.0); SODIUM 138 MMOL/L (135-145); TOTAL PROTEIN 7.3 GM/DL (6.4-8.2)
[~2019-01-15] VITALS: Ht 180.8 cm; Wt 84.8 kg
[~2019-01-15 09:19] MED LIST changes: +ACETAMINOPHEN 500 MG TAB (TYLENOL) CANCER CTR ONE; -CATHETER FLUSH 10 ML SYR IV PRN; +FAMOTIDINE 20MG/2ML IV (CANCER CTR) IV SCH; +HYDROcodone/APAP 10 MG/325 MG (LORTAB) TAB PO ONE; -IOHEXOL 350 MG/ML 100 ML (OMNIPAQUE 350) VIAL IV ONE; +NS (IVPB) CANCER CENTER 250 ML ONE; -NS 100 ML (IVPB) BAG IV ONE; -NS 250 ML (IVPB) BAG IV ONE; +NS IV 1000 ML (CANCER CTR) IV SCH; +PALONOSETRON HCL 0.25 MG, DEXAMETHASONE INJECTION 10 MG in NS (IVPB) CANCER CENTER 50 ML IV SCH; -RECEIVED CONTRAST (Hold Metformin) IV SCH; +morphine INJ 4 MG/ML 1 ML (CANCER CTR) IV ONE; +morphine INJ 4 MG/ML 1 ML (CANCER CTR) IV PRN
[2019-01-15 09:49] LABS: BASOPHILS % (AUTO) 0 % (0-10); EOSINOPHILS # (AUTO) 0.3 10^3/uL (0.0-0.3); EOSINOPHILS % (AUTO) 3 % (0-10); HEMATOCRIT 27 % (40-54); HEMOGLOBIN 8.3 G/DL (13.3-17.7); LYMPHOCYTES # (AUTO) 0.7 X 10^3 (1.0-4.0); LYMPHOCYTES % (AUTO) 6 % (12-44); MEAN CORPUSCULAR HEMOGLOBIN 26 PG (25-34); MEAN CORPUSCULAR HGB CONC 31 G/DL (32-36); MEAN CORPUSCULAR VOLUME 84 FL (80-99); MEAN PLATELET VOLUME 9.1 FL (7.4-10.4); MONOCYTES % (AUTO) 8 % (0-12); NEUTROPHILS # (AUTO) 10.9 X 10^3 (1.8-7.8); NEUTROPHILS % (AUTO) 84 % (42-75); PLATELET COUNT 271 10^3/uL (130-400); WHITE BLOOD COUNT 12.9 10^3/uL (4.3-11.0)
[2019-01-15 10:09] LABS: ALBUMIN 2.6 GM/DL (3.2-4.5); BILIRUBIN,TOTAL 0.3 MG/DL (0.1-1.0); CALCIUM 8.6 MG/DL (8.5-10.1); CREATININE SERUM 2.07 MG/DL (0.60-1.30); POTASSIUM 4.7 MMOL/L (3.6-5.0); TOTAL PROTEIN 6.8 GM/DL (6.4-8.2)
[2019-01-15] MEDS ORDERED: morphine INJ 4 MG/ML 1 ML (CANCER CTR) IV PRN (10:45)
[2019-01-15] MEDS ORDERED: PIPERACILLIN/TAZOBACTAM (BULK) 4.5 GM in NS (IVPB) 100 ML IV ONE (12:00)
--- NOTE | 2019-01-15 12:35 | Diagnostic Imaging Report ---
Indication: Confusion and difficulty breathing. Time of exam: 12:04 PM Correlation is made with prior study from 11/14/2018. Heart size stable. Airspace infiltrate has developed left mid lung, suggestive of pneumonia. The right lung is clear. Pulmonary vascularity is unremarkable. No effusion or pneumothorax is detected. Left chest wall port has tip overlying the SVC. Impression: Development of patchy airspace infiltrate left midlung suggestive of pneumonia. Dictated by: Dictated on workstation # [id number]
--- NOTE | 2019-01-15 13:02 | NUR ---
11:30 - PATIENT IN ROOM FROM CANCER CENTER. AID OBTAINING VITAL SIGNS. SBP IN THE 80S. RT PRESENT AND PATIENT PLACED ON 5L TO GET OXYGEN SATURATION IN THE 90S. PATIENT LETHARGIC. DR CAMILO MADE AWARE OF PATIENT'S ARRIVAL AND CONDITION. ORDERS PATIENT TO BE SENT TO ICU. 11:40 - PATIENT BROUGHT TO ICU. DR MELENDEZ NOTIFIED OF CONSULT AND PATIENT CONDITION. AGRICULTURAL TECHNICAL OFFICER OBTAINING REPORT ON PATIENT CONDITION WHILE IN THE CANCER CENTER.
[2019-01-15] MEDS ORDERED: GABA-488 PO (14:31)
[2019-01-15] MEDS ORDERED: MORP100T37 PO (14:31)
[2019-01-15] MEDS ORDERED: TAMS0.4C2 PO (14:31)
[2019-01-15] MEDS ORDERED: QUET25TA73 PO (14:31)
[2019-01-15] MEDS ORDERED: DEXA4TAB PO (14:31)
[2019-01-15] MEDS ORDERED: CLIN150C17 PO (14:31)
[2019-01-15] MEDS ORDERED: SERT50TA9 PO (14:31)
[2019-01-15] MEDS ORDERED: FERR325T18 PO (14:31)
[2019-01-15] MEDS ORDERED: AMOX500C2 PO (14:31)
[2019-01-15] MEDS ORDERED: ALPR1TAB7 PO (14:31)
--- NOTE | 2019-01-15 18:59 | Anesthesia-Procedure Note ---
Procedures/Interventions Procedure Start/Stop/Diagnosis Date of Procedure: Jan 15, 2019 Start Time: 18:30 Referring Physician: Clare Stop Time: 18:40 Intubation RSI: Yes 100% pre-Ox, [id number]: Yes Intubation Method: orotracheal (8.0) Videoscope used: Yes (glidescope 3) Grade View: 1 Medications: Propofol (50mg), Succinylcholine (100mg) Positive End Tide CO2: Yes Breath Sounds after Intubation: bilateral-equal ETT Securred @ (cm): 23 Intubated with ease: Yes Intubation Complications: no complications Care turned over to: ICU, RN & RT Lumbar Puncture Other Comment: x2 attempts by CARMENZA Tavares. No event. MADIE SMALL CRNA Jan 15, 2019 18:59
[2019-01-23] MEDS ORDERED: LISI-552 PO (11:51)
[2019-01-31] MEDS ORDERED: LISI-552 PO (16:23)
[2019-01-31] MEDS ORDERED: TAMS0.4C98 PO (16:23)
== END 2019-03-04 | disposition home or self-care (01) ==
LOC: ONC 09:19
PROVIDERS: ATTEND Internal Medicine Hematology & Oncology
DX: Z51.0 Encounter for antineoplastic radiation therapy (principal); C21.1 Malignant neoplasm of anal canal; C79.51 Secondary malignant neoplasm of bone; D64.9 Anemia, unspecified; J44.9 Chronic obstructive pulmonary disease, unspecified; F17.210 Nicotine dependence, cigarettes, uncomplicated; Z66 Do not resuscitate; Z90.2 Acquired absence of lung [part of]; Z93.3 Colostomy status
CPT/HCPCS: 36415; 36430; 36591; 71045; 77290; 77295; 77300; 77334; 77336; 77402; 77417; 80053; 80076; 82805; 83605; 83735; 85007; 85025; 85027; 86850; 86900; 86901; 86920; 87040; 87804; 96374; 99213; 99215

== ENCOUNTER 2019-01-15 11:05 | Inpatient (IN) | payer MEDICAID ==
[2019-01-15] VITALS (15 sets, daily range): BP systolic 83–116; BP diastolic 48–77
[~2019-01-15] VITALS: Ht 182.9 cm; Wt 85.3 kg
[~2019-01-15 11:05] MED LIST changes: -ACETAMINOPHEN 500 MG TAB (TYLENOL) CANCER CTR ONE; -FAMOTIDINE 20MG/2ML IV (CANCER CTR) IV SCH; -HYDROcodone/APAP 10 MG/325 MG (LORTAB) TAB PO ONE; -NS (IVPB) CANCER CENTER 250 ML ONE; -NS IV 1000 ML (CANCER CTR) IV SCH; -PALONOSETRON HCL 0.25 MG, DEXAMETHASONE INJECTION 10 MG in NS (IVPB) CANCER CENTER 50 ML IV SCH; +SUCCINYLCHOLINE INJ 100 MG/5 ML SYR INJ ONE; -morphine INJ 4 MG/ML 1 ML (CANCER CTR) IV ONE; -morphine INJ 4 MG/ML 1 ML (CANCER CTR) IV PRN
--- OUTSIDE RECORDS SUMMARY | 2019-01-15 11:17 | XMS REPORT | Continuity of Care Document ---
Author Author [facility] Organization [facility] Address Unknown Phone Unavailable Allergies Active Description Code Type Severity Reaction Onset Reported/Identified Relationship to Patient Clinical Status Yes No Known Drug Allergies [id number] Drug Allergy Unknown N/A 07/21/2018 Yes No Known Drug Allergies [id number] Drug Allergy Unknown N/A 10/16/2018 Medications There [...] K64.4 RESIDUAL HEMORRHOIDAL SKIN TAGS 11/12/2018 JUANA APTEL, ROBERT M Ot K64.5 PERIANAL VENOUS THROMBOSIS [...] NEOPLASM OF ANAL CANAL 11/26/2018 SAROJ CHA N Ot F17.210 NICOTINE DEPENDENCE, CIGARETTES, UNCOMPL 11/26/2018 SAROJ CHA N Ot J44.9 CHRONIC OBSTRUCTIVE PULMONARY DISEASE, U 11/26/2018 SAROJ CHA N Ot Z51.0 ENCOUNTER FOR ANTINEOPLASTIC RADIATION T 11/26/2018 SAROJ CHA N Ot Z66 DO NOT RESUSCITATE 11/26/2018 SAROJ CHA N Ot Z90.2 ACQUIRED ABSENCE OF LUNG [PART OF] 11/27/2018 SAROJ CHA Ot C21.1 MALIGNANT NEOPLASM OF ANAL CANAL 11/27/2018 SAROJ CHA N Ot F17.210 NICOTINE DEPENDENCE, CIGARETTES, UNCOMPL 11/27/2018 SAROJ CHA N Ot J44.9 CHRONIC OBSTRUCTIVE PULMONARY DISEASE, U 11/27/2018 SAROJ CHA N Ot Z51.0 ENCOUNTER FOR ANTINEOPLASTIC RADIATION T 11/27/2018 SAROJ CHA N Ot Z66 DO NOT RESUSCITATE 11/27/2018 SAROJ CHA N Ot Z90.2 ACQUIRED ABSENCE OF LUNG [PART OF] 12/05/2018 SAROJ CHA Ot C21.1 MALIGNANT NEOPLASM OF ANAL CANAL 12/05/2018 SAROJ CHA N Ot F17.210 NICOTINE DEPENDENCE, CIGARETTES, UNCOMPL 12/05/2018 SAROJ CHA N Ot J44.9 CHRONIC OBSTRUCTIVE PULMONARY DISEASE, U 12/05/2018 SAROJ CHA N Ot Z51.0 ENCOUNTER FOR ANTINEOPLASTIC RADIATION T 12/05/2018 SAROJ CHA N Ot Z66 DO NOT RESUSCITATE 12/05/2018 SAROJ CHA N Ot Z90.2 ACQUIRED ABSENCE OF LUNG [PART OF] 12/10/2018 ORESTES BURKS MD Ot F17.210 NICOTINE DEPENDENCE, CIGARETTES, UNCOMPL 12/10/2018 ORESTES BURKS MD Ot M54.5 LOW BACK PAIN 12/10/2018 ORESTES BURKS MD Ot M84.58XA PATHOLOGICAL FRACTURE IN NEOPLASTIC DISE 12/10/2018 ORESTES BURKS MD Ot R20.2 PARESTHESIA OF SKIN 12/10/2018 ORESTES BURKS MD Ot Z85.048 PRSNL HX OF MALIG NEOPLM OF RECTUM, RECT 12/10/2018 ORESTES BURKS MD Ot Z85.118 PERSONAL HISTORY OF MALIGNANT NEOPLASM O 12/10/2018 ORESTES BURKS MD Ot Z87.09 PERSONAL HISTORY OF OTHER DISEASES OF TH 12/10/2018 ORESTES BURKS MD Ot Z87.440 PERSONAL HISTORY OF URINARY (TRACT) INFE 12/10/2018 ORESTES BURKS MD Ot Z92.21 PERSONAL HISTORY OF ANTINEOPLASTIC CHEMO 12/10/2018 ORESTES BURKS MD Ot Z98.890 OTHER SPECIFIED POSTPROCEDURAL STATES 12/12/2018 SAROJ CHA N Ot C21.1 MALIGNANT NEOPLASM OF ANAL CANAL 12/12/2018 SAROJ CHA N Ot R91.8 OTHER NONSPECIFIC ABNORMAL FINDING OF RUDOLPH 12/14/2018 SAROJ CHA N Ot C21.1 MALIGNANT NEOPLASM OF ANAL CANAL 12/14/2018 SAROJ CHA N Ot F17.210 NICOTINE DEPENDENCE, CIGARETTES, UNCOMPL 12/14/2018 SAROJ CHA N Ot J44.9 CHRONIC OBSTRUCTIVE PULMONARY DISEASE, U 12/14/2018 SAROJ CHA N Ot Z51.0 ENCOUNTER FOR ANTINEOPLASTIC RADIATION T 12/14/2018 SAROJ CHA N Ot Z66 DO NOT RESUSCITATE 12/14/2018 SAROJ CHA N Ot Z90.2 ACQUIRED ABSENCE OF LUNG [PART OF] 12/17/2018 SAROJ CHA N Ot C21.1 MALIGNANT NEOPLASM OF ANAL CANAL 12/17/2018 SAROJ CHA N Ot R91.8 OTHER NONSPECIFIC ABNORMAL FINDING OF RUDOLPH 12/22/2018 SAROJ CHA N Ot C21.1 MALIGNANT NEOPLASM OF ANAL CANAL 12/22/2018 SAROJ CHA N Ot F17.210 NICOTINE DEPENDENCE, CIGARETTES, UNCOMPL 12/22/2018 SAROJ CHA N Ot J44.9 CHRONIC OBSTRUCTIVE PULMONARY DISEASE, U 12/22/2018 STARLASAROJ FERNÁNDEZ N Ot Z51.0 ENCOUNTER FOR ANTINEOPLASTIC RADIATION T 12/22/2018 SAROJ CHA N Ot Z66 DO NOT RESUSCITATE 12/22/2018 SAROJ CHA N Ot Z90.2 ACQUIRED ABSENCE OF LUNG [PART OF] 12/25/2018 SAROJ CHA Ot C21.1 MALIGNANT NEOPLASM OF ANAL CANAL 12/25/2018 SAROJ CHA Ot R91.8 OTHER NONSPECIFIC ABNORMAL FINDING OF RUDOLPH 01/02/2019 SAROJ CHA Ot C21.1 MALIGNANT NEOPLASM OF ANAL CANAL 01/02/2019 SAROJ CHA Ot F17.210 NICOTINE DEPENDENCE, CIGARETTES, UNCOMPL 01/02/2019 SAROJ CHA Ot J44.9 CHRONIC OBSTRUCTIVE PULMONARY DISEASE, U 01/02/2019 SAROJ CHA Ot Z51.0 ENCOUNTER FOR ANTINEOPLASTIC RADIATION T 01/02/2019 SAROJ CHA N Ot Z66 DO NOT RESUSCITATE 01/02/2019 SAROJ CHA N Ot Z90.2 ACQUIRED ABSENCE OF LUNG [PART OF] 01/14/2019 SAROJ CHA Ot C21.1 MALIGNANT NEOPLASM OF ANAL CANAL 01/14/2019 SAROJ CHA Ot F17.210 NICOTINE DEPENDENCE, CIGARETTES, UNCOMPL 01/14/2019 SAROJ CHA Ot J44.9 CHRONIC OBSTRUCTIVE PULMONARY DISEASE, U 01/14/2019 SAROJ CHA Ot Z51.0 ENCOUNTER FOR ANTINEOPLASTIC RADIATION T 01/14/2019 SAROJ CHA N Ot Z66 DO NOT RESUSCITATE 01/14/2019 SAROJ CHA N Ot Z90.2 ACQUIRED ABSENCE OF LUNG [PART OF] 01/14/2019 SAROJ CHA Ot C21.1 MALIGNANT NEOPLASM OF ANAL CANAL 01/14/2019 SAROJ CHA Ot F17.210 NICOTINE DEPENDENCE, CIGARETTES, UNCOMPL 01/14/2019 SAROJ CHA Ot J44.9 CHRONIC OBSTRUCTIVE PULMONARY DISEASE, U 01/14/2019 SAROJ CHA Ot Z51.0 ENCOUNTER FOR ANTINEOPLASTIC RADIATION T 01/14/2019 SAROJ CHA N Ot Z66 DO NOT RESUSCITATE 01/14/2019 SAROJ CHA N Ot Z90.2 ACQUIRED ABSENCE OF LUNG [PART OF] Procedures Code Description Performed By Performed On 4X5P54A DRAINAGE OF RECTUM WITH DRAINAGE DEVICE, 07/22/2018 [id number] EXCISION OF RECTUM, ENDO, DIAGN 07/24/2018 [id number] INSERTION OF INFUSION DEV INTO SUP VENA 07/27/2018 [id number] EXTIRPATION OF MATTER FROM RECTUM, VIA O [...] 10:23 Bacteria identification in wound by culture [id number] NRG FREE TEXT EXTERNAL NO SUSCEPTIBILITY PERFORMED [...] 10:23 Bacteria identification in wound by culture [id number] NRG FREE TEXT EXTERNAL NO SUSCEPTIBILITY PERFORMED NRG QUANTITY OF GROWTH Moderate Growth NRG FREE TEXT ENTRY 2 AT EXT 141 WITHIN 48 HOURS NRG L Sensitivity Panel - 07/22/18 10:23 Gentamicin susceptibility [...] culture - 09/14/18 12:23 Bacterial blood culture [facility] Complete blood count (CBC) with [...] CELLS LEUKO REDUCED AS1 TRANSFUSED 10/16/18 0817 [facility] Blood type T Indirect antibody screen panel - 10/16/18 06:26 ABO+Rh group BP [facility] Transfusion band number [id number] [facility] Blood group antibody screen NEGATIVE [facility] PT panel in platelet poor plasma [...] CELLS LEUKO REDUCED AS1 TRANSFUSED 11/12/18 1133 [facility] Blood type T Indirect antibody screen panel - 11/10/18 04:10 ABO+Rh group BP [facility] Transfusion band number [id number] NRG Blood group antibody screen NEGATIVE NRG Bacterial blood culture - 11/10/18 04:10 Bacterial [...] - 11/14/18 04:05 Magnesium 1.4 mg/dL 1.8-2.4 Complete blood count (CBC) with automated white blood cell (WBC) differential - 12/10/18 12:45 Blood leukocytes automated count (number/volume) 10.4 10*3/uL 4.3-11.0 Blood erythrocytes automated count (number/volume) 3.10 10*6/uL 4.35-5.85 Venous blood hemoglobin measurement (mass/volume) 8.1 g/dL 13.3-17.7 Blood hematocrit (volume fraction) 26 % 40-54 Automated erythrocyte mean corpuscular volume 84 [foz_us] 80-99 Automated erythrocyte mean corpuscular hemoglobin (mass per erythrocyte) 26 pg 25-34 Automated erythrocyte mean corpuscular hemoglobin concentration measurement ( mass/volume) 31 g/dL 32-36 Automated erythrocyte distribution width ratio 19.0 % 10.0-14.5 Automated blood platelet count (count/volume) 346 10*3/uL 130-400 Automated blood platelet mean volume measurement 9.0 [foz_us] 7.4-10.4 Automated blood neutrophils/100 leukocytes 73 % 42-75 Automated blood lymphocytes/100 leukocytes 15 % 12-44 Blood monocytes/100 leukocytes 10 % 0-12 Automated blood eosinophils/100 leukocytes 1 % 0-10 Automated blood basophils/100 leukocytes 0 % 0-10 Blood neutrophils automated count (number/volume) 7.6 10*3 1.8-7.8 Blood lymphocytes automated count (number/volume) 1.6 10*3 1.0-4.0 Blood monocytes automated count (number/volume) 1.1 10*3 0.0-1.0 Automated eosinophil count 0.1 10*3/uL 0.0-0.3 Automated blood basophil count (count/volume) 0.0 10*3/uL 0.0-0.1 Comprehensive metabolic panel - 12/10/18 12:45 Serum or plasma sodium measurement (moles/volume) 142 mmol/L 135-145 Serum or plasma potassium measurement (moles/volume) 4.1 mmol/L 3.6-5.0 Serum or plasma chloride measurement (moles/volume) 107 mmol/L 98-107 Carbon dioxide 28 mmol/L 21-32 Serum or plasma anion gap determination (moles/volume) 7 mmol/L 5-14 Serum or plasma urea nitrogen measurement (mass/volume) 14 mg/dL 7-18 Serum or plasma creatinine measurement (mass/volume) 1.37 mg/dL 0.60-1.30 Serum or plasma urea nitrogen/creatinine mass ratio 10 NRG Serum or plasma creatinine measurement with calculation of estimated glomerular filtration rate > NRG Serum or plasma glucose measurement (mass/volume) 94 mg/dL 70-105 Serum or plasma calcium measurement (mass/volume) 8.4 mg/dL 8.5-10.1 Serum or plasma total bilirubin measurement (mass/volume) 0.3 mg/dL 0.1-1.0 Serum or plasma alkaline phosphatase measurement (enzymatic activity/volume) 127 U/L 40-136 Serum or plasma aspartate aminotransferase measurement (enzymatic activity/ volume) 14 U/L 5-34 Serum or plasma alanine aminotransferase measurement (enzymatic activity/volume ) 11 U/L 0-55 Serum or plasma protein measurement (mass/volume) 6.9 g/dL 6.4-8.2 Serum or plasma albumin measurement (mass/volume) 2.1 g/dL 3.2-4.5 CALCIUM CORRECTED 9.9 mg/dL 8.5-10.1 Encounters ACCT No. Visit Date/Time Discharge Status Pt. Type Provider Facility Loc./Unit Complaint [id number] 06/22/2015 21:44:56 06/22/2015 23:59:59 CLS Outpatient Ramos Joshua [id number] 09/14/2014 20:55:13 09/14/2014 23:59:59 CLS Outpatient Ramos Joshua [id number] 07/21/2018 23:45:00 ACT Inpatient JUANA PATEL, ROBERT [facility] ICU BOUBACAR RECTAL ABSCESS,SEVERE SEPSIS,RENAL FAILURE [id number] 12/11/2018 12:20:00 12/11/2018 23:59:59 CLS Outpatient SAROJ CHA [facility] CARD ANAL SQUAMOUS CELL CARCINOMA [id number] 12/10/2018 12:36:00 12/10/2018 16:20:00 DIS Emergency ORESTES BURKS [facility] ER BACK PAIN [id number] 11/07/2018 12:56:00 11/26/2018 00:01:00 DIS Outpatient SAROJ CHA [facility] ONC [id number] 11/10/2018 05:50:00 11/14/2018 15:20:00 DIS Outpatient JUANA PATEL, ROBERT [facility] 4TH RECTAL BLEEDING; ABSCESS;SEPSIS [id number] 11/09/2018 10:26:00 11/09/2018 13:06:00 DIS Emergency GOOD PATEL, MIRYAM Cavazos [facility] ER RECTAL BLEEDING [id number] 10/16/2018 05:48:00 10/16/2018 10:12:00 DIS Outpatient KAELYN PATEL, DONALD Rajan [facility] ER GI BLEED [id number] 09/14/2018 11:12:00 09/14/2018 16:05:00 DIS Emergency OUMAR JEFFRIES [facility] ER INFECTION [id number] 07/21/2018 23:45:00 07/27/2018 18:04:00 DIS Inpatient JUANA PATEL, ROBERT oMody [facility] 4TH BOUBACAR RECTAL ABSCESS, SEVERE SEPSIS,RENAL FAILURE [id number] 01/15/2019 09:19:00 ACT Outpatient SAROJ CHA [facility] ONC
--- NOTE | 2019-01-15 11:30 | NUR ---
1115- This RN entered pt room to help with admission. PCT Hope was in the room taking pt vital signs. BP 84/45 on automatic pump, O2 sat 77% on room air. Pt appeared to be lethargic, was unable to keep eyes open, crackles in lungs audible. RT notified of pt status. NC and manual BP cuff retrieved by this RN. 1120- Manual BP 64/40. O2 brought up to 92% on 5L per NC. Respirations had become shallow at this time. Pt hx and previous mentation status unknown to staff at this time. This RN notified Haley ALDANA, who was the admitting nurse, of pt status. Pt unable to answer questions asked pt RT Louisa. 1125- per RT and RN judgement Rapid Response called.
[2019-01-15] MEDS ORDERED: NS IV 1000 ML 1,000 ML ONE ×2 (11:34→16:34)
[2019-01-15 11:53] LABS: ABG BASE EXCESS -0.7 MMOL/L (-2.5-2.5); ABG OXYGEN SATURATION 98 % (94-100); ABG PCO2 61 MMHG (35-45); ABG PO2 95 MMHG (79-93); ABG TCO2 27.8 MMOL/L (21.0-31.0)
[2019-01-15 11:55] LABS: ABG PH 7.24 (7.37-7.43); ALLENS TEST POSITIVE; INSPIRED O2 5 L; PATIENT TEMP 97.4; VENTILATOR NO
[2019-01-15] MEDS ORDERED: NALOXONE 2 MG/2 ML (NARCAN) SYR ONE (12:00)
--- NOTE | 2019-01-15 12:26 | Pulmonary Consultation ---
History of Present Illness History of Present Illness Date of Consultation 01/15/19 12:14 Time Seen by Provider: 12:29 Date of Admission History of Present Illness 48yo with hx of metastatic endstage anorectal cancer who has been on palative radiation. He has mets to his lumbar spine. He is from [facility] and his narcotics have been recently increased secondary to severe pain. He presented as a direct admit from the cancer center secondary to fever and was also found to have Influ B. He was directly admitted to 4th floor however he became unresponsive and rapid response team was called. I gave Narcan 0.4mg in ICU and pt responded well. He then became unresponsive again so Narcan was repeated and Narcan gtt was started. Pt did not complain of pain after narcan was given and HTN did not seem to be a problem. I also started pt on severe sepsis protocol along with Tamiflu, zosyn, and vanco started. Allergies and Home Medications Allergies Coded Allergies: No Known Drug Allergies (Unverified , 10/16/18) Home Medications Alprazolam 1 Mg Tablet, 1 MG PO BID, (Reported) Amoxicillin 500 Mg Capsule, 500 MG PO TID, (Reported) 7 DAY THEARPY START DATE 01-11-19 END DATE 01-18-19 Clindamycin HCl 150 Mg Capsule, 150 MG PO TID, (Reported) 7 DAY THERAPY START DATE 01-11-19 END DATE 01-18-19 Dexamethasone 4 Mg Tablet, 4 MG PO DAILY, (Reported) Ferrous Sulfate 325 Mg Tablet, 325 MG PO DAILY, (Reported) Gabapentin 300 Mg Capsule, 300 MG PO TID, (Reported) Mag Hydrox/Al Hydrox/Simeth 30 Ml Oral.susp, 30 ML PO Q4H PRN for INDIGESTION, ( Reported) Melatonin 5 Mg Tablet, 5 MG PO HS, (Reported) Metoprolol Succinate 25 Mg Tab.er.24h, 25 MG PO DAILY, (Reported) HOLD FOR SBP<100 OR PULSE <60 Mirtazapine 30 Mg Tablet, 30 MG PO HS, (Reported) Morphine Sulfate 100 Mg Tablet.er, 100 MG PO Q12H, (Reported) Ondansetron 8 Mg Tab.rapdis, 8 MG PO Q8H PRN for NAUSEA/VOMITING-1ST LINE, ( Reported) Oxycodone HCl/Acetaminophen 1 Each Tablet, 1 TAB PO Q3H PRN for PAIN-MODERATE, ( Reported) Quetiapine Fumarate 25 Mg Tablet, 25 MG PO HS, (Reported) Sertraline HCl 50 Mg Tablet, 100 MG PO DAILY, (Reported) TAKES 2 (50MG) TABLETS Tamsulosin HCl 0.4 Mg Cap.er.24h, 0.4 MG PO 1800, (Reported) Past Sojblra-Rcevon-Qvkidv Hx Patient Social History Drug of Choice: HX; opiates Type Used: Cigarettes 2nd Hand Smoke Exposure: No Recent Foreign Travel: No Contact w/Someone Who Travel: No Recent Hopitalizations: Yes Immunizations Up To Date Tetanus Booster (TDap): Unknown PED Vaccines UTD: No Seasonal Allergies Seasonal Allergies: No Past Medical History Surgeries: Yes (frequent foot surgeries for plantar warts, I/D) Abdominal, Rectal Respiratory: Yes Chronic Bronchitis Cardiac: Yes Neurological: No Genitourinary: No Gastrointestinal: Yes Musculoskeletal: No Endocrine: No HEENT: No Cancer: Yes Rectal, Lung Did You Recieve Any Treatments: Yes What Type of Treatment Did You: Surgical Intervention Psychosocial: No Integumentary: Yes (plantar warts to bilateral feet) Blood Disorders: No Family Medical History Patient reports no known family medical history. Sepsis Event Evaluation Height, Weight, BMI Height: 6'0" Weight: 186lbs. 8.0oz. 84.520105wa; 25.8 BMI Method:Stated Exam Exam Height & Weight Height: 6'0" Weight: 186lbs. 8.0oz. 84.373426da; 25.8 BMI Method:Stated General Appearance: Moderate Distress, Other (pt is unresponsive with accessory muscle use. ) Neck: Non Tender, Supple Respiratory: Accessory Muscle Use, Decreased Breath Sounds Cardiovascular: Regular Rate, Rhythm, No Edema Capillary Refill: Less Than 3 Seconds Gastrointestinal: normal bowel sounds, non tender, soft Extremity: Normal Capillary Refill, Other (unresponsive. ) Skin: Normal Color, Warm/Dry Lymphatic: No Adenopathy Assessment/Plan Assessment/Plan Acute respiratory failure secondary to narcotic OD -ABG shows acute respiratory acidosis -Repeat ABG in 2hours -Start end tidal C02 monitor -Will place pt on BiPAP. -repeat ABG in 2hours -BIPAP PRN -Check lab Unresponsive secondary to narcotics -S/p Narcan - pt woke up after narcan was given -Start Narcan gtt. Severe sepsis last chemo 10/30 -Tamiflu -Add vancomycin, and zosyn -Velez cultures pending -Give 30cc/kg of IVF extensive metastatic squamous cell anorectal cancer -Dr. 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 I would recommend at least DNR status if not hospice care. MEKA MELENDEZ DO Jan 15, 2019 12:26
[2019-01-15 12:27] LABS: BASOPHILS % (AUTO) 0 % (0-10); EOSINOPHILS # (AUTO) 0.3 10^3/uL (0.0-0.3); EOSINOPHILS % (AUTO) 2 % (0-10); HEMATOCRIT 29 % (40-54); HEMOGLOBIN 8.6 G/DL (13.3-17.7); LYMPHOCYTES # (AUTO) 0.8 X 10^3 (1.0-4.0); LYMPHOCYTES % (AUTO) 5 % (12-44); MEAN CORPUSCULAR HEMOGLOBIN 25 PG (25-34); MEAN CORPUSCULAR HGB CONC 30 G/DL (32-36); MEAN CORPUSCULAR VOLUME 84 FL (80-99); MEAN PLATELET VOLUME 9.8 FL (7.4-10.4); MONOCYTES # (AUTO) 1.2 X 10^3 (0.0-1.0); MONOCYTES % (AUTO) 8 % (0-12); NEUTROPHILS # (AUTO) 14.1 X 10^3 (1.8-7.8); NEUTROPHILS % (AUTO) 86 % (42-75); PLATELET COUNT 263 10^3/uL (130-400); WHITE BLOOD COUNT 16.4 10^3/uL (4.3-11.0)
[2019-01-15] MEDS ORDERED: NALOXONE 2 MG/2 ML (NARCAN) SYR IV PRN ×2 (12:30→12:45)
[2019-01-15 12:43] LABS: ANISOCYTOSIS MODERATE; BAND NEUTROPHILS 13 %; BASOPHILS % (MANUAL) 0 %; EOSINOPHILS % (MANUAL) 3 %; LYMPHOCYTES % (MANUAL) 2 %; MONOCYTES % (MANUAL) 9 %; NEUTROPHILS % (MANUAL) 73 %; TARGET CELLS SLIGHT
[2019-01-15 12:45] LABS: ALBUMIN 2.6 GM/DL (3.2-4.5); BILIRUBIN,DIRECT 0.3 MG/DL (0.0-0.3); BILIRUBIN,INDIRECT 0.1 MG/DL; BILIRUBIN,TOTAL 0.4 MG/DL (0.1-1.0); CALCIUM 8.4 MG/DL (8.5-10.1); CREATININE SERUM 2.21 MG/DL (0.60-1.30); TOTAL PROTEIN 6.9 GM/DL (6.4-8.2)
[2019-01-15 12:45] LABS: AMPHETAMINE SCREEN, URINE NEGATIVE (NEGATIVE); BARBITURATE SCREEN URINE NEGATIVE (NEGATIVE); BENZODIAZEPINES SCREEN URINE POSITIVE (NEGATIVE); CANNABINOID SCREEN, URINE NEGATIVE (NEGATIVE); COCAINE SCREEN URINE NEGATIVE (NEGATIVE); METHADONE STAT NEGATIVE (NEGATIVE); METHAMPHETAMINE SCREEN URINE S NEGATIVE (NEGATIVE); OPIATE SCREEN URINE POSITIVE (NEGATIVE); OXYCODONE STAT POSITIVE (NEGATIVE); PROPOXYPHENE STAT NEGATIVE (NEGATIVE); TRICYCLIC ANTIDEPRESSANTS SCRE NEGATIVE (NEGATIVE)
[2019-01-15] MEDS ORDERED: NALOXONE 0.4 MG/ML 1 ML (NARCAN) VIAL ONE (12:50)
[2019-01-15] MEDS: NALOXONE 0.4 MG/ML 1 ML (NARCAN) VIAL IV PRN ×2 (13:01→15:23)
[2019-01-15] MEDS ORDERED: NALOXONE INJECTION 0.4 MG in NS (IVPB) 99 ML IV SCH (13:15)
[2019-01-15] MEDS ORDERED: PHARMACY TO DOSE IV SCH (13:15)
[2019-01-15] MEDS ORDERED: PIPERACILLIN/TAZOBACTAM (BULK) 4.5 GM in NS (IVPB) 100 ML IV NR (13:28)
[2019-01-15] MEDS ORDERED: NS IV ONE (13:30)
[2019-01-15 13:42] LABS: BILIRUBIN,URINE NEGATIVE (NEGATIVE); CLARITY,URINE CLEAR; COLOR,URINE YELLOW; GLUCOSE, URINE (UA) NEGATIVE (NEGATIVE); KETONES,URINE NEGATIVE (NEGATIVE); LEUKOCYTE ESTERASE ,URINE 1+ (NEGATIVE); NITRITE,URINE NEGATIVE (NEGATIVE); PH,URINE 5 (5-9); PROTEIN,URINE 2+ (NEGATIVE); UROBILINOGEN,URINE NORMAL (NORMAL)
[2019-01-15 13:50] LABS: AMORPHOUS SEDIMENT,UR RARE AMOR URATES /LPF; BACTERIA,URINE NEGATIVE /HPF; RBC,URINE RARE /HPF; WBC,URINE 0-2 /HPF
--- NOTE | 2019-01-15 13:50 | NUR ---
VANCOMYCIN DOSING SCR 2.21; CRCL ~ 44; BOLUS VANC 20 MG/KG X 85 KG ~ 1750 MG THEN 15 MG/KG ~ 1250 MG Q24H CHECK TROUGH LEVEL 01/17 AT 1300 HOLD DOSE AND CONTACT PHARMACY IF LEVEL IS GREATER THAN 20
[2019-01-15] MEDS: OSELTAMIVIR 30 MG (TAMIFLU) CAPSULE PO SCH ×2 (13:58→23:25)
[2019-01-15] MEDS ORDERED: VANCOMYCIN 1,750 MG/NS 500 ML IVPB IV NR ×2 (14:00)
[2019-01-15] MEDS ORDERED: QUET25TA73 PO (14:31)
[2019-01-15] MEDS ORDERED: CLIN150C17 PO (14:31)
[2019-01-15] MEDS ORDERED: SERT50TA9 PO (14:31)
[2019-01-15] MEDS ORDERED: GABA-488 PO (14:31)
[2019-01-15] MEDS ORDERED: FERR325T18 PO (14:31)
[2019-01-15] MEDS ORDERED: TAMS0.4C2 PO (14:31)
[2019-01-15] MEDS ORDERED: AMOX500C2 PO (14:31)
[2019-01-15] MEDS ORDERED: MORP100T37 PO (14:31)
[2019-01-15] MEDS ORDERED: DEXA4TAB PO (14:31)
[2019-01-15] MEDS ORDERED: ALPR1TAB7 PO (14:31)
--- NOTE | 2019-01-15 14:39 | NUR ---
UPDATED MED REC WITH ORDER SUMMARY REPORT FROM [facility].
[2019-01-15 15:04] LABS: ABG OXYGEN SATURATION 95 % (94-100); ABG PCO2 64 MMHG (35-45); ABG PO2 76 MMHG (79-93); ABG TCO2 26.2 MMOL/L (21.0-31.0)
[2019-01-15 15:05] LABS: ALLENS TEST POSITIVE; INSPIRED O2 3 L; PATIENT TEMP 97.8; VENTILATOR NO
[2019-01-15] MEDS: NS IV 1000 ML 1,000 ML IV SCH ×3 (15:24→17:51)
[2019-01-15] MEDS ORDERED: NS IV 1000 ML 1,000 ML IV SCH (16:45)
[2019-01-15] MEDS: NOREPINEPHRINE 4 MG in NS (IVPB) 250 ML IV SCH (16:56)
[2019-01-15 18:03] LABS: ABG BASE EXCESS -3.9 MMOL/L (-2.5-2.5); ABG OXYGEN SATURATION 97 % (94-100); ABG PCO2 62 MMHG (35-45); ABG PO2 94 MMHG (79-93); ABG TCO2 25.1 MMOL/L (21.0-31.0)
[2019-01-15 18:05] LABS: ALLENS TEST POSITIVE; INSPIRED O2 3L; PATIENT TEMP 97.9; VENTILATOR NO
[2019-01-15] MEDS ORDERED: PROPOFOL DRIP (ICU) 100 ML IV ONE (18:28)
--- NOTE | 2019-01-15 18:39 | History & Physicial ---
History of Present Illness History of Present Illness Reason for visit/HPI Patient seen this afternoon the intensive care unit. Patient was not able to verbalize give a history. Patient received narcan and woke up and confused Patient has metastatic anal cancer. L3 metastasis. I received a call from Dr. Dale oncologist that patient was hypotensive and to be admitted to hospital. Patient from the floor is percent up to intensive care unit. Patient has influenza B. Patient has renal insufficiency. Patient confused and unresponsive and unable to give any history Date of Admission Jan 15, 2019 at 11:05 Time Seen by a Provider: 18:34 I consulted on this patient on 01/15/19 18:34 Attending Physician Kem Arias DO Admitting Physician Kem Arias DO Consult Allergies and Home Medications Allergies Coded Allergies: No Known Drug Allergies (Unverified , 10/16/18) Home Medications Alprazolam 1 Mg Tablet, 1 MG PO BID, (Reported) Amoxicillin 500 Mg Capsule, 500 MG PO TID, (Reported) 7 DAY THEARPY START DATE 01-11-19 END DATE 01-18-19 Clindamycin HCl 150 Mg Capsule, 150 MG PO TID, (Reported) 7 DAY THERAPY START DATE 01-11-19 END DATE 01-18-19 Dexamethasone 4 Mg Tablet, 4 MG PO DAILY, (Reported) Ferrous Sulfate 325 Mg Tablet, 325 MG PO DAILY, (Reported) Gabapentin 300 Mg Capsule, 300 MG PO TID, (Reported) Mag Hydrox/Al Hydrox/Simeth 30 Ml Oral.susp, 30 ML PO Q4H PRN for INDIGESTION, ( Reported) Melatonin 5 Mg Tablet, 5 MG PO HS, (Reported) Metoprolol Succinate 25 Mg Tab.er.24h, 25 MG PO DAILY, (Reported) HOLD FOR SBP<100 OR PULSE <60 Mirtazapine 30 Mg Tablet, 30 MG PO HS, (Reported) Morphine Sulfate 100 Mg Tablet.er, 100 MG PO Q12H, (Reported) Ondansetron 8 Mg Tab.rapdis, 8 MG PO Q8H PRN for NAUSEA/VOMITING-1ST LINE, ( Reported) Oxycodone HCl/Acetaminophen 1 Each Tablet, 1 TAB PO Q3H PRN for PAIN-MODERATE, ( Reported) Quetiapine Fumarate 25 Mg Tablet, 25 MG PO HS, (Reported) Sertraline HCl 50 Mg Tablet, 100 MG PO DAILY, (Reported) TAKES 2 (50MG) TABLETS Tamsulosin HCl 0.4 Mg Cap.er.24h, 0.4 MG PO 1800, (Reported) Patient Home Medication List Home Medication List Reviewed: No Past Rxamafu-Qqbvyv-Ahzfsg Hx Patient Social History Alcohol Use: Denies Use Recreational Drug Use: No Drug of Choice: HX; opiates Type Used: Cigarettes 2nd Hand Smoke Exposure: No Physical Abuse Screen: No Sexual Abuse: No Recent Foreign Travel: No Contact w/other who traveled: No Recent Hopitalizations: Yes Immunizations Up To Date Tetanus Booster (TDap): Unknown Pediatric: No Date of Influenza Vaccine: Aug 17, 2018 Seasonal Allergies Seasonal Allergies: No Surgeries Yes (frequent foot surgeries for plantar warts, I/D) Abdominal, Rectal Respiratory Yes COPD Currently Using CPAP: No Currently Using BIPAP: No Cardiovascular Yes Neurological No Genitourinary No Gastrointestinal No Musculoskeletal No Endocrine History of Endocrine Disorders: No HEENT History of HEENT Disorders: No Cancer Yes (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 Review of Systems Constitutional: malaise, weakness, other (Unresponsive and hypotensive) EENTM: no symptoms reported Cardiovascular: no symptoms reported Gastrointestinal: no symptoms reported, other (Has colostomy) Genitourinary: no symptoms reported Physical Exam Vital Signs Vital Signs - First Documented 01/15/19 12:00 Temp 97.4 Pulse 105 Resp 8 B/P (MAP) 91/66 (74) Pulse Ox 100 O2 Delivery Nasal Cannula O2 Flow Rate 3.00 Capillary Refill : Less Than 3 Seconds Height, Weight, BMI Height: 6'0.00" Weight: 188lbs. 2.0oz. 85.828634jm; 25.5 BMI Method:Stated General Appearance: WD/WN, Other (Nonresponsive and unable to give history) HEENT: Normal ENT Inspection Neck: Normal Inspection Respiratory: Normal Breath Sounds, No Accessory Muscle Use, No Respiratory Distress Cardiovascular: Regular Rate, Rhythm, No Murmur Gastrointestinal: Non Tender, Soft Assessment/Plan Assessment and Plan Unresponsive. Hypotensive. Acute respiratory failure. Narcotic overdose. Anal cancer with metastasis. Influenza B. Acute renal failure. Admission Diagnosis Admission Status: Inpatient Order (span 2 midnights) Reason for Inpatient Admission: Patient intensive care unit. Acute respiratory failure. Renal insufficiency acute area Unresponsive. Hypotensive Clinical Quality Measures DVT/VTE Risk/Contraindication: Risk Factor Score Per Nursin RFS Level Per Nursing on Admit: 4+=Very High KEM ARIAS DO Jan 15, 2019 18:39
[2019-01-15] MEDS: PROPOFOL DRIP (ICU) 100 ML IV SCH (18:54)
--- NOTE | 2019-01-15 18:56 | Diagnostic Imaging Report ---
INDICATION: Intubation. FINDINGS: ET tube is above the mayte. Left subclavian at the SVC in good position. OG catheter in the stomach. There is no pneumothorax. Heart size within normal limits. There is some mild perihilar infiltrates or edema greater left unchanged. IMPRESSION: Interval placement for support apparatus in good position. No pneumothorax. Left greater than right perihilar infiltrates or edema unchanged. Dictated by: Dictated on workstation # [id number]
--- NOTE | 2019-01-15 19:00 | NUR ---
Intubation note: 1830 - RT et anesthesia in room 1836 - Pt provided breaths by BMV, sat 100% 1835 - 100 succ given by anesthesia 1838 - pt intubated with 8.0ET, 23 at teeth 1843 - OG placed to LIWS with green liquid draining
[2019-01-15 20:01] LABS: ABG BASE EXCESS -4.5 MMOL/L (-2.5-2.5); ABG OXYGEN SATURATION 99 % (94-100); ABG PCO2 38 MMHG (35-45); ABG PH 7.35 (7.37-7.43); ABG PO2 127 MMHG (79-93); ABG TCO2 21.5 MMOL/L (21.0-31.0)
[2019-01-15 20:02] LABS: ALLENS TEST YES-POS; INSPIRED O2 30%; PATIENT TEMP 97.6; VENTILATOR YES
[2019-01-15] MEDS: ENOXAPARIN 40 MG/0.4 ML (LOVENOX) SYR SC SCH (23:24)
[2019-01-15] MEDS: PIPERACILLIN/TAZOBACTAM (BULK) 4.5 GM in NS (IVPB) 100 ML IV SCH (23:25)
[2019-01-16] VITALS (17 sets, daily range): BP systolic 106–155; BP diastolic 60–92
--- NOTE | 2019-01-16 | CONSULTATION REPORT ---
DATE OF SERVICE: The patient is admitted to ICU bed 8. PRIMARY PHYSICIAN: Kem Arias DO IMPRESSION: 1. 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 2. Status post chemotherapy and radiation using oral Xeloda completed in October 2018. 3. 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 4. Influenza B positive. 5. Mental status changes along with fever, tachycardia and hypotension, rule out sepsis syndrome. 6. Acute renal failure. RECOMMENDATIONS: 1. Continue management of the sepsis syndrome as you are doing with broad spectrum antibiotic coverage, Tamiflu and fluid resuscitation. 2. Await all culture results when available and tailor the antibiotic therapy if necessary. 3. The patient was previously on extended release morphine 100 mg twice daily along with oxycodone 10 mg every 3 to 4 hours p.r.n. for breakthrough pain. He has been on the current dose for several weeks and on narcotic pain medications since the last several months. I doubt if this is the reason for his mental status change. 4. As far as his metastatic cancer is concerned, this is considered not curative and any treatment is palliative in nature. He was waiting to start palliative chemotherapy, but has not started this. 5. Agree with aggressive hydration because of the acute renal failure. Previously, his renal function has been completely normal. Follow this serially. 6. I will follow the patient with you. HISTORY OF PRESENT ILLNESS: The patient is a 48-year-old male, who was diagnosed with squamous cell carcinoma of the anal canal with a perirectal abscess and fistula in July 2018. He was admitted to [facility] to the psychiatric unit, at which time medical oncology and surgical oncology consultations were done. They placed a diverting loop colostomy because of the fistula and he was later transferred to [facility]. He completed a combined chemoradiation with 5-FU and mitomycin-C by October 2018. By late November 2018, he had restaging scans done, which showed evidence of bone metastasis in the lumbar spine causing significant pain. He completed palliative radiation therapy to this area approximately 2 weeks ago. He was seen at the Cancer Center today to discuss about further palliative chemotherapy, but upon arrival, he was found to have altered mental status. He was also hypotensive and tachycardic with temperature of approximately 101 degree Fahrenheit. A nasal swab done at the time of arrival was positive for influenza B. At this point, it was decided to admit him to the hospital under the care of his primary physician. He became more unresponsive on the med-surg floor and was transferred to intensive care unit. PAST MEDICAL HISTORY: Significant for diagnosis of squamous cell carcinoma of the anal canal with metastasis to the bone as mentioned above. Also has a history of hypertension, which is long-standing and has been on treatment for 30 years. No other medical problems. Other surgeries include ankle surgery in the distant past for a fracture. He has undergone a left lung lobectomy a few years ago for a mass, which turned out to be benign. The diverting loop colostomy placement as well as drainage of ischiorectal abscess in late 2018. SOCIAL HISTORY: The patient is single and has a daughter aged 27 years who lives in [place], [place]. He does not have significant contact with her. His siblings live in [place], [place]. 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 Currently, he is on disability. He has significant use of tobacco for 30 years and was smoking a few cigarettes per day now. No significant alcohol or recreational drug use. FAMILY HISTORY: Only significant for hypertension, coronary artery disease and diabetes mellitus in his parents. Several of his siblings have hypertension also. No malignancies in the family that the patient knows of. PHYSICAL EXAMINATION: GENERAL: Today showed middle-aged male, somnolent and barely arousable. VITAL SIGNS: His temperature at the time of examination was 97.8, pulse rate of 86, respirations 10, blood pressure 98/62 with oxygen saturation of 100% by nasal cannula. HEENT: Normocephalic, extraocular muscles intact, conjunctivae slightly pale. Oral mucosa dry. NECK: Supple, with no JVD. No cervical, supraclavicular or axillary lymphadenopathy palpable. CHEST: Showed a right-sided port. LUNGS: Slightly diminished breath sounds bilaterally with a few scattered rhonchi. No wheezes or rales heard. CARDIOVASCULAR: Regular in rate and rhythm. No murmurs or gallops are heard. ABDOMEN: Showed left lower quadrant colostomy present. No hepatosplenomegaly or other masses palpable. The patient has drainage from his perirectal fistula, which is somewhat purulent and serous. EXTREMITIES: Showed trace edema. NEUROLOGIC: Could not be completed as he was somnolent. LABORATORY DATA: CBC done today showed white count of 16.4, hemoglobin 8.6, platelet count 263,000 with neutrophil count of 14.1, lymphocyte count 0.8 and monocyte count 1.2. Chemistry panel showed normal electrolytes. BUN was 30 and creatinine 2.21 with GFR 39 mL per minute. This has been more than 60 mL per minute on 01/09/2019. Liver function studies were normal except for alkaline phosphatase level of 184 and albumin level of 2.6. Chest x-ray done at the time of admission showed patchy airspace infiltrates in the left mid lung suggestive of pneumonia. Nasal swab for influenza was positive for influenza B earlier today at the Cancer [facility]. Thank you for allowing me to participate in this patient's care. I will follow the patient with you and make appropriate recommendations. Job ID: [id number] DocumentID: [id number] Dictated Date: 01/15/2019 17:50:46 Social Services Manager Date: 01/16/2019 00:00:08 Dictated By: SAROJ CHA MD
[2019-01-16] MEDS ORDERED: NS IV 1000 ML 1,000 ML ONE (00:28)
[2019-01-16] MEDS: NS IV 1000 ML 1,000 ML IV SCH ×4 (00:33→14:45)
[2019-01-16] MEDS: NOREPINEPHRINE 4 MG in NS (IVPB) 250 ML IV SCH (02:52)
[2019-01-16] MEDS: PIPERACILLIN/TAZOBACTAM (BULK) 4.5 GM in NS (IVPB) 100 ML IV SCH ×3 (04:10→20:30)
[2019-01-16] MEDS: PROPOFOL DRIP (ICU) 100 ML IV SCH (04:10)
[2019-01-16 04:22] LABS: ABG BASE EXCESS -3.3 MMOL/L (-2.5-2.5); ABG OXYGEN SATURATION 92 % (94-100); ABG PCO2 48 MMHG (35-45); ABG PO2 60 MMHG (79-93); ABG TCO2 23.9 MMOL/L (21.0-31.0)
[2019-01-16 04:23] LABS: ALLENS TEST YES-POS; INSPIRED O2 21%; PATIENT TEMP 97.6; VENTILATOR YES
[2019-01-16 04:24] LABS: BASOPHILS % (AUTO) 0 % (0-10); EOSINOPHILS % (AUTO) 0 % (0-10); HEMATOCRIT 27 % (40-54); HEMOGLOBIN 7.8 G/DL (13.3-17.7); LYMPHOCYTES # (AUTO) 0.7 X 10^3 (1.0-4.0); LYMPHOCYTES % (AUTO) 4 % (12-44); MEAN CORPUSCULAR HEMOGLOBIN 25 PG (25-34); MEAN CORPUSCULAR HGB CONC 29 G/DL (32-36); MEAN CORPUSCULAR VOLUME 84 FL (80-99); MEAN PLATELET VOLUME 9.2 FL (7.4-10.4); MONOCYTES # (AUTO) 0.9 X 10^3 (0.0-1.0); MONOCYTES % (AUTO) 6 % (0-12); NEUTROPHILS # (AUTO) 14.8 X 10^3 (1.8-7.8); NEUTROPHILS % (AUTO) 90 % (42-75); PLATELET COUNT 283 10^3/uL (130-400); RED CELL DISTRIBUTION WIDTH 20.4 % (10.0-14.5); WHITE BLOOD COUNT 16.4 10^3/uL (4.3-11.0)
[2019-01-16 04:25] LABS: ABG PH 7.29 (7.37-7.43)
[2019-01-16 05:12] LABS: CALCIUM 8.8 MG/DL (8.5-10.1); CREATININE SERUM 1.65 MG/DL (0.60-1.30); PHOSPHORUS 6.6 MG/DL (2.3-4.7); POTASSIUM 5.1 MMOL/L (3.6-5.0)
--- NOTE | 2019-01-16 05:47 | Pulmonary Progress Note ---
Subjective Time Seen by a Provider: 05:49 Subjective/Events-last exam PT is sedated on ventilator. Sepsis Event Evaluation Height, Weight, BMI Height: 6'0.00" Weight: 188lbs. 2.0oz. 85.028327uu; 25.5 BMI Method:Stated Exam Exam Vital Signs Date Time Temp Pulse Resp B/P (MAP) Pulse Ox O2 Delivery O2 Flow Rate FiO2 01/16/19 05:00 54 14 109/74 (86) 96 Mechanical Ventilator 21.00 01/16/19 04:10 111/71 01/16/19 04:08 58 14 96 21 01/16/19 04:00 97.6 01/16/19 04:00 98 Mechanical Ventilator 21 01/16/19 04:00 51 18 111/71 (84) 96 Mechanical Ventilator 21.00 01/16/19 03:00 51 14 107/67 (80) 96 Mechanical Ventilator 21.00 01/16/19 02:00 60 14 108/60 (76) 96 Mechanical Ventilator 21.00 01/16/19 01:33 61 14 95 21 01/16/19 01:00 61 01/16/19 01:00 61 13 106/70 (82) 95 Mechanical Ventilator 21.00 01/16/19 00:24 65 14 108/68 (81) 95 Mechanical Ventilator 21.00 01/16/19 00:15 57 14 99 24 01/16/19 00:00 98 Mechanical Ventilator 24 01/16/19 00:00 51 14 109/70 (83) 98 Mechanical Ventilator 24.00 01/16/19 00:00 97.2 01/15/19 23:00 56 14 101/67 (78) 98 Mechanical Ventilator 24.00 01/15/19 22:35 65 14 107/71 (83) 98 Mechanical Ventilator 24.00 01/15/19 22:29 60 14 100 30 01/15/19 22:00 49 13 109/67 (81) 100 Mechanical Ventilator 30.00 01/15/19 21:00 55 14 106/72 (83) 100 Mechanical Ventilator 30.00 01/15/19 20:00 63 14 102/68 (79) 98 Mechanical Ventilator 30.00 01/15/19 20:00 97.1 01/15/19 20:00 98 Mechanical Ventilator 30 01/15/19 19:14 78 14 96 30 01/15/19 19:00 91 01/15/19 19:00 91 9 100/65 (77) 92 Mechanical Ventilator 30.00 01/15/19 18:54 114/87 01/15/19 17:00 81 7 83/61 (68) 100 NIV Bilevel 15.00 5.00 01/15/19 16:00 86 10 98/62 (74) 100 NIV Bilevel 15.00 5.00 01/15/19 16:00 97.8 01/15/19 16:00 97.8 01/15/19 16:00 NIV Bilevel 01/15/19 15:45 88 15 100 40.00 01/15/19 15:09 96 Nasal Cannula 3.00 01/15/19 15:00 92 6 99/62 (74) 95 Nasal Cannula 3.00 01/15/19 14:00 93 7 94/48 (63) 97 Nasal Cannula 3.00 01/15/19 13:00 100 15 107/70 (82) 100 Nasal Cannula 3.00 01/15/19 12:00 97.4 01/15/19 12:00 97.4 01/15/19 12:00 105 8 91/66 (74) 100 Nasal Cannula 3.00 I & O 01/16/19 07:00 Intake Total 5422.54 ml Output Total 800 ml Balance 4622.54 ml Height & Weight Height: 6'0.00" Weight: 188lbs. 2.0oz. 85.797063zi; 25.5 BMI Method:Stated General Appearance: WD/WN, Other (Nonresponsive and unable to give history. pT IS SEDATED ON VENT) HEENT: Normal ENT Inspection Neck: Normal Inspection Respiratory: Normal Breath Sounds, No Accessory Muscle Use, No Respiratory Distress Cardiovascular: Regular Rate, Rhythm, No Murmur Capillary Refill: Less Than 3 Seconds Gastrointestinal: normal bowel sounds, non tender, soft Extremity: Normal Capillary Refill, Other (unresponsive. ) Skin: Normal Color, Warm/Dry Lymphatic: No Adenopathy Results Lab Laboratory Tests 01/16/19 04:06 Assessment/Plan Assessment/Plan Acute respiratory failure secondary to narcotic OD - THERE IS NO OTHER OBVIOUS REASON FOR PT'S SEVERE RESPIRATORY FAILURE THEN RAPID IMPROVEMENT. -Pt is now on ventilator. He was intubated last night secondary to persistent respiratory failure. -D/C propofol and all sedation. Will extubate once pt is fully awake/alert. -Consult hospice for education of FULL CODE VS DNR VS HOSPICE CARE. Unresponsive secondary to narcotics -S/p Narcan - pt woke up after narcan was given -Start Narcan gtt. Severe sepsis last chemo 10/30 -Tamiflu - vancomycin, and Zosyn -Velez cultures pending -S/P 30cc/kg of IVF perihilar atelectasis secondary to sedation and decreased respiratory drive -Increase activity -IS extensive metastatic squamous cell anorectal cancer with mets to lumbar spine. -Dr. 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 -Dr. 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 My recommendation is for at least NO CODE (Chest compression) status. I am consulting hospice to assist family/patient's understanding of hospice vs DNR status. UPDATE 0600: PT EXTUBATED AND DOING WELL. . MEKA MELENDEZ DO Jan 16, 2019 05:47
--- NOTE | 2019-01-16 07:47 | Progress Note (SOAP) ---
Subjective Time Seen by a Provider: 07:47 Subjective/Events-last exam Patient feeling better. Patient off ventilator. Patient talking and communicating. Patient hungry and wants something to eat. Kidney function better Objective Exam Vital Signs Date Time Temp Pulse Resp B/P (MAP) Pulse Ox O2 Delivery O2 Flow Rate FiO2 01/16/19 06:00 107 15 155/90 (111) 95 High Flow N/C 6.00 01/16/19 05:00 54 14 109/74 (86) 96 Mechanical Ventilator 21.00 01/16/19 04:10 111/71 01/16/19 04:08 58 14 96 21 01/16/19 04:00 97.6 01/16/19 04:00 98 Mechanical Ventilator 21 01/16/19 04:00 51 18 111/71 (84) 96 Mechanical Ventilator 21.00 01/16/19 03:00 51 14 107/67 (80) 96 Mechanical Ventilator 21.00 01/16/19 02:00 60 14 108/60 (76) 96 Mechanical Ventilator 21.00 01/16/19 01:33 61 14 95 21 01/16/19 01:00 61 01/16/19 01:00 61 13 106/70 (82) 95 Mechanical Ventilator 21.00 01/16/19 00:24 65 14 108/68 (81) 95 Mechanical Ventilator 21.00 01/16/19 00:15 57 14 99 24 01/16/19 00:00 98 Mechanical Ventilator 24 01/16/19 00:00 51 14 109/70 (83) 98 Mechanical Ventilator 24.00 01/16/19 00:00 97.2 01/15/19 23:00 56 14 101/67 (78) 98 Mechanical Ventilator 24.00 01/15/19 22:35 65 14 107/71 (83) 98 Mechanical Ventilator 24.00 01/15/19 22:29 60 14 100 30 01/15/19 22:00 49 13 109/67 (81) 100 Mechanical Ventilator 30.00 01/15/19 21:00 55 14 106/72 (83) 100 Mechanical Ventilator 30.00 01/15/19 20:00 63 14 102/68 (79) 98 Mechanical Ventilator 30.00 01/15/19 20:00 97.1 01/15/19 20:00 98 Mechanical Ventilator 30 01/15/19 19:14 78 14 96 30 01/15/19 19:00 91 01/15/19 19:00 91 9 100/65 (77) 92 Mechanical Ventilator 30.00 01/15/19 18:54 114/87 01/15/19 17:00 81 7 83/61 (68) 100 NIV Bilevel 15.00 5.00 01/15/19 16:00 86 10 98/62 (74) 100 NIV Bilevel 15.00 5.00 01/15/19 16:00 97.8 01/15/19 16:00 97.8 01/15/19 16:00 NIV Bilevel 01/15/19 15:45 88 15 100 40.00 01/15/19 15:09 96 Nasal Cannula 3.00 01/15/19 15:00 92 6 99/62 (74) 95 Nasal Cannula 3.00 01/15/19 14:00 93 7 94/48 (63) 97 Nasal Cannula 3.00 01/15/19 13:00 100 15 107/70 (82) 100 Nasal Cannula 3.00 01/15/19 12:00 97.4 01/15/19 12:00 97.4 01/15/19 12:00 105 8 91/66 (74) 100 Nasal Cannula 3.00 I & O 01/16/19 07:00 Intake Total 5422.54 ml Output Total 800 ml Balance 4622.54 ml Capillary Refill : Less Than 3 Seconds General Appearance: No Apparent Distress, WD/WN HEENT: Normal ENT Inspection Neck: Full Range of Motion, Normal Inspection Respiratory: Lungs Clear, No Accessory Muscle Use, No Respiratory Distress Cardiovascular: Regular Rate, Rhythm, No Murmur Gastrointestinal: non tender, soft Results Lab Laboratory Tests 01/16/19 04:06 Laboratory Tests 01/15/19 12:05: Urine Color YELLOW, Urine Clarity CLEAR, Urine pH 5, Urine Specific [place] 1.020, Urine Protein 2+H, Urine Glucose (UA) NEGATIVE, Urine Ketones NEGATIVE, Urine Nitrite NEGATIVE, Urine Bilirubin NEGATIVE, Urine Urobilinogen NORMAL, Urine Leukocyte Esterase 1+H, Urine RBC (Auto) NEGATIVE, Urine RBC RARE, Urine WBC 0-2, Urine Crystals PRESENTH, Urine Amorphous Sediment RARE SARI URATESH, Urine Bacteria NEGATIVE, Urine Casts PRESENT, Urine Hyaline Casts 2-5H, Urine Mucus NEGATIVE, Urine Culture Indicated NO, Urine Opiates Screen POSITIVEH, Urine Oxycodone Screen POSITIVEH, Urine Methadone Screen NEGATIVE, Urine Propoxyphene Screen NEGATIVE, Urine Barbiturates Screen NEGATIVE, Ur Tricyclic Antidepressants Screen NEGATIVE, Urine Phencyclidine Screen NEGATIVE, Urine Amphetamines Screen NEGATIVE, Urine Methamphetamines Screen NEGATIVE, Urine Benzodiazepines Screen POSITIVEH, Urine Cocaine Screen NEGATIVE, Urine Cannabinoids Screen NEGATIVE 01/15/19 12:08: Glucometer 113H 01/15/19 12:12: Triglycerides Level 77 01/15/19 14:43: Blood Gas Puncture Site RIGHT RADIAL, Blood Gas Patient Temperature 97.8, Arterial Blood pH 7.20*L, Arterial Blood Partial Pressure CO2 64H, Arterial Blood Partial Pressure O2 76L, Arterial Blood HCO3 24, Arterial Blood Total CO2 26.2, Arterial Blood Oxygen Saturation 95, Arterial Blood Base Excess -3.0L, Sebastian Test POSITIVE, Blood Gas Ventilator Setting NO, Blood Gas Inspired Oxygen 3 L 01/15/19 17:55: Blood Gas Puncture Site RIGHT RADIAL, Blood Gas Patient Temperature 97.9, Arterial Blood pH 7.20*L, Arterial Blood Partial Pressure CO2 62H, Arterial Blood Partial Pressure O2 94H, Arterial Blood HCO3 23, Arterial Blood Total CO2 25.1, Arterial Blood Oxygen Saturation 97, Arterial Blood Base Excess -3.9L, Sebastian Test POSITIVE, Blood Gas Ventilator Setting NO, Blood Gas Inspired Oxygen 3L 01/15/19 19:54: Blood Gas Puncture Site L RAD, Blood Gas Patient Temperature 97.6, Arterial Blood pH 7.35L, Arterial Blood Partial Pressure CO2 38, Arterial Blood Partial Pressure O2 127H, Arterial Blood HCO3 20L, Arterial Blood Total CO2 21.5, Arterial Blood Oxygen Saturation 99, Arterial Blood Base Excess -4.5L, Sebastian Test YES-POS, Blood Gas Ventilator Setting YES, Blood Gas Inspired Oxygen 30% 01/15/19 23:39: Glucometer 144H 01/16/19 04:06: White Blood Count 16.4H, Red Blood Count 3.15L, Hemoglobin 7.8L, Hematocrit 27L , Mean Corpuscular Volume 84, Mean Corpuscular Hemoglobin 25, Mean Corpuscular Hemoglobin Concent 29L, Red Cell Distribution Width 20.4H, Platelet Count 283, Mean Platelet Volume 9.2, Neutrophils (%) (Auto) 90H, Lymphocytes (%) (Auto) 4L , Monocytes (%) (Auto) 6, Eosinophils (%) (Auto) 0, Basophils (%) (Auto) 0, Neutrophils # (Auto) 14.8H, Lymphocytes # (Auto) 0.7L, Monocytes # (Auto) 0.9, Eosinophils # (Auto) 0.0, Basophils # (Auto) 0.0, Sodium Level 140, Potassium Level 5.1H, Chloride Level 110H, Carbon Dioxide Level 21, Anion Gap 9, Blood Urea Nitrogen 34H, Creatinine 1.65H, Estimat Glomerular Filtration Rate 54, BUN/ Creatinine Ratio 21, Glucose Level 108H, Calcium Level 8.8, Phosphorus Level 6.6H, Magnesium Level 2.0 01/16/19 04:15: Blood Gas Puncture Site R RAD, Blood Gas Patient Temperature 97.6, Arterial Blood pH 7.29*L, Arterial Blood Partial Pressure CO2 48H, Arterial Blood Partial Pressure O2 60L, Arterial Blood HCO3 22L, Arterial Blood Total CO2 23.9 , Arterial Blood Oxygen Saturation 92L, Arterial Blood Base Excess -3.3L, Sebastian Test YES-POS, Blood Gas Ventilator Setting YES, Blood Gas Inspired Oxygen 21% Assessment/Plan Assessment/Plan Assess & Plan/Chief Complaint 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 Influenza B. Mental status change. Acute renal failure. Tachycardia. Unresponsive. Perirectal fistula. Patient to go to medical floor today. Sepsis. Opioid overdosage Clinical Quality Measures Admission Status Admission Dx Unresponsive. Hypotensive. Acute respiratory failure. Narcotic overdose. Anal cancer with metastasis. Influenza B. Acute renal failure. DVT/VTE Risk/Contraindication: Risk Factor Score Per Nursin RFS Level Per Nursing on Admit: 4+=Very High JYOTI JULIEN DO Jan 16, 2019 07:47
--- NOTE | 2019-01-16 08:32 | Diagnostic Imaging Report ---
Indication: Ventilator support. Time of exam 3:22 AM Correlation is made with prior study from one day earlier. The heart is enlarged but stable. ET tube and NG tube remain in place. There is some mild right perihilar atelectasis. Otherwise lungs are clear. There is no evidence of failure. No effusion or pneumothorax is seen. Impression: Stable chest with mild right perihilar atelectasis. Dictated by: Dictated on workstation # [id number]
[2019-01-16] MEDS: OSELTAMIVIR 30 MG (TAMIFLU) CAPSULE PO SCH ×2 (09:50→21:38)
--- NOTE | 2019-01-16 11:10 | NUR ---
Pastoral care visit, offered support and prayer.
--- NOTE | 2019-01-16 11:32 | NUR ---
PALLIATIVE CARE RN received a a HOSPICE consult for education. This RN visited with patient and a good friend this morning. We had a long talk about DNR/DNI and what this means. I educated them on hospice and how this works. Patient is currently receiving Palliative radiation and it is not known how many he has left or if they are intended to be continued at all. I educated them on hospice and treatment for CA even Palliative. It would need to be know how many treatments are needed for completion and then it would be up to hospice to decide if they will provide the service prior to completion or wait til Palliative radiation is complete. I spoke with them about a Medical DPOA and a Living will and the need to complete these prior to discharge. I let Debbie know that patient is will to do this.
--- NOTE | 2019-01-16 12:33 | NUR ---
CALL PLACED TO ICU FOR THEM TO TUBE ZOSYN DOWN FOR ADMINISTRATION
--- NOTE | 2019-01-16 12:50 | NUR ---
CALL TO PHARMACY RE: ABDOULAYE
--- NOTE | 2019-01-16 13:47 | NUR ---
call to icu re: ABDOULAYE BEAUCHAMP
[2019-01-16] MEDS ORDERED: VANCOMYCIN 1250 MG/NS 250 ML IVPB IV SCH ×2 (14:00)
[2019-01-16] MEDS ORDERED: NS IV 1000 ML 1,000 ML IV SCH (14:30)
--- NOTE | 2019-01-16 14:34 | Progress Note-Standard ---
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 Influenza B positive. Required aggressive hydration and pressors as well as ventilatory support last night. Cultures pending. Currently on Zosyn and vancomycin. Patient is feeling better with normal blood pressure. He complained of some discomfort in his perirectal area but is not receiving any pain medications. Will DC when necessary Narcan. Continue current management. When he is stable, we will start palliative chemotherapy on an outpatient basis. Will follow patient with you. Focused Exam Lactate Level 01/15/19 12:12: Lactic Acid Level 0.93 SAROJ CHA Jan 16, 2019 14:33
--- NOTE | 2019-01-16 15:51 | NUR ---
Met with pt and 4 of 5 siblings and all live in [place]. Pt is a resident of [facility] and has been a resident for the past 6 months after having surgery for his cancer diagnosis. He is in the process of moving to Independent Living arrangement with caregivers. Advance Directives were completed by pt and he gave all 5 siblings equal ability to make decisions on his behalf but named them in order he wanted contacted and if they weren't available the next in line could make decisions as he has discussed his wishes with siblings. Copies placed in chart and given to siblings and to patient. Pt also stated that he wanted to be a DNR if there was little hope of recovery. He was advised to discuss further with his physician.
--- NOTE | 2019-01-16 17:57 | Wound Care Assessment ---
Wound Care Assessment Date Seen by Provider: Jan 16, 2019 Time Seen by Provider: 17:30 Chief Complaint Perineal ulcerations. HPI The patient is an unfortunate 48 year old male with a superficial ulceration of the R buttock, consistent with Moisture Associated Skin Damage, a deep ulcer of the R anterior perineum, swelling and mass effect in the perianal tissues, and continuous thin fluid drainage from the rectal area, consistent with a vesico- perineal fistula, in a complicated oncologic setting of metastatic squamous cell carcinoma of the anus, diagnosed in the fall. The patient received drainage of an ischio-rectal abscess in October 2018, has been diagnosed with lumbar vertebral metastases, and has received palliative radiation treatments to the spine. He is on regular oral narcotic regimen for pain. The patient states that he has received surgery, chemotherapy and radiation therapy for his primary malignancy. Local care orders are given and I will follow this difficult clinical problem with you. Past Medical History: Admits Cancer, Treaments (Chemoradiation for anal carcinoma with metastasis. To receive palliative chemotherapy.) Smoking Status: Current Everyday Smoker Recreational Drug Use: No Alcohol Use: Denies Use Review of Systems General: Chills HEENT: No Visual Changes Pulmonary: No Dyspnea Cardiovascular: No: Chest Pain Gastrointestinal: Other (Thin fluid draining continuously from perineum); No: Nausea Genitourinary: Other (nagy in place) Musculoskeletal: back pain (Severe, requiring narcotics around the clock) Neurological: Confusion Other systems Integument -- MASD of R lateral buttock, in chronically wet area. Psych- Hx of sedation with narcotics Exam Vital Signs Date Time Temp Pulse Resp B/P (MAP) Pulse Ox O2 Delivery O2 Flow Rate FiO2 01/16/19 15:31 100 Nasal Cannula 3.00 01/16/19 13:06 103 01/16/19 11:35 98.9 20 124/77 (93) 01/16/19 08:00 20 Capillary Refill : Less Than 3 Seconds General Appearance: no apparent distress HEENT: normal ENT inspection Neck: normal inspection Cardiovascular: other (Moderate BLE edema) Respiratory: no respiratory distress, no accessory muscle use Gastrointestinal: non tender, soft Extremities: normal inspection Neurologic/Psychiatric: clothes model II-XII nml as tested, normal mood/affect, oriented x 3 Skin: cool Skin Problem Location: other (Perineum --- Macerated, moist) Results Laboratory Tests 01/15/19 17:55: Blood Gas Puncture Site RIGHT RADIAL, Blood Gas Patient Temperature 97.9, Arterial Blood pH 7.20*L, Arterial Blood Partial Pressure CO2 62H, Arterial Blood Partial Pressure O2 94H, Arterial Blood HCO3 23, Arterial Blood Total CO2 25.1, Arterial Blood Oxygen Saturation 97, Arterial Blood Base Excess -3.9L, Sebastian Test POSITIVE, Blood Gas Ventilator Setting NO, Blood Gas Inspired Oxygen 3L 01/15/19 19:54: Blood Gas Puncture Site L RAD, Blood Gas Patient Temperature 97.6, Arterial Blood pH 7.35L, Arterial Blood Partial Pressure CO2 38, Arterial Blood Partial Pressure O2 127H, Arterial Blood HCO3 20L, Arterial Blood Total CO2 21.5, Arterial Blood Oxygen Saturation 99, Arterial Blood Base Excess -4.5L, Sebastian Test YES-POS, Blood Gas Ventilator Setting YES, Blood Gas Inspired Oxygen 30% 01/15/19 23:39: Glucometer 144H 01/16/19 04:06: White Blood Count 16.4H, Red Blood Count 3.15L, Hemoglobin 7.8L, Hematocrit 27L , Mean Corpuscular Volume 84, Mean Corpuscular Hemoglobin 25, Mean Corpuscular Hemoglobin Concent 29L, Red Cell Distribution Width 20.4H, Platelet Count 283, Mean Platelet Volume 9.2, Neutrophils (%) (Auto) 90H, Lymphocytes (%) (Auto) 4L , Monocytes (%) (Auto) 6, Eosinophils (%) (Auto) 0, Basophils (%) (Auto) 0, Neutrophils # (Auto) 14.8H, Lymphocytes # (Auto) 0.7L, Monocytes # (Auto) 0.9, Eosinophils # (Auto) 0.0, Basophils # (Auto) 0.0, Sodium Level 140, Potassium Level 5.1H, Chloride Level 110H, Carbon Dioxide Level 21, Anion Gap 9, Blood Urea Nitrogen 34H, Creatinine 1.65H, Estimat Glomerular Filtration Rate 54, BUN/ Creatinine Ratio 21, Glucose Level 108H, Calcium Level 8.8, Phosphorus Level 6.6H, Magnesium Level 2.0 01/16/19 04:15: Blood Gas Puncture Site R RAD, Blood Gas Patient Temperature 97.6, Arterial Blood pH 7.29*L, Arterial Blood Partial Pressure CO2 48H, Arterial Blood Partial Pressure O2 60L, Arterial Blood HCO3 22L, Arterial Blood Total CO2 23.9 , Arterial Blood Oxygen Saturation 92L, Arterial Blood Base Excess -3.3L, Sebastian Test YES-POS, Blood Gas Ventilator Setting YES, Blood Gas Inspired Oxygen 21% Microbiology 01/15/19 Gram Stain - Final, Resulted 01/15/19 Sputum Culture - Preliminary, Resulted YEAST 01/15/19 Gram Stain - Final, Resulted 01/15/19 Wound Culture - Preliminary, Resulted See Report Microbiology 01/15/19 Blood Culture - Preliminary, Resulted No growth 01/15/19 Gram Stain - Final, Resulted 01/15/19 Sputum Culture - Preliminary, Resulted YEAST 01/15/19 MRSA Screen - Final, Complete MRSA not isolated 01/15/19 Influenza Types A,B Antigen (BRITTANEY) - Final, Complete 01/15/19 Gram Stain - Final, Resulted 01/15/19 Wound Culture - Preliminary, Resulted See Report Reviewed oncologic history. Assessment/Plan/Dx 1. Moisture Associated Skin Damage, R buttock. 2. Continuous thin fluid draining from rectal are, suggestive of uretero- or vesico-perineal fistula. 3. Advanced squamous cell carcinoma of the anal canal. 4. Perineal edema/induration. Plan: In view of ongoing thin fluid drainage of the perineal area, will begin barrier cream, position on side, and try to limit moisture exposure to perineal skin. WAYNE AYOUB MD Jan 16, 2019 17:56
--- NOTE | 2019-01-16 18:40 | NUR ---
Pt c/o rectal pain, has no orders for pain meds, notified Dr. Arriaga, awaiting results. Pt turned himself from Lt side to Rt side & brought pillows over to side w him, w RN assisting to place pillows, & adjust.
[2019-01-16] MEDS ORDERED: HYDROcodone/APAP 5 MG/325 MG (LORTAB) TAB PO PRN (19:00)
[2019-01-16] MEDS: ENOXAPARIN 40 MG/0.4 ML (LOVENOX) SYR SC SCH (19:14)
[2019-01-16] MEDS ORDERED: HYDROcodone/APAP 5 MG/325 MG (LORTAB) TAB PO NR (19:30)
--- NOTE | 2019-01-16 19:30 | NUR ---
Colostomy bag & wafer were changed completely w/in the hour after pt transferred down from ICU d/t leakage, by studio owner, Doron. Skin was cleansed thoroughly prior to new device changed. The colostomy was again completely changed approx 2 hours later, d/t leakage from under wafer. Pt visited w family members, ate lunch provided, feeding himself. Dr. Arriaga came in & spoke w pt & family, discussed pt dx, prognosis, answered questions. Pt turns himself side to side, bringing pillows along w him, pt calls out for help w turning to place pillows. Pt was frequently c/o rectal pain later this evng, Dr. Arriaga was notified & rec'd orders for pain med. Pt agitated when informed of the pain med & the dosage, stating, "10 mg doesn't even take care of it." Dr. Arriaga was notified, & increased dose, & ordered a 1 x dose of an extra 5 mg, which was given. Instructed pt, & sister that the Dr has to be cautious w the pain med d/t pt's hx of earlier nonresponsiveness, & that had to be given Narcan, & was on Narcan drip while in ICU, along w just recently being extubated. Pt, & sister verbalizes understanding of this. Pt starting to calm down.
[2019-01-17 00:37] VITALS: BP 133/79
[2019-01-17] MEDS: HYDROcodone/APAP 10 MG/325 MG (LORTAB) TAB PO PRN ×4 (01:06→17:52)
--- NOTE | 2019-01-17 04:00 | NUR ---
CALLED DR. CHA AND INFORMED HIM THAT PATIENT HAS HAD A DIFFICULT NIGHT WITH PAIN CONTROL AND THAT CURRENTLY HE WAS FRUSTRATED ASKING TO CALL HIS FAMILY AND HITTING THE BED RAIL COMPLAINING OF PAIN. CONSTANT REPOSITIONING ALL NIGHT HAS NOT BEEN EFFECTIVE FOR LONGER THAN 20MIN AT A TIME. RECEIVED ORDER FOR 3MG IV MORPHINE X1. WILL CONTINUE TO MONITOR.
[2019-01-17] MEDS ORDERED: morphine INJ 4 MG/ML 1 ML (VIAL/SYRINGE) ONE (04:04)
[2019-01-17] MEDS: PIPERACILLIN/TAZOBACTAM (BULK) 4.5 GM in NS (IVPB) 100 ML IV SCH ×3 (04:13→20:39)
[2019-01-17] MEDS ORDERED: morphine INJ 4 MG/ML 1 ML (VIAL/SYRINGE) IVP PRN (04:15)
[2019-01-17 04:45] VITALS: BP 153/93
--- NOTE | 2019-01-17 06:11 | Pulmonary Progress Note ---
Subjective Time Seen by a Provider: 06:14 Subjective/Events-last exam PT appears to be in severe pain. Sepsis Event Evaluation Height, Weight, BMI Height: 6'0.00" Weight: 188lbs. 2.0oz. [id number]; 25.5 BMI Method:Stated Focused Exam Lactate Level 01/15/19 12:12: Lactic Acid Level 0.93 Exam Exam Vital Signs Date Time Temp Pulse Resp B/P (MAP) Pulse Ox O2 Delivery O2 Flow Rate FiO2 01/17/19 04:45 98.2 88 20 153/93 (113) 96 High Flow N/C 3.00 01/17/19 01:00 93 01/17/19 00:37 96.8 95 18 133/79 (97) 96 High Flow N/C 3.00 01/16/19 20:00 97.4 97 16 134/83 (100) 98 High Flow N/C 3.00 01/16/19 20:00 98 High Flow N/C 3.00 01/16/19 19:00 112 01/16/19 18:43 93 01/16/19 16:00 100 High Flow N/C 5.00 20 01/16/19 15:31 100 Nasal Cannula 3.00 01/16/19 13:06 103 01/16/19 12:47 100 Non Rebreather 5.00 01/16/19 11:55 100 High Flow N/C 5.00 20 01/16/19 11:35 98.9 96 20 124/77 (93) 100 High Flow N/C 3.00 01/16/19 11:00 93 15 123/80 (94) 100 High Flow N/C 6.00 01/16/19 10:00 93 10 110/74 (86) 100 High Flow N/C 6.00 01/16/19 09:00 87 12 113/92 (99) 100 High Flow N/C 6.00 01/16/19 08:00 100 High Flow N/C 6.00 20 01/16/19 08:00 74 23 112/69 (83) 100 High Flow N/C 6.00 01/16/19 07:00 82 I & O 01/17/19 07:00 Intake Total 1640 ml Output Total 2950 ml Balance -1310 ml Height & Weight Height: 6'0.00" Weight: 188lbs. 2.0oz. 85.707815yo; 25.5 BMI Method:Stated General Appearance: WD/WN, Moderate Distress HEENT: Normal ENT Inspection Neck: Normal Inspection Respiratory: Normal Breath Sounds, No Accessory Muscle Use, No Respiratory Distress Cardiovascular: Regular Rate, Rhythm, No Murmur Capillary Refill: Less Than 3 Seconds Gastrointestinal: normal bowel sounds, non tender, soft Extremity: Normal Capillary Refill Skin: Normal Color, Warm/Dry Lymphatic: No Adenopathy Results Lab Laboratory Tests 01/15/19 12:12 01/16/19 04:06 Assessment/Plan Assessment/Plan S/p Acute respiratory failure secondary to narcotic OD - improved - pt is high risk for recurrent respiratory failure and secondary to narcotics -Will try to get patient a vent to mask vs BiPAP to help protect airway when sleeping and heavily sedated -I have explained to patient risk of narcotics and respiratory depression -PRN Narcan was d/c'd HOWEVER I STRONGLY RECOMMEND PRN NARCAN FOR WHEN PT BECOMES UNRESPONSIVE UNLESS PT CHOOSES HOSPICE CARE. Pt is still currently a full code. -PRN ABG, cont pulse ox, and continue end tidal C02 -Will order bipap QHS and anytime pt is asleep Severe sepsis last chemo 10/30 -Tamiflu - vancomycin, and Zosyn -Velez cultures pending -S/P 30cc/kg of IVF perihilar atelectasis secondary to sedation and decreased respiratory drive -Increase activity -IS -Start easy pap extensive metastatic squamous cell anorectal cancer with mets to lumbar spine. -Dr. 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 -Dr. 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 My recommendation is for at least NO CODE (Chest compression) status. I am consulting hospice to assist family/patient's understanding of hospice vs DNR status. UPDATE 0600: PT EXTUBATED AND DOING WELL. MEKA MELENDEZ DO Jan 17, 2019 06:11
[2019-01-17] MEDS: NS IV 1000 ML 1,000 ML IV SCH ×3 (06:40→18:12)
[2019-01-17 07:00] LABS: BASOPHILS % (AUTO) 0 % (0-10); EOSINOPHILS # (AUTO) 0.2 10^3/uL (0.0-0.3); EOSINOPHILS % (AUTO) 2 % (0-10); HEMATOCRIT 25 % (40-54); HEMOGLOBIN 7.4 G/DL (13.3-17.7); LYMPHOCYTES # (AUTO) 0.6 X 10^3 (1.0-4.0); LYMPHOCYTES % (AUTO) 6 % (12-44); MEAN CORPUSCULAR HEMOGLOBIN 25 PG (25-34); MEAN CORPUSCULAR HGB CONC 30 G/DL (32-36); MEAN CORPUSCULAR VOLUME 83 FL (80-99); MEAN PLATELET VOLUME 9.7 FL (7.4-10.4); MONOCYTES # (AUTO) 0.9 X 10^3 (0.0-1.0); MONOCYTES % (AUTO) 9 % (0-12); NEUTROPHILS % (AUTO) 83 % (42-75); PLATELET COUNT 256 10^3/uL (130-400); RED CELL DISTRIBUTION WIDTH 20.5 % (10.0-14.5); WHITE BLOOD COUNT 9.7 10^3/uL (4.3-11.0)
[2019-01-17 07:17] LABS: ALANINE AMINOTRANSFERASE 25 U/L (0-55); ALBUMIN 2.3 GM/DL (3.2-4.5); ALKALINE PHOSPHATASE 125 U/L (40-136); BILIRUBIN,TOTAL 0.4 MG/DL (0.1-1.0); BUN/CREATININE RATIO 18; CALCIUM 8.4 MG/DL (8.5-10.1); CARBON DIOXIDE 22 MMOL/L (21-32); CHLORIDE 114 MMOL/L (98-107); CREATININE SERUM 1.34 MG/DL (0.60-1.30); GFR ESTIMATED > 60; GLUCOSE 81 MG/DL (70-105); MAGNESIUM 1.5 MG/DL (1.8-2.4); PHOSPHORUS 2.7 MG/DL (2.3-4.7); POTASSIUM 3.9 MMOL/L (3.6-5.0); SODIUM 143 MMOL/L (135-145); TOTAL PROTEIN 5.6 GM/DL (6.4-8.2)
[2019-01-17 07:47] LABS: BAND NEUTROPHILS 3 %; BASOPHILS % (MANUAL) 0 %; EOSINOPHILS % (MANUAL) 6 %; LYMPHOCYTES % (MANUAL) 3 %; MONOCYTES % (MANUAL) 7 %; NEUTROPHILS % (MANUAL) 81 %; POLYCHROMASIA SLIGHT
[2019-01-17 07:48] LABS: ANISOCYTOSIS SLIGHT; HYPOCHROMASIA SLIGHT; STOMATOCYTES SLIGHT; TARGET CELLS SLIGHT
[2019-01-17 08:00] VITALS: BP 150/85
--- NOTE | 2019-01-17 08:10 | Progress Note (SOAP) ---
Subjective Time Seen by a Provider: 08:05 Subjective/Events-last exam Patient has severe pain this morning area Try to speak to patient about CODE STATUS. All patient could think about would be his pain and wanted relieved. Magnesium 1.5. Patient showed yeast Focused Exam Lactate Level 01/15/19 12:12: Lactic Acid Level 0.93 Objective Exam Vital Signs Date Time Temp Pulse Resp B/P (MAP) Pulse Ox O2 Delivery O2 Flow Rate FiO2 01/17/19 04:45 98.2 88 20 153/93 (113) 96 High Flow N/C 3.00 01/17/19 01:00 93 01/17/19 00:37 96.8 95 18 133/79 (97) 96 High Flow N/C 3.00 01/16/19 20:00 97.4 97 16 134/83 (100) 98 High Flow N/C 3.00 01/16/19 20:00 98 High Flow N/C 3.00 01/16/19 19:00 112 01/16/19 18:43 93 01/16/19 16:00 100 High Flow N/C 5.00 20 01/16/19 15:31 100 Nasal Cannula 3.00 01/16/19 13:06 103 01/16/19 12:47 100 Non Rebreather 5.00 01/16/19 11:55 100 High Flow N/C 5.00 20 01/16/19 11:35 98.9 96 20 124/77 (93) 100 High Flow N/C 3.00 01/16/19 11:00 93 15 123/80 (94) 100 High Flow N/C 6.00 01/16/19 10:00 93 10 110/74 (86) 100 High Flow N/C 6.00 01/16/19 09:00 87 12 113/92 (99) 100 High Flow N/C 6.00 I & O 01/17/19 07:00 Intake Total 1640 ml Output Total 2950 ml Balance -1310 ml Capillary Refill : Less Than 3 Seconds General Appearance: No Apparent Distress, WD/WN HEENT: Normal ENT Inspection Neck: Full Range of Motion, Normal Inspection Respiratory: Lungs Clear, No Accessory Muscle Use, No Respiratory Distress Cardiovascular: Regular Rate, Rhythm Gastrointestinal: non tender, soft Results Lab Laboratory Tests 01/17/19 06:07 Laboratory Tests 01/17/19 06:07: White Blood Count 9.7, Red Blood Count 3.00L, Hemoglobin 7.4L, Hematocrit 25L, Mean Corpuscular Volume 83, Mean Corpuscular Hemoglobin 25, Mean Corpuscular Hemoglobin Concent 30L, Red Cell Distribution Width 20.5H, Platelet Count 256, Mean Platelet Volume 9.7, Neutrophils (%) (Auto) 83H, Lymphocytes (%) (Auto) 6L , Monocytes (%) (Auto) 9, Eosinophils (%) (Auto) 2, Basophils (%) (Auto) 0, Neutrophils # (Auto) 8.0H, Lymphocytes # (Auto) 0.6L, Monocytes # (Auto) 0.9, Eosinophils # (Auto) 0.2, Basophils # (Auto) 0.0, Neutrophils % (Manual) 81, Lymphocytes % (Manual) 3, Monocytes % (Manual) 7, Eosinophils % (Manual) 6, Basophils % (Manual) 0, Band Neutrophils 3, Polychromasia SLIGHT, Hypochromasia SLIGHT, Anisocytosis SLIGHT, Target Cells SLIGHT, Stomatocytes SLIGHT, Sodium Level 143, Potassium Level 3.9, Chloride Level 114H, Carbon Dioxide Level 22, Anion Gap 7, Blood Urea Nitrogen 24H, Creatinine 1.34H, Estimat Glomerular Filtration Rate > 60, BUN/Creatinine Ratio 18, Glucose Level 81, Calcium Level 8.4L, Corrected Calcium 9.8, Phosphorus Level 2.7, Magnesium Level 1.5L, Total Bilirubin 0.4, Aspartate Amino Transf (AST/SGOT) 20, Alanine Aminotransferase ( ALT/SGPT) 25, Alkaline Phosphatase 125, Total Protein 5.6L, Albumin 2.3L Microbiology 01/15/19 Gram Stain - Final, Resulted 01/15/19 Sputum Culture - Preliminary, Resulted YEAST 01/15/19 Gram Stain - Final, Resulted 01/15/19 Wound Culture - Preliminary, Resulted See Report Assessment/Plan Assessment/Plan Assess & Plan/Chief Complaint 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 Influenza B. Mental status change. Acute renal failure. Tachycardia. Unresponsive. Perirectal fistula. Patient to go to medical floor today. Sepsis. Opioid overdosage. . 3 dear 719. Acute respiratory failure. Influenza B. 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 Severe pain. To put patient back on his morphine Clinical Quality Measures Admission Status Admission Dx Unresponsive. Hypotensive. Acute respiratory failure. Narcotic overdose. Anal cancer with metastasis. Influenza B. Acute renal failure. DVT/VTE Risk/Contraindication: Risk Factor Score Per Nursin RFS Level Per Nursing on Admit: 4+=Very High JYOTI JULIEN DO Jan 17, 2019 08:10
[2019-01-17] MEDS ORDERED: MAGNESIUM 1 GM/100 ML IVPB 100 ML IV ONE (08:15)
[2019-01-17] MEDS: morphine ER 100 MG (MS CONTIN) TAB PO SCH ×2 (08:51→20:39)
[2019-01-17] MEDS: GABAPENTIN 300 MG (NEURONTIN) CAP PO SCH ×3 (08:51→20:39)
[2019-01-17] MEDS: DEXAMETHASONE 4 MG TAB (DECADRON) PO SCH (08:52)
[2019-01-17] MEDS: fluCOnazole (DIFLUCAN) 100 MG TAB PO SCH (08:52)
[2019-01-17] MEDS: ZINC OXIDE 16% OINT (BUTT PASTE) 113 GM TUBE TOP PRN (08:55)
[2019-01-17] MEDS: SERTRALINE 50 MG (ZOLOFT) TABLET PO SCH (09:02)
[2019-01-17] MEDS: OSELTAMIVIR 75 MG (TAMIFLU) CAPSULE PO SCH ×2 (09:19→22:10)
--- NOTE | 2019-01-17 11:47 | NUR ---
This PC RN went in to talk with the patient p having spoken to Dr. Sparks. There are significant concerns being voiced about the amount of pain medication needed to control the patients pain. He has already had a need for intubation very likely due to the sedation effects. I attempted to discuss with the patient DNR/DNI. However he does not really appear to understand. Stares at me with a dear in headlight look and just nods head. His CO2 has risen to 55 to 57..and the likelihood that this will continue to rise is great. No family in the room and patient just ask to sleep, dismissing this RN.
[2019-01-17 12:00] VITALS: BP 156/95
[2019-01-17 12:03] LABS: ABG BASE EXCESS -2.6 MMOL/L (-2.5-2.5); ABG OXYGEN SATURATION 97 % (94-100); ABG PCO2 40 MMHG (35-45); ABG PH 7.36 (7.37-7.43); ABG PO2 79 MMHG (79-93); ABG TCO2 23.3 MMOL/L (21.0-31.0)
[2019-01-17 12:08] LABS: ALLENS TEST POSITIVE; PATIENT TEMP 98.4; VENTILATOR NO
[2019-01-17] MEDS ORDERED: TROUGH ORDER-PHARMACY XX NR (13:00)
[2019-01-17 15:21] VITALS: BP 163/93
--- NOTE | 2019-01-17 17:48 | Progress Note-Standard ---
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 Influenza B positive. Required aggressive hydration and pressors as well as ventilatory support last night. Sputum showing yeast and started on Diflucan today. Currently on Zosyn and vancomycin. Patient is feeling better with normal blood pressure. He had significant pain last night and restarted on MS Contin 100 mg twice a day today morning. He is also receiving hydrocodone 10/ 325 mg 1 tablet every 6 hours as needed. The pain is under much better controlled this evening. He is awake and visiting with his data officer and his care team. End tidal CO2 level is in the upper 20s to low 30s during evaluation and in the same range throughout this afternoon per nursing staff. He has been on this stable dose since the last 2-3 weeks without hypersomnolence. He was started on morphine at the time of diagnosis few months ago because of severe pain with the dose gradually titrated as needed. Renal function improving almost to normal level with hydration. No further temperature spikes. I will consult physical therapy for ambulation only. Continue current management. When he is stable, we will start palliative chemotherapy on an outpatient basis. Will follow patient with you. Focused Exam Lactate Level 01/15/19 12:12: Lactic Acid Level 0.93 SAROJ CHA Jan 17, 2019 17:48
[2019-01-17] MEDS: TAMSULOSIN 0.4 MG (FLOMAX) CAP PO SCH (17:52)
[2019-01-17] MEDS: ENOXAPARIN 40 MG/0.4 ML (LOVENOX) SYR SC SCH (18:25)
[2019-01-17 19:34] VITALS: BP 158/96
[2019-01-17] MEDS: QUEtiapine 25 MG (SEROquel) TAB IMMEDIATE RELEASE PO SCH (20:39)
[2019-01-17] MEDS ORDERED: QUETIAPINE FUMARATE 25 MG PO SCH (21:00)
[2019-01-18] VITALS: BP 158/95
[2019-01-18] MEDS: NS IV 1000 ML 1,000 ML IV SCH ×5 (00:26→20:03)
[2019-01-18 04:00] VITALS: BP 153/93
[2019-01-18] MEDS: PIPERACILLIN/TAZOBACTAM (BULK) 4.5 GM in NS (IVPB) 100 ML IV SCH (04:21)
[2019-01-18] MEDS: HYDROcodone/APAP 10 MG/325 MG (LORTAB) TAB PO PRN ×4 (04:30→23:08)
[2019-01-18 04:56] LABS: BASOPHILS % (AUTO) 0 % (0-10); EOSINOPHILS # (AUTO) 0.1 10^3/uL (0.0-0.3); EOSINOPHILS % (AUTO) 1 % (0-10); HEMATOCRIT 26 % (40-54); HEMOGLOBIN 8.3 G/DL (13.3-17.7); LYMPHOCYTES # (AUTO) 0.7 X 10^3 (1.0-4.0); LYMPHOCYTES % (AUTO) 6 % (12-44); MEAN CORPUSCULAR HEMOGLOBIN 26 PG (25-34); MEAN CORPUSCULAR HGB CONC 32 G/DL (32-36); MEAN CORPUSCULAR VOLUME 80 FL (80-99); MONOCYTES # (AUTO) 0.9 X 10^3 (0.0-1.0); MONOCYTES % (AUTO) 8 % (0-12); NEUTROPHILS # (AUTO) 9.7 X 10^3 (1.8-7.8); NEUTROPHILS % (AUTO) 85 % (42-75); PLATELET COUNT 262 10^3/uL (130-400); RED CELL DISTRIBUTION WIDTH 20.3 % (10.0-14.5); WHITE BLOOD COUNT 11.3 10^3/uL (4.3-11.0)
[2019-01-18 05:14] LABS: BUN/CREATININE RATIO 15; CALCIUM 8.8 MG/DL (8.5-10.1); CARBON DIOXIDE 21 MMOL/L (21-32); CHLORIDE 112 MMOL/L (98-107); CREATININE SERUM 1.22 MG/DL (0.60-1.30); GFR ESTIMATED > 60; GLUCOSE 83 MG/DL (70-105); MAGNESIUM 1.6 MG/DL (1.8-2.4); PHOSPHORUS 3.7 MG/DL (2.3-4.7); POTASSIUM 4.6 MMOL/L (3.6-5.0); SODIUM 138 MMOL/L (135-145)
--- NOTE | 2019-01-18 05:51 | Pulmonary Progress Note ---
Subjective Time Seen by a Provider: 06:39 Sepsis Event Evaluation Height, Weight, BMI Height: 6'0.00" Weight: 188lbs. 2.0oz. 85.037730xx; 25.5 BMI Method:Stated Focused Exam Lactate Level 01/15/19 12:12: Lactic Acid Level 0.93 Exam Exam Vital Signs Date Time Temp Pulse Resp B/P (MAP) Pulse Ox O2 Delivery O2 Flow Rate FiO2 01/18/19 04:00 98.6 80 18 153/93 (113) 98 Room Air 01/18/19 01:00 76 01/18/19 00:50 90 16 97 21.00 01/18/19 00:00 98.8 78 18 158/95 (116) 98 Room Air 01/17/19 22:51 92 14 96 21.00 01/17/19 19:34 97.8 80 20 158/96 (116) 97 Room Air 01/17/19 19:00 76 01/17/19 15:21 98.4 71 16 163/93 (116) 100 01/17/19 12:56 84 01/17/19 12:00 97.9 86 10 156/95 (115) 97 Room Air 01/17/19 09:00 98 Room Air 01/17/19 08:00 96.6 96 15 150/85 (106) 100 Room Air 01/17/19 06:58 105 I & O 01/18/19 07:00 Intake Total 1260 ml Output Total 1650 ml Balance -390 ml Height & Weight Height: 6'0.00" Weight: 188lbs. 2.0oz. 85.562795ry; 25.5 BMI Method:Stated General Appearance: WD/WN, Moderate Distress HEENT: Normal ENT Inspection Neck: Normal Inspection Respiratory: Normal Breath Sounds, No Accessory Muscle Use, No Respiratory Distress Cardiovascular: Regular Rate, Rhythm, No Murmur Capillary Refill: Less Than 3 Seconds Gastrointestinal: non tender, soft Extremity: Normal Capillary Refill Skin: Normal Color, Warm/Dry Lymphatic: No Adenopathy Results Lab Laboratory Tests 01/17/19 06:07 01/18/19 04:37 Assessment/Plan Assessment/Plan S/p Acute respiratory failure secondary to narcotic OD - improved - pt is high risk for recurrent respiratory failure and secondary to narcotics/pain control. -Will try to get patient a vent to mask vs BiPAP to help protect airway when sleeping and heavily sedated -I discussed with via [facility] and the are not able to get pt a vent to mask or BIPAP secondary to him living at [facility]. They are not contracted with them. Will ask SW to see if they are contracted with a different DME and possibly be able to get pt a vent to mask vs BIPAP. C02 per ABG on admission is 64 -Monitor for oversedation Severe sepsis last chemo 10/30 -Tamiflu - vancomycin, and Zosyn -Velez cultures pending -S/P 30cc/kg of IVF perihilar atelectasis secondary to sedation and decreased respiratory drive -Increase activity -IS -Start easy pap extensive metastatic squamous cell anorectal cancer with mets to lumbar spine. -Dr. 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 -Dr. 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
--- NOTE | 2019-01-18 07:50 | Progress Note (SOAP) ---
Subjective Time Seen by a Provider: 07:44 Subjective/Events-last exam Patient doing better today. Patient still has pain but tolerating it better. I will speak to patient and family today about CODE STATUS. Patient much improved Focused Exam Lactate Level 01/15/19 12:12: Lactic Acid Level 0.93 Objective Exam Vital Signs Date Time Temp Pulse Resp B/P (MAP) Pulse Ox O2 Delivery O2 Flow Rate FiO2 01/18/19 04:00 98.6 80 18 153/93 (113) 98 Room Air 01/18/19 01:00 76 01/18/19 00:50 90 16 97 21.00 01/18/19 00:00 98.8 78 18 158/95 (116) 98 Room Air 01/17/19 22:51 92 14 96 21.00 01/17/19 19:34 97.8 80 20 158/96 (116) 97 Room Air 01/17/19 19:00 76 01/17/19 15:21 98.4 71 16 163/93 (116) 100 01/17/19 12:56 84 01/17/19 12:00 97.9 86 10 156/95 (115) 97 Room Air 01/17/19 09:00 98 Room Air 01/17/19 08:00 96.6 96 15 150/85 (106) 100 Room Air I & O 01/18/19 07:00 Intake Total 1310 ml Output Total 2400 ml Balance -1090 ml Capillary Refill : Less Than 3 Seconds General Appearance: No Apparent Distress, WD/WN HEENT: Normal ENT Inspection Neck: Full Range of Motion, Normal Inspection Respiratory: Lungs Clear, No Accessory Muscle Use, No Respiratory Distress Cardiovascular: Regular Rate, Rhythm, No Murmur Gastrointestinal: soft Results Lab Laboratory Tests 01/18/19 04:37 Laboratory Tests 01/17/19 11:54: Blood Gas Puncture Site RIGHT RADIAL, Blood Gas Patient Temperature 98.4, Arterial Blood pH 7.36L, Arterial Blood Partial Pressure CO2 40, Arterial Blood Partial Pressure O2 79, Arterial Blood HCO3 22L, Arterial Blood Total CO2 23.3, Arterial Blood Oxygen Saturation 97, Arterial Blood Base Excess -2.6L, Sebastian Test POSITIVE, Blood Gas Ventilator Setting NO, Blood Gas Inspired Oxygen N/A 01/17/19 18:45: Triglycerides Level 100 01/18/19 04:37: White Blood Count 11.3H, Red Blood Count 3.26L, Hemoglobin 8.3L, Hematocrit 26L , Mean Corpuscular Volume 80, Mean Corpuscular Hemoglobin 26, Mean Corpuscular Hemoglobin Concent 32, Red Cell Distribution Width 20.3H, Platelet Count 262, Mean Platelet Volume 10.0, Neutrophils (%) (Auto) 85H, Lymphocytes (%) (Auto) 6L , Monocytes (%) (Auto) 8, Eosinophils (%) (Auto) 1, Basophils (%) (Auto) 0, Neutrophils # (Auto) 9.7H, Lymphocytes # (Auto) 0.7L, Monocytes # (Auto) 0.9, Eosinophils # (Auto) 0.1, Basophils # (Auto) 0.0, Sodium Level 138, Potassium Level 4.6, Chloride Level 112H, Carbon Dioxide Level 21, Anion Gap 5, Blood Urea Nitrogen 18, Creatinine 1.22, Estimat Glomerular Filtration Rate > 60, BUN/ Creatinine Ratio 15, Glucose Level 83, Calcium Level 8.8, Phosphorus Level 3.7, Magnesium Level 1.6L Microbiology 01/15/19 Blood Culture - Preliminary, Resulted No growth 01/15/19 Gram Stain - Final, Complete 01/15/19 Sputum Culture - Final, Complete Usual upper respiratory alan YEAST 01/15/19 Gram Stain - Final, Complete 01/15/19 Wound Culture - Final, Complete See Report Assessment/Plan Assessment/Plan Assess & Plan/Chief Complaint 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 Influenza B. Mental status change. Acute renal failure. Tachycardia. Unresponsive. Perirectal fistula. Patient to go to medical floor today. Sepsis. Opioid overdosage. . 3 dear 719. Acute respiratory failure. Influenza B. 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 Severe pain. To put patient back on his morphine. . 01/18/19. Acute respiratory failure resolved. Influenza B. Narcotic overdose. 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 Perineal fistula. Patient feeling much better today. Patient's pain is much less Clinical Quality Measures Admission Status Admission Dx Unresponsive. Hypotensive. Acute respiratory failure. Narcotic overdose. Anal cancer with metastasis. Influenza B. Acute renal failure. DVT/VTE Risk/Contraindication: Risk Factor Score Per Nursin RFS Level Per Nursing on Admit: 4+=Very High JYOTI JULIEN DO Jan 18, 2019 07:50
[2019-01-18 08:00] VITALS: BP 148/78
[2019-01-18] MEDS: SERTRALINE 50 MG (ZOLOFT) TABLET PO SCH (09:29)
[2019-01-18] MEDS: morphine ER 100 MG (MS CONTIN) TAB PO SCH ×2 (09:29→20:01)
[2019-01-18] MEDS: OSELTAMIVIR 75 MG (TAMIFLU) CAPSULE PO SCH ×2 (09:29→20:57)
[2019-01-18] MEDS: GABAPENTIN 300 MG (NEURONTIN) CAP PO SCH ×3 (09:29→20:56)
[2019-01-18] MEDS: fluCOnazole (DIFLUCAN) 100 MG TAB PO SCH (09:29)
[2019-01-18] MEDS: DEXAMETHASONE 4 MG TAB (DECADRON) PO SCH (09:29)
--- NOTE | 2019-01-18 10:45 | NUR ---
PT AND FAMILY VISITING AT BEDSIDE. PT REQUESTS TO BE DNR STATUS. ALSO REQUESTS TO BE PLACED ON REGULAR MATTRESS AND NOT AIR MATTRESS. DR. JULIEN NOTIFIED AND ORDER REC'D FOR DNR AND REMOVE AIR MATTRESS.
--- NOTE | 2019-01-18 10:50 | NUR ---
LORTAB PO FOR BACKPAIN.
[2019-01-18] MEDS: ZINC OXIDE 16% OINT (BUTT PASTE) 113 GM TUBE TOP PRN ×3 (10:52→23:09)
--- NOTE | 2019-01-18 11:03 | Physician Query Clarification ---
PQ-Further Specificity Admission/Discharge Admission Date: Jan 15, 2019 at 11:05 Discharge Date: The medical record reflects the following clinical scenario: History/Risk Factors: Severe Sepsis Influenza B Clinical Findings:T 97.4, pulse 105, resp 8,BP 91/66, WBC 16.4, Band Neutrophils 13. Positive Influenza B Treatment: Broad spectrum antibiotics (Piperacillin Sod/Tazobactam Sod/Sodium Chloride and Vancomycin HCI), Tamiflu and fluid resuscitation. Question: Can you further specify the etiology of Severe Sepsis per the clinical indicators above? Please document below. 1. Severe sepsis secondary to Influenza B virus. 2. Other site of infection,please specify . 3. Other, with explanation of the clinical findings. 4. Clinically undetermined, no explanation for the clinical findings. PHYSICIAN RESPONSE Can you specify per above: Clinically undetermined In responding to this query, please exercise your independent professional judgment. The purpose of this communication is to more accurately reflect the complexity of your patients condition. The fact that a question is asked does not imply that any particular answer is desired or expected. Thank you for your timely response to this clarification. Requestors name: Marilou Mcallister [facility] Phone # ext [phone] or [phone] THIS PHYSICIAN QUERY FORM IS A PERMANENT PART OF THE MEDICAL RECORD MARILOU MCALLISTER Jan 18, 2019 11:03 JYOTI JULIEN DO Jan 18, 2019 11:36
[2019-01-18 12:00] VITALS: BP 152/91
--- NOTE | 2019-01-18 14:50 | Progress Note-Standard ---
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 Influenza B positive. Required aggressive hydration and pressors as well as ventilatory support first night. Sputum showing yeast and on Diflucan. Currently on Zosyn and vancomycin. Patient is feeling better and is almost back to normal. Pain is under reasonable control and he is on MS Contin 100 mg twice a day with hydrocodone 10/325 mg 1 tablet every 6 hours as needed. He is awake and visiting with his family. There were 4 sisters and a brother in the room at the time of interview. He slept well last night and used the BiPAP machine only for 30-60 minutes. End tidal CO2 level is in the low 30s throughout last night and today even without BiPAP. Blood pressure and pulse back to normal. Renal function improving to normal level with hydration. No further temperature spikes. I will consult physical therapy for ambulation only. Continue current management. When he is stable from medical standpoint, okay to [facility] back to the [facility]. Schedule an appointment at the cancer center within a week to start palliative chemotherapy. I am out of the office for [address] Silva is covering this weekend and Dr. Sanders is covering next week for any problems. SAROJ CHA Jan 18, 2019 14:50
--- NOTE | 2019-01-18 15:53 | NUR ---
Pt has been a resident of [facility] the past 8 months. Received order from Dr. Sparks to explore possible respiratory equipment for pt. [employer] Lost Charge [employer] Clerk not available and will try again on Monday.
[2019-01-18 16:00] VITALS: BP 165/98
[2019-01-18] MEDS: ENOXAPARIN 40 MG/0.4 ML (LOVENOX) SYR SC SCH (17:15)
[2019-01-18] MEDS: AUGMENTIN 875 MG TAB (AMOXICILLIN/CLAVULANATE) PO SCH (17:15)
[2019-01-18] MEDS: TAMSULOSIN 0.4 MG (FLOMAX) CAP PO SCH (17:15)
--- NOTE | 2019-01-18 17:15 | NUR ---
LORTAB 10 PO FOR PAIN.
[2019-01-18 19:40] VITALS: BP 150/104
[2019-01-18] MEDS: QUEtiapine 25 MG (SEROquel) TAB IMMEDIATE RELEASE PO SCH (20:56)
[2019-01-19] VITALS: BP 164/91
[2019-01-19] MEDS: NS IV 1000 ML 1,000 ML IV SCH ×2 (03:07→16:15)
[2019-01-19 04:00] VITALS: BP 143/93
[2019-01-19] MEDS: HYDROcodone/APAP 10 MG/325 MG (LORTAB) TAB PO PRN ×3 (05:29→20:15)
[2019-01-19 05:32] LABS: BASOPHILS % (AUTO) 0 % (0-10); EOSINOPHILS # (AUTO) 0.1 10^3/uL (0.0-0.3); EOSINOPHILS % (AUTO) 1 % (0-10); HEMATOCRIT 25 % (40-54); HEMOGLOBIN 7.6 G/DL (13.3-17.7); LYMPHOCYTES # (AUTO) 0.8 X 10^3 (1.0-4.0); LYMPHOCYTES % (AUTO) 7 % (12-44); MEAN CORPUSCULAR HEMOGLOBIN 25 PG (25-34); MEAN CORPUSCULAR HGB CONC 31 G/DL (32-36); MEAN CORPUSCULAR VOLUME 81 FL (80-99); MEAN PLATELET VOLUME 9.6 FL (7.4-10.4); MONOCYTES # (AUTO) 1.2 X 10^3 (0.0-1.0); MONOCYTES % (AUTO) 10 % (0-12); NEUTROPHILS # (AUTO) 9.7 X 10^3 (1.8-7.8); NEUTROPHILS % (AUTO) 82 % (42-75); PLATELET COUNT 274 10^3/uL (130-400); RED CELL DISTRIBUTION WIDTH 20.5 % (10.0-14.5); WHITE BLOOD COUNT 11.9 10^3/uL (4.3-11.0)
[2019-01-19 05:49] LABS: BUN/CREATININE RATIO 14; CALCIUM 8.3 MG/DL (8.5-10.1); CARBON DIOXIDE 20 MMOL/L (21-32); CHLORIDE 111 MMOL/L (98-107); CREATININE SERUM 1.18 MG/DL (0.60-1.30); GFR ESTIMATED > 60; GLUCOSE 83 MG/DL (70-105); MAGNESIUM 1.6 MG/DL (1.8-2.4); PHOSPHORUS 3.6 MG/DL (2.3-4.7); POTASSIUM 4.5 MMOL/L (3.6-5.0); SODIUM 137 MMOL/L (135-145)
[2019-01-19] MEDS: AUGMENTIN 875 MG TAB (AMOXICILLIN/CLAVULANATE) PO SCH ×2 (06:19→18:17)
--- NOTE | 2019-01-19 07:27 | Pulmonary Progress Note ---
Subjective Time Seen by a Provider: 07:26 Subjective/Events-last exam Pt appears to be doing better. Sepsis Event Evaluation Height, Weight, BMI Height: 6'0.00" Weight: 188lbs. 2.0oz. 85.441327xl; 25.5 BMI Method:Stated Exam Exam Vital Signs Date Time Temp Pulse Resp B/P (MAP) Pulse Ox O2 Delivery O2 Flow Rate FiO2 01/19/19 04:00 98.2 87 18 143/93 (110) 96 Room Air 01/19/19 01:45 99 Room Air 01/19/19 01:00 88 01/19/19 00:00 98.9 88 18 164/91 (115) 98 Room Air 01/18/19 22:30 Room Air 01/18/19 19:50 Room Air 01/18/19 19:40 98.5 84 20 150/104 (119) 100 Room Air 01/18/19 19:00 91 01/18/19 16:00 98.7 99 18 165/98 (120) 98 Room Air 01/18/19 14:24 Room Air 01/18/19 13:04 80 01/18/19 12:00 98.4 80 18 152/91 (111) 96 Room Air 01/18/19 09:00 Room Air 01/18/19 08:00 97.9 77 18 148/78 (101) 97 Room Air I & O 01/19/19 07:00 Intake Total 4850 ml Output Total 1890 ml Balance 2960 ml Height & Weight Height: 6'0.00" Weight: 188lbs. 2.0oz. 85.666886ms; 25.5 BMI Method:Stated General Appearance: No Apparent Distress, WD/WN HEENT: Normal ENT Inspection Neck: Full Range of Motion, Normal Inspection Respiratory: Lungs Clear, No Accessory Muscle Use, No Respiratory Distress Cardiovascular: Regular Rate, Rhythm, No Murmur Capillary Refill: Less Than 3 Seconds Gastrointestinal: soft Extremity: Normal Capillary Refill Skin: Normal Color, Warm/Dry Lymphatic: No Adenopathy Results Lab Laboratory Tests 01/18/19 04:37 01/19/19 05:01 Assessment/Plan Assessment/Plan S/p Acute respiratory failure secondary to narcotic OD - improved - pt is high risk for recurrent respiratory failure and secondary to narcotics/pain control. -Will try to get patient a vent to mask vs BiPAP to help protect airway when sleeping and heavily sedated -I discussed with via [facility] and the are not able to get pt a vent to mask or BIPAP secondary to him living at [facility]. They are not contracted with them. Will ask SW to see if they are contracted with a different DME and possibly be able to get pt a vent to mask vs BIPAP. C02 per ABG on admission is 64 -Monitor for oversedation s/p Severe sepsis last chemo 10/30 -Tamiflu - vancomycin, and Zosyn -Velez cultures pending -S/P 30cc/kg of IVF perihilar atelectasis secondary to sedation and decreased respiratory drive -Increase activity -IS -Start easy pap extensive metastatic squamous cell anorectal cancer with mets to lumbar spine. -Dr. 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 -Dr. 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 I have talked with SW and they are going to try to get pt BiPAP at retirement upon discharge. Currently pt is doing well respiratory lomeli. MEKA MELENDEZ DO Jan 19, 2019 07:27
[2019-01-19] MEDS: morphine ER 100 MG (MS CONTIN) TAB PO SCH ×2 (07:54→20:12)
[2019-01-19] MEDS: GABAPENTIN 300 MG (NEURONTIN) CAP PO SCH ×3 (07:54→21:56)
[2019-01-19] MEDS: SERTRALINE 50 MG (ZOLOFT) TABLET PO SCH (07:55)
[2019-01-19] MEDS: fluCOnazole (DIFLUCAN) 100 MG TAB PO SCH (07:55)
[2019-01-19] MEDS: DEXAMETHASONE 4 MG TAB (DECADRON) PO SCH (07:55)
[2019-01-19] MEDS: OSELTAMIVIR 75 MG (TAMIFLU) CAPSULE PO SCH ×2 (07:55→20:12)
[2019-01-19 08:00] VITALS: BP 171/99
[2019-01-19] MEDS ORDERED: HYDROcodone/APAP 10 MG/325 MG (LORTAB) TAB PO NR (10:15)
--- NOTE | 2019-01-19 11:37 | Progress Note-Standard ---
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 Influenza B positive. Required aggressive hydration and pressors as well as ventilatory support first night. Sputum showing yeast and on Diflucan. Transitioned from Zosyn and vancomycin to Augmentin recently. Mentation is much improved and he is remaining awake and alert throughout the day. He is awake and visiting with 4 family members this morning. Patient complains of worse pain, ranging from 4-5/10 when just having taken pain meds to 10/10 several hours later. He is on MS Contin 100 mg twice a day with hydrocodone 10/ 325 mg 1 tablet every 6 hours as needed, but in practice he takes the hydrocodone scheduled almost exactly every 6 hours. Sleep last night was poor because of the pain. Patient also reports more draining from the fistulas on his buttocks. He also has persistent numbness and occasional mild pain in his right anterolateral thigh. -Mentation has been very stable in the last 24-36 hours. End tidal CO2 remains in the low 30s. Likely cause of mental status changes and respiratory depression was a combination of factors; but I believe it was mostly metabolic encephalopathy from infection since he has recovered so well. -Renal function normalized since yesterday. Appetite and PO intake are adequate. D/C IVF since patient is meeting intake goals and very good urine output. -Pain is poorly controlled, with patient contacting nurse hourly for pain medications 3-4 hours after hydrocodone is given. Since mentation is much improved, we will increase frequency of pain medications, but prioritize use of prn low dose ibuprofen if less than 6 hours before last opiate dose. Will monitor renal function closely. 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 It does not appear purulent. Nursing will notify wound care team for additional care. When he is stable from medical standpoint, okay to discharge back to the shelter. Schedule an appointment at the cancer center within a week to start palliative chemotherapy. Will continue to follow while in hospital. GAVI ELKINS MD Jan 19, 2019 11:37
[2019-01-19 12:00] VITALS: BP 164/87
--- NOTE | 2019-01-19 13:03 | Progress Note-Hospitalist ---
Subjective HPI/CC On Admission Date Seen by Provider: Jan 19, 2019 Time Seen by Provider: 11:45 Subjective/Events-last exam Patient doing much better We'll discontinue telemetry, hep-locked IV fluid and discontinue continuous pulse oximeter Pain is still an issue so we'll change it every 4 hours that he could have's pain pill but that is what brought him to the hospital as an overdose of narcotics so will monitor that closely Will discontinue Rousseau catheter tomorrow Very extensive medical issues Family at the bedside Review of Systems General: Fatigue Objective Exam Vital Signs Vital Signs Date Time Temp Pulse Resp B/P (MAP) Pulse Ox O2 Delivery O2 Flow Rate FiO2 01/19/19 13:07 75 01/19/19 09:46 99 Room Air 01/19/19 08:00 98.5 20 171/99 (123) 01/18/19 00:50 21.00 01/16/19 16:00 20 Capillary Refill : Less Than 3 SecondsLess Than 3 Seconds General Appearance: No Apparent Distress, WD/WN, Chronically ill HEENT: Normal ENT Inspection Neck: Full Range of Motion, Normal Inspection Respiratory: Chest Non Tender, Lungs Clear, Normal Breath Sounds, No Accessory Muscle Use, No Respiratory Distress, Decreased Breath Sounds Cardiovascular: Regular Rate, Rhythm, No Edema, No Murmur Gastrointestinal: Non Tender, Soft Extremity: Normal Capillary Refill Neurologic/Psychiatric: Alert, Oriented x3, No Motor/Sensory Deficits, Normal Mood/Affect Skin: Normal Color, Warm/Dry Lymphatic: No Adenopathy Results/Procedures Lab Laboratory Tests 01/19/19 05:01 Patient resulted labs reviewed. Assessment/Plan Assessment and Plan Assess & Plan/Chief Complaint Assessment: s/p Acute respiratory failure secondary to narcotic OD - improved s/p severe sepsis ATX Metastatic squamous cell anorectal cancer with mets to lumbar spine. 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 s/p acute renal failure Plan: DC Tely Pain control but avoid overdose DC catheter tomorrow Diagnosis/Problems Diagnosis/Problems (1) Acute respiratory failure Status: Resolved Qualifiers: Respiratory failure complication: unspecified whether with hypoxia or hypercapnia Qualified Codes: J96.00 - Acute respiratory failure, unspecified whether with hypoxia or hypercapnia Resolution Date/Time: 01/19/19 @ 13:56 (2) Overdose of opiate or related narcotic Qualifiers: Encounter type: subsequent encounter (3) Anal cancer Status: Chronic (4) Rousseau catheter in place Status: Acute (5) Hypoxia Status: Resolved Resolution Date/Time: 01/19/19 @ 13:56 (6) Influenza Status: Acute (7) Wheezing Status: Acute (8) Acute renal failure Status: Resolved Qualifiers: Acute renal failure type: unspecified Qualified Codes: N17.9 - Acute kidney failure, unspecified (9) Anemia Status: Chronic Qualifiers: Anemia type: other cause Other causes of anemia: other cause, not classified Qualified Codes: D64.89 - Other specified anemias Clinical Quality Measures DVT/VTE Risk/Contraindication: Risk Factor Score Per Nursin RFS Level Per Nursing on Admit: 4+=Very High JEFFREY DOCKERY DO Jan 19, 2019 13:03
[2019-01-19 15:54] VITALS: BP 179/104
[2019-01-19] MEDS: ENOXAPARIN 40 MG/0.4 ML (LOVENOX) SYR SC SCH (18:17)
[2019-01-19] MEDS: IBUPROFEN TABLET 200 MG TAB PO PRN (18:17)
[2019-01-19] MEDS: TAMSULOSIN 0.4 MG (FLOMAX) CAP PO SCH (18:25)
[2019-01-19 19:50] VITALS: BP 172/97
[2019-01-19] MEDS: QUEtiapine 25 MG (SEROquel) TAB IMMEDIATE RELEASE PO SCH (20:12)
[2019-01-20] VITALS (7 sets, daily range): BP systolic 156–178; BP diastolic 88–98
[2019-01-20] MEDS: HYDROcodone/APAP 10 MG/325 MG (LORTAB) TAB PO PRN ×6 (00:15→20:25)
--- NOTE | 2019-01-20 03:00 | NUR ---
Daylight savings in effect at this time.
[2019-01-20] MEDS: AUGMENTIN 875 MG TAB (AMOXICILLIN/CLAVULANATE) PO SCH ×2 (06:19→17:29)
[2019-01-20 06:24] LABS: BASOPHILS % (AUTO) 0 % (0-10); EOSINOPHILS # (AUTO) 0.3 10^3/uL (0.0-0.3); EOSINOPHILS % (AUTO) 2 % (0-10); HEMATOCRIT 25 % (40-54); HEMOGLOBIN 7.8 G/DL (13.3-17.7); LYMPHOCYTES # (AUTO) 0.6 X 10^3 (1.0-4.0); LYMPHOCYTES % (AUTO) 5 % (12-44); MEAN CORPUSCULAR HEMOGLOBIN 25 PG (25-34); MEAN CORPUSCULAR HGB CONC 31 G/DL (32-36); MEAN CORPUSCULAR VOLUME 81 FL (80-99); MEAN PLATELET VOLUME 9.1 FL (7.4-10.4); MONOCYTES # (AUTO) 1.5 X 10^3 (0.0-1.0); MONOCYTES % (AUTO) 13 % (0-12); NEUTROPHILS # (AUTO) 8.8 X 10^3 (1.8-7.8); NEUTROPHILS % (AUTO) 79 % (42-75); PLATELET COUNT 232 10^3/uL (130-400); RED CELL DISTRIBUTION WIDTH 20.2 % (10.0-14.5)
[2019-01-20 06:39] LABS: BUN/CREATININE RATIO 11; CALCIUM 8.5 MG/DL (8.5-10.1); CARBON DIOXIDE 19 MMOL/L (21-32); CHLORIDE 110 MMOL/L (98-107); CREATININE SERUM 1.17 MG/DL (0.60-1.30); GFR ESTIMATED > 60; GLUCOSE 93 MG/DL (70-105); MAGNESIUM 1.4 MG/DL (1.8-2.4); PHOSPHORUS 3.6 MG/DL (2.3-4.7); POTASSIUM 3.9 MMOL/L (3.6-5.0); SODIUM 138 MMOL/L (135-145)
[2019-01-20] MEDS: IBUPROFEN TABLET 200 MG TAB PO PRN (07:20)
[2019-01-20] MEDS: GABAPENTIN 300 MG (NEURONTIN) CAP PO SCH ×3 (08:38→20:24)
[2019-01-20] MEDS: SERTRALINE 50 MG (ZOLOFT) TABLET PO SCH (08:38)
[2019-01-20] MEDS: morphine ER 100 MG (MS CONTIN) TAB PO SCH ×2 (08:38→20:24)
[2019-01-20] MEDS: fluCOnazole (DIFLUCAN) 100 MG TAB PO SCH (08:39)
[2019-01-20] MEDS: DEXAMETHASONE 4 MG TAB (DECADRON) PO SCH (08:39)
--- NOTE | 2019-01-20 10:49 | Progress Note-Standard ---
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 Influenza B positive. Required aggressive hydration and pressors as well as ventilatory support first night. Sputum showing yeast and on Diflucan. Transitioned from Zosyn and vancomycin to Augmentin. Mentation is much improved and he is remaining awake and alert throughout the day. He is alert and oriented this morning. He says pain is much improved although he still has spikes of pain. Ibuprofen did not help at all. He is on MS Contin 100 mg twice a day with hydrocodone 10/325 mg 1 tablet every 4 hours as needed. Patient has persistent copious drainage from the cutaneous fistulas. -Mentation has been very stable in the last 48-72 hours. Likely cause of mental status changes and respiratory depression was a combination of factors; but I believe it was mostly metabolic encephalopathy from infection since he is nearly back to his home regimen of pain medications without mentation changes. -Renal function normalized. Appetite and PO intake are adequate. -Pain is much better controlled but still has frequent periods of uncontrolled pain before his next available dose of hydrocodone. He was taking his breakthrough pain medications every three hours in the skilled facility but is at every four hours currently. Will leave to discretion of primary team. Ibuprofen not effective, will d/c. 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 It does not appear purulent. Nursing will notify wound care team for additional care. When he is stable from medical standpoint, okay to discharge back to the longterm. Schedule an appointment at the cancer center within a week to start palliative chemotherapy. Will continue to follow while in hospital. GAVI ELKINS MD Jan 20, 2019 10:49
--- NOTE | 2019-01-20 12:53 | Progress Note-Hospitalist ---
Subjective HPI/CC On Admission Date Seen by Provider: Jan 20, 2019 Time Seen by Provider: 12:15 Subjective/Events-last exam Patient doing well Is planning on taking a shower We'll discontinue catheter Pain is controlled Left lower lobe crackles remain Tolerating treatment Eating and drinking well Review of Systems General: Fatigue Pulmonary: Cough Objective Exam Vital Signs Vital Signs Date Time Temp Pulse Resp B/P (MAP) Pulse Ox O2 Delivery O2 Flow Rate FiO2 01/20/19 12:00 99.0 95 20 162/88 (112) 97 Room Air 01/18/19 00:50 21.00 01/16/19 16:00 20 Capillary Refill : Less Than 3 SecondsLess Than 3 Seconds General Appearance: No Apparent Distress, WD/WN, Chronically ill HEENT: Normal ENT Inspection Neck: Full Range of Motion, Normal Inspection Respiratory: Chest Non Tender, No Accessory Muscle Use, No Respiratory Distress , Crackles (LLL), Wheezing Cardiovascular: Regular Rate, Rhythm, No Edema, No Murmur Gastrointestinal: Non Tender, Soft Extremity: Normal Capillary Refill Neurologic/Psychiatric: Alert, Oriented x3, No Motor/Sensory Deficits, Normal Mood/Affect Skin: Normal Color, Warm/Dry Lymphatic: No Adenopathy Results/Procedures Lab Laboratory Tests 01/20/19 06:10 Patient resulted labs reviewed. Assessment/Plan Assessment and Plan Assess & Plan/Chief Complaint Assessment: s/p Acute respiratory failure secondary to narcotic OD - improved s/p severe sepsis ATX Metastatic squamous cell anorectal cancer with mets to lumbar spine. 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 s/p acute renal failure resolved Plan: DC Tely Pain control but avoid overdose DC catheter today Shower today Diagnosis/Problems Diagnosis/Problems (1) Acute respiratory failure Status: Resolved Qualifiers: Respiratory failure complication: unspecified whether with hypoxia or hypercapnia Qualified Codes: J96.00 - Acute respiratory failure, unspecified whether with hypoxia or hypercapnia Resolution Date/Time: 01/19/19 @ 13:56 (2) Overdose of opiate or related narcotic Qualifiers: Encounter type: subsequent encounter (3) Anal cancer Status: Chronic (4) Rousseau catheter in place Status: Acute (5) Hypoxia Status: Resolved Resolution Date/Time: 01/19/19 @ 13:56 (6) Influenza Status: Acute (7) Wheezing Status: Acute (8) Acute renal failure Status: Resolved Qualifiers: Acute renal failure type: unspecified Qualified Codes: N17.9 - Acute kidney failure, unspecified (9) Anemia Status: Chronic Qualifiers: Anemia type: other cause Other causes of anemia: other cause, not classified Qualified Codes: D64.89 - Other specified anemias Clinical Quality Measures DVT/VTE Risk/Contraindication: Risk Factor Score Per Nursin RFS Level Per Nursing on Admit: 4+=Very High JEFFREY DOCKERY DO Jan 20, 2019 12:52
[2019-01-20] MEDS: TAMSULOSIN 0.4 MG (FLOMAX) CAP PO SCH (17:29)
[2019-01-20] MEDS: ENOXAPARIN 40 MG/0.4 ML (LOVENOX) SYR SC SCH (18:30)
[2019-01-20] MEDS: QUEtiapine 25 MG (SEROquel) TAB IMMEDIATE RELEASE PO SCH (20:24)
[2019-01-20] MEDS: ZINC OXIDE 16% OINT (BUTT PASTE) 113 GM TUBE TOP PRN (20:25)
[2019-01-21 00:33] VITALS: BP 154/91
[2019-01-21] MEDS: HYDROcodone/APAP 10 MG/325 MG (LORTAB) TAB PO PRN ×6 (00:38→20:19)
[2019-01-21 05:52] LABS: BASOPHILS % (AUTO) 0 % (0-10); EOSINOPHILS # (AUTO) 0.2 10^3/uL (0.0-0.3); EOSINOPHILS % (AUTO) 2 % (0-10); HEMATOCRIT 25 % (40-54); HEMOGLOBIN 7.6 G/DL (13.3-17.7); LYMPHOCYTES # (AUTO) 0.8 X 10^3 (1.0-4.0); LYMPHOCYTES % (AUTO) 7 % (12-44); MEAN CORPUSCULAR HEMOGLOBIN 25 PG (25-34); MEAN CORPUSCULAR HGB CONC 31 G/DL (32-36); MEAN CORPUSCULAR VOLUME 81 FL (80-99); MEAN PLATELET VOLUME 9.7 FL (7.4-10.4); MONOCYTES # (AUTO) 1.4 X 10^3 (0.0-1.0); MONOCYTES % (AUTO) 12 % (0-12); NEUTROPHILS # (AUTO) 9.1 X 10^3 (1.8-7.8); NEUTROPHILS % (AUTO) 79 % (42-75); PLATELET COUNT 239 10^3/uL (130-400); RED CELL DISTRIBUTION WIDTH 20.9 % (10.0-14.5); WHITE BLOOD COUNT 11.5 10^3/uL (4.3-11.0)
[2019-01-21] MEDS: AUGMENTIN 875 MG TAB (AMOXICILLIN/CLAVULANATE) PO SCH ×2 (06:23→17:09)
[2019-01-21 06:27] LABS: BUN/CREATININE RATIO 11; CALCIUM 8.5 MG/DL (8.5-10.1); CARBON DIOXIDE 21 MMOL/L (21-32); CHLORIDE 110 MMOL/L (98-107); CREATININE SERUM 1.07 MG/DL (0.60-1.30); GFR ESTIMATED > 60; GLUCOSE 86 MG/DL (70-105); MAGNESIUM 1.3 MG/DL (1.8-2.4); PHOSPHORUS 3.8 MG/DL (2.3-4.7); SODIUM 139 MMOL/L (135-145)
[2019-01-21] MEDS: morphine ER 100 MG (MS CONTIN) TAB PO SCH ×2 (08:24→20:18)
--- NOTE | 2019-01-21 08:26 | Progress Note (SOAP) ---
Subjective Time Seen by a Provider: 08:22 Subjective/Events-last exam Patient having severe pain today. Patient states he sweating himself with urine front lomeli. Magnesium 1.3. Patient stable will help to be able to discharge tomorrow Objective Exam Vital Signs Date Time Temp Pulse Resp B/P (MAP) Pulse Ox O2 Delivery O2 Flow Rate FiO2 01/21/19 07:17 Room Air 01/21/19 00:33 99.4 94 14 154/91 (112) 100 Room Air 01/20/19 22:52 96 Room Air 01/20/19 20:30 96 Room Air 01/20/19 20:05 99.4 90 21 156/96 (116) 95 Room Air 01/20/19 16:00 98.9 82 18 162/97 (118) 100 Room Air 01/20/19 12:00 99.0 95 20 162/88 (112) 97 Room Air 01/20/19 08:35 96 Room Air I & O 01/21/19 07:00 Intake Total 1200 ml Output Total 1350 ml Balance -150 ml Capillary Refill : Less Than 3 SecondsLess Than 3 Seconds General Appearance: No Apparent Distress, WD/WN HEENT: Normal ENT Inspection Respiratory: No Accessory Muscle Use, No Respiratory Distress Results Lab Laboratory Tests 01/21/19 05:33 Laboratory Tests 01/21/19 05:33: White Blood Count 11.5H, Red Blood Count 3.02L, Hemoglobin 7.6L, Hematocrit 25L , Mean Corpuscular Volume 81, Mean Corpuscular Hemoglobin 25, Mean Corpuscular Hemoglobin Concent 31L, Red Cell Distribution Width 20.9H, Platelet Count 239, Mean Platelet Volume 9.7, Neutrophils (%) (Auto) 79H, Lymphocytes (%) (Auto) 7L , Monocytes (%) (Auto) 12, Eosinophils (%) (Auto) 2, Basophils (%) (Auto) 0, Neutrophils # (Auto) 9.1H, Lymphocytes # (Auto) 0.8L, Monocytes # (Auto) 1.4H, Eosinophils # (Auto) 0.2, Basophils # (Auto) 0.0, Sodium Level 139, Potassium Level 4.0, Chloride Level 110H, Carbon Dioxide Level 21, Anion Gap 8, Blood Urea Nitrogen 12, Creatinine 1.07, Estimat Glomerular Filtration Rate > 60, BUN/ Creatinine Ratio 11, Glucose Level 86, Calcium Level 8.5, Phosphorus Level 3.8, Magnesium Level 1.3L Microbiology 01/15/19 Blood Culture - Final, Complete No growth 01/15/19 Gram Stain - Final, Complete 01/15/19 Sputum Culture - Final, Complete Usual upper respiratory alan YEAST 01/15/19 Gram Stain - Final, Complete 01/15/19 Wound Culture - Final, Complete Mixed Bacterial Alan With Pseudomonas aeruginosa Assessment/Plan Assessment/Plan Assess & Plan/Chief Complaint 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 Influenza B. Mental status change. Acute renal failure. Tachycardia. Unresponsive. Perirectal fistula. Patient to go to medical floor today. Sepsis. Opioid overdosage. . 3 dear 719. Acute respiratory failure. Influenza B. 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 Severe pain. To put patient back on his morphine. . 01/18/19. Acute respiratory failure resolved. Influenza B. Narcotic overdose. 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 Perineal fistula. Patient feeling much better today. Patient's pain is much less. . 01/21/19. Hypomagnesemia. Severe pain. Acute respiratory failure. Sepsis. Squamous cell anorectal cancer. Metastatic cancer. Influenza B. L3 pathological fracture. Acute renal failure. Patient having no feeling when he is urinating. Patient complaining of pain today. Yesterday patient had a good day concerning pain Clinical Quality Measures Admission Status Admission Dx Unresponsive. Hypotensive. Acute respiratory failure. Narcotic overdose. Anal cancer with metastasis. Influenza B. Acute renal failure. DVT/VTE Risk/Contraindication: Risk Factor Score Per Nursin RFS Level Per Nursing on Admit: 4+=Very High JYOTI JULIEN DO Jan 21, 2019 08:25
[2019-01-21 08:44] VITALS: BP 171/98
[2019-01-21 09:45] LABS: BILIRUBIN,URINE NEGATIVE (NEGATIVE); CLARITY,URINE CLEAR; COLOR,URINE YELLOW; GLUCOSE, URINE (UA) NEGATIVE (NEGATIVE); KETONES,URINE NEGATIVE (NEGATIVE); LEUKOCYTE ESTERASE ,URINE NEGATIVE (NEGATIVE); NITRITE,URINE NEGATIVE (NEGATIVE); PH,URINE 5 (5-9); PROTEIN,URINE NEGATIVE (NEGATIVE); UROBILINOGEN,URINE NORMAL (NORMAL)
[2019-01-21 09:55] LABS: BACTERIA,URINE NEGATIVE /HPF; SQUAMOUS EPITHELIAL CELL,UR 0-2 /HPF
[2019-01-21] MEDS: fluCOnazole (DIFLUCAN) 100 MG TAB PO SCH (10:49)
[2019-01-21] MEDS: DEXAMETHASONE 4 MG TAB (DECADRON) PO SCH (10:49)
[2019-01-21] MEDS: MAGNESIUM 1 GM/100 ML IVPB 100 ML IV SCH ×3 (10:50→14:09)
[2019-01-21] MEDS: GABAPENTIN 300 MG (NEURONTIN) CAP PO SCH ×3 (10:50→20:19)
[2019-01-21] MEDS: SERTRALINE 50 MG (ZOLOFT) TABLET PO SCH (10:50)
--- NOTE | 2019-01-21 11:21 | NUR ---
Called Dr. Silva to notify him that patient is requesting something for pain every 2-3 hours and pain has not been rated less than a 6 on pain scale. This RN also states that Hydrocodone is ordered for Q4hr. Dr. Silva states he isnt on for oncology and actually there isnt anyone on for oncology today. However he states that he is okay for patient to have hydrocodone Q3 hours. Called Dr. Arias to report that Dr. Silva okay Hydros at Q3 hrs interval. Dr. Arias states ok. Will carry out orders and continue to monitor.
[2019-01-21 15:51] VITALS: BP 165/93
[2019-01-21] MEDS: TAMSULOSIN 0.4 MG (FLOMAX) CAP PO SCH (17:10)
[2019-01-21] MEDS: ENOXAPARIN 40 MG/0.4 ML (LOVENOX) SYR SC SCH (19:27)
[2019-01-21] MEDS: QUEtiapine 25 MG (SEROquel) TAB IMMEDIATE RELEASE PO SCH (20:19)
[2019-01-22] VITALS: BP 152/94
[2019-01-22] MEDS: HYDROcodone/APAP 10 MG/325 MG (LORTAB) TAB PO PRN ×7 (00:39→20:39)
[2019-01-22 04:37] LABS: BASOPHILS % (AUTO) 0 % (0-10); EOSINOPHILS # (AUTO) 0.1 10^3/uL (0.0-0.3); EOSINOPHILS % (AUTO) 1 % (0-10); HEMATOCRIT 25 % (40-54); HEMOGLOBIN 7.8 G/DL (13.3-17.7); LYMPHOCYTES % (AUTO) 8 % (12-44); MEAN CORPUSCULAR HEMOGLOBIN 25 PG (25-34); MEAN CORPUSCULAR HGB CONC 31 G/DL (32-36); MEAN CORPUSCULAR VOLUME 81 FL (80-99); MEAN PLATELET VOLUME 9.8 FL (7.4-10.4); MONOCYTES # (AUTO) 1.4 X 10^3 (0.0-1.0); MONOCYTES % (AUTO) 11 % (0-12); NEUTROPHILS # (AUTO) 10.3 X 10^3 (1.8-7.8); NEUTROPHILS % (AUTO) 81 % (42-75); PLATELET COUNT 243 10^3/uL (130-400); RED CELL DISTRIBUTION WIDTH 20.7 % (10.0-14.5); WHITE BLOOD COUNT 12.8 10^3/uL (4.3-11.0)
[2019-01-22 04:56] LABS: BUN/CREATININE RATIO 9; CALCIUM 8.9 MG/DL (8.5-10.1); CARBON DIOXIDE 23 MMOL/L (21-32); CHLORIDE 108 MMOL/L (98-107); CREATININE SERUM 1.17 MG/DL (0.60-1.30); GFR ESTIMATED > 60; GLUCOSE 95 MG/DL (70-105); MAGNESIUM 1.8 MG/DL (1.8-2.4); PHOSPHORUS 4.2 MG/DL (2.3-4.7); POTASSIUM 4.3 MMOL/L (3.6-5.0); SODIUM 139 MMOL/L (135-145)
[2019-01-22] MEDS: AUGMENTIN 875 MG TAB (AMOXICILLIN/CLAVULANATE) PO SCH (07:21)
[2019-01-22 07:40] VITALS: BP 170/95
--- NOTE | 2019-01-22 08:06 | Progress Note (SOAP) ---
Subjective Time Seen by a Provider: 08:03 Subjective/Events-last exam Patient's blood pressure elevated today. Patient magnesium normal. Patient to be discharged tomorrow Objective Exam Vital Signs Date Time Temp Pulse Resp B/P (MAP) Pulse Ox O2 Delivery O2 Flow Rate FiO2 01/22/19 07:40 99.2 111 14 170/95 (120) 97 Room Air 01/22/19 00:00 98.6 99 16 152/94 (113) 99 Room Air 01/21/19 20:00 Room Air 01/21/19 15:51 98.0 102 16 165/93 (117) 99 Room Air 01/21/19 08:44 100.0 104 14 171/98 (122) 98 Room Air I & O 01/22/19 07:00 Intake Total 1150 ml Output Total 1100 ml Balance 50 ml Capillary Refill : Less Than 3 SecondsLess Than 3 Seconds General Appearance: No Apparent Distress, WD/WN HEENT: Normal ENT Inspection Neck: Normal Inspection Respiratory: No Accessory Muscle Use, No Respiratory Distress Cardiovascular: Regular Rate, Rhythm, No Murmur Gastrointestinal: non tender, soft Results Lab Laboratory Tests 01/22/19 04:16 Laboratory Tests 01/21/19 09:38: Urine Color YELLOW, Urine Clarity CLEAR, Urine pH 5, Urine Specific [place] 1.015L, Urine Protein NEGATIVE, Urine Glucose (UA) NEGATIVE, Urine Ketones NEGATIVE, Urine Nitrite NEGATIVE, Urine Bilirubin NEGATIVE, Urine Urobilinogen NORMAL, Urine Leukocyte Esterase NEGATIVE, Urine RBC (Auto) 1+H, Urine RBC NONE , Urine WBC NONE, Urine Squamous Epithelial Cells 0-2, Urine Crystals NONE, Urine Bacteria NEGATIVE, Urine Casts NONE, Urine Mucus NEGATIVE, Urine Culture Indicated CULTURE PENDING 01/21/19 18:18: Triglycerides Level 73 01/22/19 04:16: White Blood Count 12.8H, Red Blood Count 3.12L, Hemoglobin 7.8L, Hematocrit 25L , Mean Corpuscular Volume 81, Mean Corpuscular Hemoglobin 25, Mean Corpuscular Hemoglobin Concent 31L, Red Cell Distribution Width 20.7H, Platelet Count 243, Mean Platelet Volume 9.8, Neutrophils (%) (Auto) 81H, Lymphocytes (%) (Auto) 8L , Monocytes (%) (Auto) 11, Eosinophils (%) (Auto) 1, Basophils (%) (Auto) 0, Neutrophils # (Auto) 10.3H, Lymphocytes # (Auto) 1.0, Monocytes # (Auto) 1.4H, Eosinophils # (Auto) 0.1, Basophils # (Auto) 0.0, Sodium Level 139, Potassium Level 4.3, Chloride Level 108H, Carbon Dioxide Level 23, Anion Gap 8, Blood Urea Nitrogen 11, Creatinine 1.17, Estimat Glomerular Filtration Rate > 60, BUN/ Creatinine Ratio 9, Glucose Level 95, Calcium Level 8.9, Phosphorus Level 4.2, Magnesium Level 1.8 Microbiology 01/15/19 Blood Culture - Final, Complete No growth 01/15/19 Gram Stain - Final, Complete 01/15/19 Sputum Culture - Final, Complete Usual upper respiratory alan YEAST 01/15/19 Gram Stain - Final, Complete 01/15/19 Wound Culture - Final, Complete Mixed Bacterial Alan With Pseudomonas aeruginosa Assessment/Plan Assessment/Plan Assess & Plan/Chief Complaint 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 Influenza B. Mental status change. Acute renal failure. Tachycardia. Unresponsive. Perirectal fistula. Patient to go to medical floor today. Sepsis. Opioid overdosage. . 3 dear 719. Acute respiratory failure. Influenza B. 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 Severe pain. To put patient back on his morphine. . 01/18/19. Acute respiratory failure resolved. Influenza B. Narcotic overdose. 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 Perineal fistula. Patient feeling much better today. Patient's pain is much less. . 01/21/19. Hypomagnesemia. Severe pain. Acute respiratory failure. Sepsis. Squamous cell anorectal cancer. Metastatic cancer. Influenza B. L3 pathological fracture. Acute renal failure. Patient having no feeling when he is urinating. Patient complaining of pain today. Yesterday patient had a good day concerning pain. . . . Hypertension put on lisinopril. Hypomagnesemia corrected. Severe pain doing better. Acute respiratory failure. Squamous cell anorectal cancer. Sepsis. Metastatic cancer. Influenza B. Patient to be discharged tomorrow Clinical Quality Measures Admission Status Admission Dx Unresponsive. Hypotensive. Acute respiratory failure. Narcotic overdose. Anal cancer with metastasis. Influenza B. Acute renal failure. DVT/VTE Risk/Contraindication: Risk Factor Score Per Nursin RFS Level Per Nursing on Admit: 4+=Very High JYOTI JULIEN DO Jan 22, 2019 08:06
[2019-01-22] MEDS: DEXAMETHASONE 4 MG TAB (DECADRON) PO SCH (08:46)
[2019-01-22] MEDS: GABAPENTIN 300 MG (NEURONTIN) CAP PO SCH ×3 (08:46→20:18)
[2019-01-22] MEDS: SERTRALINE 50 MG (ZOLOFT) TABLET PO SCH (08:47)
[2019-01-22] MEDS: morphine ER 100 MG (MS CONTIN) TAB PO SCH ×2 (08:48→20:18)
[2019-01-22] MEDS ORDERED: lisINopril 10 MG (PRINIVIL) TABLET PO SCH (09:00)
--- NOTE | 2019-01-22 16:42 | NUR ---
The request for [facility] and will coordinate DME order with Dr. Sparks. Pt states he's ready to return to the residential and [facility] with Presley KRAMER later this week.
[2019-01-22 16:46] VITALS: BP 158/90
--- NOTE | 2019-01-22 18:13 | NUR ---
Called Dr. Arias to report Lactic acid is 1.26 and bp better at 158/90 since giving the lisinopril 10mg this am. No new orders received. Will continue to monitor.
[2019-01-22] MEDS: TAMSULOSIN 0.4 MG (FLOMAX) CAP PO SCH (18:27)
[2019-01-22] MEDS: ENOXAPARIN 40 MG/0.4 ML (LOVENOX) SYR SC SCH (18:28)
[2019-01-22] MEDS: QUEtiapine 25 MG (SEROquel) TAB IMMEDIATE RELEASE PO SCH (20:18)
[2019-01-23] MEDS: HYDROcodone/APAP 10 MG/325 MG (LORTAB) TAB PO PRN ×4 (00:11→10:45)
[2019-01-23 00:30] VITALS: BP 160/94
[2019-01-23 05:37] LABS: BASOPHILS % (AUTO) 0 % (0-10); EOSINOPHILS # (AUTO) 0.2 10^3/uL (0.0-0.3); EOSINOPHILS % (AUTO) 1 % (0-10); HEMATOCRIT 26 % (40-54); HEMOGLOBIN 7.9 G/DL (13.3-17.7); LYMPHOCYTES # (AUTO) 0.8 X 10^3 (1.0-4.0); LYMPHOCYTES % (AUTO) 6 % (12-44); MEAN CORPUSCULAR HEMOGLOBIN 25 PG (25-34); MEAN CORPUSCULAR HGB CONC 31 G/DL (32-36); MEAN CORPUSCULAR VOLUME 82 FL (80-99); MEAN PLATELET VOLUME 9.5 FL (7.4-10.4); MONOCYTES # (AUTO) 1.2 X 10^3 (0.0-1.0); MONOCYTES % (AUTO) 10 % (0-12); NEUTROPHILS # (AUTO) 10.1 X 10^3 (1.8-7.8); NEUTROPHILS % (AUTO) 82 % (42-75); PLATELET COUNT 253 10^3/uL (130-400); WHITE BLOOD COUNT 12.3 10^3/uL (4.3-11.0)
[2019-01-23 06:12] LABS: BUN/CREATININE RATIO 11; CALCIUM 8.9 MG/DL (8.5-10.1); CARBON DIOXIDE 26 MMOL/L (21-32); CHLORIDE 105 MMOL/L (98-107); CREATININE SERUM 1.09 MG/DL (0.60-1.30); GFR ESTIMATED > 60; GLUCOSE 114 MG/DL (70-105); MAGNESIUM 1.4 MG/DL (1.8-2.4); POTASSIUM 4.1 MMOL/L (3.6-5.0); SODIUM 138 MMOL/L (135-145)
[2019-01-23 08:00] VITALS: BP 187/105
--- NOTE | 2019-01-23 08:00 | Progress Note (SOAP) ---
Subjective Time Seen by a Provider: 07:57 Subjective/Events-last exam Patient feeling better today. Patient has no complaints. Patient be discharged today. [facility] Focused Exam Lactate Level 01/22/19 16:55: Lactic Acid Level 1.26 Objective Exam Vital Signs Date Time Temp Pulse Resp B/P (MAP) Pulse Ox O2 Delivery O2 Flow Rate FiO2 01/23/19 00:30 99.0 99 20 160/94 (116) 97 Room Air 01/22/19 20:00 Room Air 01/22/19 19:32 96 Room Air 01/22/19 16:46 97.5 105 16 158/90 (112) 98 Room Air 01/22/19 08:00 Room Air I & O 01/23/19 07:00 Intake Total 1388 ml Output Total 1600 ml Balance -212 ml Capillary Refill : Less Than 3 SecondsLess Than 3 Seconds General Appearance: No Apparent Distress, WD/WN HEENT: Normal ENT Inspection Neck: Full Range of Motion, Normal Inspection Respiratory: Lungs Clear, Normal Breath Sounds, No Accessory Muscle Use, No Respiratory Distress Cardiovascular: Regular Rate, Rhythm Gastrointestinal: non tender, soft Results Lab Laboratory Tests 01/23/19 05:25 Laboratory Tests 01/22/19 16:55: Lactic Acid Level 1.26 01/23/19 05:25: White Blood Count 12.3H, Red Blood Count 3.12L, Hemoglobin 7.9L, Hematocrit 26L , Mean Corpuscular Volume 82, Mean Corpuscular Hemoglobin 25, Mean Corpuscular Hemoglobin Concent 31L, Red Cell Distribution Width 21.0H, Platelet Count 253, Mean Platelet Volume 9.5, Neutrophils (%) (Auto) 82H, Lymphocytes (%) (Auto) 6L , Monocytes (%) (Auto) 10, Eosinophils (%) (Auto) 1, Basophils (%) (Auto) 0, Neutrophils # (Auto) 10.1H, Lymphocytes # (Auto) 0.8L, Monocytes # (Auto) 1.2H, Eosinophils # (Auto) 0.2, Basophils # (Auto) 0.0, Sodium Level 138, Potassium Level 4.1, Chloride Level 105, Carbon Dioxide Level 26, Anion Gap 7, Blood Urea Nitrogen 12, Creatinine 1.09, Estimat Glomerular Filtration Rate > 60, BUN/ Creatinine Ratio 11, Glucose Level 114H, Calcium Level 8.9, Magnesium Level 1.4L Microbiology 01/15/19 Blood Culture - Final, Complete No growth 01/15/19 Gram Stain - Final, Complete 01/15/19 Sputum Culture - Final, Complete Usual upper respiratory alan YEAST 01/21/19 Urine Culture - Final, Complete NO GROWTH 01/15/19 Gram Stain - Final, Complete 01/15/19 Wound Culture - Final, Complete Mixed Bacterial Alan With Pseudomonas aeruginosa Assessment/Plan Assessment/Plan Assess & Plan/Chief Complaint 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 Influenza B. Mental status change. Acute renal failure. Tachycardia. Unresponsive. Perirectal fistula. Patient to go to medical floor today. Sepsis. Opioid overdosage. . 3 dear 719. Acute respiratory failure. Influenza B. 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 Severe pain. To put patient back on his morphine. . 01/18/19. Acute respiratory failure resolved. Influenza B. Narcotic overdose. 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 Perineal fistula. Patient feeling much better today. Patient's pain is much less. . 01/21/19. Hypomagnesemia. Severe pain. Acute respiratory failure. Sepsis. Squamous cell anorectal cancer. Metastatic cancer. Influenza B. L3 pathological fracture. Acute renal failure. Patient having no feeling when he is urinating. Patient complaining of pain today. Yesterday patient had a good day concerning pain. . . Hypertension put on lisinopril. Hypomagnesemia corrected. Severe pain doing better. Acute respiratory failure. Squamous cell anorectal cancer. Sepsis. Metastatic cancer. Influenza B. Patient to be discharged tomorrow. . 01/23/19. Hypertension on lisinopril. Hypomagnesemia. Pain is doing better. Acute respiratory failure resolved. Squamous cell anorectal cancer. Sepsis. Metastatic cancer. Influenza B. Patient to be discharged today to be seen in the office in one week Clinical Quality Measures Admission Status Admission Dx Unresponsive. Hypotensive. Acute respiratory failure. Narcotic overdose. Anal cancer with metastasis. Influenza B. Acute renal failure. DVT/VTE Risk/Contraindication: Risk Factor Score Per Nursin RFS Level Per Nursing on Admit: 4+=Very High JYOTI JULIEN DO Jan 23, 2019 08:00
[2019-01-23] MEDS: MAGNESIUM 1 GM/100 ML IVPB 100 ML IV SCH ×3 (08:32→10:45)
[2019-01-23] MEDS: morphine ER 100 MG (MS CONTIN) TAB PO SCH (08:32)
[2019-01-23] MEDS: DEXAMETHASONE 4 MG TAB (DECADRON) PO SCH (08:33)
[2019-01-23] MEDS: GABAPENTIN 300 MG (NEURONTIN) CAP PO SCH ×2 (08:33→13:05)
[2019-01-23] MEDS: SERTRALINE 50 MG (ZOLOFT) TABLET PO SCH (08:33)
[2019-01-23] MEDS ORDERED: lisINopril 20 MG (PRINIVIL) TABLET PO SCH (09:00)
[2019-01-23] MEDS ORDERED: LISI-552 PO (11:51)
[2019-01-23 14:44] VITALS: BP 187/105
--- NOTE | 2019-01-23 15:21 | NUR ---
Arrangements completed for pt to return to [facility] for continued care. Pt next scheduled appt.is for chemotherapy teaching on January 31 with Presley KRAMER. Provided staff from [facility] and [facility] recent physician progress notes,Discharge ordes, consultation reports, and History and Physical. Pt was pleased with discharge plan.
--- NOTE | 2019-01-24 07:11 | Discharge Summary ---
Diagnosis/Chief Complaint Date of Admission Jan 15, 2019 at 11:05 Date of Discharge Jan 23, 2019 at 14:53 Discharge Time: 07:08 Discharge Diagnosis Unresponsive. Hypotension. Acute respiratory failure. Narcotic overdose. Influenza be. Acute renal failure. 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 Perirectal fistula. 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 Influenza be. Mental status change. Fever. Sepsis. Tachycardia. Hypotension. Anemia. Hypertension. DO NOT RESUSCITATE Reason Hospital Visit Patient seen this afternoon the intensive care unit. Patient was not able to verbalize give a history. Patient received narcan and woke up and confused Patient has metastatic anal cancer. L3 metastasis. I received a call from Dr. Dale oncologist that patient was hypotensive and to be admitted to hospital. Patient from the floor is percent up to intensive care unit. Patient has influenza B. Patient has renal insufficiency. Patient confused and unresponsive and unable to give any history Discharge Summary Consultations Wound care. Oncology. Pulmonology Discharge Physical Examination Allergies: Coded Allergies: No Known Drug Allergies (Unverified , 10/16/18) Vitals & I&Os Vital Signs Date Time Temp Pulse Resp B/P (MAP) Pulse Ox O2 Delivery O2 Flow Rate FiO2 01/23/19 14:44 101 18 187/105 96 Room Air 01/23/19 08:00 99.7 01/18/19 00:50 21.00 Hospital Course Labs (last 24 hrs) Laboratory Tests 01/15/19 11:05: Lab Scanned Report Referred Lab Report 01/15/19 11:45: Blood Gas Puncture Site RIGHT BRACHIAL, Blood Gas Patient Temperature 97.4, Arterial Blood pH 7.24*L, Arterial Blood Partial Pressure CO2 61H, Arterial Blood Partial Pressure O2 95H, Arterial Blood HCO3 26, Arterial Blood Total CO2 27.8, Arterial Blood Oxygen Saturation 98, Arterial Blood Base Excess -0.7, Sebastian Test POSITIVE, Blood Gas Ventilator Setting NO, Blood Gas Inspired Oxygen 5 L 01/15/19 12:05: Urine Color YELLOW, Urine Clarity CLEAR, Urine pH 5, Urine Specific [place] 1.020, Urine Protein 2+H, Urine Glucose (UA) NEGATIVE, Urine Ketones NEGATIVE, Urine Nitrite NEGATIVE, Urine Bilirubin NEGATIVE, Urine Urobilinogen NORMAL, Urine Leukocyte Esterase 1+H, Urine RBC (Auto) NEGATIVE, Urine RBC RARE, Urine WBC 0-2, Urine Crystals PRESENTH, Urine Amorphous Sediment RARE SARI URATESH, Urine Bacteria NEGATIVE, Urine Casts PRESENT, Urine Hyaline Casts 2-5H, Urine Mucus NEGATIVE, Urine Culture Indicated NO, Urine Opiates Screen POSITIVEH, Urine Oxycodone Screen POSITIVEH, Urine Methadone Screen NEGATIVE, Urine Propoxyphene Screen NEGATIVE, Urine Barbiturates Screen NEGATIVE, Ur Tricyclic Antidepressants Screen NEGATIVE, Urine Phencyclidine Screen NEGATIVE, Urine Amphetamines Screen NEGATIVE, Urine Methamphetamines Screen NEGATIVE, Urine Benzodiazepines Screen POSITIVEH, Urine Cocaine Screen NEGATIVE, Urine Cannabinoids Screen NEGATIVE 01/15/19 12:08: Glucometer 113H 01/15/19 12:12: White Blood Count 16.4H, Red Blood Count 3.39L, Hemoglobin 8.6L, Hematocrit 29L , Mean Corpuscular Volume 84, Mean Corpuscular Hemoglobin 25, Mean Corpuscular Hemoglobin Concent 30L, Red Cell Distribution Width 21.0H, Platelet Count 263, Mean Platelet Volume 9.8, Neutrophils (%) (Auto) 86H, Lymphocytes (%) (Auto) 5L , Monocytes (%) (Auto) 8, Eosinophils (%) (Auto) 2, Basophils (%) (Auto) 0, Neutrophils # (Auto) 14.1H, Lymphocytes # (Auto) 0.8L, Monocytes # (Auto) 1.2H, Eosinophils # (Auto) 0.3, Basophils # (Auto) 0.0, Neutrophils % (Manual) 73, Lymphocytes % (Manual) 2, Monocytes % (Manual) 9, Eosinophils % (Manual) 3, Basophils % (Manual) 0, Band Neutrophils 13, Anisocytosis MODERATE, Target Cells SLIGHT, Sodium Level 140, Potassium Level 5.0, Chloride Level 106, Carbon Dioxide Level 25, Anion Gap 9, Blood Urea Nitrogen 30H, Creatinine 2.21H, Estimat Glomerular Filtration Rate 39, BUN/Creatinine Ratio 14, Glucose Level 104, Lactic Acid Level 0.93, Calcium Level 8.4L, Corrected Calcium 9.5, Total Bilirubin 0.4, Direct Bilirubin 0.3, Indirect Bilirubin 0.1, Aspartate Amino Transf (AST/SGOT) 29, Alanine Aminotransferase (ALT/SGPT) 44, Alkaline Phosphatase 184H, Total Protein 6.9, Albumin 2.6L, Triglycerides Level 77 01/15/19 14:43: Blood Gas Puncture Site RIGHT RADIAL, Blood Gas Patient Temperature 97.8, Arterial Blood pH 7.20*L, Arterial Blood Partial Pressure CO2 64H, Arterial Blood Partial Pressure O2 76L, Arterial Blood HCO3 24, Arterial Blood Total CO2 26.2, Arterial Blood Oxygen Saturation 95, Arterial Blood Base Excess -3.0L, Sebastian Test POSITIVE, Blood Gas Ventilator Setting NO, Blood Gas Inspired Oxygen 3 L 01/15/19 17:55: Blood Gas Puncture Site RIGHT RADIAL, Blood Gas Patient Temperature 97.9, Arterial Blood pH 7.20*L, Arterial Blood Partial Pressure CO2 62H, Arterial Blood Partial Pressure O2 94H, Arterial Blood HCO3 23, Arterial Blood Total CO2 25.1, Arterial Blood Oxygen Saturation 97, Arterial Blood Base Excess -3.9L, Sebastian Test POSITIVE, Blood Gas Ventilator Setting NO, Blood Gas Inspired Oxygen 3L 01/15/19 19:54: Blood Gas Puncture Site L RAD, Blood Gas Patient Temperature 97.6, Arterial Blood pH 7.35L, Arterial Blood Partial Pressure CO2 38, Arterial Blood Partial Pressure O2 127H, Arterial Blood HCO3 20L, Arterial Blood Total CO2 21.5, Arterial Blood Oxygen Saturation 99, Arterial Blood Base Excess -4.5L, Sebastian Test YES-POS, Blood Gas Ventilator Setting YES, Blood Gas Inspired Oxygen 30% 01/15/19 23:39: Glucometer 144H 01/16/19 04:06: White Blood Count 16.4H, Red Blood Count 3.15L, Hemoglobin 7.8L, Hematocrit 27L , Mean Corpuscular Volume 84, Mean Corpuscular Hemoglobin 25, Mean Corpuscular Hemoglobin Concent 29L, Red Cell Distribution Width 20.4H, Platelet Count 283, Mean Platelet Volume 9.2, Neutrophils (%) (Auto) 90H, Lymphocytes (%) (Auto) 4L , Monocytes (%) (Auto) 6, Eosinophils (%) (Auto) 0, Basophils (%) (Auto) 0, Neutrophils # (Auto) 14.8H, Lymphocytes # (Auto) 0.7L, Monocytes # (Auto) 0.9, Eosinophils # (Auto) 0.0, Basophils # (Auto) 0.0, Sodium Level 140, Potassium Level 5.1H, Chloride Level 110H, Carbon Dioxide Level 21, Anion Gap 9, Blood Urea Nitrogen 34H, Creatinine 1.65H, Estimat Glomerular Filtration Rate 54, BUN/ Creatinine Ratio 21, Glucose Level 108H, Calcium Level 8.8, Phosphorus Level 6.6H, Magnesium Level 2.0 01/16/19 04:15: Blood Gas Puncture Site R RAD, Blood Gas Patient Temperature 97.6, Arterial Blood pH 7.29*L, Arterial Blood Partial Pressure CO2 48H, Arterial Blood Partial Pressure O2 60L, Arterial Blood HCO3 22L, Arterial Blood Total CO2 23.9 , Arterial Blood Oxygen Saturation 92L, Arterial Blood Base Excess -3.3L, Sebastian Test YES-POS, Blood Gas Ventilator Setting YES, Blood Gas Inspired Oxygen 21% 01/17/19 06:07: White Blood Count 9.7, Red Blood Count 3.00L, Hemoglobin 7.4L, Hematocrit 25L, Mean Corpuscular Volume 83, Mean Corpuscular Hemoglobin 25, Mean Corpuscular Hemoglobin Concent 30L, Red Cell Distribution Width 20.5H, Platelet Count 256, Mean Platelet Volume 9.7, Neutrophils (%) (Auto) 83H, Lymphocytes (%) (Auto) 6L , Monocytes (%) (Auto) 9, Eosinophils (%) (Auto) 2, Basophils (%) (Auto) 0, Neutrophils # (Auto) 8.0H, Lymphocytes # (Auto) 0.6L, Monocytes # (Auto) 0.9, Eosinophils # (Auto) 0.2, Basophils # (Auto) 0.0, Sodium Level 143, Potassium Level 3.9, Chloride Level 114H, Carbon Dioxide Level 22, Anion Gap 7, Blood Urea Nitrogen 24H, Creatinine 1.34H, Estimat Glomerular Filtration Rate > 60, BUN/Creatinine Ratio 18, Glucose Level 81, Calcium Level 8.4L, Phosphorus Level 2.7, Magnesium Level 1.5L, Neutrophils % (Manual) 81, Lymphocytes % (Manual) 3, Monocytes % (Manual) 7, Eosinophils % (Manual) 6, Basophils % (Manual) 0, Band Neutrophils 3, Polychromasia SLIGHT, Hypochromasia SLIGHT, Anisocytosis SLIGHT, Target Cells SLIGHT, Stomatocytes SLIGHT, Corrected Calcium 9.8, Total Bilirubin 0.4, Aspartate Amino Transf (AST/SGOT) 20, Alanine Aminotransferase ( ALT/SGPT) 25, Alkaline Phosphatase 125, Total Protein 5.6L, Albumin 2.3L 01/17/19 11:54: Blood Gas Puncture Site RIGHT RADIAL, Blood Gas Patient Temperature 98.4, Arterial Blood pH 7.36L, Arterial Blood Partial Pressure CO2 40, Arterial Blood Partial Pressure O2 79, Arterial Blood HCO3 22L, Arterial Blood Total CO2 23.3, Arterial Blood Oxygen Saturation 97, Arterial Blood Base Excess -2.6L, Sebastian Test POSITIVE, Blood Gas Ventilator Setting NO, Blood Gas Inspired Oxygen N/A 01/17/19 18:45: Triglycerides Level 100 01/18/19 04:37: White Blood Count 11.3H, Red Blood Count 3.26L, Hemoglobin 8.3L, Hematocrit 26L , Mean Corpuscular Volume 80, Mean Corpuscular Hemoglobin 26, Mean Corpuscular Hemoglobin Concent 32, Red Cell Distribution Width 20.3H, Platelet Count 262, Mean Platelet Volume 10.0, Neutrophils (%) (Auto) 85H, Lymphocytes (%) (Auto) 6L , Monocytes (%) (Auto) 8, Eosinophils (%) (Auto) 1, Basophils (%) (Auto) 0, Neutrophils # (Auto) 9.7H, Lymphocytes # (Auto) 0.7L, Monocytes # (Auto) 0.9, Eosinophils # (Auto) 0.1, Basophils # (Auto) 0.0, Sodium Level 138, Potassium Level 4.6, Chloride Level 112H, Carbon Dioxide Level 21, Anion Gap 5, Blood Urea Nitrogen 18, Creatinine 1.22, Estimat Glomerular Filtration Rate > 60, BUN/ Creatinine Ratio 15, Glucose Level 83, Calcium Level 8.8, Phosphorus Level 3.7, Magnesium Level 1.6L 01/19/19 05:01: White Blood Count 11.9H, Red Blood Count 3.02L, Hemoglobin 7.6L, Hematocrit 25L , Mean Corpuscular Volume 81, Mean Corpuscular Hemoglobin 25, Mean Corpuscular Hemoglobin Concent 31L, Red Cell Distribution Width 20.5H, Platelet Count 274, Mean Platelet Volume 9.6, Neutrophils (%) (Auto) 82H, Lymphocytes (%) (Auto) 7L , Monocytes (%) (Auto) 10, Eosinophils (%) (Auto) 1, Basophils (%) (Auto) 0, Neutrophils # (Auto) 9.7H, Lymphocytes # (Auto) 0.8L, Monocytes # (Auto) 1.2H, Eosinophils # (Auto) 0.1, Basophils # (Auto) 0.0, Sodium Level 137, Potassium Level 4.5, Chloride Level 111H, Carbon Dioxide Level 20L, Anion Gap 6, Blood Urea Nitrogen 17, Creatinine 1.18, Estimat Glomerular Filtration Rate > 60, BUN/ Creatinine Ratio 14, Glucose Level 83, Calcium Level 8.3L, Phosphorus Level 3.6 , Magnesium Level 1.6L 01/19/19 19:05: Triglycerides Level 140 01/20/19 06:10: White Blood Count 11.0, Red Blood Count 3.11L, Hemoglobin 7.8L, Hematocrit 25L, Mean Corpuscular Volume 81, Mean Corpuscular Hemoglobin 25, Mean Corpuscular Hemoglobin Concent 31L, Red Cell Distribution Width 20.2H, Platelet Count 232, Mean Platelet Volume 9.1, Neutrophils (%) (Auto) 79H, Lymphocytes (%) (Auto) 5L , Monocytes (%) (Auto) 13H, Eosinophils (%) (Auto) 2, Basophils (%) (Auto) 0, Neutrophils # (Auto) 8.8H, Lymphocytes # (Auto) 0.6L, Monocytes # (Auto) 1.5H, Eosinophils # (Auto) 0.3, Basophils # (Auto) 0.0, Sodium Level 138, Potassium Level 3.9, Chloride Level 110H, Carbon Dioxide Level 19L, Anion Gap 9, Blood Urea Nitrogen 13, Creatinine 1.17, Estimat Glomerular Filtration Rate > 60, BUN/ Creatinine Ratio 11, Glucose Level 93, Calcium Level 8.5, Phosphorus Level 3.6, Magnesium Level 1.4L 01/21/19 05:33: White Blood Count 11.5H, Red Blood Count 3.02L, Hemoglobin 7.6L, Hematocrit 25L , Mean Corpuscular Volume 81, Mean Corpuscular Hemoglobin 25, Mean Corpuscular Hemoglobin Concent 31L, Red Cell Distribution Width 20.9H, Platelet Count 239, Mean Platelet Volume 9.7, Neutrophils (%) (Auto) 79H, Lymphocytes (%) (Auto) 7L , Monocytes (%) (Auto) 12, Eosinophils (%) (Auto) 2, Basophils (%) (Auto) 0, Neutrophils # (Auto) 9.1H, Lymphocytes # (Auto) 0.8L, Monocytes # (Auto) 1.4H, Eosinophils # (Auto) 0.2, Basophils # (Auto) 0.0, Sodium Level 139, Potassium Level 4.0, Chloride Level 110H, Carbon Dioxide Level 21, Anion Gap 8, Blood Urea Nitrogen 12, Creatinine 1.07, Estimat Glomerular Filtration Rate > 60, BUN/ Creatinine Ratio 11, Glucose Level 86, Calcium Level 8.5, Phosphorus Level 3.8, Magnesium Level 1.3L 01/21/19 09:38: Urine Color YELLOW, Urine Clarity CLEAR, Urine pH 5, Urine Specific [place] 1.015L, Urine Protein NEGATIVE, Urine Glucose (UA) NEGATIVE, Urine Ketones NEGATIVE, Urine Nitrite NEGATIVE, Urine Bilirubin NEGATIVE, Urine Urobilinogen NORMAL, Urine Leukocyte Esterase NEGATIVE, Urine RBC (Auto) 1+H, Urine RBC NONE , Urine WBC NONE, Urine Squamous Epithelial Cells 0-2, Urine Crystals NONE, Urine Bacteria NEGATIVE, Urine Casts NONE, Urine Mucus NEGATIVE, Urine Culture Indicated CULTURE PENDING 01/21/19 18:18: Triglycerides Level 73 01/22/19 04:16: White Blood Count 12.8H, Red Blood Count 3.12L, Hemoglobin 7.8L, Hematocrit 25L , Mean Corpuscular Volume 81, Mean Corpuscular Hemoglobin 25, Mean Corpuscular Hemoglobin Concent 31L, Red Cell Distribution Width 20.7H, Platelet Count 243, Mean Platelet Volume 9.8, Neutrophils (%) (Auto) 81H, Lymphocytes (%) (Auto) 8L , Monocytes (%) (Auto) 11, Eosinophils (%) (Auto) 1, Basophils (%) (Auto) 0, Neutrophils # (Auto) 10.3H, Lymphocytes # (Auto) 1.0, Monocytes # (Auto) 1.4H, Eosinophils # (Auto) 0.1, Basophils # (Auto) 0.0, Sodium Level 139, Potassium Level 4.3, Chloride Level 108H, Carbon Dioxide Level 23, Anion Gap 8, Blood Urea Nitrogen 11, Creatinine 1.17, Estimat Glomerular Filtration Rate > 60, BUN/ Creatinine Ratio 9, Glucose Level 95, Calcium Level 8.9, Phosphorus Level 4.2, Magnesium Level 1.8 01/22/19 16:55: Lactic Acid Level 1.26 01/23/19 05:25: White Blood Count 12.3H, Red Blood Count 3.12L, Hemoglobin 7.9L, Hematocrit 26L , Mean Corpuscular Volume 82, Mean Corpuscular Hemoglobin 25, Mean Corpuscular Hemoglobin Concent 31L, Red Cell Distribution Width 21.0H, Platelet Count 253, Mean Platelet Volume 9.5, Neutrophils (%) (Auto) 82H, Lymphocytes (%) (Auto) 6L , Monocytes (%) (Auto) 10, Eosinophils (%) (Auto) 1, Basophils (%) (Auto) 0, Neutrophils # (Auto) 10.1H, Lymphocytes # (Auto) 0.8L, Monocytes # (Auto) 1.2H, Eosinophils # (Auto) 0.2, Basophils # (Auto) 0.0, Sodium Level 138, Potassium Level 4.1, Chloride Level 105, Carbon Dioxide Level 26, Anion Gap 7, Blood Urea Nitrogen 12, Creatinine 1.09, Estimat Glomerular Filtration Rate > 60, BUN/ Creatinine Ratio 11, Glucose Level 114H, Calcium Level 8.9, Magnesium Level 1.4L Microbiology 01/15/19 Blood Culture - Final, Complete No growth 01/15/19 Gram Stain - Final, Complete 01/15/19 Sputum Culture - Final, Complete Usual upper respiratory alan YEAST 01/21/19 Urine Culture - Final, Complete NO GROWTH 01/15/19 Gram Stain - Final, Complete 01/15/19 Wound Culture - Final, Complete Mixed Bacterial Alan With Pseudomonas aeruginosa Laboratory Tests 01/15/19 12:12 01/16/19 04:06 01/17/19 06:07 01/18/19 04:37 01/19/19 05:01 01/20/19 06:10 01/21/19 05:33 01/22/19 04:16 01/23/19 05:25 Pending Labs Microbiology Date/Time Source Procedure Growth Status 01/15/19 10:47 [place], Nos Blood Culture - Final No growth Complete 01/15/19 10:47 Peripheral Lt Ac Blood Culture - Final No growth Complete 01/15/19 18:51 Sputum Endotracheal Gram Stain - Final Complete 01/15/19 18:51 Sputum Culture - Final Usual upper respiratory alan YEAST Complete 01/15/19 12:31 Nasal MRSA Screen - Final MRSA not isolated Complete 01/15/19 10:10 Nasopharynx Influenza Types A,B Antigen (BRITTANEY) - Final Complete 01/21/19 09:38 Urine U Cath,Nos Urine Culture - Final NO GROWTH Complete 01/15/19 15:44 Lesion Rectal Gram Stain - Final Complete 01/15/19 15:44 Wound Culture - Final Mixed Bacterial Alan With Pseudomonas aeruginosa Complete Laboratory Tests 01/15/19 11:05: Lab Scanned Report Referred Lab Report 01/15/19 11:45: Blood Gas Puncture Site RIGHT BRACHIAL, Blood Gas Patient Temperature 97.4, Arterial Blood pH 7.24, Arterial Blood Partial Pressure CO2 61, Arterial Blood Partial Pressure O2 95, Arterial Blood HCO3 26, Arterial Blood Total CO2 27.8, Arterial Blood Oxygen Saturation 98, Arterial Blood Base Excess -0.7, Sebastian Test POSITIVE, Blood Gas Ventilator Setting NO, Blood Gas Inspired Oxygen 5 L 01/15/19 12:05: Urine Color YELLOW, Urine Clarity CLEAR, Urine pH 5, Urine Specific [place] 1.020, Urine Protein 2+, Urine Glucose (UA) NEGATIVE, Urine Ketones NEGATIVE, Urine Nitrite NEGATIVE, Urine Bilirubin NEGATIVE, Urine Urobilinogen NORMAL, Urine Leukocyte Esterase 1+, Urine RBC (Auto) NEGATIVE, Urine RBC RARE, Urine WBC 0-2, Urine Crystals PRESENT, Urine Amorphous Sediment RARE SARI URATES, Urine Bacteria NEGATIVE, Urine Casts PRESENT, Urine Hyaline Casts 2-5, Urine Mucus NEGATIVE, Urine Culture Indicated NO, Urine Opiates Screen POSITIVE, Urine Oxycodone Screen POSITIVE, Urine Methadone Screen NEGATIVE, Urine Propoxyphene Screen NEGATIVE, Urine Barbiturates Screen NEGATIVE, Ur Tricyclic Antidepressants Screen NEGATIVE, Urine Phencyclidine Screen NEGATIVE, Urine Amphetamines Screen NEGATIVE, Urine Methamphetamines Screen NEGATIVE, Urine Benzodiazepines Screen POSITIVE, Urine Cocaine Screen NEGATIVE, Urine Cannabinoids Screen NEGATIVE 01/15/19 12:08: Glucometer 113 01/15/19 12:12: White Blood Count 16.4, Red Blood Count 3.39, Hemoglobin 8.6, Hematocrit 29, Mean Corpuscular Volume 84, Mean Corpuscular Hemoglobin 25, Mean Corpuscular Hemoglobin Concent 30, Red Cell Distribution Width 21.0, Platelet Count 263, Mean Platelet Volume 9.8, Neutrophils (%) (Auto) 86, Lymphocytes (%) (Auto) 5, Monocytes (%) (Auto) 8, Eosinophils (%) (Auto) 2, Basophils (%) (Auto) 0, Neutrophils # (Auto) 14.1, Lymphocytes # (Auto) 0.8, Monocytes # (Auto) 1.2, Eosinophils # (Auto) 0.3, Basophils # (Auto) 0.0, Neutrophils % (Manual) 73, Lymphocytes % (Manual) 2, Monocytes % (Manual) 9, Eosinophils % (Manual) 3, Basophils % (Manual) 0, Band Neutrophils 13, Anisocytosis MODERATE, Target Cells SLIGHT, Sodium Level 140, Potassium Level 5.0, Chloride Level 106, Carbon Dioxide Level 25, Anion Gap 9, Blood Urea Nitrogen 30, Creatinine 2.21, Estimat Glomerular Filtration Rate 39, BUN/Creatinine Ratio 14, Glucose Level 104, Lactic Acid Level 0.93, Calcium Level 8.4, Corrected Calcium 9.5, Total Bilirubin 0.4, Direct Bilirubin 0.3, Indirect Bilirubin 0.1, Aspartate Amino Transf (AST/SGOT) 29, Alanine Aminotransferase (ALT/SGPT) 44, Alkaline Phosphatase 184, Total Protein 6.9, Albumin 2.6, Triglycerides Level 77 01/15/19 14:43: Blood Gas Puncture Site RIGHT RADIAL, Blood Gas Patient Temperature 97.8, Arterial Blood pH 7.20, Arterial Blood Partial Pressure CO2 64, Arterial Blood Partial Pressure O2 76, Arterial Blood HCO3 24, Arterial Blood Total CO2 26.2, Arterial Blood Oxygen Saturation 95, Arterial Blood Base Excess -3.0, Sebastian Test POSITIVE, Blood Gas Ventilator Setting NO, Blood Gas Inspired Oxygen 3 L 01/15/19 17:55: Blood Gas Puncture Site RIGHT RADIAL, Blood Gas Patient Temperature 97.9, Arterial Blood pH 7.20, Arterial Blood Partial Pressure CO2 62, Arterial Blood Partial Pressure O2 94, Arterial Blood HCO3 23, Arterial Blood Total CO2 25.1, Arterial Blood Oxygen Saturation 97, Arterial Blood Base Excess -3.9, Sebastian Test POSITIVE, Blood Gas Ventilator Setting NO, Blood Gas Inspired Oxygen 3L 01/15/19 19:54: Blood Gas Puncture Site L RAD, Blood Gas Patient Temperature 97.6, Arterial Blood pH 7.35, Arterial Blood Partial Pressure CO2 38, Arterial Blood Partial Pressure O2 127, Arterial Blood HCO3 20, Arterial Blood Total CO2 21.5, Arterial Blood Oxygen Saturation 99, Arterial Blood Base Excess -4.5, Sebastian Test YES-POS, Blood Gas Ventilator Setting YES, Blood Gas Inspired Oxygen 30% 01/15/19 23:39: Glucometer 144 01/16/19 04:06: White Blood Count 16.4, Red Blood Count 3.15, Hemoglobin 7.8, Hematocrit 27, Mean Corpuscular Volume 84, Mean Corpuscular Hemoglobin 25, Mean Corpuscular Hemoglobin Concent 29, Red Cell Distribution Width 20.4, Platelet Count 283, Mean Platelet Volume 9.2, Neutrophils (%) (Auto) 90, Lymphocytes (%) (Auto) 4, Monocytes (%) (Auto) 6, Eosinophils (%) (Auto) 0, Basophils (%) (Auto) 0, Neutrophils # (Auto) 14.8, Lymphocytes # (Auto) 0.7, Monocytes # (Auto) 0.9, Eosinophils # (Auto) 0.0, Basophils # (Auto) 0.0, Sodium Level 140, Potassium Level 5.1, Chloride Level 110, Carbon Dioxide Level 21, Anion Gap 9, Blood Urea Nitrogen 34, Creatinine 1.65, Estimat Glomerular Filtration Rate 54, BUN/ Creatinine Ratio 21, Glucose Level 108, Calcium Level 8.8, Phosphorus Level 6.6 , Magnesium Level 2.0 01/16/19 04:15: Blood Gas Puncture Site R RAD, Blood Gas Patient Temperature 97.6, Arterial Blood pH 7.29, Arterial Blood Partial Pressure CO2 48, Arterial Blood Partial Pressure O2 60, Arterial Blood HCO3 22, Arterial Blood Total CO2 23.9, Arterial Blood Oxygen Saturation 92, Arterial Blood Base Excess -3.3, Sebastian Test YES-POS , Blood Gas Ventilator Setting YES, Blood Gas Inspired Oxygen 21% 01/17/19 06:07: White Blood Count 9.7, Red Blood Count 3.00, Hemoglobin 7.4, Hematocrit 25, Mean Corpuscular Volume 83, Mean Corpuscular Hemoglobin 25, Mean Corpuscular Hemoglobin Concent 30, Red Cell Distribution Width 20.5, Platelet Count 256, Mean Platelet Volume 9.7, Neutrophils (%) (Auto) 83, Lymphocytes (%) (Auto) 6, Monocytes (%) (Auto) 9, Eosinophils (%) (Auto) 2, Basophils (%) (Auto) 0, Neutrophils # (Auto) 8.0, Lymphocytes # (Auto) 0.6, Monocytes # (Auto) 0.9, Eosinophils # (Auto) 0.2, Basophils # (Auto) 0.0, Sodium Level 143, Potassium Level 3.9, Chloride Level 114, Carbon Dioxide Level 22, Anion Gap 7, Blood Urea Nitrogen 24, Creatinine 1.34, Estimat Glomerular Filtration Rate > 60, BUN/ Creatinine Ratio 18, Glucose Level 81, Calcium Level 8.4, Phosphorus Level 2.7, Magnesium Level 1.5, Neutrophils % (Manual) 81, Lymphocytes % (Manual) 3, Monocytes % (Manual) 7, Eosinophils % (Manual) 6, Basophils % (Manual) 0, Band Neutrophils 3, Polychromasia SLIGHT, Hypochromasia SLIGHT, Anisocytosis SLIGHT, Target Cells SLIGHT, Stomatocytes SLIGHT, Corrected Calcium 9.8, Total Bilirubin 0.4, Aspartate Amino Transf (AST/SGOT) 20, Alanine Aminotransferase ( ALT/SGPT) 25, Alkaline Phosphatase 125, Total Protein 5.6, Albumin 2.3 01/17/19 11:54: Blood Gas Puncture Site RIGHT RADIAL, Blood Gas Patient Temperature 98.4, Arterial Blood pH 7.36, Arterial Blood Partial Pressure CO2 40, Arterial Blood Partial Pressure O2 79, Arterial Blood HCO3 22, Arterial Blood Total CO2 23.3, Arterial Blood Oxygen Saturation 97, Arterial Blood Base Excess -2.6, Sebastian Test POSITIVE, Blood Gas Ventilator Setting NO, Blood Gas Inspired Oxygen N/A 01/17/19 18:45: Triglycerides Level 100 01/18/19 04:37: White Blood Count 11.3, Red Blood Count 3.26, Hemoglobin 8.3, Hematocrit 26, Mean Corpuscular Volume 80, Mean Corpuscular Hemoglobin 26, Mean Corpuscular Hemoglobin Concent 32, Red Cell Distribution Width 20.3, Platelet Count 262, Mean Platelet Volume 10.0, Neutrophils (%) (Auto) 85, Lymphocytes (%) (Auto) 6, Monocytes (%) (Auto) 8, Eosinophils (%) (Auto) 1, Basophils (%) (Auto) 0, Neutrophils # (Auto) 9.7, Lymphocytes # (Auto) 0.7, Monocytes # (Auto) 0.9, Eosinophils # (Auto) 0.1, Basophils # (Auto) 0.0, Sodium Level 138, Potassium Level 4.6, Chloride Level 112, Carbon Dioxide Level 21, Anion Gap 5, Blood Urea Nitrogen 18, Creatinine 1.22, Estimat Glomerular Filtration Rate > 60, BUN/ Creatinine Ratio 15, Glucose Level 83, Calcium Level 8.8, Phosphorus Level 3.7, Magnesium Level 1.6 01/19/19 05:01: White Blood Count 11.9, Red Blood Count 3.02, Hemoglobin 7.6, Hematocrit 25, Mean Corpuscular Volume 81, Mean Corpuscular Hemoglobin 25, Mean Corpuscular Hemoglobin Concent 31, Red Cell Distribution Width 20.5, Platelet Count 274, Mean Platelet Volume 9.6, Neutrophils (%) (Auto) 82, Lymphocytes (%) (Auto) 7, Monocytes (%) (Auto) 10, Eosinophils (%) (Auto) 1, Basophils (%) (Auto) 0, Neutrophils # (Auto) 9.7, Lymphocytes # (Auto) 0.8, Monocytes # (Auto) 1.2, Eosinophils # (Auto) 0.1, Basophils # (Auto) 0.0, Sodium Level 137, Potassium Level 4.5, Chloride Level 111, Carbon Dioxide Level 20, Anion Gap 6, Blood Urea Nitrogen 17, Creatinine 1.18, Estimat Glomerular Filtration Rate > 60, BUN/ Creatinine Ratio 14, Glucose Level 83, Calcium Level 8.3, Phosphorus Level 3.6, Magnesium Level 1.6 01/19/19 19:05: Triglycerides Level 140 01/20/19 06:10: White Blood Count 11.0, Red Blood Count 3.11, Hemoglobin 7.8, Hematocrit 25, Mean Corpuscular Volume 81, Mean Corpuscular Hemoglobin 25, Mean Corpuscular Hemoglobin Concent 31, Red Cell Distribution Width 20.2, Platelet Count 232, Mean Platelet Volume 9.1, Neutrophils (%) (Auto) 79, Lymphocytes (%) (Auto) 5, Monocytes (%) (Auto) 13, Eosinophils (%) (Auto) 2, Basophils (%) (Auto) 0, Neutrophils # (Auto) 8.8, Lymphocytes # (Auto) 0.6, Monocytes # (Auto) 1.5, Eosinophils # (Auto) 0.3, Basophils # (Auto) 0.0, Sodium Level 138, Potassium Level 3.9, Chloride Level 110, Carbon Dioxide Level 19, Anion Gap 9, Blood Urea Nitrogen 13, Creatinine 1.17, Estimat Glomerular Filtration Rate > 60, BUN/ Creatinine Ratio 11, Glucose Level 93, Calcium Level 8.5, Phosphorus Level 3.6, Magnesium Level 1.4 01/21/19 05:33: White Blood Count 11.5, Red Blood Count 3.02, Hemoglobin 7.6, Hematocrit 25, Mean Corpuscular Volume 81, Mean Corpuscular Hemoglobin 25, Mean Corpuscular Hemoglobin Concent 31, Red Cell Distribution Width 20.9, Platelet Count 239, Mean Platelet Volume 9.7, Neutrophils (%) (Auto) 79, Lymphocytes (%) (Auto) 7, Monocytes (%) (Auto) 12, Eosinophils (%) (Auto) 2, Basophils (%) (Auto) 0, Neutrophils # (Auto) 9.1, Lymphocytes # (Auto) 0.8, Monocytes # (Auto) 1.4, Eosinophils # (Auto) 0.2, Basophils # (Auto) 0.0, Sodium Level 139, Potassium Level 4.0, Chloride Level 110, Carbon Dioxide Level 21, Anion Gap 8, Blood Urea Nitrogen 12, Creatinine 1.07, Estimat Glomerular Filtration Rate > 60, BUN/ Creatinine Ratio 11, Glucose Level 86, Calcium Level 8.5, Phosphorus Level 3.8, Magnesium Level 1.3 01/21/19 09:38: Urine Color YELLOW, Urine Clarity CLEAR, Urine pH 5, Urine Specific [place] 1.015, Urine Protein NEGATIVE, Urine Glucose (UA) NEGATIVE, Urine Ketones NEGATIVE, Urine Nitrite NEGATIVE, Urine Bilirubin NEGATIVE, Urine Urobilinogen NORMAL, Urine Leukocyte Esterase NEGATIVE, Urine RBC (Auto) 1+, Urine RBC NONE, Urine WBC NONE, Urine Squamous Epithelial Cells 0-2, Urine Crystals NONE, Urine Bacteria NEGATIVE, Urine Casts NONE, Urine Mucus NEGATIVE, Urine Culture Indicated CULTURE PENDING 01/21/19 18:18: Triglycerides Level 73 01/22/19 04:16: White Blood Count 12.8, Red Blood Count 3.12, Hemoglobin 7.8, Hematocrit 25, Mean Corpuscular Volume 81, Mean Corpuscular Hemoglobin 25, Mean Corpuscular Hemoglobin Concent 31, Red Cell Distribution Width 20.7, Platelet Count 243, Mean Platelet Volume 9.8, Neutrophils (%) (Auto) 81, Lymphocytes (%) (Auto) 8, Monocytes (%) (Auto) 11, Eosinophils (%) (Auto) 1, Basophils (%) (Auto) 0, Neutrophils # (Auto) 10.3, Lymphocytes # (Auto) 1.0, Monocytes # (Auto) 1.4, Eosinophils # (Auto) 0.1, Basophils # (Auto) 0.0, Sodium Level 139, Potassium Level 4.3, Chloride Level 108, Carbon Dioxide Level 23, Anion Gap 8, Blood Urea Nitrogen 11, Creatinine 1.17, Estimat Glomerular Filtration Rate > 60, BUN/ Creatinine Ratio 9, Glucose Level 95, Calcium Level 8.9, Phosphorus Level 4.2, Magnesium Level 1.8 01/22/19 16:55: Lactic Acid Level 1.26 01/23/19 05:25: White Blood Count 12.3, Red Blood Count 3.12, Hemoglobin 7.9, Hematocrit 26, Mean Corpuscular Volume 82, Mean Corpuscular Hemoglobin 25, Mean Corpuscular Hemoglobin Concent 31, Red Cell Distribution Width 21.0, Platelet Count 253, Mean Platelet Volume 9.5, Neutrophils (%) (Auto) 82, Lymphocytes (%) (Auto) 6, Monocytes (%) (Auto) 10, Eosinophils (%) (Auto) 1, Basophils (%) (Auto) 0, Neutrophils # (Auto) 10.1, Lymphocytes # (Auto) 0.8, Monocytes # (Auto) 1.2, Eosinophils # (Auto) 0.2, Basophils # (Auto) 0.0, Sodium Level 138, Potassium Level 4.1, Chloride Level 105, Carbon Dioxide Level 26, Anion Gap 7, Blood Urea Nitrogen 12, Creatinine 1.09, Estimat Glomerular Filtration Rate > 60, BUN/ Creatinine Ratio 11, Glucose Level 114, Calcium Level 8.9, Magnesium Level 1.4 Discussion & Recommendations Patient discharged doing better. Patient DO NOT RESUSCITATE Discharge Home Medications: Active Scripts Active Lisinopril 20 Mg Tablet 20 Mg PO DAILY@0900 30 Days Reported Alprazolam 1 Mg Tablet 1 Mg PO BID Tamsulosin HCl 0.4 Mg Cap.er.24h 0.4 Mg PO 1800 Quetiapine Fumarate 25 Mg Tablet 25 Mg PO HS Gabapentin 300 Mg Capsule 300 Mg PO TID Morphine Sulfate ER (Morphine Sulfate) 100 Mg Tablet.er 100 Mg PO Q12H Ferrous Sulfate 325 Mg Tablet 325 Mg PO DAILY Dexamethasone 4 Mg Tablet 4 Mg PO DAILY Sertraline HCl 50 Mg Tablet 100 Mg PO DAILY TAKES 2 (50MG) TABLETS Oxycodone-Acetaminophen 10-325 (Oxycodone HCl/Acetaminophen) 1 Each Tablet 1 Tab PO Q3H PRN Ondansetron Odt (Ondansetron) 8 Mg Tab.rapdis 8 Mg PO Q8H PRN Metoprolol Succinate 25 Mg Tab.er.24h 25 Mg PO DAILY HOLD FOR SBP<100 OR PULSE <60 Mirtazapine 30 Mg Tablet 30 Mg PO HS Mylanta Suspension (Al Hydrox/Mg Hydrox/Simethicone) 30 Ml Oral.susp 30 Ml PO Q4H PRN Melatonin 5 Mg Tablet 5 Mg PO HS Instructions to patient/family Please see electronic discharge instructions given to patient. Clinical Quality Measures DVT/VTE Risk/Contraindication: Risk Factor Score Per Nursin RFS Level Per Nursing on Admit: 4+=Very High JYOTI JULIEN DO Jan 24, 2019 07:11
[2019-01-30] MEDS ORDERED: NS IV 1000 ML 1,000 ML IV SCH (18:00)
== END 2019-01-23 14:53 | DRG 871 ==
LOC: 4TH 11:05 → ICU 11:38 → 4TH 01-16 11:37
PROVIDERS: ADMIT Internal Medicine Hematology & Oncology; ATTEND Family Medicine
PROC: 5A1935Z Respiratory Ventilation, Less than 24 Consecutive Hours (ICD-10-PCS; principal; 2019-01-15)
DX: A41.9 Sepsis, unspecified organism (principal); R65.20 Severe sepsis without septic shock; J10.1 Influenza due to other identified influenza virus with other respiratory manifestations; T40.601A Poisoning by unspecified narcotics, accidental (unintentional), initial encounter; J96.00 Acute respiratory failure, unspecified whether with hypoxia or hypercapnia; R41.82 Altered mental status, unspecified; N17.9 Acute kidney failure, unspecified; C79.89 Secondary malignant neoplasm of other specified sites; Z66 Do not resuscitate; N32.2 Vesical fistula, not elsewhere classified; J98.11 Atelectasis; C44.520 Squamous cell carcinoma of anal skin; M84.58XD Pathological fracture in neoplastic disease, other specified site, subsequent encounter for fracture with routine healing; C79.51 Secondary malignant neoplasm of bone; K60.4 Rectal fistula; G89.3 Neoplasm related pain (acute) (chronic); I10 Essential (primary) hypertension; J44.9 Chronic obstructive pulmonary disease, unspecified; F17.210 Nicotine dependence, cigarettes, uncomplicated; L98.411 Non-pressure chronic ulcer of buttock limited to breakdown of skin; D64.89 Other specified anemias; E83.42 Hypomagnesemia; Z90.2 Acquired absence of lung [part of]; Z92.3 Personal history of irradiation; Z93.3 Colostomy status; Z92.21 Personal history of antineoplastic chemotherapy
CPT/HCPCS: 36415; 36600; 71045; 80048; 80053; 80076; 80306; 81000; 82805; 82962; 83605; 83735; 84100; 84478; 85007; 85025; 85027; 87040; 87070; 87077; 87081; 87088; 87186; 87205; 87804; 93005; 94002; 94003; 94660; 94760; 94799

== ENCOUNTER 2019-01-31 09:45 | Inpatient (IN) | payer MEDICAID ==
[~2019-01-31] VITALS: Ht 182.9 cm; Wt 84.4 kg
[2019-01-31] VITALS (14 sets, daily range): BP systolic 81–125; BP diastolic 48–85
[~2019-01-31 09:45] MED LIST changes: +ALPR1TAB7 PO; +AMOX500C2 PO; +CLIN150C17 PO; +DEXA4TAB PO; +FERR325T18 PO; +GABA-488 PO; +LISI-552 PO; +MORP100T37 PO; +QUET25TA73 PO; +SERT50TA9 PO; -SUCCINYLCHOLINE INJ 100 MG/5 ML SYR INJ ONE; +TAMS0.4C2 PO
[2019-01-31] MEDS ORDERED: NS IV 1000 ML 1,000 ML IV SCH (10:00)
--- NOTE | 2019-01-31 10:00 | NUR ---
This nurse asked Dr. Auguste if doctor had assessed blisters on pt's R side of abdomen. reported not looking at pt's abdomen yet.
[2019-01-31 10:02] LABS: BASOPHILS % (AUTO) 0 % (0-10); EOSINOPHILS % (AUTO) 0 % (0-10); HEMATOCRIT 29 % (40-54); HEMOGLOBIN 8.3 G/DL (13.3-17.7); LYMPHOCYTES # (AUTO) 0.9 X 10^3 (1.0-4.0); LYMPHOCYTES % (AUTO) 6 % (12-44); MEAN CORPUSCULAR HEMOGLOBIN 25 PG (25-34); MEAN CORPUSCULAR HGB CONC 29 G/DL (32-36); MEAN CORPUSCULAR VOLUME 84 FL (80-99); MEAN PLATELET VOLUME 10.3 FL (7.4-10.4); MONOCYTES # (AUTO) 0.6 X 10^3 (0.0-1.0); MONOCYTES % (AUTO) 4 % (0-12); NEUTROPHILS # (AUTO) 14.6 X 10^3 (1.8-7.8); NEUTROPHILS % (AUTO) 91 % (42-75); PLATELET COUNT 281 10^3/uL (130-400); RED CELL DISTRIBUTION WIDTH 19.5 % (10.0-14.5); WHITE BLOOD COUNT 16.1 10^3/uL (4.3-11.0)
--- NOTE | 2019-01-31 10:17 | ED General ---
General Chief Complaint: General Problems/Pain Stated Complaint: ALTERED MENTAL STATUS Source of Information: Patient, Caregiver Exam Limitations: No Limitations History of Present Illness Date Seen by Provider: Jan 31, 2019 Time Seen by Provider: 10:12 Initial Comments The patient was sent Sent from [facility]. The stated complaint was decreased alertness. He was here earlier this month with flu and similar complaints. He has a rectal carcinoma with metastasis. He states that he is feeling just fine. He states that he had breakfast this morning and has been taking fluids. He has no new complaints. Timing/Duration: 4-6 Hours Allergies and Home Medications Allergies Coded Allergies: No Known Drug Allergies (Unverified , 10/16/18) Home Medications Alprazolam 1 Mg Tablet, 1 MG PO BID, (Reported) Dexamethasone 4 Mg Tablet, 4 MG PO DAILY, (Reported) Ferrous Sulfate 325 Mg Tablet, 325 MG PO DAILY, (Reported) Gabapentin 300 Mg Capsule, 300 MG PO TID, (Reported) Lisinopril 20 Mg Tablet, 20 MG PO DAILY@0900 Prescribed by: MARIA ESTHER SAMUEL on 01/23/19 1151 Mag Hydrox/Al Hydrox/Simeth 30 Ml Oral.susp, 30 ML PO Q4H PRN for INDIGESTION, ( Reported) Melatonin 5 Mg Tablet, 5 MG PO HS, (Reported) Metoprolol Succinate 25 Mg Tab.er.24h, 25 MG PO DAILY, (Reported) HOLD FOR SBP<100 OR PULSE <60 Mirtazapine 30 Mg Tablet, 30 MG PO HS, (Reported) Morphine Sulfate 100 Mg Tablet.er, 100 MG PO Q12H, (Reported) Ondansetron 8 Mg Tab.rapdis, 8 MG PO Q8H PRN for NAUSEA/VOMITING-1ST LINE, ( Reported) Oxycodone HCl/Acetaminophen 1 Each Tablet, 1 TAB PO Q3H PRN for PAIN-MODERATE, ( Reported) Quetiapine Fumarate 25 Mg Tablet, 25 MG PO HS, (Reported) Sertraline HCl 50 Mg Tablet, 100 MG PO DAILY, (Reported) TAKES 2 (50MG) TABLETS Tamsulosin HCl 0.4 Mg Cap.er.24h, 0.4 MG PO 1800, (Reported) Patient Home Medication List Home Medication List Reviewed: Yes Review of Systems Review of Systems Constitutional: see HPI EENTM: no symptoms reported Respiratory: no symptoms reported Cardiovascular: no symptoms reported Gastrointestinal: other (. rectal carcinoma) Genitourinary: no symptoms reported Musculoskeletal: muscle weakness Skin: no symptoms reported Psychiatric/Neurological: No Symptoms Reported Immunological/Allergic: no symptoms reported Past Ilagmjd-Dgsacj-Vsgzxn Hx Patient Social History Drug of Choice: HX; opiates Type Used: Cigarettes 2nd Hand Smoke Exposure: No Recent Hopitalizations: Yes Immunizations Up To Date Tetanus Booster (TDap): Unknown PED Vaccines UTD: No Date of Influenza Vaccine: Aug 17, 2018 Seasonal Allergies Seasonal Allergies: No Past Medical History Surgeries: Yes (frequent foot surgeries for plantar warts, I/D) Abdominal, Rectal Respiratory: Yes Chronic Bronchitis Currently Using CPAP: No Currently Using BIPAP: No Cardiac: Yes Neurological: No Genitourinary: No Gastrointestinal: No Musculoskeletal: No Endocrine: No HEENT: No 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 Physical Exam Vital Signs Vital Signs - First Documented 01/31/19 09:45 Temp 95.9 Pulse 99 Resp 12 B/P (MAP) 79/55 (63) Pulse Ox 99 O2 Delivery Room Air Capillary Refill : Height, Weight, BMI Height: 6'0.00" Weight: 188lbs. 2.0oz. [id number]; 25.5 BMI Method:Stated General Appearance: Mild Distress Eyes: Bilateral Eye Normal Inspection HEENT: Normal ENT Inspection Neck: Normal Inspection Respiratory: Chest Non Tender, Lungs Clear, Normal Breath Sounds, No Accessory Muscle Use, No Respiratory Distress Cardiovascular: Regular Rate, Rhythm, No Edema, No Gallop, No JVD, No Murmur, Normal Peripheral Pulses Extremity: Normal Capillary Refill, Normal Inspection, Normal Range of Motion, Non Tender, No Calf Tenderness, No Pedal Edema Neurologic/Psychiatric: Alert Comments There are multiple vesicles over the subcostal right abdomen. These do not connect all the way to a vertebra however strongly suggestive of shingles Focused Exam Lactate Level 01/31/19 09:50: Lactic Acid Level 2.72*H 01/31/19 12:28: Lactic Acid Level 1.68 Lactic Acid Level Laboratory Tests Test 01/31/19 09:50 01/31/19 12:28 Lactic Acid Level 2.72 MMOL/L (0.50-2.00) *H 1.68 MMOL/L (0.50-2.00) Procedures/Interventions Date of ETT Placement: Jan 15, 2019 Time of ETT Placement: 1839 Progress/Results/Core Measures Suspected Sepsis SIRS Temperature: Pulse: Respiratory Rate: Laboratory Tests 01/31/19 09:50: White Blood Count 16.1H Blood Pressure / Mean: 01/31/19 09:50: Lactic Acid Level 2.72*H 01/31/19 12:28: Lactic Acid Level 1.68 Laboratory Tests 01/31/19 09:50: Platelet Count 281 Results/Orders Lab Results Laboratory Tests Test 01/31/19 09:50 01/31/19 12:05 01/31/19 12:28 Range/Units White Blood Count 16.1 H 4.3-11.0 10^3/uL Red Blood Count 3.38 L 4.35-5.85 10^6/uL Hemoglobin 8.3 L 13.3-17.7 G/DL Hematocrit 29 L 40-54 % Mean Corpuscular Volume 84 80-99 FL Mean Corpuscular Hemoglobin 25 25-34 PG Mean Corpuscular Hemoglobin Concent 29 L 32-36 G/DL Red Cell Distribution Width 19.5 H 10.0-14.5 % Platelet Count 281 130-400 10^3/uL Mean Platelet Volume 10.3 7.4-10.4 FL Neutrophils (%) (Auto) 91 H 42-75 % Lymphocytes (%) (Auto) 6 L 12-44 % Monocytes (%) (Auto) 4 0-12 % Eosinophils (%) (Auto) 0 0-10 % Basophils (%) (Auto) 0 0-10 % Neutrophils # (Auto) 14.6 H 1.8-7.8 X 10^3 Lymphocytes # (Auto) 0.9 L 1.0-4.0 X 10^3 Monocytes # (Auto) 0.6 0.0-1.0 X 10^3 Eosinophils # (Auto) 0.0 0.0-0.3 10^3/uL Basophils # (Auto) 0.0 0.0-0.1 10^3/uL Neutrophils % (Manual) 81 % Lymphocytes % (Manual) 5 % Monocytes % (Manual) 4 % Eosinophils % (Manual) 0 % Basophils % (Manual) 0 % Band Neutrophils 10 % Anisocytosis SLIGHT Microcytosis SLIGHT Lactic Acid Level 2.72 *H 1.68 0.50-2.00 MMOL/L Urine Color YELLOW Urine Clarity CLEAR Urine pH 5 5-9 Urine Specific [place] 1.020 1.016-1.022 Urine Protein 2+ H NEGATIVE Urine Glucose (UA) NEGATIVE NEGATIVE Urine Ketones NEGATIVE NEGATIVE Urine Nitrite NEGATIVE NEGATIVE Urine Bilirubin NEGATIVE NEGATIVE Urine Urobilinogen NORMAL NORMAL MG/DL Urine Leukocyte Esterase 1+ H NEGATIVE Urine RBC (Auto) 2+ H NEGATIVE Urine RBC 0-2 /HPF Urine WBC 0-2 /HPF Urine Squamous Epithelial Cells RARE /HPF Urine Crystals PRESENT H /LPF Urine Amorphous Sediment FEW SARI URATES H /LPF Urine Bacteria TRACE /HPF Urine Casts PRESENT /LPF Urine Hyaline Casts 5-10 H /LPF Urine Mucus NEGATIVE /LPF Urine Culture Indicated NO My Orders Orders - MIRYAM FUNK MD Cbc No Diff (01/31/19 09:50) Cbc With Automated Diff (01/31/19 09:50) Ns Iv 1000 Ml (Sodium Chloride 0.9%) (01/31/19 10:00) Manual Differential (01/31/19 09:50) Blood Culture (01/31/19 10:24) Sputum Culture (01/31/19 10:24) Urinalysis (01/31/19 10:24) Urine Culture (01/31/19 10:24) Chest 1 View, Ap/Pa Only (01/31/19 10:24) Saline Lock/Iv-Start (01/31/19 10:24) Saline Lock/Iv-Start (01/31/19 10:24) Vital Signs Adult Sepsis Patie Q15M (01/31/19 10:24) O2 (01/31/19 10:24) Remove Rings In Anticipation O (01/31/19 10:24) Lactic Acid Analyzer (01/31/19 10:24) Ns Iv 1000 Ml (Sodium Chloride 0.9%) (01/31/19 10:30) Piperacillin/Tazobactam (Bulk) (Zosyn In (01/31/19 11:30) Lactic Acid Analyzer (01/31/19 12:00) Vasopressin Injection (Pitressin Injecti (01/31/19 12:45) Vital Signs/I&O 01/31/19 09:45 Temp 95.9 Pulse 99 Resp 12 B/P (MAP) 79/55 (63) Pulse Ox 99 O2 Delivery Room Air Capillary Refill : Departure Communication (Admissions) 1258 focused exam blood pressure 78/44 pulse equals 80 SaO2 equals 98 percent. He is arousable to verbal. Capillary refill is 3 seconds. His ICU bed is not yet available and therefore the vasopressin drip will be started here. He has a port. Impression Primary Impression: anal cancer with metastasis Additional Impression: Severe sepsis Disposition: ADMITTED INPATIENT Condition: Critical Admissions Decision to Admit Reason: Admit from ER (General) Decision to Admit/Date: Jan 31, 2019 Time/Decision to Admit Time: 11:21 Departure-Patient Inst. Referrals: JYOTI JULIEN DO (PCP/Family) Primary Care Physician MIRYAM FUNK MD Jan 31, 2019 10:17
[2019-01-31] MEDS ORDERED: NS IV ONE (10:30)
[2019-01-31 10:35] LABS: ANISOCYTOSIS SLIGHT; BAND NEUTROPHILS 10 %; BASOPHILS % (MANUAL) 0 %; EOSINOPHILS % (MANUAL) 0 %; LYMPHOCYTES % (MANUAL) 5 %; MICROCYTOSIS SLIGHT; MONOCYTES % (MANUAL) 4 %; NEUTROPHILS % (MANUAL) 81 %
[2019-01-31] MEDS ORDERED: PIPERACILLIN/TAZOBACTAM (BULK) 4.5 GM in NS (IVPB) 100 ML IV ONE (11:30)
--- NOTE | 2019-01-31 11:47 | Diagnostic Imaging Report ---
PATIENT HISTORY: Unresponsive, tired and weak. TECHNIQUE: Single frontal view of the chest COMPARISON: 01/16/2019 FINDINGS: There are new airspace opacities in the right lung base. There is linear atelectasis in the left lung base. The left-sided Port-A-Cath tip projects over the mid SVC. The cardiac silhouette is mildly prominent, but stable in size. Lung volumes are mildly low. No pleural effusion or pneumothorax is seen. The endotracheal tube is removed. Skin arun are seen in the left lung. IMPRESSION: 1. New airspace opacities in the right lung base concerning for pneumonia. 2. The tip of the left Port-A-Cath projects over the SVC. Dictated by: Dictated on workstation # [id number]
[2019-01-31 12:19] LABS: BILIRUBIN,URINE NEGATIVE (NEGATIVE); CLARITY,URINE CLEAR; COLOR,URINE YELLOW; GLUCOSE, URINE (UA) NEGATIVE (NEGATIVE); KETONES,URINE NEGATIVE (NEGATIVE); LEUKOCYTE ESTERASE ,URINE 1+ (NEGATIVE); NITRITE,URINE NEGATIVE (NEGATIVE); PH,URINE 5 (5-9); PROTEIN,URINE 2+ (NEGATIVE); UROBILINOGEN,URINE NORMAL (NORMAL)
[2019-01-31 12:28] LABS: AMORPHOUS SEDIMENT,UR FEW AMOR URATES /LPF; BACTERIA,URINE TRACE /HPF; RBC,URINE 0-2 /HPF; SQUAMOUS EPITHELIAL CELL,UR RARE /HPF; WBC,URINE 0-2 /HPF
[2019-01-31] MEDS ORDERED: VASOPRESSIN INJECTION 20 UNIT in NS (IVPB) 100 ML IV SCH (12:45)
[2019-01-31] MEDS ORDERED: NOREPINEPHRINE 4 MG in NS (IVPB) 250 ML IV SCH ×2 (13:45→15:30)
--- NOTE | 2019-01-31 15:19 | Pulmonary Consultation ---
History of Present Illness History of Present Illness Date of Consultation 01/31/19 15:14 Time Seen by Provider: 15:14 Date of Admission History of Present Illness 48yo with recent hospitalization secondary to influenza, and hx of rectal carcinoma with mets from [facility] presented to ED via EMS secondary to MS changes Allergies and Home Medications Allergies Coded Allergies: No Known Drug Allergies (Unverified , 10/16/18) Home Medications Alprazolam 1 Mg Tablet, 1 MG PO BID, (Reported) Dexamethasone 4 Mg Tablet, 4 MG PO DAILY, (Reported) Ferrous Sulfate 325 Mg Tablet, 325 MG PO DAILY, (Reported) Gabapentin 300 Mg Capsule, 300 MG PO TID, (Reported) Lisinopril 20 Mg Tablet, 20 MG PO DAILY, (Reported) HOLD FOR SBP<100 ET PULSE <60 Mag Hydrox/Al Hydrox/Simeth 30 Ml Oral.susp, 30 ML PO Q4H PRN for INDIGESTION, ( Reported) Melatonin 5 Mg Tablet, 5 MG PO HS, (Reported) Metoprolol Succinate 25 Mg Tab.er.24h, 25 MG PO DAILY, (Reported) HOLD FOR SBP<100 OR PULSE <60 Mirtazapine 30 Mg Tablet, 30 MG PO HS, (Reported) Morphine Sulfate 100 Mg Tablet.er, 100 MG PO Q12H, (Reported) Ondansetron 8 Mg Tab.rapdis, 8 MG PO Q8H PRN for NAUSEA/VOMITING-1ST LINE, ( Reported) Oxycodone HCl/Acetaminophen 1 Each Tablet, 1 TAB PO Q3H PRN for PAIN-MODERATE, ( Reported) Quetiapine Fumarate 25 Mg Tablet, 25 MG PO HS, (Reported) Sertraline HCl 50 Mg Tablet, 100 MG PO HS, (Reported) TAKES 2 (50MG) TABLETS Tamsulosin HCl 0.4 Mg Cap, 0.4 MG PO 1800, (Reported) Past Npisyfl-Yhllpn-Aymesu Hx Patient Social History Alcohol Use: Denies Use Recreational Drug Use: No Drug of Choice: HX; opiates Type Used: Cigarettes 2nd Hand Smoke Exposure: No Recent Foreign Travel: No Contact w/Someone Who Travel: No Recent Infectious Disease Expo: No Recent Hopitalizations: Yes Physical Abuse: No Sexual Abuse: No Immunizations Up To Date Tetanus Booster (TDap): Unknown PED Vaccines UTD: No Date of Influenza Vaccine: Aug 17, 2018 Seasonal Allergies Seasonal Allergies: No Past Medical History Surgeries: Yes (frequent foot surgeries for plantar warts, I/D) Abdominal, Rectal Respiratory: Yes Chronic Bronchitis Currently Using CPAP: No Currently Using BIPAP: No Cardiac: Yes Neurological: No Genitourinary: No Gastrointestinal: No Musculoskeletal: No Endocrine: No HEENT: No 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 Review of Systems Time Seen by Provider: 15:24 Constitutional: Fever, Chills, Sweats, Weakness, Malaise, Other Eyes: No: Pain, Vision change, Conjunctivae inflammation, Eyelid inflammation, Other, Redness ENT: Nose congestion; No: Ear pain, Ear discharge, Nose pain, Nose discharge, Mouth pain, Mouth swelling, Throat pain, Throat swelling, Other Respiratory: Cough, Dry, Shortness of breath, SOB with excertion, Wheezing; No : Hemoptysis, Pleuritic Pain Cardiovascular: Palpitations, Orthopnea, Paroxysmal Noc. Dyspnea Gastrointestinal: No: Nausea, Vomiting, Abdominal Pain, Diarrhea, Constipation , Melena, Hematochezia, Other Sepsis Event Evaluation Height, Weight, BMI Height: 6'0.00" Weight: 183lbs. 0.0oz. 83.198867ji; 24.8 BMI Method:Estimated Exam Exam Vital Signs Date Time Temp Pulse Resp B/P (MAP) Pulse Ox O2 Delivery O2 Flow Rate FiO2 01/31/19 09:45 95.9 99 12 79/55 (63) 99 Room Air Height & Weight Height: 6'0.00" Weight: 183lbs. 0.0oz. 83.694808hg; 24.8 BMI Method:Estimated General Appearance: Mild Distress HEENT: Normal ENT Inspection Neck: Normal Inspection Respiratory: Chest Non Tender, Lungs Clear, Normal Breath Sounds, No Accessory Muscle Use, No Respiratory Distress Cardiovascular: Regular Rate, Rhythm, No Edema, No Gallop, No JVD, No Murmur, Normal Peripheral Pulses Capillary Refill: Less Than 3 Seconds Extremity: Normal Capillary Refill, Normal Inspection, Normal Range of Motion, Non Tender, No Calf Tenderness, No Pedal Edema Neurologic/Psychiatric: Alert Results Lab Laboratory Tests 01/31/19 09:50 Assessment/Plan Assessment/Plan RLL PNA with severe sepsis and septic shock -Severe sepsis protocol -IVF -Velez cultures -Will start vanco and Zosyn -Levophed, vasopressin -Check CMP Metabolic lactic acidosis -IVF Anemia -Monitor Shingles -Add acyclovir Chronic severe pain -Pt is on high dose narcotics 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 -Dr. 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 Pathological fracture of L 3 from metastatic cancer MEKA MELENDEZ DO Jan 31, 2019 15:19
[2019-01-31] MEDS ORDERED: NS IV 1000 ML 1,000 ML ONE (15:36)
[2019-01-31] MEDS ORDERED: NS IV 1000 ML 2,490.21 ML IV ONE (15:45)
[2019-01-31] MEDS ORDERED: PHARMACY TO DOSE IV SCH (16:00)
[2019-01-31 16:06] LABS: BASOPHILS % (AUTO) 0 % (0-10); EOSINOPHILS % (AUTO) 0 % (0-10); HEMATOCRIT 29 % (40-54); HEMOGLOBIN 8.6 G/DL (13.3-17.7); LYMPHOCYTES # (AUTO) 0.7 X 10^3 (1.0-4.0); LYMPHOCYTES % (AUTO) 4 % (12-44); MEAN CORPUSCULAR HEMOGLOBIN 25 PG (25-34); MEAN CORPUSCULAR HGB CONC 30 G/DL (32-36); MEAN CORPUSCULAR VOLUME 84 FL (80-99); MEAN PLATELET VOLUME 9.8 FL (7.4-10.4); MONOCYTES # (AUTO) 0.6 X 10^3 (0.0-1.0); MONOCYTES % (AUTO) 3 % (0-12); NEUTROPHILS # (AUTO) 16.9 X 10^3 (1.8-7.8); NEUTROPHILS % (AUTO) 93 % (42-75); PLATELET COUNT 316 10^3/uL (130-400); RED CELL DISTRIBUTION WIDTH 19.8 % (10.0-14.5); WHITE BLOOD COUNT 18.2 10^3/uL (4.3-11.0)
[2019-01-31] MEDS ORDERED: TAMS0.4C98 PO (16:23)
[2019-01-31] MEDS ORDERED: LISI-552 PO (16:23)
--- NOTE | 2019-01-31 16:23 | NUR ---
UPDATED MED REC WITH ORDER SUMMARY REPORT FROM [facility] AND [facility]
[2019-01-31 16:36] LABS: ALBUMIN 2.6 GM/DL (3.2-4.5); BILIRUBIN,TOTAL 0.5 MG/DL (0.1-1.0); CALCIUM 9.4 MG/DL (8.5-10.1); CREATININE SERUM 2.65 MG/DL (0.60-1.30); MAGNESIUM 2.1 MG/DL (1.8-2.4); PHOSPHORUS 6.8 MG/DL (2.3-4.7); POTASSIUM 5.8 MMOL/L (3.6-5.0); TOTAL PROTEIN 7.1 GM/DL (6.4-8.2)
[2019-01-31 17:33] LABS: ABG BASE EXCESS -1.1 MMOL/L (-2.5-2.5); ABG OXYGEN SATURATION 89 % (94-100); ABG PCO2 53 MMHG (35-45); ABG PO2 56 MMHG (79-93)
[2019-01-31 17:35] LABS: ABG PH 7.28 (7.37-7.43); ALLENS TEST POSITIVE; INSPIRED O2 2L; PATIENT TEMP 94.1; VENTILATOR NO
--- NOTE | 2019-01-31 17:50 | NUR ---
CR 2.65; CR CL ~37; WT 83 KG; VANCO 1500 MG IV BOLUS THEN 1250 MG IV Q24H; TROUGH AFTER 2ND DOSE
[2019-01-31] MEDS ORDERED: VANCOMYCIN 1500 MG/NS 500 ML IVPB IV NR ×2 (18:00)
[2019-01-31] MEDS: ACYCLOVIR INJECTION 800 MG in NS (IVPB) 250 ML IV SCH (18:42)
--- NOTE | 2019-01-31 18:56 | History & Physicial ---
History of Present Illness History of Present Illness Reason for visit/HPI Patient resident of [facility] area Patient has anal cancer with metastasis to L3. Patient also has a perianal fistula. Patient is DO NOT RESUSCITATE. Patient now has a BiPAP on and closing his eyes. Patient did open his eyes and then closed them and did not talk. At the senior living patient hypotensive and change in mental status patient transferred to emergency room. Patient has an elevated lactic acid 2.7. Chest x-ray shows right lower lobe pneumonia. Patient has leukocytosis. 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 Date of Admission Jan 31, 2019 at 12:28 Time Seen by a Provider: 18:52 I consulted on this patient on 01/31/19 18:50 Attending Physician Kem Julien DO Admitting Physician Kem Julien DO Consult Allergies and Home Medications Allergies Coded Allergies: No Known Drug Allergies (Unverified , 10/16/18) Home Medications Alprazolam 1 Mg Tablet, 1 MG PO BID, (Reported) Dexamethasone 4 Mg Tablet, 4 MG PO DAILY, (Reported) Ferrous Sulfate 325 Mg Tablet, 325 MG PO DAILY, (Reported) Gabapentin 300 Mg Capsule, 300 MG PO TID, (Reported) Lisinopril 20 Mg Tablet, 20 MG PO DAILY, (Reported) HOLD FOR SBP<100 ET PULSE <60 Mag Hydrox/Al Hydrox/Simeth 30 Ml Oral.susp, 30 ML PO Q4H PRN for INDIGESTION, ( Reported) Melatonin 5 Mg Tablet, 5 MG PO HS, (Reported) Metoprolol Succinate 25 Mg Tab.er.24h, 25 MG PO DAILY, (Reported) HOLD FOR SBP<100 OR PULSE <60 Mirtazapine 30 Mg Tablet, 30 MG PO HS, (Reported) Morphine Sulfate 100 Mg Tablet.er, 100 MG PO Q12H, (Reported) Ondansetron 8 Mg Tab.rapdis, 8 MG PO Q8H PRN for NAUSEA/VOMITING-1ST LINE, ( Reported) Oxycodone HCl/Acetaminophen 1 Each Tablet, 1 TAB PO Q3H PRN for PAIN-MODERATE, ( Reported) Quetiapine Fumarate 25 Mg Tablet, 25 MG PO HS, (Reported) Sertraline HCl 50 Mg Tablet, 100 MG PO HS, (Reported) TAKES 2 (50MG) TABLETS Tamsulosin HCl 0.4 Mg Cap, 0.4 MG PO 1800, (Reported) Patient Home Medication List Home Medication List Reviewed: No Past Gweidke-Aohvyv-Lnveah Hx Patient Social History Employed/Student: unemployed Alcohol Use: Denies Use Recreational Drug Use: No Drug of Choice: HX; opiates Type Used: Cigarettes 2nd Hand Smoke Exposure: No Recent Foreign Travel: No Contact w/other who traveled: No Recent Hopitalizations: Yes Recent Infectious Disease Expo: No Immunizations Up To Date Tetanus Booster (TDap): Unknown Pediatric: No Date of Influenza Vaccine: Aug 17, 2018 Seasonal Allergies Seasonal Allergies: No Surgeries Yes (frequent foot surgeries for plantar warts, I/D) Abdominal, Rectal Respiratory Yes COPD Currently Using CPAP: No Currently Using BIPAP: No Cardiovascular Yes Neurological No Genitourinary No Gastrointestinal No Musculoskeletal No Endocrine History of Endocrine Disorders: No HEENT History of HEENT Disorders: No Cancer Yes (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 Review of Systems Constitutional: malaise, weakness EENTM: no symptoms reported Respiratory: no symptoms reported Cardiovascular: no symptoms reported Gastrointestinal: no symptoms reported Genitourinary: other (Perineal fistula) Physical Exam Vital Signs Vital Signs - First Documented 01/31/19 01/31/19 09:45 14:30 Temp 95.9 Pulse 99 Resp 12 B/P (MAP) 79/55 (63) Pulse Ox 99 O2 Delivery Room Air O2 Flow Rate 2.00 Capillary Refill : Less Than 3 Seconds Height, Weight, BMI Height: 6'0.00" Weight: 183lbs. 0.0oz. 83.377522vb; 24.8 BMI Method:Estimated General Appearance: No Apparent Distress, WD/WN Neck: Normal Inspection Respiratory: Normal Breath Sounds, No Accessory Muscle Use, No Respiratory Distress Cardiovascular: Regular Rate, Rhythm, No Murmur Gastrointestinal: Non Tender, Soft Assessment/Plan Assessment and Plan Sepsis. Hypotension. Shingles. Acute renal insufficiency. Elevated lactic acid. Elevated BNP. Right lower lobe pneumonia. Decrease alert Admission Diagnosis Admission Status: Inpatient Order (span 2 midnights) Reason for Inpatient Admission: Sepsis. Hypotension. Leukocytosis. Elevated lactic acid Clinical Quality Measures DVT/VTE Risk/Contraindication: Risk Factor Score Per Nursin RFS Level Per Nursing on Admit: 4+=Very High KEM JULIEN DO Jan 31, 2019 18:56
[2019-01-31] MEDS ORDERED: ONDANSETRON 8 MG (ZOFRAN) ORAL DISSOLVE TAB PO PRN (19:00)
[2019-01-31] MEDS: ALPRAZolam 1 MG (XANAX) TAB PO SCH (20:58)
[2019-01-31] MEDS: SERTRALINE 50 MG (ZOLOFT) TABLET PO SCH (20:58)
[2019-01-31] MEDS: ENOXAPARIN 40 MG/0.4 ML (LOVENOX) SYR SC SCH (20:58)
[2019-01-31] MEDS: PIPERACILLIN/TAZOBACTAM (BULK) 4.5 GM in NS (IVPB) 100 ML IV SCH (20:58)
[2019-01-31] MEDS: GABAPENTIN 300 MG (NEURONTIN) CAP PO SCH (20:58)
[2019-01-31] MEDS: NS IV 1000 ML 1,000 ML IV SCH ×2 (21:15→21:57)
[2019-02-01] VITALS (28 sets, daily range): BP systolic 100–167; BP diastolic 66–97
[2019-02-01] MEDS: PIPERACILLIN/TAZOBACTAM (BULK) 4.5 GM in NS (IVPB) 100 ML IV SCH ×3 (03:18→21:02)
[2019-02-01 03:29] LABS: BASOPHILS % (AUTO) 0 % (0-10); EOSINOPHILS % (AUTO) 0 % (0-10); HEMATOCRIT 28 % (40-54); HEMOGLOBIN 8.5 G/DL (13.3-17.7); LYMPHOCYTES # (AUTO) 0.8 X 10^3 (1.0-4.0); LYMPHOCYTES % (AUTO) 3 % (12-44); MEAN CORPUSCULAR HEMOGLOBIN 25 PG (25-34); MEAN CORPUSCULAR HGB CONC 31 G/DL (32-36); MEAN CORPUSCULAR VOLUME 82 FL (80-99); MEAN PLATELET VOLUME 9.6 FL (7.4-10.4); MONOCYTES # (AUTO) 1.7 X 10^3 (0.0-1.0); MONOCYTES % (AUTO) 7 % (0-12); NEUTROPHILS # (AUTO) 22.1 X 10^3 (1.8-7.8); NEUTROPHILS % (AUTO) 90 % (42-75); PLATELET COUNT 351 10^3/uL (130-400); RED CELL DISTRIBUTION WIDTH 19.7 % (10.0-14.5); WHITE BLOOD COUNT 24.5 10^3/uL (4.3-11.0)
[2019-02-01 03:45] LABS: PHOSPHORUS 5.5 MG/DL (2.3-4.7)
[2019-02-01 03:47] LABS: ALBUMIN 2.5 GM/DL (3.2-4.5); BILIRUBIN,TOTAL 0.4 MG/DL (0.1-1.0); CALCIUM 9.2 MG/DL (8.5-10.1); CREATININE SERUM 2.21 MG/DL (0.60-1.30); POTASSIUM 5.7 MMOL/L (3.6-5.0); TOTAL PROTEIN 6.7 GM/DL (6.4-8.2)
[2019-02-01 04:03] LABS: ABG BASE EXCESS -1.6 MMOL/L (-2.5-2.5); ABG OXYGEN SATURATION 90 % (94-100); ABG PCO2 42 MMHG (35-45); ABG PH 7.36 (7.37-7.43); ABG PO2 59 MMHG (79-93); ABG TCO2 24.6 MMOL/L (21.0-31.0)
[2019-02-01 04:09] LABS: ALLENS TEST YES-POS
[2019-02-01 04:10] LABS: INSPIRED O2 21%; VENTILATOR NO
--- NOTE | 2019-02-01 04:31 | Pulmonary Progress Note ---
Subjective Time Seen by a Provider: 06:11 Subjective/Events-last exam Pt more awake and pain is controlled. Sepsis Event Evaluation Height, Weight, BMI Height: 6'0.00" Weight: 183lbs. 0.0oz. 83.069687nf; 24.8 BMI Method:Estimated Focused Exam Lactate Level 01/31/19 09:50: Lactic Acid Level 2.72*H 01/31/19 12:28: Lactic Acid Level 1.68 01/31/19 15:50: Lactic Acid Level 1.37 Exam Exam Vital Signs Date Time Temp Pulse Resp B/P (MAP) Pulse Ox O2 Delivery O2 Flow Rate FiO2 02/01/19 02:02 63 15 100 21.00 02/01/19 00:10 78 14 100 21.00 02/01/19 00:00 96.6 02/01/19 00:00 NIV Bilevel 100 02/01/19 00:00 75 9 105/70 (82) 100 NIV Bilevel 25.00 01/31/19 23:17 81 8 91/67 (75) 100 NIV Bilevel 25.00 01/31/19 23:00 79 9 100/65 (77) 98 NIV Bilevel 30.00 01/31/19 22:10 81 16 99 25.00 01/31/19 22:00 88 10 97/61 (73) 98 NIV Bilevel 30.00 01/31/19 21:00 70 9 114/85 (95) 97 NIV Bilevel 30.00 01/31/19 20:25 80 15 100 30.00 01/31/19 20:23 85 11 111/68 (82) 99 NIV Bilevel 30.00 01/31/19 20:00 82 8 108/81 (90) 100 NIV Bilevel 35.00 01/31/19 20:00 95.9 01/31/19 20:00 NIV Bilevel 01/31/19 19:00 78 01/31/19 19:00 78 8 95/68 (77) 100 NIV Bilevel 35.00 01/31/19 18:05 79 15 100 35.00 01/31/19 18:00 84 9 110/75 (87) 98 Nasal Cannula 2.00 01/31/19 17:00 81 8 108/65 (79) 100 Nasal Cannula 2.00 01/31/19 16:00 Nasal Cannula 2.00 01/31/19 16:00 80 6 96/68 (77) 100 Nasal Cannula 2.00 01/31/19 15:00 83 6 81/48 (59) 100 Nasal Cannula 2.00 01/31/19 14:30 89 10 125/83 (97) Nasal Cannula 2.00 01/31/19 14:00 95.9 82 12 91/64 (73) 97 Nasal Cannula 2.00 01/31/19 09:45 95.9 99 12 79/55 (63) 99 Room Air I & O 02/01/19 07:00 Intake Total 3165 ml Output Total 1625 ml Balance 1540 ml Height & Weight Height: 6'0.00" Weight: 183lbs. 0.0oz. 83.453556yv; 24.8 BMI Method:Estimated General Appearance: No Apparent Distress, WD/WN HEENT: Normal ENT Inspection Neck: Normal Inspection Respiratory: Normal Breath Sounds, No Accessory Muscle Use, No Respiratory Distress Cardiovascular: Regular Rate, Rhythm, No Murmur Capillary Refill: Less Than 3 Seconds Extremity: Normal Capillary Refill, Normal Inspection, Normal Range of Motion, Non Tender, No Calf Tenderness, No Pedal Edema Neurologic/Psychiatric: Alert Skin: Normal Color, Warm/Dry Lymphatic: No Adenopathy Results Lab Laboratory Tests 01/31/19 09:50 01/31/19 15:50 02/01/19 03:15 Assessment/Plan Assessment/Plan RLL PNA with severe sepsis and septic shock -Severe sepsis protocol -IVF -Velez cultures - vanco and Zosyn -Levophed is off Metabolic lactic acidosis -IVF Anemia -Monitor Shingles -Add acyclovir Chronic severe pain -Pt is on high dose narcotics as out patient. 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 -Dr. 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 Pathological fracture of L 3 from metastatic cancer MEKA MELENDEZ DO Feb 01, 2019 04:31
[2019-02-01] MEDS: NS IV 1000 ML 1,000 ML IV SCH ×6 (05:28→23:07)
[2019-02-01] MEDS ORDERED: inSUlin (REGULAR) HUMAN 1 UNIT/0.01 ML (CHARGE PER UNIT) IV ONE (05:45)
[2019-02-01] MEDS ORDERED: DEXTROSE 50% 50 ML (IMS) SYR IV ONE (05:45)
[2019-02-01] MEDS ORDERED: SODIUM BICARB 8.4% 50 MEQ/50 ML (ABBOTT) SYR IV ONE (05:45)
--- NOTE | 2019-02-01 05:47 | Pulmonary Progress Note ---
Subjective Time Seen by a Provider: 05:52 Subjective/Events-last exam Pt is more alert. He is off Levophed now. He states his pain is currently controlled. Sepsis Event Evaluation Height, Weight, BMI Height: 6'0.00" Weight: 186lbs. 0.0oz. 84.288365mr; 24.8 BMI Method:Estimated Focused Exam Lactate Level 01/31/19 09:50: Lactic Acid Level 2.72*H 01/31/19 12:28: Lactic Acid Level 1.68 01/31/19 15:50: Lactic Acid Level 1.37 Exam Exam Vital Signs Date Time Temp Pulse Resp B/P (MAP) Pulse Ox O2 Delivery O2 Flow Rate FiO2 02/01/19 05:21 Nasal Cannula 2.00 02/01/19 04:00 NIV Bilevel 100 02/01/19 02:02 63 15 100 21.00 02/01/19 01:00 90 02/01/19 00:10 78 14 100 21.00 02/01/19 00:00 96.6 02/01/19 00:00 NIV Bilevel 100 02/01/19 00:00 75 9 105/70 (82) 100 NIV Bilevel 25.00 01/31/19 23:17 81 8 91/67 (75) 100 NIV Bilevel 25.00 01/31/19 23:00 79 9 100/65 (77) 98 NIV Bilevel 30.00 01/31/19 22:10 81 16 99 25.00 01/31/19 22:00 88 10 97/61 (73) 98 NIV Bilevel 30.00 01/31/19 21:00 70 9 114/85 (95) 97 NIV Bilevel 30.00 01/31/19 20:25 80 15 100 30.00 01/31/19 20:23 85 11 111/68 (82) 99 NIV Bilevel 30.00 01/31/19 20:00 82 8 108/81 (90) 100 NIV Bilevel 35.00 01/31/19 20:00 95.9 01/31/19 20:00 NIV Bilevel 01/31/19 19:00 78 01/31/19 19:00 78 8 95/68 (77) 100 NIV Bilevel 35.00 01/31/19 18:05 79 15 100 35.00 01/31/19 18:00 84 9 110/75 (87) 98 Nasal Cannula 2.00 01/31/19 17:00 81 8 108/65 (79) 100 Nasal Cannula 2.00 01/31/19 16:00 Nasal Cannula 2.00 01/31/19 16:00 80 6 96/68 (77) 100 Nasal Cannula 2.00 01/31/19 15:00 83 6 81/48 (59) 100 Nasal Cannula 2.00 01/31/19 14:30 89 10 125/83 (97) Nasal Cannula 2.00 01/31/19 14:00 95.9 82 12 91/64 (73) 97 Nasal Cannula 2.00 01/31/19 09:45 95.9 99 12 79/55 (63) 99 Room Air I & O 02/01/19 07:00 Intake Total 3165 ml Output Total 2075 ml Balance 1090 ml Height & Weight Height: 6'0.00" Weight: 186lbs. 0.0oz. 84.055807us; 24.8 BMI Method:Estimated General Appearance: No Apparent Distress, WD/WN HEENT: Normal ENT Inspection Neck: Normal Inspection Respiratory: Normal Breath Sounds, No Accessory Muscle Use, No Respiratory Distress Cardiovascular: Regular Rate, Rhythm, No Murmur Capillary Refill: Less Than 3 Seconds Extremity: Normal Capillary Refill, Normal Inspection, Normal Range of Motion, Non Tender, No Calf Tenderness, No Pedal Edema Neurologic/Psychiatric: Alert Skin: Normal Color, Warm/Dry Lymphatic: No Adenopathy Results Lab Laboratory Tests 01/31/19 09:50 01/31/19 15:50 02/01/19 03:15 Assessment/Plan Assessment/Plan RLL PNA with severe sepsis and septic shock -Severe sepsis protocol -IVF -Velez cultures -vanco and Zosyn Metabolic lactic acidosis -IVF hyperkalemia -insulin, Bicarb, IVF -Monitor Anemia -Monitor Shingles -acyclovir Chronic severe pain -Pt is on high dose narcotics 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 -Dr. 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 Pathological fracture of L 3 from metastatic cancer MEKA MELENDEZ DO Feb 01, 2019 05:47
[2019-02-01] MEDS: ACYCLOVIR INJECTION 800 MG in NS (IVPB) 250 ML IV SCH ×2 (05:54→19:03)
--- NOTE | 2019-02-01 06:54 | Diagnostic Imaging Report ---
Indication: Shortness of breath Portable chest 3:55 AM Left subclavian Port-A-Cath tip projects over the SVC. There some right basilar infiltrate and/or atelectasis that appears have improved slightly from the previous day. Left lung is clear. Impression: Improving right basilar infiltrate Dictated by: Dictated on workstation # [id number]
--- NOTE | 2019-02-01 07:36 | Progress Note (SOAP) ---
Subjective Time Seen by a Provider: 07:31 Subjective/Events-last exam Patient voices no complaints. Patient awake. Patient this morning. White blood cell count elevated. Chest x-ray shows pneumonia resolving. GFR increasing now 39 Focused Exam Lactate Level 01/31/19 09:50: Lactic Acid Level 2.72*H 01/31/19 12:28: Lactic Acid Level 1.68 01/31/19 15:50: Lactic Acid Level 1.37 Objective Exam Vital Signs Date Time Temp Pulse Resp B/P (MAP) Pulse Ox O2 Delivery O2 Flow Rate FiO2 02/01/19 07:11 100 Nasal Cannula 2.00 02/01/19 06:00 107 10 129/79 (96) 100 Nasal Cannula 2.00 02/01/19 05:21 Nasal Cannula 2.00 02/01/19 05:00 94 17 126/71 (89) 100 NIV Bilevel 25.00 02/01/19 04:00 65 18 148/95 (112) 100 NIV Bilevel 25.00 02/01/19 04:00 NIV Bilevel 100 02/01/19 03:00 54 34 109/84 (92) 100 NIV Bilevel 25.00 02/01/19 02:02 63 15 100 21.00 02/01/19 02:00 77 11 107/71 (83) 90 NIV Bilevel 25.00 02/01/19 01:00 90 11 100/66 (77) 100 NIV Bilevel 25.00 02/01/19 01:00 90 02/01/19 00:10 78 14 100 21.00 02/01/19 00:00 96.6 02/01/19 00:00 NIV Bilevel 100 02/01/19 00:00 75 9 105/70 (82) 100 NIV Bilevel 25.00 01/31/19 23:17 81 8 91/67 (75) 100 NIV Bilevel 25.00 01/31/19 23:00 79 9 100/65 (77) 98 NIV Bilevel 30.00 01/31/19 22:10 81 16 99 25.00 01/31/19 22:00 88 10 97/61 (73) 98 NIV Bilevel 30.00 01/31/19 21:00 70 9 114/85 (95) 97 NIV Bilevel 30.00 01/31/19 20:25 80 15 100 30.00 01/31/19 20:23 85 11 111/68 (82) 99 NIV Bilevel 30.00 01/31/19 20:00 82 8 108/81 (90) 100 NIV Bilevel 35.00 01/31/19 20:00 95.9 01/31/19 20:00 NIV Bilevel 01/31/19 19:00 78 01/31/19 19:00 78 8 95/68 (77) 100 NIV Bilevel 35.00 01/31/19 18:05 79 15 100 35.00 01/31/19 18:00 84 9 110/75 (87) 98 Nasal Cannula 2.00 01/31/19 17:00 81 8 108/65 (79) 100 Nasal Cannula 2.00 01/31/19 16:00 Nasal Cannula 2.00 01/31/19 16:00 80 6 96/68 (77) 100 Nasal Cannula 2.00 01/31/19 15:00 83 6 81/48 (59) 100 Nasal Cannula 2.00 01/31/19 14:30 89 10 125/83 (97) Nasal Cannula 2.00 01/31/19 14:00 95.9 82 12 91/64 (73) 97 Nasal Cannula 2.00 01/31/19 09:45 95.9 99 12 79/55 (63) 99 Room Air I & O 02/01/19 07:00 Intake Total 3165 ml Output Total 2075 ml Balance 1090 ml Capillary Refill : Less Than 3 Seconds General Appearance: No Apparent Distress, WD/WN HEENT: Normal ENT Inspection Neck: Normal Inspection Respiratory: Lungs Clear, No Accessory Muscle Use, No Respiratory Distress Cardiovascular: Regular Rate, Rhythm, No Murmur Gastrointestinal: non tender, soft Results Lab Laboratory Tests 01/31/19 09:50 01/31/19 15:50 02/01/19 03:15 Laboratory Tests 01/31/19 09:50: White Blood Count 16.1H, Red Blood Count 3.38L, Hemoglobin 8.3L, Hematocrit 29L , Mean Corpuscular Volume 84, Mean Corpuscular Hemoglobin 25, Mean Corpuscular Hemoglobin Concent 29L, Red Cell Distribution Width 19.5H, Platelet Count 281, Mean Platelet Volume 10.3, Neutrophils (%) (Auto) 91H, Lymphocytes (%) (Auto) 6L , Monocytes (%) (Auto) 4, Eosinophils (%) (Auto) 0, Basophils (%) (Auto) 0, Neutrophils # (Auto) 14.6H, Lymphocytes # (Auto) 0.9L, Monocytes # (Auto) 0.6, Eosinophils # (Auto) 0.0, Basophils # (Auto) 0.0, Neutrophils % (Manual) 81, Lymphocytes % (Manual) 5, Monocytes % (Manual) 4, Eosinophils % (Manual) 0, Basophils % (Manual) 0, Band Neutrophils 10, Anisocytosis SLIGHT, Microcytosis SLIGHT, Lactic Acid Level 2.72*H 01/31/19 12:05: Urine Color YELLOW, Urine Clarity CLEAR, Urine pH 5, Urine Specific Thayer 1.020, Urine Protein 2+H, Urine Glucose (UA) NEGATIVE, Urine Ketones NEGATIVE, Urine Nitrite NEGATIVE, Urine Bilirubin NEGATIVE, Urine Urobilinogen NORMAL, Urine Leukocyte Esterase 1+H, Urine RBC (Auto) 2+H, Urine RBC 0-2, Urine WBC 0-2 , Urine Squamous Epithelial Cells RARE, Urine Crystals PRESENTH, Urine Amorphous Sediment FEW SARI URATESH, Urine Bacteria TRACE, Urine Casts PRESENT, Urine Hyaline Casts 5-10H, Urine Mucus NEGATIVE, Urine Culture Indicated NO 01/31/19 12:28: Lactic Acid Level 1.68 01/31/19 15:50: White Blood Count 18.2H, Red Blood Count 3.45L, Hemoglobin 8.6L, Hematocrit 29L , Mean Corpuscular Volume 84, Mean Corpuscular Hemoglobin 25, Mean Corpuscular Hemoglobin Concent 30L, Red Cell Distribution Width 19.8H, Platelet Count 316, Mean Platelet Volume 9.8, Neutrophils (%) (Auto) 93H, Lymphocytes (%) (Auto) 4L , Monocytes (%) (Auto) 3, Eosinophils (%) (Auto) 0, Basophils (%) (Auto) 0, Neutrophils # (Auto) 16.9H, Lymphocytes # (Auto) 0.7L, Monocytes # (Auto) 0.6, Eosinophils # (Auto) 0.0, Basophils # (Auto) 0.0, Lactic Acid Level 1.37, Sodium Level 140, Potassium Level 5.8H, Chloride Level 108H, Carbon Dioxide Level 23, Anion Gap 9, Blood Urea Nitrogen 66H, Creatinine 2.65H, Estimat Glomerular Filtration Rate 31, BUN/Creatinine Ratio 25, Glucose Level 142H, Calcium Level 9.4, Corrected Calcium 10.5H, Phosphorus Level 6.8H, Magnesium Level 2.1, Total Bilirubin 0.5, Aspartate Amino Transf (AST/SGOT) 30, Alanine Aminotransferase (ALT/SGPT) 46, Alkaline Phosphatase 165H, B-Type Natriuretic Peptide 675.7H, Total Protein 7.1, Albumin 2.6L 01/31/19 17:25: Blood Gas Puncture Site RIGHT RADIAL, Blood Gas Patient Temperature 94.1, Arterial Blood pH 7.28*L, Arterial Blood Partial Pressure CO2 53H, Arterial Blood Partial Pressure O2 56L, Arterial Blood HCO3 25, Arterial Blood Total CO2 27.0, Arterial Blood Oxygen Saturation 89L, Arterial Blood Base Excess -1.1, Sebastian Test POSITIVE, Blood Gas Ventilator Setting NO, Blood Gas Inspired Oxygen 2L 02/01/19 03:15: White Blood Count 24.5H, Red Blood Count 3.34L, Hemoglobin 8.5L, Hematocrit 28L , Mean Corpuscular Volume 82, Mean Corpuscular Hemoglobin 25, Mean Corpuscular Hemoglobin Concent 31L, Red Cell Distribution Width 19.7H, Platelet Count 351, Mean Platelet Volume 9.6, Neutrophils (%) (Auto) 90H, Lymphocytes (%) (Auto) 3L , Monocytes (%) (Auto) 7, Eosinophils (%) (Auto) 0, Basophils (%) (Auto) 0, Neutrophils # (Auto) 22.1H, Lymphocytes # (Auto) 0.8L, Monocytes # (Auto) 1.7H, Eosinophils # (Auto) 0.0, Basophils # (Auto) 0.0, Sodium Level 142, Potassium Level 5.7H, Chloride Level 111H, Carbon Dioxide Level 22, Anion Gap 9, Blood Urea Nitrogen 63H, Creatinine 2.21H, Estimat Glomerular Filtration Rate 39, BUN/ Creatinine Ratio 29, Glucose Level 130H, Calcium Level 9.2, Corrected Calcium 10.4H, Phosphorus Level 5.5H, Magnesium Level 2.0, Total Bilirubin 0.4, Aspartate Amino Transf (AST/SGOT) 25, Alanine Aminotransferase (ALT/SGPT) 41, Alkaline Phosphatase 146H, Total Protein 6.7, Albumin 2.5L 02/01/19 03:57: Blood Gas Puncture Site RIGHT RADIAL, Blood Gas Patient Temperature 97.0, Arterial Blood pH 7.36L, Arterial Blood Partial Pressure CO2 42, Arterial Blood Partial Pressure O2 59L, Arterial Blood HCO3 23, Arterial Blood Total CO2 24.6, Arterial Blood Oxygen Saturation 90L, Arterial Blood Base Excess -1.6, Sebastian Test YES-POS, Blood Gas Ventilator Setting NO, Blood Gas Inspired Oxygen 21% Assessment/Plan Assessment/Plan Assess & Plan/Chief Complaint Sepsis. Pneumonia. Shingles. 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 Leukocytosis. Hypercapnia. Patient improving Clinical Quality Measures Admission Status Admission Dx Sepsis. Hypotension. Shingles. Acute renal insufficiency. Elevated lactic acid. Elevated BNP. Right lower lobe pneumonia. Decrease alert DVT/VTE Risk/Contraindication: Risk Factor Score Per Nursin RFS Level Per Nursing on Admit: 4+=Very High JYOTI JULIEN DO Feb 01, 2019 07:36
[2019-02-01] MEDS: DEXAMETHASONE 4 MG TAB (DECADRON) PO SCH (08:50)
[2019-02-01] MEDS: FERROUS SULF 325 MG (IRON) TAB PO SCH (08:50)
[2019-02-01] MEDS: ALPRAZolam 1 MG (XANAX) TAB PO SCH ×2 (08:50→19:28)
[2019-02-01] MEDS: GABAPENTIN 300 MG (NEURONTIN) CAP PO SCH ×3 (08:50→19:28)
--- NOTE | 2019-02-01 09:39 | NUR ---
PALLIATIVE CARE RN has received a consult for hospice education for this patient. I had done a significant amount of education on his previous admission a couple weeks ago. During that admission he had worked with Debbie YOUNG, on DPOA paperwork and had decided that he would like to do Palliative Chemotherapy. He and family were offered education on hospice previously. Today when I went in to talk with patient he was initially resting, I waited a moment and he opened his eyes. Again as on last admission he was not very communicative, had a "deer in the headlights look" when asked questions. He did answer the questions asked but had prolonged thought leading up to the answer. Patient reports pain at the time of visit as a 9, he states that it never gets better than a 6. He reports that he has shingles now and it is on his back. He also says that he is still getting chemotherapy. I will let Oncology see patient to determine if it is now time for a hospice more in depth hospice push.
[2019-02-01 12:50] LABS: CREATININE SERUM 1.93 MG/DL (0.60-1.30); POTASSIUM 5.2 MMOL/L (3.6-5.0)
[2019-02-01] MEDS: ACETAMINOPHEN 325 MG TABLET PO PRN ×2 (15:14→19:28)
--- NOTE | 2019-02-01 16:05 | NUR ---
PATIENT BROUGHT TO ROOM 419 VIA HOSPITAL BED ACCOMPANIED BY AGRICULTURIST. REPORT RECEIVED AND PATIENT ORIENTED TO ROOM AND CALL LIGHT. PERSONAL BELONGINGS BROUGHT DOWN WITH PATIENT.
[2019-02-01] MEDS ORDERED: VANCOMYCIN 1250 MG/NS 250 ML IVPB IV SCH ×2 (17:00)
[2019-02-01] MEDS: ENOXAPARIN 40 MG/0.4 ML (LOVENOX) SYR SC SCH ×2 (18:42→18:43)
[2019-02-01] MEDS: TAMSULOSIN 0.4 MG (FLOMAX) CAP PO SCH (18:42)
[2019-02-01] MEDS: SERTRALINE 50 MG (ZOLOFT) TABLET PO SCH (19:28)
--- NOTE | 2019-02-01 19:55 | NUR ---
PT CRYING AND YELLING IN PAIN. DR. DOCKERY NOTIFIED, NEW ORDERS RECEIVED: MORPHINE 6MG IV Q4HRS PRN PAIN WILL CONTINUE TO MONITOR.
--- NOTE | 2019-02-01 20:42 | CONSULTATION REPORT ---
DATE OF SERVICE: 02/01/2019 The patient is admitted to ICU bed 8. IMPRESSION: 1. A 48-year-old male, admitted to the hospital for febrile illness and found to have a right lower lobe pneumonia. 2. Right chest wall herpes zoster infection. 3. Probable sepsis with hypertension. 4. History of metastatic rectal cancer to the bone, status post radiation therapy. The patient was scheduled to start palliative chemotherapy over the last two weeks, but has not started it as he was hospitalized recently. RECOMMENDATIONS: 1. I agree with management for sepsis/pneumonia as you are doing. Continue broad-spectrum antibiotics. 2. I agree with acyclovir for herpes zoster infection. The patient is immunocompromised as he has been on steroids during the radiation therapy. 3. Decrease dexamethasone to 2 mg daily for three days and discontinue. 4. The patient will need prophylactic dose acyclovir after the acute treatment for herpes zoster is completed. 5. Continue pain management as you are doing. 6. We will plan on starting palliative chemotherapy once he recovers from the acute infection/sepsis. 7. We will follow the patient with you. 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 He had a diverting loop colostomy placed and completed combined chemoradiation using 5-FU and mitomycin C by mid 10/2018. By late 11/2018, he was noted to have metastatic disease to the lumbar spine just causing significant pain. He completed a course of palliative radiation therapy by mid to late 12/2018. Since then, he was scheduled to start palliative chemotherapy with carboplatin and paclitaxel regimen, but over the past 2 weeks, this is his second admission to the hospital. The patient lives at a local long term and he was transferred to the emergency room yesterday because of fever and altered mental status. He was noted to have right lower lobe pneumonia with hypertension and dehydration. It was also felt to be sepsis and he was admitted to the ICU with aggressive treatment per sepsis protocol. He was also started on broad spectrum antibiotics. He is doing much better today, is awake and answering questions appropriately. He was also noted to have right-sided chest wall skin lesions consistent with herpes zoster. He was started on antiviral therapy for this. Oncology consultation was obtained for concurrent medical care. PAST MEDICAL HISTORY: Is only significant for the diagnosis of squamous cell carcinoma of the anal canal. He has previous history of hypertension and on treatment for 30 years. No other medical problems. PRIOR SURGERIES: Include the diverting loop colostomy placed in late 2018. Ankle surgery in the distant past for a fracture. Left lung lobectomy several years ago for a mass, which was benign. SOCIAL HISTORY: Unchanged from my recent consultation done on 01/15/2019. FAMILY HISTORY: Unchanged from my recent consultation done on 01/15/2019. PHYSICAL EXAMINATION: GENERAL: Today, showed middle-aged -English male, well-developed and well-nourished, awake and answering questions appropriately, in no acute distress. VITAL SIGNS: Temperature at the time of evaluation was 98.7, pulse rate of 95, respirations 16, blood pressure 154/90, oxygen saturation of 100% on 2 liters of oxygen by nasal cannula. HEENT: Normocephalic, extraocular muscles intact, conjunctivae slightly pale, oral mucosa moist. NECK: Supple with no JVD. No cervical, supraclavicular or axillary lymphadenopathy palpable. CHEST: Showed right-sided skin lesions in a dermatomal pattern consistent with herpes zoster. LUNGS: Fairly clear to auscultation without wheezes or rales. CARDIOVASCULAR: Regular rate and rhythm. No murmurs or gallops heard. ABDOMEN: Showed a left lower quadrant colostomy present. No hepatosplenomegaly or other masses palpable. EXTREMITIES: Showed trace edema around the ankles. NEUROLOGIC: Showed no focal motor deficits. LABORATORY DATA: CBC done today showed WBC 24.5, hemoglobin 8.5, MCV 82, platelet count 351,000 with neutrophil count 22.1, lymphocyte count 0.8 and monocyte count 1.7. Chemistry panel done today showed serum potassium elevated at 5.7. BUN was 63 and creatinine 2.21 with GFR 39 mL per minute. This had improved from 31 at the time of admission last evening. Measured calcium was 9.2 with albumin level of 2.5 and corrected calcium of 10.4. Liver function studies were normal except alkaline phosphatase level of 146 and albumin of 2.5. Lactic acid level done yesterday was elevated at 2.72, but a followup lactic acid level was within normal limits. Blood cultures drawn yesterday showed no growth so far and urine culture shows no growth so far. Chest x-ray done at the time of admission showed new airspace opacities in the right lung base concerning for pneumonia. Thank you for allowing me to participate in this patient's care. I will follow the patient with you and make appropriate recommendations. Job ID: [id number] DocumentID: [id number] Dictated Date: 02/01/2019 16:55:51 Larry Operator Date: 02/01/2019 20:42:20 Dictated By: SAROJ CHA MD
[2019-02-01] MEDS: morphine INJ 10 MG/ML 1ML (SYR OR VIAL) IVP PRN (22:41)
--- NOTE | 2019-02-02 | NUR ---
PT YELLING, CRYING AND THRASHING IN BED COMPLAINING OF PAIN. DR. DOCKERY NOTIFIED, NEW ORDERS RECEIVED: DILAUDID 1MG IV Q2HRS
[2019-02-02] MEDS: HYDROmorphone 2 MG/ML VIAL (DILAUDID) IV PRN ×3 (00:11→10:34)
[2019-02-02 00:46] VITALS: BP 170/84
--- NOTE | 2019-02-02 02:35 | NUR ---
PT CONTINUES TO YELL/THRASH IN BED. YELLING HE NEEDS TO GET OUT OF HERE DR. DOCKERY NOTIFIED, NEW ORDERS RECEIVED: HALDOL 5MG IM NOW, ATIVAN 2MG IV Q2HRS PRN WILL CONTINUE TO MONITOR.
[2019-02-02] MEDS ORDERED: HALOPERIDOL 5 MG/ML (HALDOL) AMP IM ONE (02:45)
[2019-02-02] MEDS: LORazepam INJ 2 MG/ML (ATIVAN) VIAL IVP PRN ×4 (03:52→20:41)
[2019-02-02] MEDS: ACYCLOVIR INJECTION 800 MG in NS (IVPB) 250 ML IV SCH ×3 (04:19→23:28)
[2019-02-02 04:31] LABS: BASOPHILS % (AUTO) 0 % (0-10); EOSINOPHILS # (AUTO) 0.1 10^3/uL (0.0-0.3); EOSINOPHILS % (AUTO) 1 % (0-10); HEMATOCRIT 26 % (40-54); HEMOGLOBIN 7.9 G/DL (13.3-17.7); LYMPHOCYTES # (AUTO) 0.8 X 10^3 (1.0-4.0); LYMPHOCYTES % (AUTO) 5 % (12-44); MEAN CORPUSCULAR HEMOGLOBIN 25 PG (25-34); MEAN CORPUSCULAR HGB CONC 31 G/DL (32-36); MEAN CORPUSCULAR VOLUME 80 FL (80-99); MEAN PLATELET VOLUME 9.8 FL (7.4-10.4); MONOCYTES # (AUTO) 1.1 X 10^3 (0.0-1.0); MONOCYTES % (AUTO) 7 % (0-12); NEUTROPHILS # (AUTO) 14.9 X 10^3 (1.8-7.8); NEUTROPHILS % (AUTO) 88 % (42-75); PLATELET COUNT 244 10^3/uL (130-400); RED CELL DISTRIBUTION WIDTH 19.1 % (10.0-14.5); WHITE BLOOD COUNT 16.9 10^3/uL (4.3-11.0)
[2019-02-02 04:50] LABS: CALCIUM 9.6 MG/DL (8.5-10.1); CREATININE SERUM 1.61 MG/DL (0.60-1.30); MAGNESIUM 1.7 MG/DL (1.8-2.4); POTASSIUM 4.6 MMOL/L (3.6-5.0)
[2019-02-02 04:55] VITALS: BP 171/99
[2019-02-02] MEDS: PIPERACILLIN/TAZOBACTAM (BULK) 4.5 GM in NS (IVPB) 100 ML IV SCH ×3 (06:18→19:31)
--- NOTE | 2019-02-02 07:50 | Pulmonary Progress Note ---
Subjective Time Seen by a Provider: 07:49 Subjective/Events-last exam No complications noted. Sepsis Event Evaluation Height, Weight, BMI Height: 6'0.00" Weight: 186lbs. 0.0oz. 84.527774ex; 24.8 BMI Method:Estimated Focused Exam Lactate Level 01/31/19 09:50: Lactic Acid Level 2.72*H 01/31/19 12:28: Lactic Acid Level 1.68 01/31/19 15:50: Lactic Acid Level 1.37 Exam Exam Vital Signs Date Time Temp Pulse Resp B/P (MAP) Pulse Ox O2 Delivery O2 Flow Rate FiO2 02/02/19 04:55 97.3 105 20 171/99 (123) 97 Nasal Cannula 2.00 02/02/19 00:46 97.9 90 20 170/84 (112) 95 Nasal Cannula 2.00 02/01/19 20:05 98.0 89 20 167/85 (112) 94 Nasal Cannula 2.00 02/01/19 19:26 Nasal Cannula 2.00 02/01/19 16:13 98.7 95 16 154/90 (111) Nasal Cannula 2.00 02/01/19 16:00 Nasal Cannula 2.00 100 02/01/19 15:46 97.6 02/01/19 15:14 97.2 02/01/19 15:00 95 12 139/97 (111) 100 Nasal Cannula 2.00 02/01/19 14:00 100 14 160/91 (114) 100 Nasal Cannula 2.00 02/01/19 13:25 97.7 02/01/19 13:00 97 9 140/88 (105) 100 Nasal Cannula 2.00 02/01/19 13:00 102 02/01/19 12:00 109 20 134/94 (107) 100 Nasal Cannula 2.00 02/01/19 12:00 Nasal Cannula 2.00 100 02/01/19 11:00 106 11 121/83 (96) 100 Nasal Cannula 2.00 02/01/19 10:00 108 13 114/76 (89) 100 Nasal Cannula 2.00 02/01/19 09:30 101 13 118/77 (91) 100 Nasal Cannula 2.00 02/01/19 09:15 104 11 120/73 (89) 100 Nasal Cannula 2.00 02/01/19 09:00 99 11 131/82 (98) 100 Nasal Cannula 2.00 02/01/19 08:45 102 19 115/73 (87) 100 Nasal Cannula 2.00 02/01/19 08:30 104 11 109/67 (81) 100 Nasal Cannula 2.00 02/01/19 08:15 101 11 114/70 (85) 100 Nasal Cannula 2.00 02/01/19 08:00 100 10 117/71 (86) 100 Nasal Cannula 2.00 I & O 02/02/19 07:00 Intake Total 2152 ml Output Total 2700 ml Balance -548 ml Height & Weight Height: 6'0.00" Weight: 186lbs. 0.0oz. 84.951686yu; 24.8 BMI Method:Estimated General Appearance: No Apparent Distress, WD/WN HEENT: Normal ENT Inspection Neck: Normal Inspection Respiratory: Lungs Clear, No Accessory Muscle Use, No Respiratory Distress Cardiovascular: Regular Rate, Rhythm, No Murmur Capillary Refill: Less Than 3 Seconds Gastrointestinal: non tender, soft Extremity: Normal Capillary Refill, Normal Inspection, Normal Range of Motion, Non Tender, No Calf Tenderness, No Pedal Edema Neurologic/Psychiatric: Alert Skin: Normal Color, Warm/Dry Lymphatic: No Adenopathy Results Lab Laboratory Tests 01/31/19 09:50 01/31/19 15:50 02/01/19 03:15 02/01/19 12:24 02/02/19 04:18 Assessment/Plan Assessment/Plan RLL PNA with sepsis - much improved -IVF -- decrease IVF to KVO -Velez cultures - Zosyn. D/C Vanco Anemia -Monitor Shingles -acyclovir Chronic severe pain -Pt is on high dose narcotics as out patient. 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 -Dr. 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 Pathological fracture of L 3 from metastatic cancer CXR is improved. Pneumonia with sepsis is already much improved. Pt is only requiring 2 liters NC. I am going to sign off please call with any questions or concerns. MEKA MELENDEZ DO Feb 02, 2019 07:50
[2019-02-02] MEDS: NS IV 1000 ML 1,000 ML IV SCH (08:07)
[2019-02-02] MEDS: FERROUS SULF 325 MG (IRON) TAB PO SCH ×2 (08:07→09:34)
[2019-02-02] MEDS: ALPRAZolam 1 MG (XANAX) TAB PO SCH ×3 (08:07→19:31)
[2019-02-02] MEDS: DEXAMETHASONE 4 MG TAB (DECADRON) PO SCH ×2 (08:07→09:35)
[2019-02-02] MEDS: GABAPENTIN 300 MG (NEURONTIN) CAP PO SCH ×4 (08:08→19:31)
[2019-02-02 08:58] VITALS: BP 185/97
--- NOTE | 2019-02-02 11:30 | NUR ---
INFORMED DR. DOCKERY OF PATIENT'S STATUS INCLUDING VITAL SIGNS. INSTRUCTED TO CONTINUE THE USE OF PRN MEDICATIONS TO KEEP PATIENT COMFORTABLE.
--- NOTE | 2019-02-02 12:10 | Progress Note-Hospitalist ---
Subjective HPI/CC On Admission Date Seen by Provider: Feb 02, 2019 Time Seen by Provider: 11:50 Subjective/Events-last exam I was called multiple times last night for pain and agitation Pain is now controlled with Dilaudid and Ativan Patient preparing for comfort care hospice Reviewed labs and meds and will continue current treatment but will transition to comfort care Review of Systems Gastrointestinal: Abdominal Pain Focused Exam Lactate Level 01/31/19 09:50: Lactic Acid Level 2.72*H 01/31/19 12:28: Lactic Acid Level 1.68 01/31/19 15:50: Lactic Acid Level 1.37 Objective Exam Vital Signs Vital Signs Date Time Temp Pulse Resp B/P (MAP) Pulse Ox O2 Delivery O2 Flow Rate FiO2 02/02/19 08:58 100.6 127 20 185/97 (126) 95 Room Air 02/02/19 04:55 2.00 02/01/19 16:00 100 Capillary Refill : Less Than 3 Seconds General Appearance: Chronically ill, Other (asleep) HEENT: Normal ENT Inspection Neck: Normal Inspection Respiratory: Lungs Clear, No Accessory Muscle Use, No Respiratory Distress Cardiovascular: Regular Rate, Rhythm, No Murmur Gastrointestinal: Non Tender, Soft Extremity: Normal Capillary Refill, Normal Inspection, Normal Range of Motion, Non Tender, No Calf Tenderness, No Pedal Edema Skin: Normal Color, Warm/Dry Lymphatic: No Adenopathy Results/Procedures Lab Laboratory Tests 02/02/19 04:18 Patient resulted labs reviewed. Assessment/Plan Assessment and Plan Assess & Plan/Chief Complaint Assessment: End-stage rectal cancer with metastases End-of-life status Severe pain requiring IV pain medication Plan: Dilaudid Ativan Comfort Care DO NOT RESUSCITATE Diagnosis/Problems Diagnosis/Problems (1) End of life care Status: Acute (2) Anal cancer Status: Chronic Clinical Quality Measures DVT/VTE Risk/Contraindication: Risk Factor Score Per Nursin RFS Level Per Nursing on Admit: 4+=Very High JEFFREY DOCKERY DO Feb 02, 2019 12:10
[2019-02-02] MEDS: morphine INJ 10 MG/ML 1ML (SYR OR VIAL) IVP PRN (13:05)
--- NOTE | 2019-02-02 15:09 | Diagnostic Imaging Report ---
EXAMINATION: Portable semi-erect AP chest at 02:49 p.m. INDICATION: Dyspnea. FINDINGS: The appearance of the chest has improved since the prior exam of 02/01/2019 as the right lung base does seem better aerated. There is only a small amount of residual pneumonia/atelectasis still present in this area. Very mild residual pneumonia/atelectasis is also still noted in the left lung base. The upper lungs are clear. The heart is stable. The mediastinum is not widened. The osseous structures are intact. IMPRESSION: The appearance of the chest has improved as the right lung base continues to clear slowly. A follow-up exam will be recommended for continued evaluation. Dictated by: Dictated on workstation # [id number]
[2019-02-02] MEDS ORDERED: TROUGH ORDER-PHARMACY XX NR (16:00)
--- NOTE | 2019-02-02 16:07 | NUR ---
PCT AT BEDSIDE. PATIENT IN OPPOSITION TO VITAL SIGNS BE TAKEN. PROCEDURES EXPLAINED TO PATIENT. PATIENT CONTINUES TO STATE "NO!" AND HOLD HIS ARMS AGAINST HIS BODY, NOT ALLOWING PCT TO PLACE BLOOD PRESSURE CUFF. TEMPERATURE OBTAINED AND DOCUMENTED.
[2019-02-02] MEDS: ENOXAPARIN 40 MG/0.4 ML (LOVENOX) SYR SC SCH (18:36)
[2019-02-02] MEDS: TAMSULOSIN 0.4 MG (FLOMAX) CAP PO SCH (18:36)
[2019-02-02] MEDS: SERTRALINE 50 MG (ZOLOFT) TABLET PO SCH (19:31)
[2019-02-02] MEDS: ACETAMINOPHEN 325 MG TABLET PO PRN (21:52)
[2019-02-02 21:57] VITALS: BP 179/102
[2019-02-03 00:14] VITALS: BP 163/100
[2019-02-03] MEDS: LORazepam INJ 2 MG/ML (ATIVAN) VIAL IVP PRN ×2 (01:38→04:38)
[2019-02-03] MEDS: PIPERACILLIN/TAZOBACTAM (BULK) 4.5 GM in NS (IVPB) 100 ML IV SCH ×3 (04:25→19:27)
[2019-02-03 05:15] LABS: MAGNESIUM 1.7 MG/DL (1.8-2.4); PHOSPHORUS 3.3 MG/DL (2.3-4.7)
[2019-02-03 08:00] VITALS: BP 177/103
[2019-02-03] MEDS: ALPRAZolam 1 MG (XANAX) TAB PO SCH (09:07)
[2019-02-03] MEDS: DEXAMETHASONE 4 MG TAB (DECADRON) PO SCH (09:07)
[2019-02-03] MEDS: FERROUS SULF 325 MG (IRON) TAB PO SCH (09:07)
[2019-02-03] MEDS: GABAPENTIN 300 MG (NEURONTIN) CAP PO SCH ×3 (09:07→19:33)
[2019-02-03] MEDS: ACYCLOVIR INJECTION 800 MG in NS (IVPB) 250 ML IV SCH ×3 (10:03→23:46)
[2019-02-03] MEDS ORDERED: LORazepam INJ 2 MG/ML (ATIVAN) VIAL IVP PRN (10:15)
--- NOTE | 2019-02-03 10:17 | Progress Note-Standard ---
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 Diagnosed with bone metastasis in November 2018 and completed palliative radiation to lumbar vertebra. Admitted with febrile illness and right lower lobe pneumonia. Currently on Zosyn with the improving x-rays. Also was diagnosed with herpes zoster involving the right chest wall and on IV acyclovir. Patient is in fairly significant pain. He was on long-acting morphine as outpatient which has not been restarted. Previously he was taking extended release morphine 100 mg twice daily. I will restart this at 60 mg twice daily. He is currently on Dilaudid and morphine IV for breakthrough pain. I will continue Dilaudid and discontinue short-acting morphine for breakthrough. He is also receiving Xanax and Ativan and is somnolent. He is not swallowing pills deficits crashed and administered with the applesauce or liquids. I will discontinue Xanax as well as oral iron tablets. Continue Ativan IV every 4 when necessary for agitation. Colostomy bag is not sticking and is leaking frequently. We will consult ostomy nurse to see patient tomorrow for recommendations. Continue management of fistula per woundcare recommendations. I will reduce oral dexamethasone to 2 mg daily over the next 3 -4 days and discontinue. Overall prognosis is guarded. Will follow patient with you. Focused Exam Lactate Level 01/31/19 12:28: Lactic Acid Level 1.68 01/31/19 15:50: Lactic Acid Level 1.37 SAROJ CHA Feb 03, 2019 10:17
--- NOTE | 2019-02-03 11:29 | Progress Note-Hospitalist ---
Subjective HPI/CC On Admission Date Seen by Provider: Feb 03, 2019 Time Seen by Provider: 11:50 Subjective/Events-last exam Medications change from Dr. Dale Patient appears to be sedated but in no pain Doesn't comprehend well End-of-life status Focused Exam Lactate Level 01/31/19 15:50: Lactic Acid Level 1.37 Objective Exam Vital Signs Vital Signs Date Time Temp Pulse Resp B/P (MAP) Pulse Ox O2 Delivery O2 Flow Rate FiO2 02/03/19 08:00 Room Air 02/03/19 08:00 99.2 113 20 177/103 (127) 94 02/02/19 20:55 2.00 02/01/19 16:00 100 Capillary Refill : Less Than 3 Seconds General Appearance: Chronically ill, Other (asleep) HEENT: Normal ENT Inspection Neck: Normal Inspection Respiratory: Lungs Clear, No Accessory Muscle Use, No Respiratory Distress Cardiovascular: Regular Rate, Rhythm, No Murmur Gastrointestinal: Non Tender, Soft Extremity: Normal Capillary Refill, Normal Inspection, Normal Range of Motion, Non Tender, No Calf Tenderness, No Pedal Edema Skin: Normal Color, Warm/Dry Lymphatic: No Adenopathy Results/Procedures Lab Patient resulted labs reviewed. Assessment/Plan Assessment and Plan Assess & Plan/Chief Complaint Assessment: End-stage rectal cancer with metastases End-of-life status Severe pain requiring IV pain medication Plan: Dilaudid Ativan Comfort Care DO NOT RESUSCITATE Diagnosis/Problems Diagnosis/Problems (1) End of life care Status: Acute (2) Anal cancer Status: Chronic Clinical Quality Measures DVT/VTE Risk/Contraindication: Risk Factor Score Per Nursin RFS Level Per Nursing on Admit: 4+=Very High JEFFREY DOCKERY DO Feb 03, 2019 11:29
[2019-02-03] MEDS: HYDROmorphone 2 MG/ML VIAL (DILAUDID) IV PRN ×2 (12:23→18:14)
[2019-02-03 16:00] VITALS: BP 178/111
[2019-02-03] MEDS: ENOXAPARIN 40 MG/0.4 ML (LOVENOX) SYR SC SCH (18:14)
[2019-02-03] MEDS: TAMSULOSIN 0.4 MG (FLOMAX) CAP PO SCH (18:14)
[2019-02-03] MEDS: SERTRALINE 50 MG (ZOLOFT) TABLET PO SCH (19:33)
[2019-02-03] MEDS: morphine ER 30 MG (MS CONTIN) TAB PO SCH (19:33)
[2019-02-03 23:26] VITALS: BP 186/107
[2019-02-04] MEDS: NS IV 1000 ML 1,000 ML IV SCH ×2 (04:55→15:39)
[2019-02-04] MEDS: PIPERACILLIN/TAZOBACTAM (BULK) 4.5 GM in NS (IVPB) 100 ML IV SCH ×3 (04:55→20:10)
[2019-02-04 05:42] LABS: MAGNESIUM 1.6 MG/DL (1.8-2.4)
--- NOTE | 2019-02-04 07:50 | Progress Note (SOAP) ---
Subjective Time Seen by a Provider: 07:47 Subjective/Events-last exam pt. sedated. will not talk Objective Exam Vital Signs Date Time Temp Pulse Resp B/P (MAP) Pulse Ox O2 Delivery O2 Flow Rate FiO2 02/03/19 23:26 100.0 113 18 186/107 (133) Room Air 02/03/19 20:36 Room Air 02/03/19 16:00 99.1 120 20 178/111 (133) 95 Room Air 02/03/19 08:00 Room Air 02/03/19 08:00 99.2 113 20 177/103 (127) 94 Room Air I & O 02/04/19 07:00 Intake Total 1120 ml Output Total 4350 ml Balance -3230 ml Capillary Refill : Less Than 3 Seconds General Appearance: No Apparent Distress, WD/WN HEENT: Normal ENT Inspection Results Lab Laboratory Tests 02/04/19 05:17: Phosphorus Level 3.0, Magnesium Level 1.6L Microbiology 01/31/19 Blood Culture - Preliminary, Resulted No growth 01/31/19 MRSA Screen - Final, Complete MRSA not isolated 01/31/19 Urine Culture - Final, Complete NO GROWTH Assessment/Plan Assessment/Plan Assess & Plan/Chief Complaint Sepsis. Pneumonia. Shingles. 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 Leukocytosis. Hypercapnia. Patient improving 02/04/19 sepsis pneumonia shingles lethargic Clinical Quality Measures Admission Status Admission Dx Sepsis. Hypotension. Shingles. Acute renal insufficiency. Elevated lactic acid. Elevated BNP. Right lower lobe pneumonia. Decrease alert DVT/VTE Risk/Contraindication: Risk Factor Score Per Nursin RFS Level Per Nursing on Admit: 4+=Very High JYOTI JULIEN DO Feb 04, 2019 07:50
[2019-02-04 08:00] VITALS: BP 178/125
[2019-02-04] MEDS: DEXAMETHASONE 4 MG TAB (DECADRON) PO SCH (08:11)
[2019-02-04] MEDS: morphine ER 30 MG (MS CONTIN) TAB PO SCH ×3 (08:11→20:20)
[2019-02-04] MEDS: GABAPENTIN 300 MG (NEURONTIN) CAP PO SCH ×4 (08:11→20:20)
[2019-02-04] MEDS: ACYCLOVIR INJECTION 800 MG in NS (IVPB) 250 ML IV SCH ×2 (09:51→17:09)
[2019-02-04] MEDS: LORazepam INJ 2 MG/ML (ATIVAN) VIAL IVP PRN ×2 (12:20→23:38)
[2019-02-04] MEDS: HYDROmorphone 2 MG/ML VIAL (DILAUDID) IV PRN ×2 (12:20→23:37)
--- NOTE | 2019-02-04 12:55 | NUR ---
Palliative Care RN in to see patient. He is in bed with eyes open, looks at you when spoken too but does not verbally respond except for weak grunt. Patient had significant pain issues this weekend and now is on Dilaudid PRN. He appears to be in a declined state of health today. Unsure if this is disease process or in response to the Dilaudid. He would benefit from being made CCMO
--- NOTE | 2019-02-04 14:05 | NUR ---
Pastoral care visit.
[2019-02-04 15:37] VITALS: BP 174/98
--- NOTE | 2019-02-04 16:57 | Progress Note-Standard ---
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 Diagnosed with bone metastasis in November 2018 and completed palliative radiation to lumbar vertebra. Admitted with febrile illness and right lower lobe pneumonia. Currently on Zosyn with the improving x-rays. Also was diagnosed with herpes zoster involving the right chest wall and on IV acyclovir. Patient is awake but not oriented and does not answer questions appropriately. He appears comfortable and is not in pain. He has received Ativan only once during the day and once last night. He has required IV Dilaudid once today. He is taking MS Contin 60 mg twice daily. No fevers or chills. No focal weaknesses. If his confusion does not improve in the next one or 2 days, he may need a CT scan of the head to rule out intracranial pathology. We will repeat CBC and CMP in a.m. His prognosis is guarded. SAROJ CHA Feb 04, 2019 16:57
--- NOTE | 2019-02-04 17:06 | NUR ---
Pt is a resident of [facility] and has been for at least 8 months. He had been looking at the possibility of relocating to an [facility] with 24 hour carebut with his decline that won't be possible. His siblings are aware of his hospitlization and the seriousness of his condition. According to his oldest sister, family plans to visit tomorrow.
[2019-02-04] MEDS: TAMSULOSIN 0.4 MG (FLOMAX) CAP PO SCH ×2 (17:09→17:14)
[2019-02-04] MEDS: ENOXAPARIN 40 MG/0.4 ML (LOVENOX) SYR SC SCH (20:10)
[2019-02-04] MEDS: SERTRALINE 50 MG (ZOLOFT) TABLET PO SCH ×2 (20:10→20:21)
[2019-02-04 20:52] VITALS: BP 148/70
[2019-02-04] MEDS: ACETAMINOPHEN 325 MG TABLET PO PRN (23:31)
[2019-02-05 00:15] VITALS: BP 166/100
[2019-02-05] MEDS: ACYCLOVIR INJECTION 800 MG in NS (IVPB) 250 ML IV SCH ×3 (01:58→15:59)
[2019-02-05] MEDS: HYDROmorphone 2 MG/ML VIAL (DILAUDID) IV PRN ×4 (02:46→16:57)
[2019-02-05] MEDS: PIPERACILLIN/TAZOBACTAM (BULK) 4.5 GM in NS (IVPB) 100 ML IV SCH ×3 (04:32→21:13)
[2019-02-05 04:45] LABS: BASOPHILS % (AUTO) 0 % (0-10); EOSINOPHILS # (AUTO) 0.4 10^3/uL (0.0-0.3); EOSINOPHILS % (AUTO) 2 % (0-10); HEMATOCRIT 28 % (40-54); HEMOGLOBIN 8.5 G/DL (13.3-17.7); LYMPHOCYTES # (AUTO) 1.5 X 10^3 (1.0-4.0); LYMPHOCYTES % (AUTO) 7 % (12-44); MEAN CORPUSCULAR HEMOGLOBIN 25 PG (25-34); MEAN CORPUSCULAR HGB CONC 31 G/DL (32-36); MEAN CORPUSCULAR VOLUME 81 FL (80-99); MEAN PLATELET VOLUME 10.6 FL (7.4-10.4); MONOCYTES # (AUTO) 1.4 X 10^3 (0.0-1.0); MONOCYTES % (AUTO) 7 % (0-12); NEUTROPHILS # (AUTO) 16.5 X 10^3 (1.8-7.8); NEUTROPHILS % (AUTO) 83 % (42-75); PLATELET COUNT 194 10^3/uL (130-400); RED CELL DISTRIBUTION WIDTH 20.4 % (10.0-14.5); WHITE BLOOD COUNT 19.8 10^3/uL (4.3-11.0)
[2019-02-05 05:05] LABS: ALANINE AMINOTRANSFERASE 15 U/L (0-55); ALBUMIN 2.6 GM/DL (3.2-4.5); ALKALINE PHOSPHATASE 101 U/L (40-136); BILIRUBIN,TOTAL 0.5 MG/DL (0.1-1.0); BUN/CREATININE RATIO 15; CALCIUM 9.7 MG/DL (8.5-10.1); CARBON DIOXIDE 19 MMOL/L (21-32); CHLORIDE 114 MMOL/L (98-107); CREATININE SERUM 1.37 MG/DL (0.60-1.30); GFR ESTIMATED > 60; GLUCOSE 83 MG/DL (70-105); MAGNESIUM 1.6 MG/DL (1.8-2.4); PHOSPHORUS 3.1 MG/DL (2.3-4.7); POTASSIUM 3.9 MMOL/L (3.6-5.0); SODIUM 143 MMOL/L (135-145); TOTAL PROTEIN 6.8 GM/DL (6.4-8.2)
[2019-02-05] MEDS: LORazepam INJ 2 MG/ML (ATIVAN) VIAL IVP PRN ×3 (07:19→22:08)
--- NOTE | 2019-02-05 07:59 | Progress Note (SOAP) ---
Subjective Time Seen by a Provider: 07:57 Subjective/Events-last exam Patient has change in mental status. Patient keeps his eyes closed. Spoke to Niesen brother today. Patient has acute mental status change. Patient heading in the wrong direction Objective Exam Vital Signs Date Time Temp Pulse Resp B/P (MAP) Pulse Ox O2 Delivery O2 Flow Rate FiO2 02/05/19 00:15 100.2 105 18 166/100 (122) 97 Room Air 02/05/19 00:05 99.0 02/04/19 23:31 100.2 02/04/19 20:52 98.7 100 16 148/70 (96) 100 Room Air 02/04/19 20:00 Room Air 02/04/19 15:37 99.2 100 14 174/98 (123) 97 Room Air 02/04/19 08:00 98.6 98 18 178/125 (142) 100 Room Air 02/04/19 08:00 Room Air I & O 02/05/19 07:00 Intake Total 686 ml Output Total 2680 ml Balance -1994 ml Capillary Refill : Less Than 3 Seconds General Appearance: No Apparent Distress, WD/WN Respiratory: No Accessory Muscle Use, No Respiratory Distress Cardiovascular: Regular Rate, Rhythm Results Lab Laboratory Tests 02/05/19 04:35 Laboratory Tests 02/05/19 04:35: White Blood Count 19.8H, Red Blood Count 3.39L, Hemoglobin 8.5L, Hematocrit 28L , Mean Corpuscular Volume 81, Mean Corpuscular Hemoglobin 25, Mean Corpuscular Hemoglobin Concent 31L, Red Cell Distribution Width 20.4H, Platelet Count 194, Mean Platelet Volume 10.6H, Neutrophils (%) (Auto) 83H, Lymphocytes (%) (Auto) 7L, Monocytes (%) (Auto) 7, Eosinophils (%) (Auto) 2, Basophils (%) (Auto) 0, Neutrophils # (Auto) 16.5H, Lymphocytes # (Auto) 1.5, Monocytes # (Auto) 1.4H, Eosinophils # (Auto) 0.4H, Basophils # (Auto) 0.0, Sodium Level 143, Potassium Level 3.9, Chloride Level 114H, Carbon Dioxide Level 19L, Anion Gap 10, Blood Urea Nitrogen 21H, Creatinine 1.37H, Estimat Glomerular Filtration Rate > 60, BUN/Creatinine Ratio 15, Glucose Level 83, Calcium Level 9.7, Corrected Calcium 10.8H, Phosphorus Level 3.1, Magnesium Level 1.6L, Total Bilirubin 0.5, Aspartate Amino Transf (AST/SGOT) 10, Alanine Aminotransferase (ALT/SGPT) 15, Alkaline Phosphatase 101, Total Protein 6.8, Albumin 2.6L Microbiology 01/31/19 Blood Culture - Preliminary, Resulted No growth 01/31/19 MRSA Screen - Final, Complete MRSA not isolated 01/31/19 Urine Culture - Final, Complete NO GROWTH Assessment/Plan Assessment/Plan Assess & Plan/Chief Complaint Sepsis. Pneumonia. Shingles. 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 Leukocytosis. Hypercapnia. Patient improving 02/04/19 sepsis pneumonia shingles lethargic. . 02/05/19. Acute mental status change. Sepsis. Pneumonia. Shingles. Renal cell carcinoma with metastasis. Could have metastasis to brain CAT scan ordered Clinical Quality Measures Admission Status Admission Dx Sepsis. Hypotension. Shingles. Acute renal insufficiency. Elevated lactic acid. Elevated BNP. Right lower lobe pneumonia. Decrease alert DVT/VTE Risk/Contraindication: Risk Factor Score Per Nursin RFS Level Per Nursing on Admit: 4+=Very High JYOTI JULIEN DO Feb 05, 2019 07:59
[2019-02-05 08:00] VITALS: BP 162/112
[2019-02-05] MEDS: DEXAMETHASONE 4 MG TAB (DECADRON) PO SCH (08:37)
[2019-02-05] MEDS: GABAPENTIN 300 MG (NEURONTIN) CAP PO SCH ×3 (08:37→21:14)
--- NOTE | 2019-02-05 09:00 | NUR ---
MS CONTIN HELD BECAUSE PT. UNABLE TO TAKE MEDS WITHOUT THEM BEING CRUSHED. DR. JULIEN NOTIFIED OF MS BEING HELD.
--- NOTE | 2019-02-05 10:28 | Diagnostic Imaging Report ---
CLINICAL INDICATION: Patient with mental status changes. Patient has metastatic cancer from anal canal. EXAM: Axial CT scan of brain performed without IV contrast. COMPARISON: None. FINDINGS: There is motion artifact which obscures portion of this exam. Skull streak artifact obscures portions of the brainstem and posterior fossa. There is no evidence of acute cerebral infarct, intracranial hemorrhage, or gross mass effect. The brain parenchymal volume appears appropriate for patient's age. There is normal umanzor-white matter distinction. There is no significant midline shift or herniation. There is no evidence of hydrocephalus. The basal cisterns are unremarkable. The skull, extracranial soft tissue, and orbits are unremarkable. There is mild mucosal thickening involving both maxillary sinuses. Temporal bones show no significant abnormality. IMPRESSION: 1: Mild paranasal sinus disease. Otherwise, unremarkable CT scan of the brain. Dictated by: Dictated on workstation # [id number]
[2019-02-05] MEDS: morphine ER 30 MG (MS CONTIN) TAB PO SCH ×2 (11:16→12:40)
--- NOTE | 2019-02-05 12:17 | Diagnostic Imaging Report ---
INDICATION: Shortness of breath. EXAMINATION: Portable chest at 8:03 AM. FINDINGS: There is a patchy area of consolidation at the right lung base. There is a left subclavian Port-A-Cath with the tip projecting over the SVC. There is no effusion or pneumothorax. IMPRESSION: There is some scarring and/or atelectasis at the left lung base. There is an area of consolidation at the right lung base that appears similar to the exam dated 02/02/2019. Dictated by: Dictated on workstation # [id number]
--- NOTE | 2019-02-05 12:40 | NUR ---
PT. C/O OF HURTING MORE. CAREGIVER ENCOURAGED PT TO TAKE MS CONTIN. INSTRUCTED CAREGIVER AND PT. THAT MS CONTIN COULD NOT BE CRUSHED BECAUSE IT IS A TIME RELEASED TABLET.
--- NOTE | 2019-02-05 12:41 | NUR ---
MS CONTIN TAKEN WHOLE WHEN ENCOURAGED BY LICENSED MARRIAGE AND FAMILY THERAPIST.
[2019-02-05 15:50] VITALS: BP 152/94
[2019-02-05] MEDS: NS IV 1000 ML 1,000 ML IV SCH (15:59)
[2019-02-05] MEDS: TAMSULOSIN 0.4 MG (FLOMAX) CAP PO SCH (17:07)
[2019-02-05] MEDS ORDERED: HYDROmorphone PF INJECTION 20 MG in NS (IVPB) 100 ML IV PRN ×2 (17:45→18:15)
--- NOTE | 2019-02-05 18:49 | Progress Note-Standard ---
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 Diagnosed with bone metastasis in November 2018 and completed palliative radiation to lumbar vertebra. Admitted with febrile illness and right lower lobe pneumonia. Currently on Zosyn with the improving x-rays. Also was diagnosed with herpes zoster involving the right chest wall and on IV acyclovir. Patient is somnolent and does not arouse with verbal stimuli. Nursing staff indicated that he is not taking oral medications well. He has intermittent periods of agitation and pain. He is requiring IV Dilaudid approximately 6 times in the last 24 hours. He has required Ativan at least 3 times during the last [address] He completed a [address] scan of the head earlier today which was unremarkable. I will start him on a Dilaudid RACING MANAGER at 0.5 mg/h continuous infusion with 0.2 mg bolus every 30 minutes as needed for breakthrough pain. I will discontinue bolus Dilaudid and MS Contin. We will titrate the dose for comfort. He will continue Ativan 1 mg as needed for agitation. His overall prognosis is poor. Will follow patient with you. SAROJ CHA Feb 05, 2019 18:49
[2019-02-05] MEDS: ENOXAPARIN 40 MG/0.4 ML (LOVENOX) SYR SC SCH (21:13)
[2019-02-05] MEDS: SERTRALINE 50 MG (ZOLOFT) TABLET PO SCH (21:14)
[2019-02-06 00:07] VITALS: BP 185/112
[2019-02-06] MEDS: ACYCLOVIR INJECTION 800 MG in NS (IVPB) 250 ML IV SCH ×3 (01:02→15:48)
[2019-02-06] MEDS: PIPERACILLIN/TAZOBACTAM (BULK) 4.5 GM in NS (IVPB) 100 ML IV SCH ×3 (04:58→19:50)
--- NOTE | 2019-02-06 06:44 | NUR ---
attempted several times to complete central line dressing change. patient refused. will have dayshift complete when family is here as he is more compliant then.
[2019-02-06 06:59] LABS: MAGNESIUM 1.6 MG/DL (1.8-2.4); PHOSPHORUS 2.9 MG/DL (2.3-4.7)
[2019-02-06] MEDS: LORazepam INJ 2 MG/ML (ATIVAN) VIAL IVP PRN ×4 (07:20→23:59)
[2019-02-06] MEDS: DEXAMETHASONE 4 MG TAB (DECADRON) PO SCH (07:50)
[2019-02-06] MEDS: GABAPENTIN 300 MG (NEURONTIN) CAP PO SCH ×3 (07:50→19:50)
[2019-02-06 08:00] VITALS: BP 171/101
--- NOTE | 2019-02-06 08:11 | Progress Note (SOAP) ---
Subjective Time Seen by a Provider: 08:08 Subjective/Events-last exam Patient is getting weaker. Patient opens his eyes only. Patient does not talk. CAT scan of the head negative. Patient may need hospice Objective Exam Vital Signs Date Time Temp Pulse Resp B/P (MAP) Pulse Ox O2 Delivery O2 Flow Rate FiO2 02/06/19 00:07 97.1 107 18 185/112 (136) 97 Room Air 02/05/19 20:00 Room Air 02/05/19 15:50 98.7 109 14 152/94 (113) 98 Room Air I & O 02/06/19 07:00 Intake Total 1204 ml Output Total 2130 ml Balance -926 ml Capillary Refill : Less Than 3 Seconds General Appearance: No Apparent Distress, WD/WN HEENT: Normal ENT Inspection Neck: Normal Inspection Respiratory: No Accessory Muscle Use, No Respiratory Distress Cardiovascular: Regular Rate, Rhythm Results Lab Laboratory Tests 02/06/19 06:20: Phosphorus Level 2.9, Magnesium Level 1.6L Microbiology 01/31/19 Blood Culture - Final, Complete No growth 01/31/19 MRSA Screen - Final, Complete MRSA not isolated 01/31/19 Urine Culture - Final, Complete NO GROWTH Assessment/Plan Assessment/Plan Assess & Plan/Chief Complaint Sepsis. Pneumonia. Shingles. 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 Leukocytosis. Hypercapnia. Patient improving 02/04/19 sepsis pneumonia shingles lethargic. . 02/05/19. Acute mental status change. Sepsis. Pneumonia. Shingles. Renal cell carcinoma with metastasis. Could have metastasis to brain CAT scan ordered. . 02/06/19. Acute mental status change. Sepsis. Pneumonia. Shingles. 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 Patient getting weaker and less responsive. Patient candidate for hospice Clinical Quality Measures Admission Status Admission Dx Sepsis. Hypotension. Shingles. Acute renal insufficiency. Elevated lactic acid. Elevated BNP. Right lower lobe pneumonia. Decrease alert DVT/VTE Risk/Contraindication: Risk Factor Score Per Nursin RFS Level Per Nursing on Admit: 4+=Very High JYOTI JULIEN DO Feb 06, 2019 08:11
[2019-02-06] MEDS ORDERED: MAGNESIUM 1 GM/100 ML IVPB 100 ML IV ONE (08:15)
--- NOTE | 2019-02-06 12:21 | NUR ---
Palliative Care RN in to see patient. He is laying in exactly same position as he has been. Foot hanging off the bed. Repositioned foot to the bed. He is not very responsive, opened eyes when spoken too but did not attempt to verbalize and closed them again immediately. He is Tachycardiac with HR over 100, RR around 12-14. No edema noted to LE and pulses in b/l feet are strong and again noted to be fast. Dr. Arriaga's note now reporting a poor prognosis. He is still being managed aggressively for an Infection and Shingles. His kidneys a re improved some with production of urine noted Addendum: 02/06/19 at 1228 by ASHLEY COREY RN LEONILA Lewis has been in contact with the family and they are aware of his prognosis and worsening state of health.
[2019-02-06] MEDS: NS IV 1000 ML 1,000 ML IV SCH (15:48)
[2019-02-06 16:35] VITALS: BP 169/108
--- NOTE | 2019-02-06 16:51 | Progress Note-Standard ---
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 Diagnosed with bone metastasis in November 2018 and completed palliative radiation to lumbar vertebra. Admitted with febrile illness and right lower lobe pneumonia. Currently on Zosyn. Also was diagnosed with herpes zoster and on IV acyclovir. Patient is awake today but does not talk or respond well. Caregiver mentioned that he was able to swallow pills today. He appears comfortable and not in any pain. 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 Not needing boluses frequently. He will continue Ativan 1 mg as needed for agitation. His overall prognosis is poor. He is not a candidate for palliative chemo as his performance status is poor. Will follow patient with you. SAROJ CHA Feb 06, 2019 16:51
[2019-02-06] MEDS: TAMSULOSIN 0.4 MG (FLOMAX) CAP PO SCH (17:22)
--- NOTE | 2019-02-06 17:47 | NUR ---
Contacted pt's primary DPOA and oldest sister, Joie, and discussed continued care plans. Joie aware of poor prognosis and pt decline and agrees with referral to hospice. She will talk with remaining siblings and plans to meet with [facility] tomorrow. Joie chose to talk with [facility] as pt became acquainted with the [facility] nurses when he was a resident of [facility] and [facility]. Sister also states that the family doesn't want pt to return to [facility] and [facility] and will be discussing their choice for continued care.Will call in the morning to see what time family can be here to meet with [facility].
[2019-02-06] MEDS: ACETAMINOPHEN 325 MG TABLET PO PRN (19:04)
[2019-02-06] MEDS: ENOXAPARIN 40 MG/0.4 ML (LOVENOX) SYR SC SCH (19:50)
[2019-02-06] MEDS: SERTRALINE 50 MG (ZOLOFT) TABLET PO SCH (19:50)
[2019-02-06 23:50] VITALS: BP 158/107
[2019-02-07] MEDS: ACYCLOVIR INJECTION 800 MG in NS (IVPB) 250 ML IV SCH ×3 (00:05→16:45)
[2019-02-07] MEDS: PIPERACILLIN/TAZOBACTAM (BULK) 4.5 GM in NS (IVPB) 100 ML IV SCH ×2 (04:23→11:41)
[2019-02-07 04:43] LABS: MAGNESIUM 1.5 MG/DL (1.8-2.4); PHOSPHORUS 2.6 MG/DL (2.3-4.7)
[2019-02-07] MEDS: LORazepam INJ 2 MG/ML (ATIVAN) VIAL IVP PRN ×3 (05:24→21:42)
[2019-02-07 08:00] VITALS: BP 168/106
--- NOTE | 2019-02-07 08:09 | Progress Note (SOAP) ---
Subjective Time Seen by a Provider: 08:07 Subjective/Events-last exam Patient this morning is awake and talking. Patient is moving around. Family considering hospice. Objective Exam Vital Signs Date Time Temp Pulse Resp B/P (MAP) Pulse Ox O2 Delivery O2 Flow Rate FiO2 02/06/19 23:50 98.9 107 24 158/107 (124) 98 Room Air 02/06/19 20:00 Room Air 02/06/19 16:35 98.8 106 18 169/108 (128) 98 Room Air I & O 02/07/19 07:00 Intake Total 3238 ml Output Total 1950 ml Balance 1288 ml Capillary Refill : Less Than 3 Seconds General Appearance: No Apparent Distress, WD/WN HEENT: Normal ENT Inspection Neck: Full Range of Motion Respiratory: No Accessory Muscle Use, No Respiratory Distress Results Lab Laboratory Tests 02/07/19 04:12: Phosphorus Level 2.6, Magnesium Level 1.5L Microbiology 01/31/19 Blood Culture - Final, Complete No growth 01/31/19 MRSA Screen - Final, Complete MRSA not isolated 01/31/19 Urine Culture - Final, Complete NO GROWTH Assessment/Plan Assessment/Plan Assess & Plan/Chief Complaint Sepsis. Pneumonia. Shingles. 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 Leukocytosis. Hypercapnia. Patient improving 02/04/19 sepsis pneumonia shingles lethargic. . 02/05/19. Acute mental status change. Sepsis. Pneumonia. Shingles. Renal cell carcinoma with metastasis. Could have metastasis to brain CAT scan ordered. . 02/06/19. Acute mental status change. Sepsis. Pneumonia. Shingles. 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 Patient getting weaker and less responsive. Patient candidate for hospice. . 02/07/19. Patient this morning is talking in communicating. Patient awake. Family considering hospice Clinical Quality Measures Admission Status Admission Dx Sepsis. Hypotension. Shingles. Acute renal insufficiency. Elevated lactic acid. Elevated BNP. Right lower lobe pneumonia. Decrease alert DVT/VTE Risk/Contraindication: Risk Factor Score Per Nursin RFS Level Per Nursing on Admit: 4+=Very High JYOTI JULIEN DO Feb 07, 2019 08:09
[2019-02-07] MEDS: GABAPENTIN 300 MG (NEURONTIN) CAP PO SCH ×4 (08:53→20:16)
[2019-02-07] MEDS: DEXAMETHASONE 4 MG TAB (DECADRON) PO SCH (08:54)
[2019-02-07] MEDS: ACETAMINOPHEN 325 MG TABLET PO PRN ×2 (08:59→20:17)
[2019-02-07 09:53] LABS: HEMOGLOBIN 8.7 G/DL (13.3-17.7); WHITE BLOOD COUNT 22.7 10^3/uL (4.3-11.0)
[2019-02-07 09:54] LABS: MEAN PLATELET VOLUME 10.7 FL (7.4-10.4); RED CELL DISTRIBUTION WIDTH 20.1 % (10.0-14.5)
--- NOTE | 2019-02-07 12:26 | NUR ---
Follow up visit with pt's friend Lisbeth and Lisbeth's friend, Cindi. Cindi said she was present for moral support. She also found out she is also distantly related to the pt. Lisbeth said she committed to helping the pt when she first found out he was sick. Pt rested with eyes closed throughout visit and did not respond when spoken to.
--- NOTE | 2019-02-07 14:10 | NUR ---
NOTE THAT PT REFUSED HIS 1300 NE[address]ON -- DR SHARMA WAS CALLED AND ADVISED
[2019-02-07 16:32] VITALS: BP 166/105
[2019-02-07] MEDS: NS IV 1000 ML 1,000 ML IV SCH (16:47)
[2019-02-07] MEDS: TAMSULOSIN 0.4 MG (FLOMAX) CAP PO SCH (17:54)
--- NOTE | 2019-02-07 17:55 | NUR ---
PT HANGING AT FOOT OF BED -- STAFF GOT PT BACK IN BED -- PT VOICED HE WANTED TO GO HOME AND TO CALL HIS SISTER -- STAFF GOT PT BACK IN BED AND BED EXIT ALARM WAS PUT ON -- THIS RN TRIED TO CALL THE PT'S SISTER NO. 2 TIMES NO ANSWER -- PT WAS GIVEN ATIVAN IV 1 MG -- AND CAD DILUADID ON DEMAND WAS PUSHED BY THIS RN -- PT VOICED DISCOMFORT
--- NOTE | 2019-02-07 17:58 | NUR ---
Family unable to met with [place] [facility] today as sister Doug and JOVANNA has a [facility] and unable to meet with hospice till tomorrow afternoon at sister's home in [place]. All family members seem to be in agreement that pt shoudn't return to [facility] and initially were requesting placement in [place] but later changed and asked for placement at [facility] but they don't have a vacancy and their 2nd choice was [facility] and an admissions packet has been faxed for their review. They are expecting a vacancy on Monday and if they accept can possibly accept on Monday.
--- NOTE | 2019-02-07 18:23 | Progress Note-Standard ---
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 Diagnosed with bone metastasis in November 2018 and completed palliative radiation to lumbar vertebra. Admitted with febrile illness and right lower lobe pneumonia. Currently on Zosyn. Also was diagnosed with herpes zoster and on IV acyclovir. Patient is awake today and barely talks or responds. He appears comfortable and not in any pain. He is on dilaudid ORE DIGGER and tolerating well. Not needing boluses. I will decrease the continuous infusion to 0.4 mg per hour with the 0.2 mg bolus every 30 minutes as needed. He will continue Ativan 1 mg as needed for agitation. His overall prognosis is poor. He is not a candidate for palliative chemo as his performance status is poor. Patient's family including his sister who has power of deputy county attorney for health care decisions his stocking to hospice tomorrow morning. I would recommend best supportive care with hospice and continue Dilaudid ORE DIGGER for pain control with titration as needed for comfort. SAROJ CHA Feb 07, 2019 18:23
[2019-02-07] MEDS: ENOXAPARIN 40 MG/0.4 ML (LOVENOX) SYR SC SCH (18:28)
[2019-02-07] MEDS: SERTRALINE 50 MG (ZOLOFT) TABLET PO SCH (20:17)
[2019-02-07] MEDS: CALAMINE LOTION 6 OZ. BOTTLE TP PRN (21:42)
[2019-02-08] VITALS: BP 177/110
[2019-02-08] MEDS: ACYCLOVIR INJECTION 800 MG in NS (IVPB) 250 ML IV SCH ×4 (00:31→23:31)
[2019-02-08] MEDS: LORazepam INJ 2 MG/ML (ATIVAN) VIAL IVP PRN ×2 (01:49→15:33)
[2019-02-08 06:00] LABS: ALANINE AMINOTRANSFERASE 13 U/L (0-55); ALBUMIN 2.7 GM/DL (3.2-4.5); ALKALINE PHOSPHATASE 84 U/L (40-136); BILIRUBIN,TOTAL 0.4 MG/DL (0.1-1.0); BUN/CREATININE RATIO 10; CALCIUM 9.4 MG/DL (8.5-10.1); CARBON DIOXIDE 19 MMOL/L (21-32); CHLORIDE 108 MMOL/L (98-107); CREATININE SERUM 1.09 MG/DL (0.60-1.30); GFR ESTIMATED > 60; GLUCOSE 94 MG/DL (70-105); MAGNESIUM 1.5 MG/DL (1.8-2.4); PHOSPHORUS 2.7 MG/DL (2.3-4.7); POTASSIUM 3.4 MMOL/L (3.6-5.0); SODIUM 138 MMOL/L (135-145); TOTAL PROTEIN 6.9 GM/DL (6.4-8.2)
--- NOTE | 2019-02-08 07:57 | Progress Note (SOAP) ---
Subjective Time Seen by a Provider: 07:55 Subjective/Events-last exam Patient knows his name. Patient has confusion. Oncology feels prognosis is poor. Patient candidate for hospice. Family still deciding Objective Exam Vital Signs Date Time Temp Pulse Resp B/P (MAP) Pulse Ox O2 Delivery O2 Flow Rate FiO2 02/08/19 00:00 98.4 112 20 177/110 (132) 95 Room Air 02/07/19 20:00 Room Air 02/07/19 16:32 98.8 97 21 166/105 (125) 97 Room Air 02/07/19 09:30 98.8 02/07/19 08:00 98.8 114 20 168/106 (126) 97 Room Air 02/07/19 08:00 Room Air I & O 02/08/19 07:00 Intake Total 2392 ml Output Total 3450 ml Balance -1058 ml Capillary Refill : Less Than 3 Seconds General Appearance: No Apparent Distress, WD/WN HEENT: Normal ENT Inspection Neck: Full Range of Motion Respiratory: No Accessory Muscle Use, No Respiratory Distress Cardiovascular: Regular Rate, Rhythm Results Lab Laboratory Tests 02/07/19 09:45: White Blood Count 22.7H, Red Blood Count 3.46L, Hemoglobin 8.7L, Hematocrit 28L , Mean Corpuscular Volume 81, Mean Corpuscular Hemoglobin 25, Mean Corpuscular Hemoglobin Concent 31L, Red Cell Distribution Width 20.1H, Platelet Count 181, Mean Platelet Volume 10.7H 02/08/19 05:30: Sodium Level 138, Potassium Level 3.4L, Chloride Level 108H, Carbon Dioxide Level 19L, Anion Gap 11, Blood Urea Nitrogen 11, Creatinine 1.09, Estimat Glomerular Filtration Rate > 60, BUN/Creatinine Ratio 10, Glucose Level 94, Calcium Level 9.4, Corrected Calcium 10.4H, Phosphorus Level 2.7, Magnesium Level 1.5L, Total Bilirubin 0.4, Aspartate Amino Transf (AST/SGOT) 12, Alanine Aminotransferase (ALT/SGPT) 13, Alkaline Phosphatase 84, Total Protein 6.9, Albumin 2.7L Microbiology 01/31/19 Blood Culture - Final, Complete No growth 01/31/19 MRSA Screen - Final, Complete MRSA not isolated 01/31/19 Urine Culture - Final, Complete NO GROWTH Assessment/Plan Assessment/Plan Assess & Plan/Chief Complaint Sepsis. Pneumonia. Shingles. 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 Leukocytosis. Hypercapnia. Patient improving 02/04/19 sepsis pneumonia shingles lethargic. . 02/05/19. Acute mental status change. Sepsis. Pneumonia. Shingles. Renal cell carcinoma with metastasis. Could have metastasis to brain CAT scan ordered. . 02/06/19. Acute mental status change. Sepsis. Pneumonia. Shingles. 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 Patient getting weaker and less responsive. Patient candidate for hospice. . 02/07/19. Patient this morning is talking in communicating. Patient awake. Family considering hospice. . 02/08/19 patient this morning speaking low and has confusion. Patient awake. Oncology feels patient has poor prognosis. Patient candidate for hospice Clinical Quality Measures Admission Status Admission Dx Sepsis. Hypotension. Shingles. Acute renal insufficiency. Elevated lactic acid. Elevated BNP. Right lower lobe pneumonia. Decrease alert DVT/VTE Risk/Contraindication: Risk Factor Score Per Nursin RFS Level Per Nursing on Admit: 4+=Very High JYOTI JULIEN DO Feb 08, 2019 07:57
[2019-02-08 08:00] VITALS: BP 179/112
[2019-02-08] MEDS ORDERED: KCL 10 MEQ TAB (MICRO K) PO ONE (08:00)
[2019-02-08] MEDS: GABAPENTIN 300 MG (NEURONTIN) CAP PO SCH ×4 (08:58→21:35)
[2019-02-08] MEDS: lisINopril 10 MG (PRINIVIL) TABLET PO SCH (08:58)
[2019-02-08] MEDS: DEXAMETHASONE 4 MG TAB (DECADRON) PO SCH (08:59)
[2019-02-08] MEDS: NS IV 1000 ML 1,000 ML IV SCH ×2 (13:44→19:51)
[2019-02-08] MEDS: HYDROmorphone PF INJECTION 20 MG in NS (IVPB) 100 ML IV PRN (13:56)
--- NOTE | 2019-02-08 15:34 | NUR ---
[place] [facility] meeting with family today. If they choose [facility], their nurse will be initiating request for pain control pump as pt appears comfortable but remains markedly confused. [facility] still reviewing his admission packet and has not made acceptance decision as won't have available bed till Monday. will follow and advise.
[2019-02-08 16:00] VITALS: BP 150/104
[2019-02-08] MEDS: ENOXAPARIN 40 MG/0.4 ML (LOVENOX) SYR SC SCH (16:11)
[2019-02-08] MEDS: TAMSULOSIN 0.4 MG (FLOMAX) CAP PO SCH (16:11)
[2019-02-08] MEDS: ACETAMINOPHEN 325 MG TABLET PO PRN (16:20)
[2019-02-08] MEDS: SERTRALINE 50 MG (ZOLOFT) TABLET PO SCH ×2 (21:27→21:35)
--- NOTE | 2019-02-08 21:40 | NUR ---
Patient refused PM medication. Stated, "I'm not taking my pills until I get a cigarette." This RN explained to patient that he could not smoke and that this is a non-smoking facility. Patient repeated to this RN, "I am not taking the pills."
[2019-02-09 00:19] VITALS: BP 164/98
[2019-02-09] MEDS: LORazepam INJ 2 MG/ML (ATIVAN) VIAL IVP PRN ×2 (00:46→23:34)
[2019-02-09 03:58] LABS: MAGNESIUM 1.5 MG/DL (1.8-2.4); PHOSPHORUS 2.5 MG/DL (2.3-4.7)
[2019-02-09] MEDS: ACYCLOVIR INJECTION 800 MG in NS (IVPB) 250 ML IV SCH ×3 (07:54→23:34)
[2019-02-09] MEDS: lisINopril 10 MG (PRINIVIL) TABLET PO SCH (07:54)
[2019-02-09] MEDS: DEXAMETHASONE 4 MG TAB (DECADRON) PO SCH (07:55)
[2019-02-09] MEDS: GABAPENTIN 300 MG (NEURONTIN) CAP PO SCH ×3 (07:55→21:19)
[2019-02-09 07:59] VITALS: BP 164/100
--- NOTE | 2019-02-09 12:38 | Progress Note-Hospitalist ---
Subjective HPI/CC On Admission Date Seen by Provider: Feb 09, 2019 Time Seen by Provider: 11:30 Subjective/Events-last exam Patient sedated RN reports no pain is apparent Reviewed noted and labs Objective Exam Vital Signs Vital Signs Date Time Temp Pulse Resp B/P (MAP) Pulse Ox O2 Delivery O2 Flow Rate FiO2 02/09/19 08:00 Room Air 02/09/19 07:59 100.4 112 20 164/100 (121) 100 Capillary Refill : Less Than 3 Seconds General Appearance: No Apparent Distress, WD/WN Respiratory: No Accessory Muscle Use, No Respiratory Distress Results/Procedures Lab Patient resulted labs reviewed. Assessment/Plan Assessment and Plan Assess & Plan/Chief Complaint Assessment: End-stage rectal cancer with metastases End-of-life status Severe pain requiring IV pain medication Plan: Dilaudid Ativan Comfort Care DO NOT RESUSCITATE Diagnosis/Problems Diagnosis/Problems (1) End of life care Status: Acute (2) Anal cancer Status: Chronic Clinical Quality Measures DVT/VTE Risk/Contraindication: Risk Factor Score Per Nursin RFS Level Per Nursing on Admit: 4+=Very High JEFFREY DOCKERY DO Feb 09, 2019 12:38
[2019-02-09 15:50] VITALS: BP 131/88
[2019-02-09] MEDS: ENOXAPARIN 40 MG/0.4 ML (LOVENOX) SYR SC SCH (16:47)
[2019-02-09] MEDS: TAMSULOSIN 0.4 MG (FLOMAX) CAP PO SCH (16:47)
--- NOTE | 2019-02-09 20:50 | Wound Care Assessment ---
Wound Care Assessment Date Seen by Provider: Feb 09, 2019 Time Seen by Provider: 19:30 Chief Complaint Excoriation of perineum. 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 He states that the perineal skin is under fair control with topical Siria's Butt Paste. will continue same. Past Medical History: Admits Cancer, Treaments Recreational Drug Use: No Alcohol Use: Denies Use Exam Vital Signs Date Time Temp Pulse Resp B/P (MAP) Pulse Ox O2 Delivery O2 Flow Rate FiO2 02/09/19 15:50 99.0 94 20 131/88 (102) 98 Room Air Capillary Refill : Less Than 3 Seconds Results Laboratory Tests 02/09/19 03:34: Phosphorus Level 2.5, Magnesium Level 1.5L Microbiology 01/31/19 Blood Culture - Final, Complete No growth 01/31/19 MRSA Screen - Final, Complete MRSA not isolated 01/31/19 Urine Culture - Final, Complete NO GROWTH WAYNE AYOUB MD Feb 09, 2019 20:50
[2019-02-09] MEDS: SERTRALINE 50 MG (ZOLOFT) TABLET PO SCH (21:19)
[2019-02-10] VITALS: BP 146/92
[2019-02-10] MEDS: LORazepam INJ 2 MG/ML (ATIVAN) VIAL IVP PRN ×2 (04:19→12:23)
[2019-02-10 06:52] LABS: MAGNESIUM 1.4 MG/DL (1.8-2.4); PHOSPHORUS 2.5 MG/DL (2.3-4.7)
[2019-02-10 08:00] VITALS: BP 168/93
[2019-02-10] MEDS: DEXAMETHASONE 4 MG TAB (DECADRON) PO SCH (08:29)
[2019-02-10] MEDS: ACYCLOVIR INJECTION 800 MG in NS (IVPB) 250 ML IV SCH ×3 (08:29→23:57)
[2019-02-10] MEDS: GABAPENTIN 300 MG (NEURONTIN) CAP PO SCH ×3 (08:29→20:55)
[2019-02-10] MEDS: lisINopril 10 MG (PRINIVIL) TABLET PO SCH (08:29)
[2019-02-10] MEDS: NS IV 1000 ML 1,000 ML IV SCH (12:23)
--- NOTE | 2019-02-10 13:15 | Progress Note-Hospitalist ---
Subjective HPI/CC On Admission Date Seen by Provider: Feb 10, 2019 Time Seen by Provider: 12:15 Subjective/Events-last exam Wants to go out and smoke Much more alert today Did not appear to be in any pain but after I left he started groaning and moaning very loudly Supportive care Objective Exam Vital Signs Vital Signs Date Time Temp Pulse Resp B/P (MAP) Pulse Ox O2 Delivery O2 Flow Rate FiO2 02/10/19 13:00 18 02/10/19 08:00 99.4 115 168/93 (118) 96 Room Air Capillary Refill : Less Than 3 Seconds General Appearance: No Apparent Distress, WD/WN, Chronically ill Respiratory: No Accessory Muscle Use, No Respiratory Distress Cardiovascular: Regular Rate, Rhythm, No Edema Neurologic/Psychiatric: Alert, Disoriented Results/Procedures Lab Patient resulted labs reviewed. Assessment/Plan Assessment and Plan Assess & Plan/Chief Complaint Assessment: End-stage rectal cancer with metastases End-of-life status Severe pain requiring IV pain medication Plan: Dilaudid Ativan Comfort Care DO NOT RESUSCITATE Diagnosis/Problems Diagnosis/Problems (1) End of life care Status: Acute (2) Anal cancer Status: Chronic Clinical Quality Measures DVT/VTE Risk/Contraindication: Risk Factor Score Per Nursin RFS Level Per Nursing on Admit: 4+=Very High JEFFREY DOCKERY DO Feb 10, 2019 13:15
[2019-02-10 16:00] VITALS: BP 148/98
[2019-02-10] MEDS: ENOXAPARIN 40 MG/0.4 ML (LOVENOX) SYR SC SCH (16:34)
[2019-02-10] MEDS: TAMSULOSIN 0.4 MG (FLOMAX) CAP PO SCH (16:34)
[2019-02-10] MEDS: SERTRALINE 50 MG (ZOLOFT) TABLET PO SCH (20:56)
--- NOTE | 2019-02-10 20:56 | NUR ---
Pt Alert to person and agitated wanting a cigarette. Pt informed this is a non smoking facility and campus. Pt refusing evening meds at this time.
--- NOTE | 2019-02-10 21:00 | NUR ---
CADD pump settings confirmed with JOVAN Wahl. Strength set at 0.4mg/ml on CADD pump, actual strength of medication is 0.2mg/ml and is adjusted on CADD pump and remainder of settings confirmed with JOVAN Wahl per eMAR. Continuous rate 0.4mg/hr / Intermittent dose 0.2mg Q30".
[2019-02-10 23:57] VITALS: BP 147/98
--- NOTE | 2019-02-11 07:22 | Progress Note (SOAP) ---
Subjective Time Seen by a Provider: 07:20 Subjective/Events-last exam Patient is alert today. Patient wants to go for walk. Patient is hungry.. No blisters noted from shingles Objective Exam Vital Signs Date Time Temp Pulse Resp B/P (MAP) Pulse Ox O2 Delivery O2 Flow Rate FiO2 02/10/19 23:57 99.5 95 18 147/98 (114) 97 Room Air 02/10/19 21:00 16 02/10/19 19:30 Room Air 02/10/19 16:00 100.7 100 20 148/98 (115) 97 Room Air 02/10/19 13:00 18 02/10/19 08:00 99.4 115 18 168/93 (118) 96 Room Air 02/10/19 08:00 Room Air I & O 02/11/19 07:00 Intake Total 990 ml Output Total 2550 ml Balance -1560 ml Capillary Refill : Less Than 3 Seconds General Appearance: No Apparent Distress, WD/WN HEENT: Normal ENT Inspection Neck: Normal Inspection Respiratory: Lungs Clear, No Accessory Muscle Use, No Respiratory Distress Cardiovascular: Regular Rate, Rhythm Results Lab Microbiology 01/31/19 Blood Culture - Final, Complete No growth 01/31/19 MRSA Screen - Final, Complete MRSA not isolated 01/31/19 Urine Culture - Final, Complete NO GROWTH Assessment/Plan Assessment/Plan Assess & Plan/Chief Complaint Sepsis. Pneumonia. Shingles. 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 Leukocytosis. Hypercapnia. Patient improving 02/04/19 sepsis pneumonia shingles lethargic. . 02/05/19. Acute mental status change. Sepsis. Pneumonia. Shingles. Renal cell carcinoma with metastasis. Could have metastasis to brain CAT scan ordered. . 02/06/19. Acute mental status change. Sepsis. Pneumonia. Shingles. 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 Patient getting weaker and less responsive. Patient candidate for hospice. . 02/07/19. Patient this morning is talking in communicating. Patient awake. Family considering hospice. . 02/08/19 patient this morning speaking low and has confusion. Patient awake. Oncology feels patient has poor prognosis. Patient candidate for hospice Clinical Quality Measures Admission Status Admission Dx Sepsis. Hypotension. Shingles. Acute renal insufficiency. Elevated lactic acid. Elevated BNP. Right lower lobe pneumonia. Decrease alert DVT/VTE Risk/Contraindication: Risk Factor Score Per Nursin RFS Level Per Nursing on Admit: 4+=Very High JYOTI JULIEN DO Feb 11, 2019 07:22
--- NOTE | 2019-02-11 07:24 | Progress Note (SOAP) ---
Subjective Time Seen by a Provider: 07:22 Subjective/Events-last exam Sepsis. Anal cancer metastasis. Fistula. Shingles. Influenza. Objective Exam Vital Signs Date Time Temp Pulse Resp B/P (MAP) Pulse Ox O2 Delivery O2 Flow Rate FiO2 02/10/19 23:57 99.5 95 18 147/98 (114) 97 Room Air 02/10/19 21:00 16 02/10/19 19:30 Room Air 02/10/19 16:00 100.7 100 20 148/98 (115) 97 Room Air 02/10/19 13:00 18 02/10/19 08:00 99.4 115 18 168/93 (118) 96 Room Air 02/10/19 08:00 Room Air I & O 02/11/19 07:00 Intake Total 990 ml Output Total 2550 ml Balance -1560 ml Capillary Refill : Less Than 3 Seconds General Appearance: No Apparent Distress, WD/WN HEENT: Normal ENT Inspection Neck: Full Range of Motion, Normal Inspection Respiratory: No Accessory Muscle Use, No Respiratory Distress Cardiovascular: Regular Rate, Rhythm, No Murmur Gastrointestinal: other (Has colostomy) Results Lab Microbiology 01/31/19 Blood Culture - Final, Complete No growth 01/31/19 MRSA Screen - Final, Complete MRSA not isolated 01/31/19 Urine Culture - Final, Complete NO GROWTH Assessment/Plan Assessment/Plan Assess & Plan/Chief Complaint Sepsis. Pneumonia. Shingles. 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 Leukocytosis. Hypercapnia. Patient improving 02/04/19 sepsis pneumonia shingles lethargic. . 02/05/19. Acute mental status change. Sepsis. Pneumonia. Shingles. Renal cell carcinoma with metastasis. Could have metastasis to brain CAT scan ordered. . 02/06/19. Acute mental status change. Sepsis. Pneumonia. Shingles. 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 Patient getting weaker and less responsive. Patient candidate for hospice. . 02/07/19. Patient this morning is talking in communicating. Patient awake. Family considering hospice. . 02/08/19 patient this morning speaking low and has confusion. Patient awake. Oncology feels patient has poor prognosis. Patient candidate for hospice Clinical Quality Measures Admission Status Admission Dx Sepsis. Hypotension. Shingles. Acute renal insufficiency. Elevated lactic acid. Elevated BNP. Right lower lobe pneumonia. Decrease alert DVT/VTE Risk/Contraindication: Risk Factor Score Per Nursin RFS Level Per Nursing on Admit: 4+=Very High JYOTI JULIEN DO Feb 11, 2019 07:24
[2019-02-11 08:00] VITALS: BP 135/90
[2019-02-11] MEDS: GABAPENTIN 300 MG (NEURONTIN) CAP PO SCH ×3 (08:33→20:10)
[2019-02-11] MEDS: lisINopril 10 MG (PRINIVIL) TABLET PO SCH (08:33)
[2019-02-11] MEDS: DEXAMETHASONE 4 MG TAB (DECADRON) PO SCH (08:33)
[2019-02-11] MEDS: ACETAMINOPHEN 325 MG TABLET PO PRN (08:45)
[2019-02-11] MEDS: ACYCLOVIR INJECTION 800 MG in NS (IVPB) 250 ML IV SCH ×2 (09:39→15:50)
[2019-02-11] MEDS: HYDROmorphone PF INJECTION 20 MG in NS (IVPB) 100 ML IV PRN (12:04)
--- NOTE | 2019-02-11 15:27 | NUR ---
[facility] denied pt's admission as didn't fell comfortable with pt having a SALES SUPPORT REPRESENTATIVE pump.Pt tearful and upset and reassured him we would find suitable placement. Contacted pt's sister and DPROSA Camacho who was agreeable in pursuing possible placement at [facility] with Avelis brown Addendum: 02/11/19 at 1531 by NAOMY MARLOW [facility] mamaging pt's care/
[2019-02-11 16:55] VITALS: BP 107/58
[2019-02-11] MEDS: NS IV 1000 ML 1,000 ML IV SCH (17:34)
[2019-02-11] MEDS: ENOXAPARIN 40 MG/0.4 ML (LOVENOX) SYR SC SCH (18:17)
[2019-02-11] MEDS: TAMSULOSIN 0.4 MG (FLOMAX) CAP PO SCH (18:17)
[2019-02-11] MEDS: SERTRALINE 50 MG (ZOLOFT) TABLET PO SCH (20:11)
[2019-02-12 00:12] VITALS: BP 118/74
[2019-02-12] MEDS: ACETAMINOPHEN 325 MG TABLET PO PRN (00:21)
[2019-02-12] MEDS: ACYCLOVIR INJECTION 800 MG in NS (IVPB) 250 ML IV SCH (00:25)
[2019-02-12] MEDS: LORazepam INJ 2 MG/ML (ATIVAN) VIAL IVP PRN ×5 (03:32→21:47)
--- NOTE | 2019-02-12 03:49 | NUR ---
PATIENT HAS BECOME AGITATED, WANTS TO SPEAK TO A DOCTOR, WANTS TO BE TRANSFERRED TO [place]. FEELS HE IS NOT BEING CARED FOR. WANTS TO GO OUTSIDE AND WEAR HIS OWN CLOTHES. ATTEMPTED TO REASON WITH PATIENT EXPLAINING IT IS 0330. PATIENT EXPRESSED IS DEPRESSED AND WANTS TO . GAVE ATIVAN 1 MG. PATIENT IS MUCH CALMER AND IS MORE RELAXED
--- NOTE | 2019-02-12 05:38 | NUR ---
patient states he wants a ride to his sisters house. he states he wants to go home and . he states he wants to go out and have a cigarette. educated patient it is 0530 and he could wait until after breakfast to call his sister. educated patient this is a non smoking facility. he said he can go out and walk around and smoke. told patient he is unable to leave the floor with the BELT KNIFE FEEDER. Checked parking meter installer and a dose was available as patient complained of pain. told patient he needs to push the button if he is hurting. patient began wailing loudly for "help" and "hans please" patient refuses to listen to anything i say. i have closed his door for other patients.
[2019-02-12 08:00] VITALS: BP 150/91
[2019-02-12] MEDS: DEXAMETHASONE 4 MG TAB (DECADRON) PO SCH (08:09)
[2019-02-12] MEDS: lisINopril 10 MG (PRINIVIL) TABLET PO SCH (08:09)
[2019-02-12] MEDS: NICOTINE 14 MG (NICODERM) PATCH TD SCH ×2 (08:09→08:24)
[2019-02-12] MEDS: GABAPENTIN 300 MG (NEURONTIN) CAP PO SCH ×3 (08:09→21:45)
[2019-02-12] MEDS: NS IV 1000 ML 1,000 ML IV SCH (08:10)
--- NOTE | 2019-02-12 08:10 | Progress Note (SOAP) ---
Subjective Time Seen by a Provider: 08:06 Subjective/Events-last exam Patient wants discharge out of hospital. Patient feels he is in [place]. Patient states the year is 2019 Objective Exam Vital Signs Date Time Temp Pulse Resp B/P (MAP) Pulse Ox O2 Delivery O2 Flow Rate FiO2 02/12/19 06:47 16 02/12/19 00:21 99.4 02/12/19 00:12 104 20 118/74 (89) 97 Room Air 02/11/19 20:00 Room Air 02/11/19 18:00 19 02/11/19 16:55 100.6 112 20 107/58 (74) 98 Room Air 02/11/19 12:04 99.9 02/11/19 09:30 99.9 02/11/19 08:35 Room Air 02/11/19 08:32 16 I & O 02/12/19 06:59 Intake Total 1456 ml Output Total 1525 ml Balance -69 ml Capillary Refill : Less Than 3 Seconds General Appearance: No Apparent Distress, Thin HEENT: Normal ENT Inspection Neck: Normal Inspection Respiratory: No Accessory Muscle Use, No Respiratory Distress Cardiovascular: Regular Rate, Rhythm Results Lab Microbiology 01/31/19 Blood Culture - Final, Complete No growth 01/31/19 MRSA Screen - Final, Complete MRSA not isolated 01/31/19 Urine Culture - Final, Complete NO GROWTH Assessment/Plan Assessment/Plan Assess & Plan/Chief Complaint Sepsis. Pneumonia. Shingles. 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 Leukocytosis. Hypercapnia. Patient improving 02/04/19 sepsis pneumonia shingles lethargic. . 02/05/19. Acute mental status change. Sepsis. Pneumonia. Shingles. Renal cell carcinoma with metastasis. Could have metastasis to brain CAT scan ordered. . 02/06/19. Acute mental status change. Sepsis. Pneumonia. Shingles. 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 Patient getting weaker and less responsive. Patient candidate for hospice. . 02/07/19. Patient this morning is talking in communicating. Patient awake. Family considering hospice. . 02/08/19 patient this morning speaking low and has confusion. Patient awake. Oncology feels patient has poor prognosis. Patient candidate for hospice. . Patient seen on 02/11/19. Patient does communicate. Family hasn't side for hospice yet. . 02/12/19. Patient wants discharge. Patient feels he isn't [place]. Patient states the year is 2020. Difficulty in getting assisted acceptance Clinical Quality Measures Admission Status Admission Dx Sepsis. Hypotension. Shingles. Acute renal insufficiency. Elevated lactic acid. Elevated BNP. Right lower lobe pneumonia. Decrease alert DVT/VTE Risk/Contraindication: Risk Factor Score Per Nursin RFS Level Per Nursing on Admit: 4+=Very High JYOTI JULIEN DO Feb 12, 2019 08:10
[2019-02-12] MEDS ORDERED: HYDROmorphone PF INJECTION 20 MG in NS (IVPB) 100 ML IV PRN (09:30)
--- NOTE | 2019-02-12 13:47 | NUR ---
[facility] has been notified of pt's acceptance by [facility] and working on obtaining LITHOGRAPHED PLATE INSPECTOR with continuous infusion for pain control. Planned discharge and transfer by ambulance to [facility] tomorrow. Family is agreeabl with plan.
[2019-02-12 16:00] VITALS: BP 125/87
--- NOTE | 2019-02-12 16:45 | NUR ---
Plans in place for continuous pain control. AUTOMATION TEST DEVELOPER will be available tomorrow and pt will be discharged to [facility].Pt's oldest sister Doug aware and agreeable.
--- NOTE | 2019-02-12 16:52 | Progress Note-Standard ---
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 Diagnosed with bone metastasis in November 2018 and completed palliative radiation to lumbar vertebra. Admitted with febrile illness and right lower lobe pneumonia and treated with broad-spectrum antibiotics. Also was diagnosed with herpes zoster and treated with IV acyclovir. Patient is somnolent and barely talks or responds. He is not oriented completely and moans intermittently. He is on dilaudid BUILDING AND CONSTRUCTION MANAGER and was needing several boluses today. I will increase the continuous infusion to 0.5 mg per hour with the 0.2 mg bolus every 30 minutes as needed. He will continue Ativan 1 mg as needed for agitation. His overall prognosis is poor. He is not a candidate for palliative chemo as his performance status is poor. Patient's family including his sister who has power of ip technology transactions attorney for health care decisions have decided to start hospice care. coordinator of rehabilitation services working to place him at the correction with hospice. He will continue the Dilaudid BUILDING AND CONSTRUCTION MANAGER for pain control and we will titrate this as needed. His overall prognosis is poor. Continue with best supportive care. SAROJ CHA Feb 12, 2019 16:52
[2019-02-12] MEDS: TAMSULOSIN 0.4 MG (FLOMAX) CAP PO SCH (17:50)
[2019-02-12] MEDS: ENOXAPARIN 40 MG/0.4 ML (LOVENOX) SYR SC SCH (17:51)
[2019-02-12] MEDS: SERTRALINE 50 MG (ZOLOFT) TABLET PO SCH (22:02)
--- NOTE | 2019-02-12 23:10 | NUR ---
CHANGED DILAUDID BAG ON JOB TRAINING SPECIALIST. 11 ML WASTED.
[2019-02-13] VITALS: BP 125/87
--- NOTE | 2019-02-13 01:28 | NUR ---
CONTACTED DR JULIEN REGARDING PATIENTS VITAL SIGNS, T99.6, O2 100%, R18, BP 131/94, PULSE 135. ORDER FOR METOPROLOL 25MG BID. TORBV.
[2019-02-13] MEDS ORDERED: meTOprolol TARTRATE 25 MG (LOPRESSOR) TABLET ONE (05:24)
[2019-02-13] MEDS: LORazepam INJ 2 MG/ML (ATIVAN) VIAL IVP PRN (05:32)
--- NOTE | 2019-02-13 07:44 | Progress Note (SOAP) ---
Subjective Time Seen by a Provider: 07:42 Subjective/Events-last exam Patient to be discharged to [facility] residential. Patient hospice. Tachycardia resolved with metoprolol patient weaker each day Objective Exam Vital Signs Date Time Temp Pulse Resp B/P (MAP) Pulse Ox O2 Delivery O2 Flow Rate FiO2 02/13/19 00:00 99.6 135 16 125/87 (100) 100 Room Air 02/12/19 20:00 Room Air 02/12/19 17:30 16 02/12/19 16:00 99.0 107 20 125/87 (100) 97 Room Air 02/12/19 10:05 16 02/12/19 08:00 Room Air 02/12/19 08:00 99.0 121 20 150/91 (110) 97 Room Air I & O 02/13/19 07:00 Intake Total 1372 ml Output Total 1425 ml Balance -53 ml Capillary Refill : Less Than 3 Seconds General Appearance: No Apparent Distress, Thin Results Lab Microbiology 01/31/19 Blood Culture - Final, Complete No growth 01/31/19 MRSA Screen - Final, Complete MRSA not isolated 01/31/19 Urine Culture - Final, Complete NO GROWTH Assessment/Plan Assessment/Plan Assess & Plan/Chief Complaint Sepsis. Pneumonia. Shingles. 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 Leukocytosis. Hypercapnia. Patient improving 02/04/19 sepsis pneumonia shingles lethargic. . 02/05/19. Acute mental status change. Sepsis. Pneumonia. Shingles. Renal cell carcinoma with metastasis. Could have metastasis to brain CAT scan ordered. . 02/06/19. Acute mental status change. Sepsis. Pneumonia. Shingles. 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 Patient getting weaker and less responsive. Patient candidate for hospice. . 02/07/19. Patient this morning is talking in communicating. Patient awake. Family considering hospice. . 02/08/19 patient this morning speaking low and has confusion. Patient awake. Oncology feels patient has poor prognosis. Patient candidate for hospice. . Patient seen on 02/11/19. Patient does communicate. Family hasn't side for hospice yet. . 02/12/19. Patient wants discharge. Patient feels he isn't [place]. Patient states the year is 2019. Difficulty in getting residential acceptance. . 02/13/19. Patient's hospice. Patient be discharged to [facility] [place] [facility] today. Patient weaker. Tachycardia resolved with metoprolol Clinical Quality Measures Admission Status Admission Dx Sepsis. Hypotension. Shingles. Acute renal insufficiency. Elevated lactic acid. Elevated BNP. Right lower lobe pneumonia. Decrease alert DVT/VTE Risk/Contraindication: Risk Factor Score Per Nursin RFS Level Per Nursing on Admit: 4+=Very High JYOTI JULIEN DO Feb 13, 2019 07:44
[2019-02-13 08:00] VITALS: BP 112/77
[2019-02-13] MEDS ORDERED: meTOprolol TARTRATE 25 MG (LOPRESSOR) TABLET PO SCH (09:00)
[2019-02-13] MEDS: DEXAMETHASONE 4 MG TAB (DECADRON) PO SCH (09:27)
[2019-02-13] MEDS: NICOTINE 14 MG (NICODERM) PATCH TD SCH (09:27)
[2019-02-13] MEDS: GABAPENTIN 300 MG (NEURONTIN) CAP PO SCH ×2 (09:27→14:00)
[2019-02-13] MEDS: lisINopril 10 MG (PRINIVIL) TABLET PO SCH (09:27)
[2019-02-13] MEDS: CALAMINE LOTION 6 OZ. BOTTLE TP PRN (09:28)
--- NOTE | 2019-02-13 17:09 | NUR ---
COATING MACHINE HELPER HERE TO PLACE THEIR ACETYLENE BURNER. ACETYLENE BURNER PUMP DC AT THIS TIME. 59 CC WAISTED INTO DRUG BUSTER IN [facility] ROOM, BING ALDANA WITNESS. Addendum: 02/13/19 at 1712 by YUKI CHAVEZ RN DILAUDID ACETYLENE BURNER
[2019-02-13 17:22] VITALS: BP 112/77
--- NOTE | 2019-02-13 17:22 | NUR ---
REPORT CALLED TO NURSE AT [facility]. EMS HERE TO TRANSPORT PATIENT TO FACILITY, HOSPICE NURSE TO ACCOMPANY PATIENT.
--- NOTE | 2019-02-14 16:13 | Physician Query-General Query ---
Physician Query-General Query to Physician: Dr Arias, Was this patient put on comfort care during this admission? Dr Tafoya's progress notes say comfort care at bottom of note but I don't see any other documentation that patient was placed on comfort care. PHYSICIAN RESPONSE: Based on the clinical findings in the record, please respond to the query above on this document as an addendum. Possible, probable, or questionable diagnosis can be coded for INPATIENTS ONLY. Physician Response: Physician Response Yes If you have questions please contact: Department Clinician: Ext: Thank you for your time and cooperation. Clinical Sandblaster Stone/Department Clinician This is a permanent part of the medical record LATRELL CURRIE Feb 14, 2019 16:13 JYOTI ARIAS DO Feb 15, 2019 07:18
--- NOTE | 2019-02-14 18:40 | Discharge Summary ---
Diagnosis/Chief Complaint Date of Admission Jan 31, 2019 at 12:28 Date of Discharge Feb 13, 2019 at 17:22 Discharge Date: Feb 13, 2019 Discharge Time: 1300 Discharge Diagnosis Anal cancer metastatic. Anemia. DO NOT RESUSCITATE. Hospice. Pneumonia. Rectal fissure. Sepsis. Tachycardia. Confusion. Weakness. Tobaccoism. Chronic severe pain. Right lower lobe pneumonia. 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 Patient also has a perianal fistula. Patient is DO NOT RESUSCITATE. Patient now has a BiPAP on and closing his eyes. Patient did open his eyes and then closed them and did not talk. At the correction patient hypotensive and change in mental status patient transferred to emergency room. Patient has an elevated lactic acid 2.7. Chest x-ray shows right lower lobe pneumonia. Patient has leukocytosis. 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 Discharge Summary Consultations Pulmonology. Oncology Discharge Physical Examination Allergies: Coded Allergies: No Known Drug Allergies (Unverified , 10/16/18) Vitals & I&Os Vital Signs Date Time Temp Pulse Resp B/P (MAP) Pulse Ox O2 Delivery O2 Flow Rate FiO2 02/13/19 17:22 113 16 112/77 100 Room Air 2.00 02/13/19 08:00 99.0 Hospital Course Patient got weaker and confused. Patient went to hospice. Patient went to medical [place] [facility] (last 24 hrs) Laboratory Tests 01/31/19 09:50: White Blood Count 16.1H, Red Blood Count 3.38L, Hemoglobin 8.3L, Hematocrit 29L , Mean Corpuscular Volume 84, Mean Corpuscular Hemoglobin 25, Mean Corpuscular Hemoglobin Concent 29L, Red Cell Distribution Width 19.5H, Platelet Count 281, Mean Platelet Volume 10.3, Neutrophils (%) (Auto) 91H, Lymphocytes (%) (Auto) 6L , Monocytes (%) (Auto) 4, Eosinophils (%) (Auto) 0, Basophils (%) (Auto) 0, Neutrophils # (Auto) 14.6H, Lymphocytes # (Auto) 0.9L, Monocytes # (Auto) 0.6, Eosinophils # (Auto) 0.0, Basophils # (Auto) 0.0, Neutrophils % (Manual) 81, Lymphocytes % (Manual) 5, Monocytes % (Manual) 4, Eosinophils % (Manual) 0, Basophils % (Manual) 0, Band Neutrophils 10, Anisocytosis SLIGHT, Microcytosis SLIGHT, Lactic Acid Level 2.72*H 01/31/19 12:05: Urine Color YELLOW, Urine Clarity CLEAR, Urine pH 5, Urine Specific Curlew 1.020, Urine Protein 2+H, Urine Glucose (UA) NEGATIVE, Urine Ketones NEGATIVE, Urine Nitrite NEGATIVE, Urine Bilirubin NEGATIVE, Urine Urobilinogen NORMAL, Urine Leukocyte Esterase 1+H, Urine RBC (Auto) 2+H, Urine RBC 0-2, Urine WBC 0-2 , Urine Squamous Epithelial Cells RARE, Urine Crystals PRESENTH, Urine Amorphous Sediment FEW SARI URATESH, Urine Bacteria TRACE, Urine Casts PRESENT, Urine Hyaline Casts 5-10H, Urine Mucus NEGATIVE, Urine Culture Indicated NO 01/31/19 12:28: Lactic Acid Level 1.68, Lab Scanned Report Referred Lab Report 01/31/19 15:50: White Blood Count 18.2H, Red Blood Count 3.45L, Hemoglobin 8.6L, Hematocrit 29L , Mean Corpuscular Volume 84, Mean Corpuscular Hemoglobin 25, Mean Corpuscular Hemoglobin Concent 30L, Red Cell Distribution Width 19.8H, Platelet Count 316, Mean Platelet Volume 9.8, Neutrophils (%) (Auto) 93H, Lymphocytes (%) (Auto) 4L , Monocytes (%) (Auto) 3, Eosinophils (%) (Auto) 0, Basophils (%) (Auto) 0, Neutrophils # (Auto) 16.9H, Lymphocytes # (Auto) 0.7L, Monocytes # (Auto) 0.6, Eosinophils # (Auto) 0.0, Basophils # (Auto) 0.0, Lactic Acid Level 1.37, Sodium Level 140, Potassium Level 5.8H, Chloride Level 108H, Carbon Dioxide Level 23, Anion Gap 9, Blood Urea Nitrogen 66H, Creatinine 2.65H, Estimat Glomerular Filtration Rate 31, BUN/Creatinine Ratio 25, Glucose Level 142H, Calcium Level 9.4, Corrected Calcium 10.5H, Phosphorus Level 6.8H, Magnesium Level 2.1, Total Bilirubin 0.5, Aspartate Amino Transf (AST/SGOT) 30, Alanine Aminotransferase (ALT/SGPT) 46, Alkaline Phosphatase 165H, B-Type Natriuretic Peptide 675.7H, Total Protein 7.1, Albumin 2.6L 01/31/19 17:25: Blood Gas Puncture Site RIGHT RADIAL, Blood Gas Patient Temperature 94.1, Arterial Blood pH 7.28*L, Arterial Blood Partial Pressure CO2 53H, Arterial Blood Partial Pressure O2 56L, Arterial Blood HCO3 25, Arterial Blood Total CO2 27.0, Arterial Blood Oxygen Saturation 89L, Arterial Blood Base Excess -1.1, Sebastian Test POSITIVE, Blood Gas Ventilator Setting NO, Blood Gas Inspired Oxygen 2L 02/01/19 03:15: White Blood Count 24.5H, Red Blood Count 3.34L, Hemoglobin 8.5L, Hematocrit 28L , Mean Corpuscular Volume 82, Mean Corpuscular Hemoglobin 25, Mean Corpuscular Hemoglobin Concent 31L, Red Cell Distribution Width 19.7H, Platelet Count 351, Mean Platelet Volume 9.6, Neutrophils (%) (Auto) 90H, Lymphocytes (%) (Auto) 3L , Monocytes (%) (Auto) 7, Eosinophils (%) (Auto) 0, Basophils (%) (Auto) 0, Neutrophils # (Auto) 22.1H, Lymphocytes # (Auto) 0.8L, Monocytes # (Auto) 1.7H, Eosinophils # (Auto) 0.0, Basophils # (Auto) 0.0, Sodium Level 142, Potassium Level 5.7H, Chloride Level 111H, Carbon Dioxide Level 22, Anion Gap 9, Blood Urea Nitrogen 63H, Creatinine 2.21H, Estimat Glomerular Filtration Rate 39, BUN/ Creatinine Ratio 29, Glucose Level 130H, Calcium Level 9.2, Corrected Calcium 10.4H, Phosphorus Level 5.5H, Magnesium Level 2.0, Total Bilirubin 0.4, Aspartate Amino Transf (AST/SGOT) 25, Alanine Aminotransferase (ALT/SGPT) 41, Alkaline Phosphatase 146H, Total Protein 6.7, Albumin 2.5L 02/01/19 03:57: Blood Gas Puncture Site RIGHT RADIAL, Blood Gas Patient Temperature 97.0, Arterial Blood pH 7.36L, Arterial Blood Partial Pressure CO2 42, Arterial Blood Partial Pressure O2 59L, Arterial Blood HCO3 23, Arterial Blood Total CO2 24.6, Arterial Blood Oxygen Saturation 90L, Arterial Blood Base Excess -1.6, Sebastian Test YES-POS, Blood Gas Ventilator Setting NO, Blood Gas Inspired Oxygen 21% 02/01/19 12:24: Sodium Level 143, Potassium Level 5.2H, Chloride Level 112H, Carbon Dioxide Level 25, Anion Gap 6, Blood Urea Nitrogen 57H, Creatinine 1.93H, Estimat Glomerular Filtration Rate 45, BUN/Creatinine Ratio 30, Glucose Level 124H, Calcium Level 9.0 02/02/19 04:18: White Blood Count 16.9H, Red Blood Count 3.23L, Hemoglobin 7.9L, Hematocrit 26L , Mean Corpuscular Volume 80, Mean Corpuscular Hemoglobin 25, Mean Corpuscular Hemoglobin Concent 31L, Red Cell Distribution Width 19.1H, Platelet Count 244, Mean Platelet Volume 9.8, Neutrophils (%) (Auto) 88H, Lymphocytes (%) (Auto) 5L , Monocytes (%) (Auto) 7, Eosinophils (%) (Auto) 1, Basophils (%) (Auto) 0, Neutrophils # (Auto) 14.9H, Lymphocytes # (Auto) 0.8L, Monocytes # (Auto) 1.1H, Eosinophils # (Auto) 0.1, Basophils # (Auto) 0.0, Sodium Level 140, Potassium Level 4.6, Chloride Level 111H, Carbon Dioxide Level 22, Anion Gap 7, Blood Urea Nitrogen 46H, Creatinine 1.61H, Estimat Glomerular Filtration Rate 56, BUN/ Creatinine Ratio 29, Glucose Level 89, Calcium Level 9.6, Phosphorus Level 3.0, Magnesium Level 1.7L 02/03/19 04:35: Phosphorus Level 3.3, Magnesium Level 1.7L 02/04/19 05:17: Phosphorus Level 3.0, Magnesium Level 1.6L 02/05/19 04:35: White Blood Count 19.8H, Red Blood Count 3.39L, Hemoglobin 8.5L, Hematocrit 28L , Mean Corpuscular Volume 81, Mean Corpuscular Hemoglobin 25, Mean Corpuscular Hemoglobin Concent 31L, Red Cell Distribution Width 20.4H, Platelet Count 194, Mean Platelet Volume 10.6H, Neutrophils (%) (Auto) 83H, Lymphocytes (%) (Auto) 7L, Monocytes (%) (Auto) 7, Eosinophils (%) (Auto) 2, Basophils (%) (Auto) 0, Neutrophils # (Auto) 16.5H, Lymphocytes # (Auto) 1.5, Monocytes # (Auto) 1.4H, Eosinophils # (Auto) 0.4H, Basophils # (Auto) 0.0, Sodium Level 143, Potassium Level 3.9, Chloride Level 114H, Carbon Dioxide Level 19L, Anion Gap 10, Blood Urea Nitrogen 21H, Creatinine 1.37H, Estimat Glomerular Filtration Rate > 60, BUN/Creatinine Ratio 15, Glucose Level 83, Calcium Level 9.7, Phosphorus Level 3.1, Magnesium Level 1.6L, Corrected Calcium 10.8H, Total Bilirubin 0.5, Aspartate Amino Transf (AST/SGOT) 10, Alanine Aminotransferase (ALT/SGPT) 15, Alkaline Phosphatase 101, Total Protein 6.8, Albumin 2.6L 02/06/19 06:20: Phosphorus Level 2.9, Magnesium Level 1.6L 02/07/19 04:12: Phosphorus Level 2.6, Magnesium Level 1.5L 02/07/19 09:45: White Blood Count 22.7H, Red Blood Count 3.46L, Hemoglobin 8.7L, Hematocrit 28L , Mean Corpuscular Volume 81, Mean Corpuscular Hemoglobin 25, Mean Corpuscular Hemoglobin Concent 31L, Red Cell Distribution Width 20.1H, Platelet Count 181, Mean Platelet Volume 10.7H 02/08/19 05:30: Phosphorus Level 2.7, Magnesium Level 1.5L, Sodium Level 138, Potassium Level 3.4L, Chloride Level 108H, Carbon Dioxide Level 19L, Anion Gap 11, Blood Urea Nitrogen 11, Creatinine 1.09, Estimat Glomerular Filtration Rate > 60, BUN/ Creatinine Ratio 10, Glucose Level 94, Calcium Level 9.4, Corrected Calcium 10.4H, Total Bilirubin 0.4, Aspartate Amino Transf (AST/SGOT) 12, Alanine Aminotransferase (ALT/SGPT) 13, Alkaline Phosphatase 84, Total Protein 6.9, Albumin 2.7L 02/09/19 03:34: Phosphorus Level 2.5, Magnesium Level 1.5L 02/10/19 06:31: Phosphorus Level 2.5, Magnesium Level 1.4L Microbiology 01/31/19 Blood Culture - Final, Complete No growth 01/31/19 MRSA Screen - Final, Complete MRSA not isolated 01/31/19 Urine Culture - Final, Complete NO GROWTH Laboratory Tests 01/31/19 09:50 01/31/19 15:50 02/01/19 03:15 02/01/19 12:24 02/02/19 04:18 02/05/19 04:35 02/07/19 09:45 02/08/19 05:30 Pending Labs Microbiology Date/Time Source Procedure Growth Status 01/31/19 10:45 Peripheral Lt Hand Blood Culture - Final No growth Complete 01/31/19 09:50 Port Not Otherwise Specified Blood Culture - Final No growth Complete 01/31/19 14:30 Nasal MRSA Screen - Final MRSA not isolated Complete 01/31/19 12:05 Urine Straight Cath, In/Out Urine Culture - Final NO GROWTH Complete Laboratory Tests 01/31/19 09:50: White Blood Count 16.1, Red Blood Count 3.38, Hemoglobin 8.3, Hematocrit 29, Mean Corpuscular Volume 84, Mean Corpuscular Hemoglobin 25, Mean Corpuscular Hemoglobin Concent 29, Red Cell Distribution Width 19.5, Platelet Count 281, Mean Platelet Volume 10.3, Neutrophils (%) (Auto) 91, Lymphocytes (%) (Auto) 6, Monocytes (%) (Auto) 4, Eosinophils (%) (Auto) 0, Basophils (%) (Auto) 0, Neutrophils # (Auto) 14.6, Lymphocytes # (Auto) 0.9, Monocytes # (Auto) 0.6, Eosinophils # (Auto) 0.0, Basophils # (Auto) 0.0, Neutrophils % (Manual) 81, Lymphocytes % (Manual) 5, Monocytes % (Manual) 4, Eosinophils % (Manual) 0, Basophils % (Manual) 0, Band Neutrophils 10, Anisocytosis SLIGHT, Microcytosis SLIGHT, Lactic Acid Level 2.72 01/31/19 12:05: Urine Color YELLOW, Urine Clarity CLEAR, Urine pH 5, Urine Specific Curlew 1.020, Urine Protein 2+, Urine Glucose (UA) NEGATIVE, Urine Ketones NEGATIVE, Urine Nitrite NEGATIVE, Urine Bilirubin NEGATIVE, Urine Urobilinogen NORMAL, Urine Leukocyte Esterase 1+, Urine RBC (Auto) 2+, Urine RBC 0-2, Urine WBC 0-2, Urine Squamous Epithelial Cells RARE, Urine Crystals PRESENT, Urine Amorphous Sediment FEW SARI URATES, Urine Bacteria TRACE, Urine Casts PRESENT, Urine Hyaline Casts 5-10, Urine Mucus NEGATIVE, Urine Culture Indicated NO 01/31/19 12:28: Lactic Acid Level 1.68, Lab Scanned Report Referred Lab Report 01/31/19 15:50: White Blood Count 18.2, Red Blood Count 3.45, Hemoglobin 8.6, Hematocrit 29, Mean Corpuscular Volume 84, Mean Corpuscular Hemoglobin 25, Mean Corpuscular Hemoglobin Concent 30, Red Cell Distribution Width 19.8, Platelet Count 316, Mean Platelet Volume 9.8, Neutrophils (%) (Auto) 93, Lymphocytes (%) (Auto) 4, Monocytes (%) (Auto) 3, Eosinophils (%) (Auto) 0, Basophils (%) (Auto) 0, Neutrophils # (Auto) 16.9, Lymphocytes # (Auto) 0.7, Monocytes # (Auto) 0.6, Eosinophils # (Auto) 0.0, Basophils # (Auto) 0.0, Lactic Acid Level 1.37, Sodium Level 140, Potassium Level 5.8, Chloride Level 108, Carbon Dioxide Level 23, Anion Gap 9, Blood Urea Nitrogen 66, Creatinine 2.65, Estimat Glomerular Filtration Rate 31, BUN/Creatinine Ratio 25, Glucose Level 142, Calcium Level 9.4, Corrected Calcium 10.5, Phosphorus Level 6.8, Magnesium Level 2.1, Total Bilirubin 0.5, Aspartate Amino Transf (AST/SGOT) 30, Alanine Aminotransferase ( ALT/SGPT) 46, Alkaline Phosphatase 165, B-Type Natriuretic Peptide 675.7, Total Protein 7.1, Albumin 2.6 01/31/19 17:25: Blood Gas Puncture Site RIGHT RADIAL, Blood Gas Patient Temperature 94.1, Arterial Blood pH 7.28, Arterial Blood Partial Pressure CO2 53, Arterial Blood Partial Pressure O2 56, Arterial Blood HCO3 25, Arterial Blood Total CO2 27.0, Arterial Blood Oxygen Saturation 89, Arterial Blood Base Excess -1.1, Sebastian Test POSITIVE, Blood Gas Ventilator Setting NO, Blood Gas Inspired Oxygen 2L 02/01/19 03:15: White Blood Count 24.5, Red Blood Count 3.34, Hemoglobin 8.5, Hematocrit 28, Mean Corpuscular Volume 82, Mean Corpuscular Hemoglobin 25, Mean Corpuscular Hemoglobin Concent 31, Red Cell Distribution Width 19.7, Platelet Count 351, Mean Platelet Volume 9.6, Neutrophils (%) (Auto) 90, Lymphocytes (%) (Auto) 3, Monocytes (%) (Auto) 7, Eosinophils (%) (Auto) 0, Basophils (%) (Auto) 0, Neutrophils # (Auto) 22.1, Lymphocytes # (Auto) 0.8, Monocytes # (Auto) 1.7, Eosinophils # (Auto) 0.0, Basophils # (Auto) 0.0, Sodium Level 142, Potassium Level 5.7, Chloride Level 111, Carbon Dioxide Level 22, Anion Gap 9, Blood Urea Nitrogen 63, Creatinine 2.21, Estimat Glomerular Filtration Rate 39, BUN/ Creatinine Ratio 29, Glucose Level 130, Calcium Level 9.2, Corrected Calcium 10.4, Phosphorus Level 5.5, Magnesium Level 2.0, Total Bilirubin 0.4, Aspartate Amino Transf (AST/SGOT) 25, Alanine Aminotransferase (ALT/SGPT) 41, Alkaline Phosphatase 146, Total Protein 6.7, Albumin 2.5 02/01/19 03:57: Blood Gas Puncture Site RIGHT RADIAL, Blood Gas Patient Temperature 97.0, Arterial Blood pH 7.36, Arterial Blood Partial Pressure CO2 42, Arterial Blood Partial Pressure O2 59, Arterial Blood HCO3 23, Arterial Blood Total CO2 24.6, Arterial Blood Oxygen Saturation 90, Arterial Blood Base Excess -1.6, Sebastian Test YES-POS, Blood Gas Ventilator Setting NO, Blood Gas Inspired Oxygen 21% 02/01/19 12:24: Sodium Level 143, Potassium Level 5.2, Chloride Level 112, Carbon Dioxide Level 25, Anion Gap 6, Blood Urea Nitrogen 57, Creatinine 1.93, Estimat Glomerular Filtration Rate 45, BUN/Creatinine Ratio 30, Glucose Level 124, Calcium Level 9.0 02/02/19 04:18: White Blood Count 16.9, Red Blood Count 3.23, Hemoglobin 7.9, Hematocrit 26, Mean Corpuscular Volume 80, Mean Corpuscular Hemoglobin 25, Mean Corpuscular Hemoglobin Concent 31, Red Cell Distribution Width 19.1, Platelet Count 244, Mean Platelet Volume 9.8, Neutrophils (%) (Auto) 88, Lymphocytes (%) (Auto) 5, Monocytes (%) (Auto) 7, Eosinophils (%) (Auto) 1, Basophils (%) (Auto) 0, Neutrophils # (Auto) 14.9, Lymphocytes # (Auto) 0.8, Monocytes # (Auto) 1.1, Eosinophils # (Auto) 0.1, Basophils # (Auto) 0.0, Sodium Level 140, Potassium Level 4.6, Chloride Level 111, Carbon Dioxide Level 22, Anion Gap 7, Blood Urea Nitrogen 46, Creatinine 1.61, Estimat Glomerular Filtration Rate 56, BUN/ Creatinine Ratio 29, Glucose Level 89, Calcium Level 9.6, Phosphorus Level 3.0, Magnesium Level 1.7 02/03/19 04:35: Phosphorus Level 3.3, Magnesium Level 1.7 02/04/19 05:17: Phosphorus Level 3.0, Magnesium Level 1.6 02/05/19 04:35: White Blood Count 19.8, Red Blood Count 3.39, Hemoglobin 8.5, Hematocrit 28, Mean Corpuscular Volume 81, Mean Corpuscular Hemoglobin 25, Mean Corpuscular Hemoglobin Concent 31, Red Cell Distribution Width 20.4, Platelet Count 194, Mean Platelet Volume 10.6, Neutrophils (%) (Auto) 83, Lymphocytes (%) (Auto) 7, Monocytes (%) (Auto) 7, Eosinophils (%) (Auto) 2, Basophils (%) (Auto) 0, Neutrophils # (Auto) 16.5, Lymphocytes # (Auto) 1.5, Monocytes # (Auto) 1.4, Eosinophils # (Auto) 0.4, Basophils # (Auto) 0.0, Sodium Level 143, Potassium Level 3.9, Chloride Level 114, Carbon Dioxide Level 19, Anion Gap 10, Blood Urea Nitrogen 21, Creatinine 1.37, Estimat Glomerular Filtration Rate > 60, BUN/ Creatinine Ratio 15, Glucose Level 83, Calcium Level 9.7, Phosphorus Level 3.1, Magnesium Level 1.6, Corrected Calcium 10.8, Total Bilirubin 0.5, Aspartate Amino Transf (AST/SGOT) 10, Alanine Aminotransferase (ALT/SGPT) 15, Alkaline Phosphatase 101, Total Protein 6.8, Albumin 2.6 02/06/19 06:20: Phosphorus Level 2.9, Magnesium Level 1.6 02/07/19 04:12: Phosphorus Level 2.6, Magnesium Level 1.5 02/07/19 09:45: White Blood Count 22.7, Red Blood Count 3.46, Hemoglobin 8.7, Hematocrit 28, Mean Corpuscular Volume 81, Mean Corpuscular Hemoglobin 25, Mean Corpuscular Hemoglobin Concent 31, Red Cell Distribution Width 20.1, Platelet Count 181, Mean Platelet Volume 10.7 02/08/19 05:30: Phosphorus Level 2.7, Magnesium Level 1.5, Sodium Level 138, Potassium Level 3.4 , Chloride Level 108, Carbon Dioxide Level 19, Anion Gap 11, Blood Urea Nitrogen 11, Creatinine 1.09, Estimat Glomerular Filtration Rate > 60, BUN/ Creatinine Ratio 10, Glucose Level 94, Calcium Level 9.4, Corrected Calcium 10.4 , Total Bilirubin 0.4, Aspartate Amino Transf (AST/SGOT) 12, Alanine Aminotransferase (ALT/SGPT) 13, Alkaline Phosphatase 84, Total Protein 6.9, Albumin 2.7 02/09/19 03:34: Phosphorus Level 2.5, Magnesium Level 1.5 02/10/19 06:31: Phosphorus Level 2.5, Magnesium Level 1.4 Discharge Home Medications: Active Scripts Active Reported Lisinopril 20 Mg Tablet 20 Mg PO DAILY HOLD FOR SBP<100 ET PULSE <60 Flomax (Tamsulosin HCl) 0.4 Mg Cap 0.4 Mg PO 1800 Alprazolam 1 Mg Tablet 1 Mg PO BID Quetiapine Fumarate 25 Mg Tablet 25 Mg PO HS Gabapentin 300 Mg Capsule 300 Mg PO TID Morphine Sulfate ER (Morphine Sulfate) 100 Mg Tablet.er 100 Mg PO Q12H Ferrous Sulfate 325 Mg Tablet 325 Mg PO DAILY Dexamethasone 4 Mg Tablet 4 Mg PO DAILY Sertraline HCl 50 Mg Tablet 100 Mg PO HS TAKES 2 (50MG) TABLETS Oxycodone-Acetaminophen 10-325 (Oxycodone HCl/Acetaminophen) 1 Each Tablet 1 Tab PO Q3H PRN Ondansetron Odt (Ondansetron) 8 Mg Tab.rapdis 8 Mg PO Q8H PRN Metoprolol Succinate 25 Mg Tab.er.24h 25 Mg PO DAILY HOLD FOR SBP<100 OR PULSE <60 Mirtazapine 30 Mg Tablet 30 Mg PO HS Mylanta Suspension (Al Hydrox/Mg Hydrox/Simethicone) 30 Ml Oral.susp 30 Ml PO Q4H PRN Melatonin 5 Mg Tablet 5 Mg PO HS Instructions to patient/family Please see electronic discharge instructions given to patient. Clinical Quality Measures DVT/VTE Risk/Contraindication: Risk Factor Score Per Nursin RFS Level Per Nursing on Admit: 4+=Very High JYOTI JULIEN DO Feb 14, 2019 18:40
== END 2019-02-13 17:22 | disposition hospice, inpatient (51) | DRG 871 ==
LOC: EDUNIT# 09:45 → ER 09:47 → ICU 12:28 → 4TH 02-01 15:23
PROVIDERS: ADMIT Family Medicine; ATTEND Family Medicine
DX: A41.9 Sepsis, unspecified organism (principal); R65.21 Severe sepsis with septic shock; J18.1 Lobar pneumonia, unspecified organism; E87.2 Acidosis; C79.51 Secondary malignant neoplasm of bone; C44.520 Squamous cell carcinoma of anal skin; B02.9 Zoster without complications; Z66 Do not resuscitate; Z51.5 Encounter for palliative care; M84.58XD Pathological fracture in neoplastic disease, other specified site, subsequent encounter for fracture with routine healing; G89.3 Neoplasm related pain (acute) (chronic); K60.4 Rectal fistula; D64.9 Anemia, unspecified; J44.9 Chronic obstructive pulmonary disease, unspecified; N28.9 Disorder of kidney and ureter, unspecified; R41.82 Altered mental status, unspecified; R06.89 Other abnormalities of breathing; I10 Essential (primary) hypertension; R00.0 Tachycardia, unspecified; Z92.21 Personal history of antineoplastic chemotherapy; Z92.3 Personal history of irradiation
CPT/HCPCS: 36415; 51702; 70450; 71045; 80048; 80053; 81000; 82805; 83605; 83735; 83880; 84100; 85007; 85025; 85027; 87040; 87081; 87088; 94660; 96361; 96365; 96367